=== PATIENT | female | born 1955 | race Caucasian/White ===

== ENCOUNTER 2020-12-12 08:56 | Outpatient (REF) | payer MEDICARE, SELFPAY ==
--- NOTE | 2020-12-15 11:25 | XR_ITS ---
EXAMINATION: XR KNEE, RIGHT CLINICAL INFORMATION: Unilateral primary osteoarthritis of the right knee COMPARISON: 09/22/2018 TECHNIQUE: AP standing view of both knees. Lateral and sunrise views of the right knee. of the right knee. FINDINGS: Right knee: No fracture or subluxation. There is mild lateral compartment joint space narrowing. Prominent tricompartmental marginal osteophytes are seen. There is a moderate joint effusion. Left knee: No fracture or subluxation. Small marginal osteophytes of the medial and lateral compartments. XR/XR knee RT 3V IMPRESSION: Moderate tricompartmental degenerative changes of the right knee. Moderate joint effusion.
== END 2020-12-12 08:57 | disposition home or self-care (01) ==
LOC: HO.HOSX 08:56
PROVIDERS: PCP Internal Medicine; Visit Provider Orthopaedic Surgery
DX: M17.11 Unilateral primary osteoarthritis, right knee (principal); N18.4 Chronic kidney disease, stage 4 (severe)
CPT/HCPCS: 99212

== ENCOUNTER 2020-12-15 | Outpatient (REF) | payer MEDICARE, SELFPAY | END 2020-12-15 00:01 | disposition home or self-care (01) | LOC: HO.XRAY | PROVIDERS: Visit Provider Orthopaedic Surgery | DX: M17.11 Unilateral primary osteoarthritis, right knee (principal) | CPT/HCPCS: 73562 ==

== ENCOUNTER 2021-01-11 09:46 | Outpatient (REF) | payer MEDICARE, SELFPAY ==
[2021-01-11 12:23] LABS: MANUAL DIFF FLAG NO
[2021-01-11 12:27] LABS: Basophils Percent Auto 0.6 % (0-2); Eosinophils Absolute Auto 0.3 X10*3/uL (0.0-0.4); Eosinophils Percent Auto 4.6 % (0-4); Hematocrit 39.2 % (37-47); Hemoglobin 12.4 g/dl (12.0-16.0); Imm Gran Abs Auto 0.03 X10*3/uL (0.00-0.03); Imm Gran Pct Auto 0.4 % (0.0-0.4); Lymphocytes Absolute Auto 1.6 X10*3/uL (1.2-4.9); Lymphocytes Percent Auto 22.2 % (20-40); Mean Corpuscular HGB Conc 31.6 g/dl (31.0-35.0); Mean Corpuscular Hemoglobin 31.2 pg (27.0-33.0); Mean Corpuscular Volume 98.7 fL (80-98); Mean Platelet Volume 9.4 fL (9.4-12.3); Monocytes Absolute Auto 0.7 X10*3/uL (0.1-1.2); Monocytes Percent Auto 9.5 % (2-11); Neutrophils Absolute Auto 4.4 X10*3/uL (2.0-8.3); Neutrophils Percent Auto 62.7 % (45-73); Platelet Count 289 X10*3/uL (160-400); Red Blood Count 3.97 X10*6/uL (4.20-5.50); Red Cell Distribution Width 13.1 % (11.0-16.0)
[2021-01-11 13:28] LABS: Anion Gap 13 (12-20); Blood Urea Nitrogen 27 mg/dL (9-16); Calcium 9.4 mg/dL (8.4-10.2); Carbon Dioxide 29 mmol/L (22-29); Chloride 104 mmol/L (96-108); Estimated Glomerular Filt Rate 28; Glucose Random 97 mg/dL (60-115); Potassium 4.6 mmol/L (3.3-5.1); Sodium 141 mmol/L (135-145)
== END 2021-01-11 09:47 | disposition home or self-care (01) ==
LOC: HO.LAB 09:46
PROVIDERS: PCP Internal Medicine; Visit Provider Orthopaedic Surgery
DX: Z01.812 Encounter for preprocedural laboratory examination (principal)
CPT/HCPCS: 36415; 80048; 85025

== ENCOUNTER → 2021-02-09 13:01 | Outpatient (BNVA) | payer MEDICARE, SELFPAY | PROVIDERS: PCP Internal Medicine; Visit Provider Physician Assistant | DX: Z13.89 Encounter for screening for other disorder (principal) | CPT/HCPCS: 99212 ==

== ENCOUNTER 2021-02-14 07:43 | Inpatient (IN) | payer MEDICARE, SELFPAY ==
--- NOTE | 2021-01-11 11:43 | ECG_ITS ---
Test Reason : PREPROC EXAM Blood Pressure : / mmHG Vent. Rate : 081 BPM Atrial Rate : 081 BPM P-R Int : 144 ms QRS Dur : 088 ms QT Int : 372 ms P-R-T Axes : 059 044 029 degrees QTc Int : 432 ms Normal sinus rhythm Possible Left atrial enlargement Borderline ECG No previous ECGs available Referred By: Werner Brooks Electronically Signed By:NAVARRO ANDERSON
[2021-02-07 11:56] VITALS: BP 119/59; PULSE 84; RESP 20; O2SAT 96; BMI 40.5
--- NOTE | 2021-02-07 12:10 | HO.ANESPROP2 ---
Documented by User: Kiesha Blanconey 02/13/21 10:32 HPI - Anesthesia Eval Consult details Narrative: Right Knee Replacement Total PCP cleared Renal cleared (post-covid renal disease) PMFSH Active Problems Active Problems: All Active Problems (Updated 01/11/21 @ 14:36 by Christine Rachel RN) Osteoarthritis of right knee (Acute) Past Medical History Medical History Arthritis Asthma Chronic renal insufficiency Cognitive dysfunction COVID-19 vaccine administered Difficulty swallowing Dysphagia Fatty liver High cholesterol History of COVID-19 HX: benign breast biopsy Hypertension Stage 4 chronic kidney disease Tremors of nervous system Surgical History Surgical History H/O endoscopy History of section History of colonoscopy Hx laparoscopic cholecystectomy Social History Social History Alcohol intake: never Smoking Status: Never smoker Current occupational status: retired Current occupation: right handed Meds Allergies Allergy/AdvReac Type Severity Reaction Status Date / Time benztropine [From Cogentin] Allergy Intermediate Rash Verified 02/14/21 08:00 latex Allergy Intermediate Itching Verified 02/14/21 08:00 thimerosal Allergy Intermediate Itching Verified 02/14/21 08:00 sulfamethoxazole AdvReac Intermediate contraindicated Verified 02/14/21 08:00 [From Bactrim] w/stage 4 CKD trimethoprim [From Bactrim] AdvReac Intermediate contraindicated Verified 02/14/21 08:00 w/stage 4 CKD Home Medications Medication Instructions Recorded Confirmed Last Taken Type albuterol sulfate 2.5 mg INHALATION Q4H PRN 12/12/20 02/07/21 Unknown History amlodipine 10 mg tablet 10 mg PO DAILY 12/12/20 02/07/21 Unknown History aripiprazole 10 mg tablet 10 mg PO BEDTIME 12/12/20 02/07/21 Unknown History budesonide-formoterol HFA 80 2 puff INHALATION BID 12/12/20 02/07/21 Unknown History mcg-4.5 mcg/actuation aerosol inhaler clonazepam 1 mg tablet 0.5 mg PO QPM 12/12/20 02/07/21 Unknown History fluoxetine 40 mg capsule 40 mg PO QAM 12/12/20 02/07/21 Unknown History gabapentin 100 mg capsule 100 mg PO BEDTIME 12/12/20 02/07/21 Unknown History pravastatin 80 mg tablet 80 mg PO BEDTIME 12/12/20 02/07/21 Unknown History quetiapine 100 mg tablet 300 mg PO BEDTIME 12/12/20 02/14/21 Unknown History albuterol sulfate [ProAir HFA] 2 puff INHALATION Q4-6H PRN 02/07/21 02/07/21 Unknown History bupropion HCl 1 tab PO BID 02/07/21 02/14/21 02/14/21 06:00 History cetirizine 10 mg PO BEDTIME 02/07/21 02/07/21 Unknown History cholecalciferol (vitamin D3) 50 mcg PO Q2D 02/07/21 02/07/21 Unknown History [Vitamin D3] clonazepam 1.5 mg PO BEDTIME 02/07/21 02/07/21 Unknown History clonidine HCl 1 tab PO BEDTIME 02/07/21 02/07/21 Unknown History docusate sodium [Colace] 100 mg PO BID 02/07/21 02/07/21 Unknown History multivitamin 1 tab PO DAILY 02/07/21 02/07/21 Unknown History primidone 1 tab PO BID 02/07/21 02/07/21 Unknown History Exam Exam Date and Time: February 07, 2021 1210 Pertinent Lab Results Pertinent Lab Results: Laboratory Tests 01/11/21 01/11/21 11:41 11:41 WBC 7.0 Hgb 12.4 Hct 39.2 Plt Count 289 Sodium 141 Potassium 4.6 Chloride 104 Carbon Dioxide 29 BUN 27 H Creatinine 1.81 H Estimated GFR 28 Lab Results 02/07/21 02/07/21 Range/Units 13:21 Unknown Nasal Screen MRSA (PCR) NEGATIVE (Negative) Nasal S. aureus Screen NEGATIVE (Negative) Nasal MRSA/S.aureus Interp SEE NOTE Blood Type B Positive Antibody Screen NEGATIVE Narrative Narrative: EKG 12/2020 Vent. Rate : 081 BPM Atrial Rate : 081 BPM P-R Int : 144 ms QRS Dur : 088 ms QT Int : 372 ms P-R-T Axes : 059 044 029 degrees QTc Int : 432 ms Normal sinus rhythm Possible Left atrial enlargement Borderline ECG No previous ECGs available Airway Neck ROM: Full Loose/Missing/Broken Teeth: Yes (Chipped #8, implants in molars) Heart: RRR Lungs: CTAB Assessment and Plan Assessment Anesthesia Assessment: Anesthesia Plan Discussed (Spinal vs GA, nerve block) and PAT Visit Documented by User: Home Palacios MD 02/14/21 11:56 [facility] Past Medical History Medical History Arthritis Asthma Chronic renal insufficiency Cognitive dysfunction COVID-19 vaccine administered Difficulty swallowing Dysphagia Fatty liver High cholesterol History of COVID-19 HX: benign breast biopsy Hypertension Stage 4 chronic kidney disease Tremors of nervous system Surgical History Surgical History H/O endoscopy History of section History of colonoscopy Hx laparoscopic cholecystectomy Social History Social History Alcohol intake: never Smoking Status: Never smoker Current occupational status: retired Current occupation: right handed Meds Allergies Allergy/AdvReac Type Severity Reaction Status Date / Time benztropine [From Cogentin] Allergy Intermediate Rash Verified 02/14/21 08:00 latex Allergy Intermediate Itching Verified 02/14/21 08:00 thimerosal Allergy Intermediate Itching Verified 02/14/21 08:00 sulfamethoxazole AdvReac Intermediate contraindicated Verified 02/14/21 08:00 [From Bactrim] w/stage 4 CKD trimethoprim [From Bactrim] AdvReac Intermediate contraindicated Verified 02/14/21 08:00 w/stage 4 CKD Home Medications Medication Instructions Recorded Confirmed Last Taken Type albuterol sulfate 2.5 mg INHALATION Q4H PRN 12/12/20 02/07/21 Unknown History amlodipine 10 mg tablet 10 mg PO DAILY 12/12/20 02/07/21 Unknown History aripiprazole 10 mg tablet 10 mg PO BEDTIME 12/12/20 02/07/21 Unknown History budesonide-formoterol HFA 80 2 puff INHALATION BID 12/12/20 02/07/21 Unknown History mcg-4.5 mcg/actuation aerosol inhaler clonazepam 1 mg tablet 0.5 mg PO QPM 12/12/20 02/07/21 Unknown History fluoxetine 40 mg capsule 40 mg PO QAM 12/12/20 02/07/21 Unknown History gabapentin 100 mg capsule 100 mg PO BEDTIME 12/12/20 02/07/21 Unknown History pravastatin 80 mg tablet 80 mg PO BEDTIME 12/12/20 02/07/21 Unknown History quetiapine 100 mg tablet 300 mg PO BEDTIME 12/12/20 02/14/21 Unknown History albuterol sulfate [ProAir HFA] 2 puff INHALATION Q4-6H PRN 02/07/21 02/07/21 Unknown History bupropion HCl 1 tab PO BID 02/07/21 02/14/21 02/14/21 06:00 History cetirizine 10 mg PO BEDTIME 02/07/21 02/07/21 Unknown History cholecalciferol (vitamin D3) 50 mcg PO Q2D 02/07/21 02/07/21 Unknown History [Vitamin D3] clonazepam 1.5 mg PO BEDTIME 02/07/21 02/07/21 Unknown History clonidine HCl 1 tab PO BEDTIME 02/07/21 02/07/21 Unknown History docusate sodium [Colace] 100 mg PO BID 02/07/21 02/07/21 Unknown History multivitamin 1 tab PO DAILY 02/07/21 02/07/21 Unknown History primidone 1 tab PO BID 02/07/21 02/07/21 Unknown History Exam Airway Mallampati Class: III TM Dist: >3cm Neck ROM: Full Loose/Missing/Broken Teeth: No Heart: RRR Assessment and Plan Assessment Anesthesia Assessment: Anesthesia Plan Discussed, PAT Visit and Chart Reviewed Final Anesthetic Review NPO: Yes ASA Class: II Final Preanesthetic Review: No Changes in Pt Med Stat, Meds/Allgs Chart Reviewed, Consent Obtained/Reviewed and Anes Risks/Benef Reviewed Patient Risk: Intermediate Procedure Risk: Intermediate Anesthetic Plan Anesthetic Plan: GA, Spinal and Regional Block Disposition: Standard PACU
[2021-02-07 15:04] LABS: MRSA Nasal PCR NEGATIVE (Negative); SA Nasal PCR NEGATIVE (Negative)
[2021-02-14] VITALS (17 sets, daily range): BP systolic 140–182; BP diastolic 73–95; PULSE 76–101; RESP 16–22; TEMP 36.1–37.2; O2SAT 92–98
--- NOTE | ~2021-02-14 | XR_ITS ---
EXAMINATION: XR KNEE, RIGHT CLINICAL INFORMATION: Status post total knee arthroplasty COMPARISON: Right knee x-ray December 12, 2020 TECHNIQUE: 2 views of the right knee. FINDINGS: Patient is status post right total knee arthroplasty. Components are in expected orientation. There is no evidence of periprosthetic fracture. Small suprapatellar joint effusion noted. Expected subcutaneous emphysema. Skin robbie present. XR/XR knee RT 2V IMPRESSION: Expected postoperative changes of the right knee.
[2021-02-14] MEDS: Gabapentin 600 MG TABLET PO (08:09)
[2021-02-14 08:25] LABS: COVID-19 Test Negative (Negative); IDNOW Serial# 9DD0AD1C
[2021-02-14] MEDS: 0.9 % Sodium Chloride 1,000 ML 100 ML IVCONT (08:59)
--- NOTE | 2021-02-14 09:49 | MHC.SHP ---
Pre-Procedural Eval Section A The patient is an INPATIENT: No Changes since office visit: Yes Patient answered all questions; No Cold of Flu in the past 2 weeks, No New Medical Problems and No Changes in Medication The History & Physical has been completed within 30 days and I have reviewed it.: Yes Section B Chief Complaint: Right total Knee Arthroplasty Allergies: Allergies Allergy/AdvReac Type Severity Reaction Status Date / Time benztropine [From Cogentin] Allergy Intermediate Rash Verified 02/14/21 08:00 latex Allergy Intermediate Itching Verified 02/14/21 08:00 thimerosal Allergy Intermediate Itching Verified 02/14/21 08:00 sulfamethoxazole AdvReac Intermediate contraindicated Verified 02/14/21 08:00 [From Bactrim] w/stage 4 CKD trimethoprim [From Bactrim] AdvReac Intermediate contraindicated Verified 02/14/21 08:00 w/stage 4 CKD Plan I have reviewed the history and physical and performed a pertinent physical examination on my patient. No changes have occurred unless specified.
--- NOTE | 2021-02-14 12:50 | P.BOP_ITS ---
Brief Operative Note Date of Service: 02/14/21 Pre-op diagnosis: Right knee OA Post-op diagnosis: same Procedure: Right TKA Implants: [employer] triathalon 12/14//a Surgeon: Werner Brooks MD Anesthesia: regional and spinal Credit Card Analyst: Paul Sorenson Estimated blood loss (mL): 150 Tourniquet time (min): 0 IV fluids (mL): 1,500 Pathology: other Condition: stable Disposition: PACU
--- NOTE | 2021-02-14 12:52 | W.PM.OPN ---
Operative Note Operative Note Date of Service: 02/14/21 Narrative: Pre-op diagnosis: Right knee OA Post-op diagnosis: same Procedure: Right TKA Implants: [place] triathalon //11cr/35a Surgeon: Werner Brooks MD Anesthesia: regional and spinal International Account Manager: Paul Sorenson Estimated blood loss (mL): 150 Tourniquet time (min): 0 IV fluids (mL): 1,500 Pathology: other Condition: stable Disposition: PACU Procedure in detail: Patient was brought to the operating room and prepped and draped in standard sterile fashion. A time-out was called to identify proper site proper procedure proper surgeon IV antibiotics were administered. 1 g of IV tranexamic acid was also administered. I began by making a midline incision down to the retinaculum and performed a medial parapatellar arthrotomy. The patella was translated laterally and the knee was flexed up. I performed a small medial peel and resected the infrapatellar fat pad. She had lateral femoral condyle and posterior lateral tibial eburnation. Powhatan's line was then used to drill my intramedullary femoral guide and my distal femur cut was made in 5 degrees of valgus. I then measured a 2 femur and placed my cutting guide and made my anterior posterior and chamfer cuts protecting the soft tissues at all times. Once I was happy with my cut I turned my attention to the tibia. In line with the tibial crest and with a 3 degree posterior slope I made my distal tibial cut protecting the PCL the posterior soft tissues at all times. An extension block was used to confirm appropriate amount of bony resection. I then sized a 3 tibia and once I was satidfied with the tibial coverage I placed my trial and with the trial femur in place took the knee through range of motion. I was happy with the extension and flexion as well as the stability at 30 and 90 degrees. I then turned my attention to the patella where I removed 1 cm from the undersurface of the patella and then trialed a 35a patellar button . Again the knee was taken through range of motion I was happy with the tracking. I then returned to the femur and drilled my femoral lug holes and prepared the tibia. Femoral bone plug was then placed and the knee was irrigated copiously. I then press fit the patella, tibia and femur in standard fashion. I trialed different inserts until I found the appropriate size. I then placed the final insert and performed a 3 minutes iodine soak with local TXA. The knee was then closed with a running Quill suture, a 3 0 Vicryl and robbie on the skin. Patient was then placed in sterile dressing and brought to recovery room in stable condition there were no known complications.
[2021-02-14] MEDS: oxyCODONE HCl Immed Release 5 MG TABLET PO ×2 (13:39→23:48)
[2021-02-14] MEDS: HYDROmorphone HCl 0.5 MG/0.5 ML SYRINGE 0.25 MG IVPUSH ×4 (13:50→22:39)
[2021-02-14] MEDS: Dextrose 5 % and 0.45 % NaCl 1,000 ML 80 ML IVCONT (15:15)
[2021-02-14] MEDS: ceFAZolin Sodium/Dextrose,Iso 2 GM/50 ML PIGGYBACK IV (17:15)
--- NOTE | 2021-02-14 17:25 | P.CONIM_ITS ---
History of Present Illness Data of Consult Service Date: 02/14/21 Requesting physician: Werner Brooks Primary Care Provider: Hilary Ocasio MD [facility] Reason for consult: medical management 65-year-old woman with a history of hypertension, hyperlipidemia and asthma status post right total knee arthroplasty. Surgery was unremarkable. Patient has a moderate amount of pain postoperatively. She has no other acute medical complaints. Vital signs are stable though blood pressure is elevated likely related to postoperative pain. Review of Systems Review of Systems: Denies any recent fever chills or decrease in appetite respiratory denies any shortness of breath coverage production cardiovascular is adjustment of any PND or edema gastrointestinal denies any dysphagia abdominal pain nausea vomiting or diarrhea genitourinary denies any dysuria frequency or hematuria musculoskeletal See HPI neuropsych denies any weakness or seizures all other systems reviewed are negative [facility] Medical History (Updated 02/14/21 @ 17:26 by Carlita Leyva NP) Arthritis Asthma Chronic renal insufficiency Cognitive dysfunction COVID-19 vaccine administered Difficulty swallowing Dysphagia Fatty liver High cholesterol History of COVID-19 HX: benign breast biopsy Hypertension Stage 4 chronic kidney disease Tremors of nervous system Pertinent family history: Denies cardiac disease Surgical History H/O endoscopy History of section History of colonoscopy Hx laparoscopic cholecystectomy Social History Household Members: Spouse Housing: House Alcohol intake: never Smoking Status: Never smoker Second Hand Smoke Exposure: No Current occupational status: retired Current occupation: right handed Meds Allergies Allergy/AdvReac Type Severity Reaction Status Date / Time benztropine [From Cogentin] Allergy Intermediate Rash Verified 02/14/21 08:00 latex Allergy Intermediate Itching Verified 02/14/21 08:00 thimerosal Allergy Intermediate Itching Verified 02/14/21 08:00 sulfamethoxazole AdvReac Intermediate contraindicated Verified 02/14/21 08:00 [From Bactrim] w/stage 4 CKD trimethoprim [From Bactrim] AdvReac Intermediate contraindicated Verified 02/14/21 08:00 w/stage 4 CKD Active Medications: Current Medications Generic Name Dose Route Start Last Admin Trade Name Freq PRN Reason Stop Dose Admin Acetaminophen 650 mg 02/14/21 13:16 Acetaminophen 325 Mg Tablet PO Q6H PRN Pain, Mild (Pain Scale 1-3) Albuterol Sulfate 2.5 mg 02/14/21 07:43 Albuterol Sulfate (0.083%) 2.5 Mg/3 Ml Vial.Neb INHALE ONCE PRN Shortness of Breath/Wheezing Albuterol Sulfate 2.5 mg 02/14/21 11:56 Albuterol Sulfate (0.083%) 2.5 Mg/3 Ml Vial.Neb INHALE ONCE PRN Wheezing Celecoxib 200 mg 02/14/21 21:00 Celecoxib 200 Mg Capsule PO BID IDA Docusate Sodium 100 mg 02/14/21 21:00 Docusate Sodium 100 Mg Capsule PO BID IDA Hydromorphone HCl 0.25 mg 02/14/21 11:56 02/14/21 14:05 Hydromorphone Hcl 0.5 Mg/0.5 Ml Syringe IVPUSH 0.25 mg Q5M PRN Administration Pain, Severe (Pain Scale 7-10) Hydromorphone HCl 0.25 mg 02/14/21 13:16 Hydromorphone Hcl 0.5 Mg/0.5 Ml Syringe IVPUSH Q4H PRN Pain, Severe (Pain Scale 7-10) Sodium Chloride 1,000 mls @ 100 mls/hr 02/14/21 07:45 02/14/21 15:16 Ns IVCONT Infused .Q10H IDA Infusion Dextrose/Sodium Chloride 1,000 mls @ 80 mls/hr 02/14/21 13:30 02/14/21 15:15 D51/2ns IVCONT 80 mls/hr .[id number] IDA Administration Naloxone HCl 0.2 mg 02/14/21 13:16 Naloxone Hcl 0.4 Mg/Ml Vial IVPUSH Q2M PRN Excessive sedation or RR < 8 Ondansetron HCl 4 mg 02/14/21 11:56 Ondansetron Hcl 4 Mg/2 Ml Vial IVPUSH ONCE PRN Nausea and Vomiting Ondansetron HCl 4 mg 02/14/21 13:16 Ondansetron Hcl 4 Mg/2 Ml Vial IVPUSH Q8H PRN Nausea and Vomiting Oxycodone HCl 5 mg 02/14/21 13:16 Oxycodone Hcl Immed Release 5 Mg Tablet PO Q4H PRN Pain, Moderate (Pain Scale 4-6 Oxycodone HCl 10 mg 02/14/21 21:00 Oxycodone Hcl Er 10 Mg Tab.Er.12h PO BID [facility] Sodium Chloride 3 ml 02/14/21 16:00 02/14/21 17:16 0.9 % Sodium Chloride Flush 3 Ml Syringe IVFLUSH Not Given QSHIFT [facility] Home Medications Medication Instructions Recorded Confirmed Last Taken Type albuterol sulfate 2.5 mg INHALATION Q4H PRN 12/12/20 02/07/21 Unknown History amlodipine 10 mg tablet 10 mg PO DAILY 12/12/20 02/07/21 Unknown History aripiprazole 10 mg tablet 10 mg PO BEDTIME 12/12/20 02/07/21 Unknown History budesonide-formoterol HFA 80 2 puff INHALATION BID 12/12/20 02/07/21 Unknown History mcg-4.5 mcg/actuation aerosol inhaler clonazepam 1 mg tablet 0.5 mg PO QPM 12/12/20 02/07/21 Unknown History fluoxetine 40 mg capsule 40 mg PO QAM 12/12/20 02/07/21 Unknown History gabapentin 100 mg capsule 100 mg PO BEDTIME 12/12/20 02/07/21 Unknown History pravastatin 80 mg tablet 80 mg PO BEDTIME 12/12/20 02/07/21 Unknown History quetiapine 100 mg tablet 300 mg PO BEDTIME 12/12/20 02/14/21 Unknown History albuterol sulfate [ProAir HFA] 2 puff INHALATION Q4-6H PRN 02/07/21 02/07/21 Unknown History bupropion HCl 1 tab PO BID 02/07/21 02/14/21 02/14/21 06:00 History cetirizine 10 mg PO BEDTIME 02/07/21 02/07/21 Unknown History cholecalciferol (vitamin D3) 50 mcg PO Q2D 02/07/21 02/07/21 Unknown History [Vitamin D3] clonazepam 1.5 mg PO BEDTIME 02/07/21 02/07/21 Unknown History clonidine HCl 1 tab PO BEDTIME 02/07/21 02/07/21 Unknown History docusate sodium [Colace] 100 mg PO BID 02/07/21 02/07/21 Unknown History multivitamin 1 tab PO DAILY 02/07/21 02/07/21 Unknown History primidone 1 tab PO BID 02/07/21 02/07/21 Unknown History Physical Exam Vital Signs and Narrative: Vital Signs: Last Vital Signs Temp 97.2 F 02/14/21 17:09 Pulse 86 02/14/21 17:09 Resp 18 02/14/21 17:09 BP 150/85 H 02/14/21 17:09 Pulse Ox 95 02/14/21 17:09 Body Mass Index 40.5 Appearing in no acute distress head is normocephalic atraumatic eyes pupils are PERRLA sclera is anicteric mouth throat mucous membranes are intact and moist neck is supple no lymphadenopathy, no JVD noted lung sounds are clear to auscultation heart regular rate rhythm, clear S1, S2, right foot good pedal pulse positive bowel sounds, abdomen is soft, nontender neuro patient is alert x3, no focal deficits MSK right knee dressing clean, dry and intact Results Labs Labs: Laboratory Results - last 24 hr 02/14/21 07:54 COVID-19 ([facility]) Negative COVID-19 Clin Com See Note Imaging Radiologist's Impressions: Impressions Knee X-Ray 02/14/21 14:12 IMPRESSION: Expected postoperative changes of the right knee. Assessment and Plan (1) Status post total right knee replacement: Status: Acute 65-year-old woman status post right total knee arthroplasty. Right total knee arthroplasty. -management as per surgical team. -pain management -outpatient physical therapy Hypertension. Elevated blood pressures. Likely related to postoperative pain. -continue amlodipine and clonidine. -follow blood pressure closely. Asthma. No exacerbation. -albuterol as needed. Hyperlipidemia. - statin at discharge PTSD/depression. -continue home medications next DVT prophylaxis with mechanical compression boots as per surgical team. Attending: Dr. Gaitan
[2021-02-14] MEDS: Docusate Sodium 100 MG CAPSULE PO (20:21)
[2021-02-14] MEDS: Celecoxib 200 MG CAPSULE PO (20:21)
[2021-02-14] MEDS: oxyCODONE HCl ER 10 MG TAB.ER.12H PO (20:21)
[2021-02-15] VITALS (10 sets, daily range): BP systolic 114–177; BP diastolic 54–82; PULSE 90–109; RESP 16–20; TEMP 36.3–36.8; O2SAT 95–97
--- NOTE | 2021-02-15 00:45 | PC.NURSE ---
bladder scanned pt at 1915 for 801 ml, straight cath placed and output of 800 ml. bladder scanned pt again at 0010 for 535 ml, straight cath placed and output of 650 ml.
[2021-02-15] MEDS: oxyCODONE HCl Immed Release 5 MG TABLET 10 MG PO ×4 (02:00→16:11)
[2021-02-15] MEDS: HYDROmorphone HCl 0.5 MG/0.5 ML SYRINGE 0.25 MG IVPUSH ×4 (03:12→22:20)
[2021-02-15] MEDS: Dextrose 5 % and 0.45 % NaCl 1,000 ML 80 ML IVCONT (03:14)
--- NOTE | 2021-02-15 03:20 | PC.NURSE ---
at 0130 pt c/o 10/ pain in right knee and not due for any pain meds, [employer] connect message sent to CANDELARIA Diehl. Nitza increased oxycodone to 10mg and OK'd to give the 10 mg dose now. Oxycodone administered with some effect.
[2021-02-15 06:45] LABS: MANUAL DIFF FLAG NO
[2021-02-15 06:59] LABS: Basophils Percent Auto 0.2 % (0-2); Eosinophils Absolute Auto 0.1 X10*3/uL (0.0-0.4); Eosinophils Percent Auto 0.8 % (0-4); Hematocrit 34.7 % (37-47); Hemoglobin 11.2 g/dl (12.0-16.0); Imm Gran Abs Auto 0.05 X10*3/uL (0.00-0.03); Imm Gran Pct Auto 0.4 % (0.0-0.4); Lymphocytes Absolute Auto 1.2 X10*3/uL (1.2-4.9); Lymphocytes Percent Auto 10.4 % (20-40); Mean Corpuscular HGB Conc 32.3 g/dl (31.0-35.0); Mean Corpuscular Hemoglobin 31.4 pg (27.0-33.0); Mean Corpuscular Volume 97.2 fL (80-98); Mean Platelet Volume 9.2 fL (9.4-12.3); Monocytes Absolute Auto 1.4 X10*3/uL (0.1-1.2); Monocytes Percent Auto 11.5 % (2-11); Neutrophils Absolute Auto 9.1 X10*3/uL (2.0-8.3); Neutrophils Percent Auto 76.7 % (45-73); Platelet Count 250 X10*3/uL (160-400); Red Blood Count 3.57 X10*6/uL (4.20-5.50); Red Cell Distribution Width 13.2 % (11.0-16.0); White Blood Count 11.8 X10*3/uL (4.8-10.8)
--- NOTE | 2021-02-15 07:02 | PC.NURSE ---
pt still unable to void overnight, bladder scanned at 0615 for 732 ml, straight cath'd pt for 850 ml.
[2021-02-15 07:23] LABS: Anion Gap 12 (12-20); Blood Urea Nitrogen 15 mg/dL (9-16); Calcium 8.5 mg/dL (8.4-10.2); Carbon Dioxide 26 mmol/L (22-29); Chloride 102 mmol/L (96-108); Creatinine Clr Calc Pharmacy 42.8; Estimated Glomerular Filt Rate 38; Glucose Fasting 130 mg/dL (60-99); Potassium 4.2 mmol/L (3.3-5.1); Sodium 136 mmol/L (135-145)
[2021-02-15] MEDS: Celecoxib 200 MG CAPSULE PO ×2 (08:09→20:29)
[2021-02-15] MEDS: Docusate Sodium 100 MG CAPSULE PO ×2 (08:09→20:28)
[2021-02-15] MEDS: Aspirin 325 MG TABLET PO (08:09)
[2021-02-15] MEDS: amLODIPine Besylate 10 MG TABLET PO (08:10)
[2021-02-15] MEDS: oxyCODONE HCl ER 10 MG TAB.ER.12H PO ×2 (08:10→20:29)
[2021-02-15] MEDS: FLUoxetine HCl 20 MG CAPSULE 40 MG PO (08:11)
--- NOTE | 2021-02-15 08:22 | PM.PNORT ---
Subjective Subjective Date of Service: 02/15/21 Interval history: POD:1 No overnight events Patient is: resting in bed having some pain in the knee and difficulty with voiding. Has not been out of bed yet. Denies:cp,sob,dizziness Physical Exam Vital Signs: Vital Signs: Last Vital Signs Temp 97.5 F 02/15/21 07:15 Pulse 94 02/15/21 08:10 Resp 20 02/15/21 07:15 BP 177/71 H 02/15/21 08:10 Pulse Ox 97 02/15/21 07:15 Body Mass Index 40.5 Const: General: cooperative, healthy appearing and no acute distress Resp: Effort & Inspection: normal respiratory effort and able to speak in complete sentences Cardio: Rate: regular rate Peripheral pulses: Peripheral pulses 2+ throughout GI: Palpation (GI): Soft to palpation Skin: General skin exam: no rashes or lesions noted Extrem: Other: Right knee bandage clean, dry and intact, no erythema, mild edema, sensation intact Progress Note: A&P Assessment and plan (1) Status post total right knee replacement: Status: Acute Assessment and Plan: Continue pain mgmnt Begin dvt ppx begin PT for RT TKA Dispo planning-Pending PT eval, pain mgmnt Fall Risk Details Current Medications: Current Medications Generic Name Dose Route Start Last Admin Trade Name Freq PRN Reason Stop Dose Admin Acetaminophen 650 mg 02/14/21 13:16 Acetaminophen 325 Mg Tablet PO Q6H PRN Pain, Mild (Pain Scale 1-3) Albuterol Sulfate 2.5 mg 02/14/21 07:43 Albuterol Sulfate (0.083%) 2.5 Mg/3 Ml Vial.Neb INHALE ONCE PRN Shortness of Breath/Wheezing Albuterol Sulfate 2.5 mg 02/14/21 11:56 Albuterol Sulfate (0.083%) 2.5 Mg/3 Ml Vial.Neb INHALE ONCE PRN Wheezing Albuterol Sulfate 2.5 mg 02/15/21 07:20 Albuterol Sulfate (0.083%) 2.5 Mg/3 Ml Vial.Neb INHALE Q4H PRN wheezing Amlodipine Besylate 10 mg 02/15/21 09:00 02/15/21 08:10 Amlodipine Besylate 10 Mg Tablet PO 10 mg DAILY IDA Administration Protocol Aripiprazole 10 mg 02/15/21 21:00 Aripiprazole 10 Mg Tablet PO BEDTIME [facility] Aspirin 325 mg 02/15/21 09:00 02/15/21 08:09 Aspirin 325 Mg Tablet PO 325 mg BID IDA Administration Bupropion HCl 300 mg 02/15/21 09:00 Bupropion Hcl Xl 300 Mg Tab.Er.24h PO DAILY IDA Celecoxib 200 mg 02/14/21 21:00 02/15/21 08:09 Celecoxib 200 Mg Capsule PO 200 mg BID IDA Administration Clonidine HCl 0.2 mg 02/15/21 21:00 Clonidine Hcl 0.2 Mg Tablet PO BEDTIME [facility] Protocol Docusate Sodium 100 mg 02/14/21 21:00 02/15/21 08:09 Docusate Sodium 100 Mg Capsule PO 100 mg BID IDA Administration Fluoxetine HCl 40 mg 02/15/21 09:00 02/15/21 08:11 Fluoxetine Hcl 20 Mg Capsule PO 40 mg DAILY IDA Administration Fluticasone/Vilanterol 1 puff 02/15/21 08:30 Fluticasone/Vilanterol 100/25 Blst.W.Dev INHALE RDAILY [facility] Hydromorphone HCl 0.25 mg 02/14/21 11:56 02/14/21 14:05 Hydromorphone Hcl 0.5 Mg/0.5 Ml Syringe IVPUSH 0.25 mg Q5M PRN Administration Pain, Severe (Pain Scale 7-10) Hydromorphone HCl 0.25 mg 02/14/21 13:16 02/15/21 03:12 Hydromorphone Hcl 0.5 Mg/0.5 Ml Syringe IVPUSH 0.25 mg Q4H PRN Administration Pain, Severe (Pain Scale 7-10) Dextrose/Sodium Chloride 1,000 mls @ 80 mls/hr 02/14/21 13:30 02/15/21 03:14 D51/2ns IVCONT 80 mls/hr .[id number] IDA Administration Naloxone HCl 0.2 mg 02/14/21 13:16 Naloxone Hcl 0.4 Mg/Ml Vial IVPUSH Q2M PRN Excessive sedation or RR < 8 Ondansetron HCl 4 mg 02/14/21 11:56 Ondansetron Hcl 4 Mg/2 Ml Vial IVPUSH ONCE PRN Nausea and Vomiting Ondansetron HCl 4 mg 02/14/21 13:16 Ondansetron Hcl 4 Mg/2 Ml Vial IVPUSH Q8H PRN Nausea and Vomiting Oxycodone HCl 10 mg 02/14/21 21:00 02/15/21 08:10 Oxycodone Hcl Er 10 Mg Tab.Er.12h PO 10 mg BID IDA Administration Oxycodone HCl 10 mg 02/15/21 01:33 02/15/21 07:31 Oxycodone Hcl Immed Release 5 Mg Tablet PO 10 mg Q4H PRN Administration Pain, Moderate (Pain Scale 4-6 Pravastatin Sodium 80 mg 02/15/21 21:00 Pravastatin Sodium 80 Mg Tablet PO BEDTIME IDA Quetiapine Fumarate 300 mg 02/15/21 21:00 Quetiapine Fumarate 50 Mg Tablet PO BEDTIME IDA Sodium Chloride 3 ml 02/14/21 16:00 02/15/21 06:58 0.9 % Sodium Chloride Flush 3 Ml Syringe IVFLUSH Not Given QSHIFT IDA Time Spent With Patient Time: Total time spent is greater than 50% in coordination of care (as documented) at patient's floor/unit and/or counseling patient: Time with patient: 15 - 24 minutes
--- NOTE | 2021-02-15 09:05 | MHC.CM.PN ---
pt lives c her and grandaughter in their home. she reports that she is independent in her care at [facility]. her family is able to help her when she returns home , including a ride at discharge. pt requested ref. be made to [facility] for home PT. this has been done. pt has a walker and cane at home. dc plan is home c [facility] for home PT. cm to cont. to follow.
--- NOTE | 2021-02-15 09:09 | MHC.CM.PN ---
pt lives c her and grandaughter in their home. she reports that she is independent in her care at [facility]. her family is able to help her when she returns home , including a ride at discharge. pt requested ref. be made to [facility] for home PT. this has been done. pt has a walker and cane at home. pt does not want to go to [facility]. dc plan is home c [facility]na for home PT. cm to cont. to follow.
[2021-02-15] MEDS: buPROPion HCl XL 300 MG TAB.ER.24H PO (09:20)
[2021-02-15] MEDS: Fluticasone/Vilanterol 100/25 BLST.W.DEV 1 PUFF INHALE (09:20)
--- NOTE | 2021-02-15 14:39 | HO.POSTANES ---
Post Anesthesia Evaluation Post Anesthesia Evaluation Vital Signs: Vital Signs Temp Pulse Resp BP Pulse Ox 02/15/21 14:05 95 02/15/21 11:56 95 02/15/21 11:20 97.5 F 101 H 16 152/82 H 96 02/15/21 09:18 94 177/71 H 02/15/21 08:10 94 177/71 H 02/15/21 07:15 97.5 F 94 20 177/77 H 97 02/15/21 03:27 98.3 F 105 H 20 159/81 H 96 Anesthesia: Nerve Block and General Mental Status: Awake Pain Control: Satisfactory Nausea/Vomiting: None Hydration: Adequate Anesthesia-Related Issues: No Anes. Related Issues
--- NOTE | 2021-02-15 15:04 | P.PNIM_ITS ---
Subjective Subjective Date of Service: 02/15/21 <CANDELARIA Mcnamara - Last Filed: 02/15/21 15:19> 02/15/21 <Arsen Gaitan MD - Last Filed: 02/16/21 10:12> Interval History: follow up consult <CANDELARIA Mcnamara - Last Filed: 02/15/21 15:19> Physical Exam Vital Signs: Vital Signs: Last Vital Signs Temp 97.5 F 02/15/21 11:20 Pulse 101 H 02/15/21 11:20 Resp 16 02/15/21 11:20 BP 152/82 H 02/15/21 11:20 Pulse Ox 95 02/15/21 14:05 Body Mass Index 40.5 <CANDELARIA Mcnamara - Last Filed: 02/15/21 15:19> Const: Nutritional Appearance: well nourished <CANDELARIA Mcnamara - Last Filed: 02/15/21 15:19> Orientation/consciousness: patient oriented x3 <CANDELARIA Mcnamara - Last Filed: 02/15/21 15:19> HENMT: Head: Yes normocephalic and Yes atraumatic <CANDELARIA Mcnamara - Last Filed: 02/15/21 15:19> Eyes: Sclerae: sclerae normal <CANDELARIA Mcnamara - Last Filed: 02/15/21 15:19> Resp: Effort & Inspection: normal respiratory effort and no respiratory distress <CANDELARIA Mcnamara - Last Filed: 02/15/21 15:19> Auscultation: clear to auscultation bilaterally <CANDELARIA Mcnamara - Last Filed: 02/15/21 15:19> Cardio: Rate: regular rate <CANDELARIA Mcnamara - Last Filed: 02/15/21 15:19> Rhythm: regular rhythm <CANDELARIA Mcnamara - Last Filed: 02/15/21 15:19> GI: Palpation (GI): Soft to palpation and nontender <CANDELARIA Mcnamara - Last Filed: 02/15/21 15:19> Neuro: General: patient oriented x3 <CANDELARIA Mcnamara - Last Filed: 02/15/21 15:19> Cranial nerves: Yes CN's II-XII intact bilaterally and Yes Bilaterally intact EOM present <CANDELARIA Mcnamara - Last Filed: 02/15/21 15:19> Extrem: Other: right knee wrapped in vilma bandage <CANDELARIA Mcnamara - Last Filed: 02/15/21 15:19> Objective Data Current Medications Generic Name Dose Route Start Last Admin Trade Name Freq PRN Reason Stop Dose Admin Acetaminophen 650 mg 02/14/21 13:16 Acetaminophen 325 Mg Tablet PO Q6H PRN Pain, Mild (Pain Scale 1-3) Albuterol Sulfate 2.5 mg 02/14/21 07:43 Albuterol Sulfate (0.083%) 2.5 Mg/3 Ml Vial.Neb INHALE ONCE PRN Shortness of Breath/Wheezing Albuterol Sulfate 2.5 mg 02/14/21 11:56 Albuterol Sulfate (0.083%) 2.5 Mg/3 Ml Vial.Neb INHALE ONCE PRN Wheezing Albuterol Sulfate 2.5 mg 02/15/21 07:20 Albuterol Sulfate (0.083%) 2.5 Mg/3 Ml Vial.Neb INHALE Q4H PRN wheezing Amlodipine Besylate 10 mg 02/15/21 09:00 02/15/21 08:10 Amlodipine Besylate 10 Mg Tablet PO 10 mg DAILY IDA Administration Protocol Aripiprazole 10 mg 02/15/21 21:00 Aripiprazole 10 Mg Tablet PO BEDTIME IDA Bupropion HCl 300 mg 02/15/21 09:00 02/15/21 09:20 Bupropion Hcl Xl 300 Mg Tab.Er.24h PO 300 mg DAILY IDA Administration Celecoxib 200 mg 02/14/21 21:00 02/15/21 08:09 Celecoxib 200 Mg Capsule PO 200 mg BID IDA Administration Clonidine HCl 0.2 mg 02/15/21 21:00 Clonidine Hcl 0.2 Mg Tablet PO BEDTIME IDA Protocol Docusate Sodium 100 mg 02/14/21 21:00 02/15/21 08:09 Docusate Sodium 100 Mg Capsule PO 100 mg BID IDA Administration Fluoxetine HCl 40 mg 02/15/21 09:00 02/15/21 08:11 Fluoxetine Hcl 20 Mg Capsule PO 40 mg DAILY IDA Administration Fluticasone/Vilanterol 1 puff 02/15/21 08:30 02/15/21 09:20 Fluticasone/Vilanterol 100/25 Blst.W.Dev INHALE 1 puff RDAILY IDA Administration Hydromorphone HCl 0.25 mg 02/14/21 11:56 02/14/21 14:05 Hydromorphone Hcl 0.5 Mg/0.5 Ml Syringe IVPUSH 0.25 mg Q5M PRN Administration Pain, Severe (Pain Scale 7-10) Hydromorphone HCl 0.25 mg 02/14/21 13:16 02/15/21 13:18 Hydromorphone Hcl 0.5 Mg/0.5 Ml Syringe IVPUSH 0.25 mg Q4H PRN Administration Pain, Severe (Pain Scale 7-10) Naloxone HCl 0.2 mg 02/14/21 13:16 Naloxone Hcl 0.4 Mg/Ml Vial IVPUSH Q2M PRN Excessive sedation or RR < 8 Ondansetron HCl 4 mg 02/14/21 11:56 Ondansetron Hcl 4 Mg/2 Ml Vial IVPUSH ONCE PRN Nausea and Vomiting Ondansetron HCl 4 mg 02/14/21 13:16 Ondansetron Hcl 4 Mg/2 Ml Vial IVPUSH Q8H PRN Nausea and Vomiting Oxycodone HCl 10 mg 02/14/21 21:00 02/15/21 08:10 Oxycodone Hcl Er 10 Mg Tab.Er.12h PO 10 mg BID IDA Administration Oxycodone HCl 10 mg 02/15/21 01:33 02/15/21 11:42 Oxycodone Hcl Immed Release 5 Mg Tablet PO 10 mg Q4H PRN Administration Pain, Moderate (Pain Scale 4-6 Pravastatin Sodium 80 mg 02/15/21 21:00 Pravastatin Sodium 80 Mg Tablet PO BEDTIME [facility] Quetiapine Fumarate 300 mg 02/15/21 21:00 Quetiapine Fumarate 50 Mg Tablet PO BEDTIME IDA Sodium Chloride 3 ml 02/14/21 16:00 02/15/21 06:58 0.9 % Sodium Chloride Flush 3 Ml Syringe IVFLUSH Not Given QSHIFT [facility] <CANDELARIA Mcnamara - Last Filed: 02/15/21 15:19> Labs CBC & Chem 7: : 02/16/21 05:46 02/16/21 05:46 <CANDELARIA Mcnamara - Last Filed: 02/15/21 15:19> Assessment and Plan (1) Status post total right knee replacement: Status: Acute <CANDELARIA Mcnamara - Last Filed: 02/15/21 15:19> (2) Osteoarthritis of right knee: Status: Acute <CANDELARIA Mcnamara - Last Filed: 02/15/21 15:19> Assessment and Plan: This is a 65-year-old female with a history of HTN, HLD, asthma status post right total knee arthroplasty. POD #1 s/p Right total knee arthroplasty. -management as per surgical team. Hypertension. Elevated blood pressures. Likely related to postoperative pain. -continue amlodipine and clonidine -follow blood pressure closely Asthma. No exacerbation. -continue home inhalers Hyperlipidemia. -continue statin Mood -continue seroquel, fluoxetine, wellbutrin, abilify, clonazepam tremor -continue primidone Attending: Dr. Gaitan <CANDELARIA Mcnamara - Last Filed: 02/15/21 15:19> Attending Attestation: Patient seen and examined independently and I was present during pino portion of E/M service. Agree with CANDELARIA Mcknight's history, physical, assessment, and plan. Pain uncontrolled in the AM, but improved. BP elevated, likely secondary to pain. If remains elevated, will need titration of BP meds <Arsen Gaitan MD - Last Filed: 02/16/21 10:12>
[2021-02-15] MEDS: Acetaminophen 325 MG TABLET 650 MG PO (16:10)
[2021-02-15] MEDS: 0.9 % Sodium Chloride Flush 3 ML SYRINGE IVFLUSH ×2 (16:10→20:30)
[2021-02-15] MEDS: Pravastatin Sodium 80 MG TABLET PO (20:27)
[2021-02-15] MEDS: ARIPiprazole 10 MG TABLET PO (20:28)
[2021-02-15] MEDS: cloNIDine HCL 0.2 MG TABLET PO (20:28)
[2021-02-15] MEDS: QUEtiapine Fumarate 50 MG TABLET 300 MG PO (20:29)
[2021-02-15] MEDS: clonazePAM 0.5 MG TABLET PO (20:29)
[2021-02-15] MEDS: Milk of Magnesia 30 ML ORAL.SUSP 15 ML PO (20:30)
[2021-02-15] MEDS: Primidone 50 MG TABLET 250 MG PO (20:30)
[2021-02-16] VITALS (10 sets, daily range): BP systolic 105–149; BP diastolic 46–80; PULSE 72–111; RESP 16–20; TEMP 36.1–36.9; O2SAT 93–96
[2021-02-16 06:03] LABS: MANUAL DIFF FLAG NO
[2021-02-16 06:10] LABS: Basophils Percent Auto 0.2 % (0-2); Eosinophils Absolute Auto 0.4 X10*3/uL (0.0-0.4); Eosinophils Percent Auto 4.1 % (0-4); Hematocrit 28.4 % (37-47); Hemoglobin 9.3 g/dl (12.0-16.0); Imm Gran Abs Auto 0.06 X10*3/uL (0.00-0.03); Imm Gran Pct Auto 0.7 % (0.0-0.4); Lymphocytes Percent Auto 11.3 % (20-40); Mean Corpuscular HGB Conc 32.7 g/dl (31.0-35.0); Mean Corpuscular Hemoglobin 31.7 pg (27.0-33.0); Mean Corpuscular Volume 96.9 fL (80-98); Monocytes Absolute Auto 1.1 X10*3/uL (0.1-1.2); Monocytes Percent Auto 12.4 % (2-11); Neutrophils Absolute Auto 6.3 X10*3/uL (2.0-8.3); Neutrophils Percent Auto 71.3 % (45-73); Platelet Count 169 X10*3/uL (160-400); Red Blood Count 2.93 X10*6/uL (4.20-5.50); Red Cell Distribution Width 13.2 % (11.0-16.0); White Blood Count 8.8 X10*3/uL (4.8-10.8)
[2021-02-16 06:39] LABS: Anion Gap 9 (12-20); Blood Urea Nitrogen 18 mg/dL (9-16); Calcium 8.1 mg/dL (8.4-10.2); Carbon Dioxide 28 mmol/L (22-29); Chloride 102 mmol/L (96-108); Creatinine Clr Calc Pharmacy 39.7; Estimated Glomerular Filt Rate 35; Glucose Fasting 107 mg/dL (60-99); Potassium 4.1 mmol/L (3.3-5.1); Sodium 135 mmol/L (135-145)
[2021-02-16] MEDS: FLUoxetine HCl 20 MG CAPSULE 40 MG PO (07:46)
[2021-02-16] MEDS: Primidone 50 MG TABLET 250 MG PO ×2 (07:46→20:39)
[2021-02-16] MEDS: Celecoxib 200 MG CAPSULE PO (07:46)
[2021-02-16] MEDS: oxyCODONE HCl ER 10 MG TAB.ER.12H PO ×2 (07:47→20:40)
[2021-02-16] MEDS: amLODIPine Besylate 10 MG TABLET PO (07:47)
[2021-02-16] MEDS: Docusate Sodium 100 MG CAPSULE PO ×2 (07:47→20:40)
--- NOTE | 2021-02-16 07:47 | PM.PNORT ---
Subjective Subjective Date of Service: 02/16/21 Interval history: POD2 s/p RTKA. Patient resting comfortably in bed. Having moderate pain. No overnight events. Physical Exam Vital Signs: Vital Signs: Last Vital Signs Temp 98.3 F 02/16/21 07:35 Pulse 79 02/16/21 07:35 Resp 18 02/16/21 07:35 BP 130/68 02/16/21 07:35 Pulse Ox 95 02/16/21 07:35 Body Mass Index 40.5 Const: General: cooperative, healthy appearing and no acute distress Resp: Effort & Inspection: normal respiratory effort and able to speak in complete sentences Cardio: Rate: regular rate Peripheral pulses: Peripheral pulses 2+ throughout GI: Palpation (GI): Soft to palpation Skin: Lesions: no lesions Rashes: no rashes Extrem: Other: Right knee no ecchymosis or redness. Aquacel dressing saturated. New aquacel dressing applied. [place] intact. Sensation intact. Pedal pulse intact. Progress Note: A&P Assessment and plan (1) Status post total right knee replacement: Status: Acute Assessment and Plan: Continue pain mgmnt Continue Lovenox for dvt ppx Continue PT for RTKA Dispo planning-Pending PT eval, pain mgmnt d/c celebrex d/c milk of mag Fall Risk Details Current Medications: Current Medications Generic Name Dose Route Start Last Admin Trade Name Freq PRN Reason Stop Dose Admin Acetaminophen 650 mg 02/14/21 13:16 02/15/21 16:10 Acetaminophen 325 Mg Tablet PO 650 mg Q6H PRN Administration Pain, Mild (Pain Scale 1-3) Albuterol Sulfate 2.5 mg 02/14/21 07:43 Albuterol Sulfate (0.083%) 2.5 Mg/3 Ml Vial.Neb INHALE ONCE PRN Shortness of Breath/Wheezing Albuterol Sulfate 2.5 mg 02/14/21 11:56 Albuterol Sulfate (0.083%) 2.5 Mg/3 Ml Vial.Neb INHALE ONCE PRN Wheezing Albuterol Sulfate 2.5 mg 02/15/21 07:20 Albuterol Sulfate (0.083%) 2.5 Mg/3 Ml Vial.Neb INHALE Q4H PRN wheezing Amlodipine Besylate 10 mg 02/15/21 09:00 02/15/21 08:10 Amlodipine Besylate 10 Mg Tablet PO 10 mg DAILY IDA Administration Protocol Aripiprazole 10 mg 02/15/21 21:00 02/15/21 20:28 Aripiprazole 10 Mg Tablet PO 10 mg BEDTIME IDA Administration Bupropion HCl 300 mg 02/15/21 09:00 02/15/21 09:20 Bupropion Hcl Xl 300 Mg Tab.Er.24h PO 300 mg DAILY IDA Administration Celecoxib 200 mg 02/14/21 21:00 02/15/21 20:29 Celecoxib 200 Mg Capsule PO 200 mg BID IDA Administration Clonazepam 0.5 mg 02/15/21 21:00 02/15/21 20:29 Clonazepam 0.5 Mg Tablet PO 0.5 mg BEDTIME IDA Administration Clonidine HCl 0.2 mg 02/15/21 21:00 02/15/21 20:28 Clonidine Hcl 0.2 Mg Tablet PO 0.2 mg BEDTIME IDA Administration Protocol Docusate Sodium 100 mg 02/14/21 21:00 02/15/21 20:28 Docusate Sodium 100 Mg Capsule PO 100 mg BID IDA Administration Fluoxetine HCl 40 mg 02/15/21 09:00 02/15/21 08:11 Fluoxetine Hcl 20 Mg Capsule PO 40 mg DAILY IDA Administration Fluticasone/Vilanterol 1 puff 02/15/21 08:30 02/15/21 09:20 Fluticasone/Vilanterol 100/25 Blst.W.Dev INHALE 1 puff RDAILY IDA Administration Hydromorphone HCl 0.25 mg 02/14/21 11:56 02/14/21 14:05 Hydromorphone Hcl 0.5 Mg/0.5 Ml Syringe IVPUSH 0.25 mg Q5M PRN Administration Pain, Severe (Pain Scale 7-10) Hydromorphone HCl 0.25 mg 02/14/21 13:16 02/15/21 22:20 Hydromorphone Hcl 0.5 Mg/0.5 Ml Syringe IVPUSH 0.25 mg Q4H PRN Administration Pain, Severe (Pain Scale 7-10) Magnesium Hydroxide 15 ml 02/15/21 20:07 02/15/21 20:30 Milk Of Magnesia 30 Ml Oral.Susp PO 15 ml BEDTIME PRN Administration Constipation Naloxone HCl 0.2 mg 02/14/21 13:16 Naloxone Hcl 0.4 Mg/Ml Vial IVPUSH Q2M PRN Excessive sedation or RR < 8 Ondansetron HCl 4 mg 02/14/21 11:56 Ondansetron Hcl 4 Mg/2 Ml Vial IVPUSH ONCE PRN Nausea and Vomiting Ondansetron HCl 4 mg 02/14/21 13:16 Ondansetron Hcl 4 Mg/2 Ml Vial IVPUSH Q8H PRN Nausea and Vomiting Oxycodone HCl 10 mg 02/14/21 21:00 02/15/21 20:29 Oxycodone Hcl Er 10 Mg Tab.Er.12h PO 10 mg BID IDA Administration Oxycodone HCl 10 mg 02/15/21 01:33 02/15/21 16:11 Oxycodone Hcl Immed Release 5 Mg Tablet PO 10 mg Q4H PRN Administration Pain, Moderate (Pain Scale 4-6 Pravastatin Sodium 80 mg 02/15/21 21:00 02/15/21 20:27 Pravastatin Sodium 80 Mg Tablet PO 80 mg BEDTIME IDA Administration Primidone 250 mg 02/15/21 21:00 02/15/21 20:30 Primidone 50 Mg Tablet PO 250 mg BID IDA Administration Quetiapine Fumarate 300 mg 02/15/21 21:00 02/15/21 20:29 Quetiapine Fumarate 50 Mg Tablet PO 300 mg BEDTIME IDA Administration Sodium Chloride 3 ml 02/14/21 16:00 02/15/21 20:30 0.9 % Sodium Chloride Flush 3 Ml Syringe IVFLUSH 3 ml QSHIFT IDA Administration Time Spent With Patient Time: Total time spent is greater than 50% in coordination of care (as documented) at patient's floor/unit and/or counseling patient: Time with patient: less than 15 minutes
[2021-02-16] MEDS: 0.9 % Sodium Chloride Flush 3 ML SYRINGE IVFLUSH ×3 (07:48→23:40)
[2021-02-16] MEDS: Fluticasone/Vilanterol 100/25 BLST.W.DEV 1 PUFF INHALE (07:48)
[2021-02-16] MEDS: buPROPion HCl XL 300 MG TAB.ER.24H PO (07:48)
--- NOTE | 2021-02-16 10:11 | MHC.CM.PN ---
GARRETT BUIA UPDATED IN [facility]. CASE MANAGEMENT TO FOLLOW FOR DISCHARGE PLANS
[2021-02-16] MEDS: oxyCODONE HCl Immed Release 5 MG TABLET 10 MG PO (10:58)
[2021-02-16] MEDS: Acetaminophen 325 MG TABLET 650 MG PO (10:58)
[2021-02-16] MEDS: HYDROmorphone HCl 0.5 MG/0.5 ML SYRINGE 0.25 MG IVPUSH (13:08)
--- NOTE | 2021-02-16 14:40 | HO.PM.IMPN ---
Subjective Subjective Date of Service: 02/16/21 Interval History: Follow-up on right total knee arthroplasty, patient offers no acute complaints denies nausea vomiting, no lightheadedness or dizziness tolerating diet good pain control. ROS General no headache, no dizziness, no fever chills. CVS no chest pain, no palpitation. Respiratory no cough, no sob. Gastrointestinal no nausea ,no vomiting, no abdominal pain. Physical Exam Vital Signs: Vital Signs: Last Vital Signs Temp 98.5 F 02/16/21 11:20 Pulse 72 02/16/21 13:31 Resp 18 02/16/21 11:20 BP 112/53 L 02/16/21 13:31 Pulse Ox 93 02/16/21 13:31 Body Mass Index 40.5 General sitting comfortably, no acute distress. Neck no JVD. CVS regular rate rhythm, Respiratory lungs clear to auscultation, no respiratory distress, no wheeze, no rhonchi. Gastrointestinal abdomen soft, nontender, bowel sounds audible, no guarding , no rigidity. Extremities right knee dressing in place, no drainage Neuro nonfocal Skin no rash Objective Data Current Medications Generic Name Dose Route Start Last Admin Trade Name Freq PRN Reason Stop Dose Admin Acetaminophen 650 mg 02/14/21 13:16 02/16/21 10:58 Acetaminophen 325 Mg Tablet PO 650 mg Q6H PRN Administration Pain, Mild (Pain Scale 1-3) Albuterol Sulfate 2.5 mg 02/14/21 07:43 Albuterol Sulfate (0.083%) 2.5 Mg/3 Ml Vial.Neb INHALE ONCE PRN Shortness of Breath/Wheezing Albuterol Sulfate 2.5 mg 02/14/21 11:56 Albuterol Sulfate (0.083%) 2.5 Mg/3 Ml Vial.Neb INHALE ONCE PRN Wheezing Albuterol Sulfate 2.5 mg 02/15/21 07:20 Albuterol Sulfate (0.083%) 2.5 Mg/3 Ml Vial.Neb INHALE Q4H PRN wheezing Amlodipine Besylate 10 mg 02/15/21 09:00 02/16/21 07:47 Amlodipine Besylate 10 Mg Tablet PO 10 mg DAILY IDA Administration Protocol Aripiprazole 10 mg 02/15/21 21:00 02/15/21 20:28 Aripiprazole 10 Mg Tablet PO 10 mg BEDTIME IDA Administration Bupropion HCl 300 mg 02/15/21 09:00 02/16/21 07:48 Bupropion Hcl Xl 300 Mg Tab.Er.24h PO 300 mg DAILY IDA Administration Clonazepam 0.5 mg 02/15/21 21:00 02/15/21 20:29 Clonazepam 0.5 Mg Tablet PO 0.5 mg BEDTIME IDA Administration Clonidine HCl 0.2 mg 02/15/21 21:00 02/15/21 20:28 Clonidine Hcl 0.2 Mg Tablet PO 0.2 mg BEDTIME IDA Administration Protocol Docusate Sodium 100 mg 02/14/21 21:00 02/16/21 07:47 Docusate Sodium 100 Mg Capsule PO 100 mg BID IDA Administration Fluoxetine HCl 40 mg 02/15/21 09:00 02/16/21 07:46 Fluoxetine Hcl 20 Mg Capsule PO 40 mg DAILY IDA Administration Fluticasone/Vilanterol 1 puff 02/15/21 08:30 02/16/21 07:48 Fluticasone/Vilanterol 100/25 Blst.W.Dev INHALE 1 puff RDAILY IDA Administration Hydromorphone HCl 0.25 mg 02/14/21 11:56 02/14/21 14:05 Hydromorphone Hcl 0.5 Mg/0.5 Ml Syringe IVPUSH 0.25 mg Q5M PRN Administration Pain, Severe (Pain Scale 7-10) Hydromorphone HCl 0.25 mg 02/14/21 13:16 02/16/21 13:08 Hydromorphone Hcl 0.5 Mg/0.5 Ml Syringe IVPUSH 0.25 mg Q4H PRN Administration Pain, Severe (Pain Scale 7-10) Naloxone HCl 0.2 mg 02/14/21 13:16 Naloxone Hcl 0.4 Mg/Ml Vial IVPUSH Q2M PRN Excessive sedation or RR < 8 Ondansetron HCl 4 mg 02/14/21 11:56 Ondansetron Hcl 4 Mg/2 Ml Vial IVPUSH ONCE PRN Nausea and Vomiting Ondansetron HCl 4 mg 02/14/21 13:16 Ondansetron Hcl 4 Mg/2 Ml Vial IVPUSH Q8H PRN Nausea and Vomiting Oxycodone HCl 10 mg 02/14/21 21:00 02/16/21 07:47 Oxycodone Hcl Er 10 Mg Tab.Er.12h PO 10 mg BID IDA Administration Oxycodone HCl 10 mg 02/15/21 01:33 02/16/21 10:58 Oxycodone Hcl Immed Release 5 Mg Tablet PO 10 mg Q4H PRN Administration Pain, Moderate (Pain Scale 4-6 Pravastatin Sodium 80 mg 02/15/21 21:00 02/15/21 20:27 Pravastatin Sodium 80 Mg Tablet PO 80 mg BEDTIME IDA Administration Primidone 250 mg 02/15/21 21:00 02/16/21 07:46 Primidone 50 Mg Tablet PO 250 mg BID IDA Administration Quetiapine Fumarate 300 mg 02/15/21 21:00 02/15/21 20:29 Quetiapine Fumarate 50 Mg Tablet PO 300 mg BEDTIME IDA Administration Sodium Chloride 3 ml 02/14/21 16:00 02/16/21 07:48 0.9 % Sodium Chloride Flush 3 Ml Syringe IVFLUSH 3 ml QSHIFT IDA Administration Labs CBC & Chem 7: 02/16/21 05:46 02/16/21 05:46 Assessment and Plan (1) Asthma: Status: Acute (2) Status post total right knee replacement: Status: Acute (3) Osteoarthritis of right knee: Status: Acute Assessment and Plan: 65-year-old female with a history of HTN, HLD, asthma status post right total knee arthroplasty. POD #2 s/p Right total knee arthroplasty. -management as per surgical team, good pain control recommend high-fiber diet, stool softeners encourage to use incentive spirometry.On compression therapy for DVT prophylaxis Patient seen by Physical therapy and they are recommending home PT upon discharge. Hypertension. Elevated blood pressures. Likely related to postoperative pain. Stable blood pressure continue amlodipine and clonidine Asthma. No exacerbation,continue home inhalers. Hyperlipidemia. continue statin Mood. continue seroquel, fluoxetine, wellbutrin, abilify,and clonazepam tremor No active tremors noted, continue primidone
[2021-02-16] MEDS: QUEtiapine Fumarate 50 MG TABLET 300 MG PO (20:39)
[2021-02-16] MEDS: cloNIDine HCL 0.2 MG TABLET PO (20:39)
[2021-02-16] MEDS: Pravastatin Sodium 80 MG TABLET PO (20:39)
[2021-02-16] MEDS: ARIPiprazole 10 MG TABLET PO (20:40)
[2021-02-16] MEDS: clonazePAM 0.5 MG TABLET PO (20:40)
[2021-02-17] VITALS (12 sets, daily range): BP systolic 117–152; BP diastolic 56–79; PULSE 73–107; RESP 18; TEMP 35.9–36.9; O2SAT 92–99
[2021-02-17 06:22] LABS: MANUAL DIFF FLAG NO
[2021-02-17 06:42] LABS: Basophils Percent Auto 0.4 % (0-2); Eosinophils Absolute Auto 0.4 X10*3/uL (0.0-0.4); Hematocrit 27.6 % (37-47); Hemoglobin 8.9 g/dl (12.0-16.0); Imm Gran Abs Auto 0.04 X10*3/uL (0.00-0.03); Imm Gran Pct Auto 0.5 % (0.0-0.4); Lymphocytes Absolute Auto 1.4 X10*3/uL (1.2-4.9); Lymphocytes Percent Auto 17.2 % (20-40); Mean Corpuscular HGB Conc 32.2 g/dl (31.0-35.0); Mean Corpuscular Hemoglobin 31.2 pg (27.0-33.0); Mean Corpuscular Volume 96.8 fL (80-98); Mean Platelet Volume 9.6 fL (9.4-12.3); Monocytes Absolute Auto 0.9 X10*3/uL (0.1-1.2); Monocytes Percent Auto 10.9 % (2-11); Neutrophils Absolute Auto 5.2 X10*3/uL (2.0-8.3); Platelet Count 187 X10*3/uL (160-400); Red Blood Count 2.85 X10*6/uL (4.20-5.50); Red Cell Distribution Width 13.2 % (11.0-16.0)
[2021-02-17 07:11] LABS: Anion Gap 9 (12-20); Blood Urea Nitrogen 18 mg/dL (9-16); Calcium 8.3 mg/dL (8.4-10.2); Carbon Dioxide 28 mmol/L (22-29); Chloride 105 mmol/L (96-108); Creatinine Clr Calc Pharmacy 41.7; Estimated Glomerular Filt Rate 37; Glucose Fasting 99 mg/dL (60-99); Potassium 4.1 mmol/L (3.3-5.1); Sodium 138 mmol/L (135-145)
[2021-02-17] MEDS: 0.9 % Sodium Chloride Flush 3 ML SYRINGE IVFLUSH (08:10)
[2021-02-17] MEDS: Docusate Sodium 100 MG CAPSULE PO (08:10)
[2021-02-17] MEDS: Aspirin 325 MG TABLET PO (08:10)
[2021-02-17] MEDS: HYDROmorphone HCl 0.5 MG/0.5 ML SYRINGE 0.25 MG IVPUSH (08:10)
[2021-02-17] MEDS: buPROPion HCl XL 300 MG TAB.ER.24H PO (08:11)
[2021-02-17] MEDS: oxyCODONE HCl ER 10 MG TAB.ER.12H PO (08:11)
[2021-02-17] MEDS: amLODIPine Besylate 10 MG TABLET PO (08:11)
[2021-02-17] MEDS: FLUoxetine HCl 20 MG CAPSULE 40 MG PO (08:11)
[2021-02-17] MEDS: Primidone 50 MG TABLET 250 MG PO (08:11)
[2021-02-17] MEDS: Fluticasone/Vilanterol 100/25 BLST.W.DEV 1 PUFF INHALE (10:05)
--- NOTE | 2021-02-17 10:34 | HO.PM.IMPN ---
Subjective Subjective Date of Service: 02/17/21 Interval History: Patient complaining of shortness of breath with activity worse since yesterday afternoon, denies palpitation, no lightheadedness, no dizziness, good pain control ambulating with walker. ROS General no headache, no dizziness, no fever chills. CVS no chest pain, no palpitation. Respiratory no cough, shortness of breath with exertion Gastrointestinal no nausea, no vomiting, no abdominal pain Physical Exam Vital Signs: Vital Signs: Last Vital Signs Temp 97.8 F 02/17/21 08:00 Pulse 73 02/17/21 08:58 Resp 18 02/17/21 08:00 BP 134/64 02/17/21 08:58 Pulse Ox 97 02/17/21 08:00 Body Mass Index 40.5 General sitting comfortably, no acute distress, noted to be short of breath after ambulating. Neck no JVD. CVS regular rate rhythm, Respiratory lungs clear to auscultation, no respiratory distress at rest, no wheeze, no rhonchi. Gastrointestinal abdomen soft, nontender, bowel sounds audible, no guarding , no rigidity. Extremities right knee dressing in place. Neuro nonfocal Skin no rash Objective Data Current Medications Generic Name Dose Route Start Last Admin Trade Name Freq PRN Reason Stop Dose Admin Acetaminophen 650 mg 02/14/21 13:16 02/16/21 10:58 Acetaminophen 325 Mg Tablet PO 650 mg Q6H PRN Administration Pain, Mild (Pain Scale 1-3) Albuterol Sulfate 2.5 mg 02/14/21 07:43 Albuterol Sulfate (0.083%) 2.5 Mg/3 Ml Vial.Neb INHALE ONCE PRN Shortness of Breath/Wheezing Albuterol Sulfate 2.5 mg 02/14/21 11:56 Albuterol Sulfate (0.083%) 2.5 Mg/3 Ml Vial.Neb INHALE ONCE PRN Wheezing Albuterol Sulfate 2.5 mg 02/15/21 07:20 Albuterol Sulfate (0.083%) 2.5 Mg/3 Ml Vial.Neb INHALE Q4H PRN wheezing Amlodipine Besylate 10 mg 02/15/21 09:00 02/17/21 08:11 Amlodipine Besylate 10 Mg Tablet PO 10 mg DAILY IDA Administration Protocol Aripiprazole 10 mg 02/15/21 21:00 02/16/21 20:40 Aripiprazole 10 Mg Tablet PO 10 mg BEDTIME IDA Administration Aspirin 325 mg 02/17/21 09:00 02/17/21 08:10 Aspirin 325 Mg Tablet PO 325 mg BID IDA Administration Bupropion HCl 300 mg 02/15/21 09:00 02/17/21 08:11 Bupropion Hcl Xl 300 Mg Tab.Er.24h PO 300 mg DAILY IDA Administration Clonazepam 0.5 mg 02/15/21 21:00 02/16/21 20:40 Clonazepam 0.5 Mg Tablet PO 0.5 mg BEDTIME IDA Administration Clonidine HCl 0.2 mg 02/15/21 21:00 02/16/21 20:39 Clonidine Hcl 0.2 Mg Tablet PO 0.2 mg BEDTIME IDA Administration Protocol Docusate Sodium 100 mg 02/14/21 21:00 02/17/21 08:10 Docusate Sodium 100 Mg Capsule PO 100 mg BID IDA Administration Fluoxetine HCl 40 mg 02/15/21 09:00 02/17/21 08:11 Fluoxetine Hcl 20 Mg Capsule PO 40 mg DAILY IDA Administration Fluticasone/Vilanterol 1 puff 02/15/21 08:30 02/17/21 10:05 Fluticasone/Vilanterol 100/25 Blst.W.Dev INHALE 1 puff RDAILY IDA Administration Hydromorphone HCl 0.25 mg 02/14/21 11:56 02/17/21 08:10 Hydromorphone Hcl 0.5 Mg/0.5 Ml Syringe IVPUSH 0.25 mg Q5M PRN Administration Pain, Severe (Pain Scale 7-10) Hydromorphone HCl 0.25 mg 02/14/21 13:16 02/16/21 13:08 Hydromorphone Hcl 0.5 Mg/0.5 Ml Syringe IVPUSH 0.25 mg Q4H PRN Administration Pain, Severe (Pain Scale 7-10) Naloxone HCl 0.2 mg 02/14/21 13:16 Naloxone Hcl 0.4 Mg/Ml Vial IVPUSH Q2M PRN Excessive sedation or RR < 8 Ondansetron HCl 4 mg 02/14/21 11:56 Ondansetron Hcl 4 Mg/2 Ml Vial IVPUSH ONCE PRN Nausea and Vomiting Ondansetron HCl 4 mg 02/14/21 13:16 Ondansetron Hcl 4 Mg/2 Ml Vial IVPUSH Q8H PRN Nausea and Vomiting Oxycodone HCl 10 mg 02/14/21 21:00 02/17/21 08:11 Oxycodone Hcl Er 10 Mg Tab.Er.12h PO 10 mg BID IDA Administration Oxycodone HCl 10 mg 02/15/21 01:33 02/16/21 10:58 Oxycodone Hcl Immed Release 5 Mg Tablet PO 10 mg Q4H PRN Administration Pain, Moderate (Pain Scale 4-6 Pravastatin Sodium 80 mg 02/15/21 21:00 02/16/21 20:39 Pravastatin Sodium 80 Mg Tablet PO 80 mg BEDTIME IDA Administration Primidone 250 mg 02/15/21 21:00 02/17/21 08:11 Primidone 50 Mg Tablet PO 250 mg BID DIA Administration Quetiapine Fumarate 300 mg 02/15/21 21:00 02/16/21 20:39 Quetiapine Fumarate 50 Mg Tablet PO 300 mg BEDTIME IDA Administration Sodium Chloride 3 ml 02/14/21 16:00 02/17/21 08:10 0.9 % Sodium Chloride Flush 3 Ml Syringe IVFLUSH 3 ml QSHIFT IDA Administration Labs CBC & Chem 7: 02/17/21 05:59 02/17/21 05:59 Assessment and Plan (1) Asthma: Status: Acute (2) Status post total right knee replacement: Status: Acute (3) Osteoarthritis of right knee: Status: Acute (4) Anemia: Status: Acute Assessment and Plan: 65-year-old female with a history of HTN, HLD, asthma status post right total knee arthroplasty. POD #3 s/p Right total knee arthroplasty. management as per surgical team, good pain control , continue stool softeners encourage to use incentive spirometry.On compression therapy and asa for DVT prophylaxis Patient seen by Physical therapy and they are recommending home PT upon discharge. Normocytic anemia due to acute blood loss patient feels symptomatic with shortness of breath therefore will receive 1 unit of packed RBC recommend to eat food rich in iron will place on ferrous sulfate 1 tablet by mouth daily with history of constipation recommend to take stool softener. Hypertension. Stable blood pressure continue amlodipine and clonidine Asthma. No exacerbation,continue home inhalers. Hyperlipidemia.continue statin Mood. continue seroquel, fluoxetine, wellbutrin, abilify,and clonazepam tremor No active tremors noted, continue primidone
[2021-02-17] MEDS: Ferrous Sulfate 324 MG TABLET.DR PO (12:28)
[2021-02-17] MEDS: polyethylene glycoL 3350 17 GM POWD.PACK PO (12:28)
[2021-02-17] MEDS: oxyCODONE HCl Immed Release 5 MG TABLET 10 MG PO (12:45)
--- NOTE | 2021-02-17 15:01 | P.DS_ITS ---
DS: Providers Provider Date of Service: 02/20/21 Date of admission: 02/14/21 07:43 Primary care physician: Hilary Ocasio MD Consults: 02/14/21 13:22 Consult to Hospitalist Routine Consulting Provider: Hospitalist Reason For Exam: post op medical managment DS: Diagnosis Discharge Diagnosis (1) Status post total right knee replacement: Status: Acute Problem details: Ms. Atkins is a 65 yo female who presented to the office with ongoing right knee pain and difficulty with daily activities. She failed conservative measures and agreed to move forward with Right Total knee arthroplasty. DS: Medications Discharge Medications Home Medications: Home Medications Medication Instructions Recorded Confirmed albuterol sulfate 2.5 mg INHALATION Q4H PRN 12/12/20 02/07/21 amlodipine 10 mg tablet 10 mg PO DAILY 12/12/20 02/07/21 aripiprazole 10 mg tablet 10 mg PO BEDTIME 12/12/20 02/07/21 budesonide-formoterol HFA 80 2 puff INHALATION BID 12/12/20 02/07/21 mcg-4.5 mcg/actuation aerosol inhaler clonazepam 1 mg tablet 0.5 mg PO QPM 12/12/20 02/07/21 fluoxetine 40 mg capsule 40 mg PO QAM 12/12/20 02/07/21 gabapentin 100 mg capsule 100 mg PO BEDTIME 12/12/20 02/07/21 pravastatin 80 mg tablet 80 mg PO BEDTIME 12/12/20 02/07/21 quetiapine 100 mg tablet 300 mg PO BEDTIME 12/12/20 02/14/21 albuterol sulfate [ProAir HFA] 2 puff INHALATION Q4-6H PRN 02/07/21 02/07/21 bupropion HCl 1 tab PO BID 02/07/21 02/14/21 cetirizine 10 mg PO BEDTIME 02/07/21 02/07/21 cholecalciferol (vitamin D3) 50 mcg PO Q2D 02/07/21 02/07/21 [Vitamin D3] clonazepam 1.5 mg PO BEDTIME 02/07/21 02/07/21 clonidine HCl 1 tab PO BEDTIME 02/07/21 02/07/21 docusate sodium [Colace] 100 mg PO BID 02/07/21 02/07/21 multivitamin 1 tab PO DAILY 02/07/21 02/07/21 primidone 1 tab PO BID 02/07/21 02/07/21 Previous Rx's Medication Instructions Recorded acetaminophen 650 mg PO Q6H PRN 30 Days #240 tab 02/17/21 aspirin 325 mg PO BID 42 Days #84 tab 02/17/21 docusate sodium 100 mg PO BID 14 Days #28 cap 02/17/21 oxycodone 10 mg PO Q4H PRN 7 Days #42 tab 02/17/21 DS: Summary Hospital Course Hospital Course: The patient underwent a successful Right total knee arthroplasty, she was transferred to PACU and then to the floor to recover. During their stay, their vitals were stable, afebrile at 96.6. POD 1 she was started on ASA for DVT ppx, she also received physical therapy services twice a day. POD 3 her Hct dropped to 27.6, so she was transfused with ! units PRBCs. Prior to discharge,her dressing was changed, incision clean dry and intact, new Aquacel dressing applied and the plan was to be discharged home with VNA services. Time Spent with Patient Time attestation: Total time spent providing and/or coordinating discharge services: Discharge coordination time: Less than 30 minutes Physical Exam 2 Vital Signs: Vital Signs: Last Vital Signs Temp 98.1 F 02/17/21 12:40 Pulse 88 02/17/21 13:41 Resp 18 02/17/21 12:40 BP 141/67 H 02/17/21 12:40 Pulse Ox 95 02/17/21 11:51 Body Mass Index 40.5 Const: General: cooperative, healthy appearing and no acute distress Resp: Effort & Inspection: normal respiratory effort and able to speak in complete sentences Cardio: Rate: regular rate Peripheral pulses: Peripheral pulses 2+ throughout GI: Palpation (GI): Soft to palpation Skin: General skin exam: no rashes or lesions noted Extrem: Other: Right knee incision clean dry and intact. No erythema, mild edema, Calf supple non tender. DS: Data Data Completed and Pending Completed studies during hospitalization [Text1]: Pending at discharge 02/14/21 12:34 Surgical [PTH] Routine Labs on day of discharge: Laboratory Results - last 24 hr 02/17/21 02/17/21 02/17/21 05:59 05:59 09:10 WBC 8.0 RBC 2.85 L Hgb 8.9 L Hct 27.6 L MCV 96.8 MCH 31.2 MCHC 32.2 RDW 13.2 Plt Count 187 MPV 9.6 Immature Gran % (Auto) 0.5 H Neut % (Auto) 66.0 Lymph % (Auto) 17.2 L [place] % (Auto) 10.9 Eos % (Auto) 5.0 H Baso % (Auto) 0.4 Lymph # (Auto) 1.4 [place] # (Auto) 0.9 Eos # (Auto) 0.4 Baso # (Auto) 0.0 Abs Immat Gran (auto) 0.04 H Absolute Neuts (auto) 5.2 Absolute Nucleated RBC 0.000 Nucleated RBC % (auto) 0.0 Sodium 138 Potassium 4.1 Chloride 105 Carbon Dioxide 28 Anion Gap 9 L BUN 18 H Creatinine 1.43 H Estim Creat Clear Calc 41.7 Estimated GFR 37 Fasting Glucose 99 Calcium 8.3 L Blood Type B Positive Antibody Screen NEGATIVE Crossmatch See Detail Discharge Plan Discharge Patient Disposition: Home Health Service Referrals: [facility] [Outside] Paul Sorenson PA-C [Physician [employer]] - (03/02/21 12:45 [facility] [place] [facility] ) Discharge Medications: New acetaminophen 325 mg Tablet 650 mg PO Q6H PRN (Reason: Pain, Mild (Pain Scale 1-3)) 30 Days Qty: 240 RF: 0 oxycodone 10 mg tablet 10 mg PO Q4H PRN (Reason: Pain, Moderate (Pain Scale 4-6) 7 Days Qty: 42 RF: 0 docusate sodium 100 mg Capsule 100 mg PO BID 14 Days Qty: 28 RF: 0 aspirin 325 mg Tablet 325 mg PO BID 42 Days Qty: 84 RF: 0 Continued multivitamin Tablet 1 tab PO DAILY RF: 0 bupropion HCl 150 mg tablet sustained-release 12 hr 1 tab PO BID RF: 0 cetirizine 10 mg Tablet 10 mg PO BEDTIME RF: 0 clonazepam 1 mg Tablet 1.5 mg PO BEDTIME RF: 0 clonidine HCl 0.2 mg tablet 1 tab PO BEDTIME RF: 0 primidone 250 mg tablet 1 tab PO BID RF: 0 docusate sodium [Colace] 100 mg Capsule 100 mg PO BID RF: 0 albuterol sulfate [ProAir HFA] 90 mcg/actuation Hfa Aerosol Inhaler 2 puff INHALATION Q4-6H PRN (Reason: Wheezing) RF: 0 cholecalciferol (vitamin D3) [Vitamin D3] 50 mcg (2,000 unit) Capsule 50 mcg PO Q2D RF: 0 gabapentin 100 mg capsule 100 mg PO BEDTIME RF: 0 amlodipine 10 mg tablet 10 mg PO DAILY RF: 0 albuterol sulfate 2.5 mg /3 mL (0.083 %) solution for nebulization 2.5 mg inhalation Q4H PRN (Reason: wheezing) RF: 0 clonazepam 1 mg tablet 0.5 mg PO QPM RF: 0 quetiapine 100 mg tablet 300 mg PO BEDTIME RF: 0 fluoxetine 40 mg capsule 40 mg PO QAM RF: 0 aripiprazole 10 mg tablet 10 mg PO BEDTIME RF: 0 budesonide-formoterol [Symbicort] 80-4.5 mcg/actuation HFA aerosol inhaler 2 puff inhalation BID RF: 0 pravastatin 80 mg tablet 80 mg PO BEDTIME RF: 0 Discharge Orders: Discharge Order (Routine); Ordered 02/17/21 Ordered By: Paul Sorenson Diet: regular diet Activity on Discharge: Use cane or walker Stand Alone Forms: Patient Portal Discharge page Activity Restrictions/Additional Instructions: * Physical Therapy for ROM 0-120, quad strength, gait training . Use walker for ambulation * Limit stair climbing, No shower, No tub bath, No driving * Continue anticoagulant * Keep Aquacel dressing clean, dry and intact. * Follow up with orthopedics in 2 weeks Care Plan Goals: Restore function of right knee Health Concerns: None Plan of Treatment: Physical Therapy Pain management DVT prophylaxis Assessment: * Physical Therapy for ROM 0-120, quad strength, gait training . Use walker for ambulation * Limit stair climbing, No shower, No tub bath, No driving * Continue anticoagulant * Keep Aquacel dressing clean, dry and intact. * Follow up with orthopedics in 2 weeks Discharge Date/Time: 02/17/21 16:30
--- NOTE | 2021-02-17 15:29 | P.F2F_ITS ---
Service Date Service Date: 02/17/21 Encounter Date of encounter: 02/17/21 Reasons for Services Reason for physical therapy: home safety and mobility, therapeutic exercises, restore joint function, gait/transfer training and ADL training Reason for occupational therapy: home safety and mobility, therapeutic exercises, restore joint function, gait/transfer training and ADL training Homebound: Leaving the home is medically contraindicated at this time without the asist of a device and/or another person due th the listed conditions above and below. Reason homebound: unsteady gait / fall risk, leg weakness, pain with ambulation, pain with transfers, poor balance / fall risk and unable to drive Homebound supporting statement: Pt. is considered homebound due to recent surgery. Unable to drive, poor balance, poor gait mechanics. Certification: Based on the above findings, I certify that this patient is confined to the home and needs intermittent residential care, physical therapy and/or speech therapy, or continues to need occupational therapy. The patient is under my care, and I have initiated the establishment of the plan of care. The patient will be followed by a physician who will periodically review the plan of care.
--- NOTE | 2021-02-17 15:34 | MHC.CM.PN ---
PATIENT IS DISCHARGED HOME WITH [facility]. RN AND AGENCY AWARE OF PLAN.
== END 2021-02-17 16:30 | disposition home health service (06) | DRG 470 ==
LOC: HO.SSSA 13:53 → HO.S3 15:48
PROVIDERS: Physician Assistant; Admitting Provider Orthopaedic Surgery; PCP Internal Medicine; Visit Provider Orthopaedic Surgery
PROC: 0SRC0JA Replacement of Right Knee Joint with Synthetic Substitute, Uncemented, Open Approach (ICD-10-PCS; CPT 27447; principal; 2021-02-14 09:30)
DX: M17.11 Unilateral primary osteoarthritis, right knee (principal); I10 Essential (primary) hypertension; J45.909 Unspecified asthma, uncomplicated; F43.10 Post-traumatic stress disorder, unspecified; F32.9 Major depressive disorder, single episode, unspecified; Z20.822 Contact with and (suspected) exposure to COVID-19; Z88.2 Allergy status to sulfonamides; Z79.82 Long term (current) use of aspirin; Z79.899 Other long term (current) drug therapy
CPT/HCPCS: 36415; 73560; 80048; 85025; 86850; 86900; 86923; 87635; 87640; 87641; 88305; 88311; 93005; 97110; 97116; 97162; C1776; J0690; J1170; J2250; J3010; P9016

== ENCOUNTER → 2021-02-20 10:21 | Outpatient (BNVA) | payer MEDICARE, SELFPAY | PROVIDERS: Visit Provider Orthopaedic Surgery ==

== ENCOUNTER 2021-02-22 21:46 | Emergency (ER) | payer MEDICARE, SELFPAY ==
[2021-02-22 22:20] VITALS: BP 178/79; PULSE 98; RESP 18; TEMP 37; O2SAT 96; BMI 39.4
[2021-02-22 22:43] LABS: Glucose Urine UA NEG (NEG); Leukocyte Esterase Urine NEG (NEG); Nitrite Urine NEG (NEG); PH 6.5 (5.0-8.0); Urine Blood TRACE (NEG); Urine Ketones NEG (NEG); Urine Protein NEG (NEG-TRACE)
[2021-02-22 22:48] LABS: Appearance Urine CLEAR; Color Urine YELLOW
[2021-02-22 22:55] LABS: Bacteria Urine TRACE /LPF; RBC Urine 0-2 /HPF (0); Squamous Epithelial Cell Urine TRACE /LPF; WBC Urine 0-2 /HPF (0-4)
--- NOTE | 2021-02-23 01:58 | ED.FEMALEGU ---
HPI - Female Genitourinary General Chief complaint: Urogenital-Female Stated complaint: urinating blood post op Time Seen by Provider: 02/23/21 00:54 Source: patient Mode of arrival: ambulatory Limitations: no limitations History of Present Illness HPI Narrative: 65 yo female s/o TKR on 02/14 had 5+ straight caths while in hospital due to retention from medications, noted last night drops of blood on underwear as well as some hematuria - no pain, no n/v no flank pain, no prior episodes on ASA 325mg BID - no prior episodes, sent to ED to r/o UTI MD elicited complaint: other (hematuria) Pertinent past history: other (recent straight cath 10 ) Onset (ago): day(s) (last night) Severity: mild Consistency: now resolved Vaginal bleeding: none Urinary symptoms: Hematuria Exacerbating factors: none Relieving factors: none Associated symptoms: denies other symptoms Treatment prior to arrival: none Related Data Home Medications Medication Instructions Recorded Confirmed albuterol sulfate 2.5 mg INHALATION Q4H PRN 12/12/20 02/07/21 amlodipine 10 mg tablet 10 mg PO DAILY 12/12/20 02/07/21 aripiprazole 10 mg tablet 10 mg PO BEDTIME 12/12/20 02/07/21 budesonide-formoterol HFA 80 2 puff INHALATION BID 12/12/20 02/07/21 mcg-4.5 mcg/actuation aerosol inhaler clonazepam 1 mg tablet 0.5 mg PO QPM 12/12/20 02/07/21 fluoxetine 40 mg capsule 40 mg PO QAM 12/12/20 02/07/21 gabapentin 100 mg capsule 100 mg PO BEDTIME 12/12/20 02/07/21 pravastatin 80 mg tablet 80 mg PO BEDTIME 12/12/20 02/07/21 quetiapine 100 mg tablet 300 mg PO BEDTIME 12/12/20 02/14/21 albuterol sulfate [ProAir HFA] 2 puff INHALATION Q4-6H PRN 02/07/21 02/07/21 bupropion HCl 1 tab PO BID 02/07/21 02/14/21 cetirizine 10 mg PO BEDTIME 02/07/21 02/07/21 cholecalciferol (vitamin D3) 50 mcg PO Q2D 02/07/21 02/07/21 [Vitamin D3] clonazepam 1.5 mg PO BEDTIME 02/07/21 02/07/21 clonidine HCl 1 tab PO BEDTIME 02/07/21 02/07/21 docusate sodium [Colace] 100 mg PO BID 02/07/21 02/07/21 multivitamin 1 tab PO DAILY 02/07/21 02/07/21 primidone 1 tab PO BID 02/07/21 02/07/21 Previous Rx's Medication Instructions Recorded acetaminophen 650 mg PO Q6H PRN 30 Days #240 tab 02/17/21 aspirin 325 mg PO BID 42 Days #84 tab 02/17/21 docusate sodium 100 mg PO BID 14 Days #28 cap 02/17/21 oxycodone 10 mg PO Q4H PRN 7 Days #42 tab 02/17/21 cefuroxime axetil 250 mg PO BID 7 Days #14 tab 02/23/21 Allergies Allergy/AdvReac Type Severity Reaction Status Date / Time benztropine [From Cogentin] Allergy Intermediate Rash Verified 02/20/21 10:48 latex Allergy Intermediate Itching Verified 02/20/21 10:48 thimerosal Allergy Intermediate Itching Verified 02/20/21 10:48 sulfamethoxazole AdvReac Intermediate contraindicated Verified 02/20/21 10:48 [From Bactrim] w/stage 4 CKD trimethoprim [From Bactrim] AdvReac Intermediate contraindicated Verified 02/20/21 10:48 w/stage 4 CKD Review of Systems Review of Systems: Constitutional : No Weight loss, No Fever, No Chills ENT/Mouth : No sore throat, No Rhinorrhea Eyes: No Swelling, No Redness Cardiovascular : No Chest Pain, No SOB, NoEdema Respiratory : No Cough, No Sputum, No Wheezing Gastrointestinal : no Nausea, no Vomiting, no Diarrhea, no abdominal Pain, No Hematochezia, No Melena Genitourinary : No Dysuria, No Urinary Frequency, pos Hematuria, No Urgency Musculoskeletal : No joint pain, No Myalgias, No Joint Swelling Skin : No Skin Lesions, No rash Neuro : No Weakness, No Numbness, No Dizziness, No Headache Psych : No Anxiety/Panic, No Depression Heme/Lymph: No Bruising, No Lymphadenopathy Endocrine : No Polyuria, No Polydipsia All other systems reviewed and are negative. [facility] Past Medical History Medical History Arthritis Asthma Chronic renal insufficiency Cognitive dysfunction COVID-19 vaccine administered Difficulty swallowing Dysphagia Fatty liver High cholesterol History of COVID-19 HX: benign breast biopsy Hypertension Stage 4 chronic kidney disease Tremors of nervous system Surgical History H/O endoscopy History of section History of colonoscopy Hx laparoscopic cholecystectomy Social History Social History Household Members: Spouse Housing: House Alcohol intake: never Smoking Status: Never smoker Second Hand Smoke Exposure: No Advance Directives: No service: No Current occupational status: retired Current occupation: right handed Physical Exam Vital Signs: Vital Signs: Last Vital Signs Temp 98.6 F 02/22/21 22:20 Pulse 98 02/22/21 22:20 Resp 18 02/22/21 22:20 BP 178/79 H 02/22/21 22:20 Pulse Ox 96 02/22/21 22:20 Body Mass Index 39.4 Appearance: Alert. Oriented X3. No acute distress. Eyes: Pupils equal, round and reactive to light. ENT: Pharynx normal. Neck: Normal inspection. Neck supple. CVS: Normal heart rate and rhythm. Pulses normal. Respiratory: No respiratory distress. Breath sounds normal. Abdomen: Soft and nontender. Skin: Skin warm and dry. Normal skin color. Normal skin turgor. Extremities: No lower extremity edema. No calf ttp Neuro: Oriented X 3. No motor deficit. No sensory deficit. Course Course Course Narrative: stable for DC given CrCl will start on low dose ceftin MDM - Female Genitourinary MDM Narrative Medical decision making narrative: 65 yo female resolved hematuria recent straight cath from surgery post op 4/6 on ASA 325mg BID, bleeding has resolved, no pain/flank pain, fevers/n/v atypical for stone, hx of UTIs in the past with hematuria, will obtain labs UA and treat as cystitis Lab Data Result diagrams: 02/23/21 02:25 02/23/21 02:25 Labs: Lab Results 02/22/21 02/23/21 02/23/21 Range/Units 22:32 02:25 02:25 WBC 10.5 (4.8-10.8) X10*3/uL RBC 3.49 L D (4.20-5.50) X10*6/uL Hgb 11.0 L D (12.0-16.0) g/dl Hct 33.6 L D (37-47) % MCV 96.3 (80-98) fL MCH 31.5 (27.0-33.0) pg MCHC 32.7 (31.0-35.0) g/dl RDW 13.5 (11.0-16.0) % Plt Count 346 D (160-400) X10*3/uL MPV 8.6 L (9.4-12.3) fL Immature Gran % (Auto) 1.0 H (0.0-0.4) % Neut % (Auto) 73.8 H (45-73) % Lymph % (Auto) 12.8 L (20-40) % [place] % (Auto) 8.0 (2-11) % Eos % (Auto) 4.0 (0-4) % Baso % (Auto) 0.4 (0-2) % Lymph # (Auto) 1.3 (1.2-4.9) X10*3/uL [place] # (Auto) 0.8 (0.1-1.2) X10*3/uL Eos # (Auto) 0.4 (0.0-0.4) X10*3/uL Baso # (Auto) 0.0 (0.0-0.2) X10*3/uL Abs Immat Gran (auto) 0.10 H (0.00-0.03) X10*3/uL Absolute Neuts (auto) 7.7 (2.0-8.3) X10*3/uL Absolute Nucleated RBC 0.000 (0.0-0.012) X10*3/uL Nucleated RBC % (auto) 0.0 (0.0-0.2) /100WBC PT (10.8-13.0) SEC INR (0.9-1.1) APTT (24.1-38.0) SEC Sodium 137 (135-145) mmol/L Potassium 4.8 (3.3-5.1) mmol/L Chloride 100 (96-108) mmol/L Carbon Dioxide 26 (22-29) mmol/L Anion Gap 16 (12-20) BUN 18 H (9-16) mg/dL Creatinine 1.48 H (0.5-1.4) mg/dL Estim Creat Clear Calc 39.3 Estimated GFR 35 Random Glucose 118 H (60-115) mg/dL Calcium 9.9 D (8.4-10.2) mg/dL Urine Color YELLOW Urine Appearance CLEAR Urine pH 6.5 (5.0-8.0) Ur Specific [place] 1.010 (1.005-1.025) Urine Protein NEG (NEG-TRACE) MG/DL Urine Glucose (UA) NEG (NEG) MG/DL Urine Ketones NEG (NEG) MG/DL Urine Blood TRACE (NEG) Urine Nitrite NEG (NEG) Ur Leukocyte Esterase NEG (NEG) Urine RBC 0-2 (0) /HPF Urine WBC 0-2 (0-4) /HPF Ur Squamous Epith Cells TRACE /LPF Urine Bacteria TRACE /LPF 02/23/21 Range/Units 02:25 WBC (4.8-10.8) X10*3/uL RBC (4.20-5.50) X10*6/uL Hgb (12.0-16.0) g/dl Hct (37-47) % MCV (80-98) fL MCH (27.0-33.0) pg MCHC (31.0-35.0) g/dl RDW (11.0-16.0) % Plt Count (160-400) X10*3/uL MPV (9.4-12.3) fL Immature Gran % (Auto) (0.0-0.4) % Neut % (Auto) (45-73) % Lymph % (Auto) (20-40) % [place] % (Auto) (2-11) % Eos % (Auto) (0-4) % Baso % (Auto) (0-2) % Lymph # (Auto) (1.2-4.9) X10*3/uL [place] # (Auto) (0.1-1.2) X10*3/uL Eos # (Auto) (0.0-0.4) X10*3/uL Baso # (Auto) (0.0-0.2) X10*3/uL Abs Immat Gran (auto) (0.00-0.03) X10*3/uL Absolute Neuts (auto) (2.0-8.3) X10*3/uL Absolute Nucleated RBC (0.0-0.012) X10*3/uL Nucleated RBC % (auto) (0.0-0.2) /100WBC PT 12.3 (10.8-13.0) SEC INR 1.0 (0.9-1.1) APTT 44.2 H (24.1-38.0) SEC Sodium (135-145) mmol/L Potassium (3.3-5.1) mmol/L Chloride (96-108) mmol/L Carbon Dioxide (22-29) mmol/L Anion Gap (12-20) BUN (9-16) mg/dL Creatinine (0.5-1.4) mg/dL Estim Creat Clear Calc Estimated GFR Random Glucose (60-115) mg/dL Calcium (8.4-10.2) mg/dL Urine Color Urine Appearance Urine pH (5.0-8.0) Ur Specific [place] (1.005-1.025) Urine Protein (NEG-TRACE) MG/DL Urine Glucose (UA) (NEG) MG/DL Urine Ketones (NEG) MG/DL Urine Blood (NEG) Urine Nitrite (NEG) Ur Leukocyte Esterase (NEG) Urine RBC (0) /HPF Urine WBC (0-4) /HPF Ur Squamous Epith Cells /LPF Urine Bacteria /LPF Discharge Plan Discharge Clinical Impression: Cystitis Hematuria Qualifiers: Hematuria type: unspecified type Qualified Code(s): R31.9 - Hematuria, unspecified Patient Disposition: Home, Self-Care Instructions: Urinary Tract Infection in Women (ED), Hematuria (ED) Additional Instructions: return to ED for any worsening symptoms or concerns Prescriptions: New cefuroxime axetil 250 mg tablet 250 mg PO BID 7 Days Qty: 14 RF: 0 No Action multivitamin Tablet 1 tab PO DAILY RF: 0 bupropion HCl 150 mg tablet sustained-release 12 hr 1 tab PO BID RF: 0 cetirizine 10 mg Tablet 10 mg PO BEDTIME RF: 0 clonazepam 1 mg Tablet 1.5 mg PO BEDTIME RF: 0 clonidine HCl 0.2 mg tablet 1 tab PO BEDTIME RF: 0 primidone 250 mg tablet 1 tab PO BID RF: 0 docusate sodium [Colace] 100 mg Capsule 100 mg PO BID RF: 0 albuterol sulfate [ProAir HFA] 90 mcg/actuation Hfa Aerosol Inhaler 2 puff INHALATION Q4-6H PRN (Reason: Wheezing) RF: 0 cholecalciferol (vitamin D3) [Vitamin D3] 50 mcg (2,000 unit) Capsule 50 mcg PO Q2D RF: 0 acetaminophen 325 mg Tablet 650 mg PO Q6H PRN (Reason: Pain, Mild (Pain Scale 1-3)) 30 Days Qty: 240 RF: 0 oxycodone 10 mg tablet 10 mg PO Q4H PRN (Reason: Pain, Moderate (Pain Scale 4-6) 7 Days Qty: 42 RF: 0 docusate sodium 100 mg Capsule 100 mg PO BID 14 Days Qty: 28 RF: 0 aspirin 325 mg Tablet 325 mg PO BID 42 Days Qty: 84 RF: 0 gabapentin 100 mg capsule 100 mg PO BEDTIME RF: 0 amlodipine 10 mg tablet 10 mg PO DAILY RF: 0 albuterol sulfate 2.5 mg /3 mL (0.083 %) solution for nebulization 2.5 mg inhalation Q4H PRN (Reason: wheezing) RF: 0 clonazepam 1 mg tablet 0.5 mg PO QPM RF: 0 quetiapine 100 mg tablet 300 mg PO BEDTIME RF: 0 fluoxetine 40 mg capsule 40 mg PO QAM RF: 0 aripiprazole 10 mg tablet 10 mg PO BEDTIME RF: 0 budesonide-formoterol [Symbicort] 80-4.5 mcg/actuation HFA aerosol inhaler 2 puff inhalation BID RF: 0 pravastatin 80 mg tablet 80 mg PO BEDTIME RF: 0
[2021-02-23] MEDS: Nitrofurantoin Monohyd/M-Cryst 100 MG CAPSULE PO (02:32)
[2021-02-23 02:33] LABS: MANUAL DIFF FLAG NO
[2021-02-23 02:35] LABS: Basophils Percent Auto 0.4 % (0-2); Eosinophils Absolute Auto 0.4 X10*3/uL (0.0-0.4); Hematocrit 33.6 % (37-47); Lymphocytes Absolute Auto 1.3 X10*3/uL (1.2-4.9); Lymphocytes Percent Auto 12.8 % (20-40); Mean Corpuscular HGB Conc 32.7 g/dl (31.0-35.0); Mean Corpuscular Hemoglobin 31.5 pg (27.0-33.0); Mean Corpuscular Volume 96.3 fL (80-98); Mean Platelet Volume 8.6 fL (9.4-12.3); Monocytes Absolute Auto 0.8 X10*3/uL (0.1-1.2); Neutrophils Absolute Auto 7.7 X10*3/uL (2.0-8.3); Neutrophils Percent Auto 73.8 % (45-73); Platelet Count 346 X10*3/uL (160-400); Red Blood Count 3.49 X10*6/uL (4.20-5.50); Red Cell Distribution Width 13.5 % (11.0-16.0); White Blood Count 10.5 X10*3/uL (4.8-10.8)
[2021-02-23 02:40] LABS: Prothrombin Time 12.3 SEC (10.8-13.0)
[2021-02-23 02:49] LABS: Partial Thromboplastin Time 44.2 SEC (24.1-38.0)
[2021-02-23 03:28] LABS: Anion Gap 16 (12-20); Blood Urea Nitrogen 18 mg/dL (9-16); Calcium 9.9 mg/dL (8.4-10.2); Carbon Dioxide 26 mmol/L (22-29); Chloride 100 mmol/L (96-108); Creatinine Clr Calc Pharmacy 39.3; Estimated Glomerular Filt Rate 35; Glucose Random 118 mg/dL (60-115); Potassium 4.8 mmol/L (3.3-5.1); Sodium 137 mmol/L (135-145)
== END 2021-02-23 03:50 | disposition home or self-care (01) ==
PROVIDERS: Emergency Provider Emergency Medicine; PCP Internal Medicine
DX: R31.9 Hematuria, unspecified (principal); N30.90 Cystitis, unspecified without hematuria; Z79.899 Other long term (current) drug therapy; Z86.16 Personal history of COVID-19
CPT/HCPCS: 36415; 80048; 81001; 85025; 85610; 85730; 99283

== ENCOUNTER → 2021-03-02 12:15 | Outpatient (BNVA) | payer MEDICARE, SELFPAY | PROVIDERS: PCP Internal Medicine; Visit Provider Physician Assistant | DX: Z47.1 Aftercare following joint replacement surgery (principal); Z96.651 Presence of right artificial knee joint | CPT/HCPCS: 99212 ==

== ENCOUNTER 2021-03-30 10:00 | Outpatient (REF) | payer MEDICARE, SELFPAY ==
--- NOTE | ~2021-03-30 | XR_ITS ---
EXAMINATION: KNEE X-RAY CLINICAL INFORMATION: Post knee replacement COMPARISON: Previous x-ray most recent 02/14/2021 TECHNIQUE: Standing AP view of both knees and lateral and sunrise view of the right knee FINDINGS: Right: There is a 3 component knee replacement in satisfactory position. No fracture or dislocation is seen. There is a joint effusion. Standing AP view of the left knee is unremarkable. XR/XR knee standing BI IMPRESSION: Satisfactory position of right knee replacement.
--- NOTE | ~2021-03-30 | XR_ITS ---
EXAMINATION: KNEE X-RAY CLINICAL INFORMATION: Post knee replacement COMPARISON: Previous x-ray most recent 02/14/2021 TECHNIQUE: Standing AP view of both knees and lateral and sunrise view of the right knee FINDINGS: Right: There is a 3 component knee replacement in satisfactory position. No fracture or dislocation is seen. There is a joint effusion. Standing AP view of the left knee is unremarkable. XR/XR knee RT 2V IMPRESSION: Satisfactory position of right knee replacement.
== END 2021-03-30 10:01 | disposition home or self-care (01) ==
LOC: HO.HOSX 10:00
PROVIDERS: Visit Provider Orthopaedic Surgery
DX: Z47.1 Aftercare following joint replacement surgery (principal); Z48.02 Encounter for removal of sutures; Z96.651 Presence of right artificial knee joint
CPT/HCPCS: 73560; 73565; 99212

== ENCOUNTER → 2021-05-04 13:05 | Outpatient (BNVA) | payer MEDICARE, SELFPAY | PROVIDERS: PCP Internal Medicine; Visit Provider Orthopaedic Surgery | DX: Z47.1 Aftercare following joint replacement surgery (principal); Z96.651 Presence of right artificial knee joint | CPT/HCPCS: 99212 ==

== ENCOUNTER → 2021-06-12 08:20 | Outpatient (BNVA) | payer MEDICARE, SELFPAY | PROVIDERS: PCP Internal Medicine; Visit Provider Internal Medicine | DX: M17.11 Unilateral primary osteoarthritis, right knee (principal); M25.561 Pain in right knee; I10 Essential (primary) hypertension; N18.4 Chronic kidney disease, stage 4 (severe); Z96.651 Presence of right artificial knee joint; Z88.8 Allergy status to other drugs, medicaments and biological substances; Z91.040 Latex allergy status; Z79.899 Other long term (current) drug therapy | CPT/HCPCS: 99202 ==

== ENCOUNTER 2021-06-14 06:37 | Outpatient (REF) | payer MEDICARE, SELFPAY ==
--- NOTE | ~2021-06-14 | FL_ITS ---
EXAMINATION: XR FLUOROSCOPY WITH IMAGES CLINICAL INFORMATION: Pain COMPARISON: X-ray of the right knee December 2020 TECHNIQUE: Fluoroscopy performed by a wire. Fluoroscopy time: 0.2 minutes DAP: 1.5 Gycm2 Images: 1 FINDINGS: Images demonstrate needle placement adjacent to the distal femur and proximal tibia for geniculate nerve injection. There is a right knee replacement. FL/FL guidance in treatment room IMPRESSION: Fluoroscopy guidance for right knee needle placement.
== END 2021-06-14 06:38 | disposition home or self-care (01) ==
LOC: HO.RADIR 06:37
PROVIDERS: Visit Provider Internal Medicine
DX: M25.561 Pain in right knee (principal); I12.9 Hypertensive chronic kidney disease with stage 1 through stage 4 chronic kidney disease, or unspecified chronic kidney disease; E78.00 Pure hypercholesterolemia, unspecified; N18.4 Chronic kidney disease, stage 4 (severe); Z96.651 Presence of right artificial knee joint; Z88.2 Allergy status to sulfonamides; Z88.8 Allergy status to other drugs, medicaments and biological substances; Z91.041 Radiographic dye allergy status; Z79.899 Other long term (current) drug therapy
CPT/HCPCS: 64450; 64454

== ENCOUNTER → 2021-06-23 10:28 | Outpatient (BNVA) | payer MEDICARE, SELFPAY | PROVIDERS: PCP Internal Medicine; Visit Provider Internal Medicine | DX: M25.561 Pain in right knee (principal) | CPT/HCPCS: Q3014 ==

== ENCOUNTER 2021-07-31 11:10 | Outpatient (REF) | payer MEDICARE, SELFPAY ==
--- NOTE | ~2021-07-31 | XR_ITS ---
EXAMINATION: XR BOTH KNEES AP STANDING XR RIGHT KNEE, 2 VIEWS CLINICAL INFORMATION: Pain. COMPARISON: Bilateral standing and right knee radiographs dated 03/30/2021. TECHNIQUE: Standing AP view of both knees and lateral and sunrise views of the right knee. FINDINGS: RIGHT KNEE: Total right knee arthroplasty. No acute hardware or osseous fracture. No carly-hardware lucency to suggest loosening or infection. No abnormal soft tissue calcification. No significant joint effusion. LEFT KNEE: Tiny medial and lateral compartment marginal osteophytes. No osseous erosion. No fracture or dislocation. No abnormal soft tissue calcification. XR/XR knee RT 2V IMPRESSION: Right knee: Total knee arthroplasty without evidence of complication. Left knee: Minimal medial and lateral compartment osteoarthritis, unchanged.
--- NOTE | ~2021-07-31 | XR_ITS ---
EXAMINATION: XR BOTH KNEES AP STANDING XR RIGHT KNEE, 2 VIEWS CLINICAL INFORMATION: Pain. COMPARISON: Bilateral standing and right knee radiographs dated 03/30/2021. TECHNIQUE: Standing AP view of both knees and lateral and sunrise views of the right knee. FINDINGS: RIGHT KNEE: Total right knee arthroplasty. No acute hardware or osseous fracture. No carly-hardware lucency to suggest loosening or infection. No abnormal soft tissue calcification. No significant joint effusion. LEFT KNEE: Tiny medial and lateral compartment marginal osteophytes. No osseous erosion. No fracture or dislocation. No abnormal soft tissue calcification. XR/XR knee standing BI IMPRESSION: Right knee: Total knee arthroplasty without evidence of complication. Left knee: Minimal medial and lateral compartment osteoarthritis, unchanged.
== END 2021-07-31 11:11 | disposition home or self-care (01) ==
LOC: HO.HOSX 11:10
PROVIDERS: Visit Provider Orthopaedic Surgery
DX: T84.84XA Pain due to internal orthopedic prosthetic devices, implants and grafts, initial encounter (principal); Z96.651 Presence of right artificial knee joint
CPT/HCPCS: 73560; 73565; 99212

== ENCOUNTER 2021-09-06 06:22 | Outpatient (REF) | payer MEDICARE, SELFPAY | END 2021-09-06 06:23 | disposition home or self-care (01) | LOC: HO.RADIR 06:22 | PROVIDERS: Visit Provider Internal Medicine | DX: Z13.89 Encounter for screening for other disorder (principal) ==

== ENCOUNTER 2021-09-06 10:54 | Day surgery (SDC) | payer MEDICARE, SELFPAY ==
[2021-08-31 13:09] VITALS: BMI 42.0
--- NOTE | 2021-09-05 10:50 | P.CONAN_ITS ---
Documented by User: Kiesha Lo NP 09/05/21 10:53 HPI - Anesthesia Eval Consult details Narrative: 65yo F for Right Genicular Nerve Block Cooled RFA s/p R TKA 02/2021 with GETA, block PMFSH Active Problems Active Problems: All Active Problems (Updated 08/31/21 @ 13:06 by Yaa Magaña, RN) Status post total right knee replacement (Acute) Chronic pain (Acute) Knee pain, right (Acute) Past Medical History Medical History (Updated 08/31/21 @ 13:06 by Yaa Magaña, RN) Anemia Arthritis Asthma Chronic renal insufficiency Cognitive dysfunction COVID-19 vaccine administered Difficulty swallowing Dysphagia Fatty liver High cholesterol History of COVID-19 HX: benign breast biopsy Hypertension Knee pain, right Osteoarthritis of right knee Stage 4 chronic kidney disease Tremors of nervous system Surgical History Surgical History (Updated 08/30/21 @ 16:27 by Yaa Magaña, RN) H/O endoscopy History of section History of colonoscopy History of total right knee replacement (TKR) Hx laparoscopic cholecystectomy Social History Social History Household Members: Spouse Housing: House Are you a primary post acute care nurse to a significant other at home: No Do you presently have visiting nurse or other home services: No Alcohol intake: never Patient Tobacco Use Status: Never used Tobacco Second Hand Smoke Exposure: No Use of substances other than those prescribed or required for medical reasons: No Have you been hit, kicked, punched, or otherwise hurt by someone within the past year? If so, by whom?: No Are you DNR?: No Advance Directives: No Advance Directives Information Provided: No Advance Directives on File: No Recently lost weight without trying: No Eating poorly because of decreased appetite: No Nutrition Risks: No Nutritional Risk Patient : No service: No Current occupational status: retired Current occupation: right handed Meds Allergies Allergy/AdvReac Type Severity Reaction Status Date / Time benztropine [From Cogentin] Allergy Intermediate Rash Verified 08/31/21 13:06 latex Allergy Intermediate Itching Verified 08/31/21 13:06 thimerosal Allergy Intermediate Itching Verified 08/31/21 13:06 sulfamethoxazole AdvReac Intermediate contraindicated Verified 08/31/21 13:06 [From Bactrim] w/stage 4 CKD trimethoprim [From Bactrim] AdvReac Intermediate contraindicated Verified 08/31/21 13:06 w/stage 4 CKD Home Medications Medication Instructions Recorded Confirmed Last Taken Type amlodipine 10 mg tablet 5 mg PO DAILY 12/12/20 08/31/21 09/06/21 History aripiprazole 10 mg tablet 10 mg PO BEDTIME 12/12/20 08/31/21 Unknown History budesonide-formoterol HFA 80 2 puff INHALATION BID 12/12/20 08/31/21 09/06/21 History mcg-4.5 mcg/actuation aerosol inhaler (Symbicort) clonazepam 1 mg tablet 0.5 mg PO QPM 12/12/20 08/31/21 Unknown History fluoxetine 40 mg capsule 40 mg PO QAM 12/12/20 08/31/21 09/06/21 History gabapentin 100 mg capsule 100 mg PO BEDTIME 12/12/20 08/31/21 Unknown History pravastatin 80 mg tablet 80 mg PO BEDTIME 12/12/20 08/31/21 Unknown History albuterol sulfate 90 mcg/actuation 2 puff INHALATION Q4-6H PRN 02/07/21 08/31/21 Unknown History aerosol inhaler (ProAir HFA) cetirizine 10 mg tablet 10 mg PO BEDTIME 02/07/21 08/31/21 Unknown History clonazepam 1 mg tablet 1.5 mg PO BEDTIME 02/07/21 08/31/21 Unknown History clonidine HCl 0.2 mg tablet 1 tab PO BEDTIME 02/07/21 08/31/21 Unknown History docusate sodium 100 mg capsule 100 mg PO BID 02/07/21 08/31/21 Unknown History (Colace) multivitamin 1 tab PO DAILY 02/07/21 08/31/21 Unknown History primidone 250 mg tablet 1 tab PO BID 02/07/21 08/31/21 09/06/21 History cholecalciferol (vitamin D3) 1,250 1,250 mcg PO QWEEK 06/12/21 08/31/21 Unknown History mcg (50,000 unit) capsule quetiapine 100 mg tablet 100 mg PO BEDTIME tab 06/12/21 08/31/21 Unknown History bupropion HCl 150 mg 24 hr tablet, 1 tab PO QAM 08/31/21 08/31/21 09/06/21 History extended release bupropion HCl 300 mg 24 hr tablet, 1 tab PO DAILY 08/31/21 08/31/21 09/06/21 History extended release hydralazine 25 mg tablet 25 mg PO BID 08/31/21 08/31/21 09/06/21 History Exam Exam Date and Time: September 05, 2021 1050 Height,Weight and Vital Signs: Height 5 ft 1.5 in Weight 102.512 kg Pertinent Lab Results Pertinent Lab Results: Laboratory Tests 02/23/21 02/23/21 02:25 02:25 WBC 10.5 Hgb 11.0 L D Hct 33.6 L D Plt Count 346 D Sodium 137 Potassium 4.8 Chloride 100 Carbon Dioxide 26 BUN 18 H Creatinine 1.48 H Assessment and Plan Assessment Anesthesia Assessment: Chart Reviewed Documented by User: Rufina Castro MD 09/06/21 14:04 [facility] Past Medical History Medical History (Updated 08/31/21 @ 13:06 by Yaa Magaña, NIKIA) Anemia Arthritis Asthma Chronic renal insufficiency Cognitive dysfunction COVID-19 vaccine administered Difficulty swallowing Dysphagia Fatty liver High cholesterol History of COVID-19 HX: benign breast biopsy Hypertension Knee pain, right Osteoarthritis of right knee Stage 4 chronic kidney disease Tremors of nervous system Family History Family history of problems with anesthesia: No Surgical History Surgical History (Updated 08/30/21 @ 16:27 by Yaa Magaña, RN) H/O endoscopy History of section History of colonoscopy History of total right knee replacement (TKR) Hx laparoscopic cholecystectomy History of Problems with Anesthesia: Yes (Difficulty with spinal placement.Unable to be placed for TKR) Social History Social History Household Members: Spouse Housing: House Are you a primary post acute care nurse to a significant other at home: No Do you presently have visiting nurse or other home services: No Alcohol intake: never Patient Tobacco Use Status: Never used Tobacco Second Hand Smoke Exposure: No Use of substances other than those prescribed or required for medical reasons: No Have you been hit, kicked, punched, or otherwise hurt by someone within the past year? If so, by whom?: No Are you DNR?: No Advance Directives: No Advance Directives Information Provided: No Advance Directives on File: No Recently lost weight without trying: No Eating poorly because of decreased appetite: No Nutrition Risks: No Nutritional Risk Patient : No service: No Current occupational status: retired Current occupation: right handed Meds Allergies Allergy/AdvReac Type Severity Reaction Status Date / Time benztropine [From Cogentin] Allergy Intermediate Rash Verified 08/31/21 13:06 latex Allergy Intermediate Itching Verified 08/31/21 13:06 thimerosal Allergy Intermediate Itching Verified 08/31/21 13:06 sulfamethoxazole AdvReac Intermediate contraindicated Verified 08/31/21 13:06 [From Bactrim] w/stage 4 CKD trimethoprim [From Bactrim] AdvReac Intermediate contraindicated Verified 08/31/21 13:06 w/stage 4 CKD Home Medications Medication Instructions Recorded Confirmed Last Taken Type amlodipine 10 mg tablet 5 mg PO DAILY 12/12/20 08/31/21 09/06/21 History aripiprazole 10 mg tablet 10 mg PO BEDTIME 12/12/20 08/31/21 Unknown History budesonide-formoterol HFA 80 2 puff INHALATION BID 12/12/20 08/31/21 09/06/21 History mcg-4.5 mcg/actuation aerosol inhaler (Symbicort) clonazepam 1 mg tablet 0.5 mg PO QPM 12/12/20 08/31/21 Unknown History fluoxetine 40 mg capsule 40 mg PO QAM 12/12/20 08/31/21 09/06/21 History gabapentin 100 mg capsule 100 mg PO BEDTIME 12/12/20 08/31/21 Unknown History pravastatin 80 mg tablet 80 mg PO BEDTIME 12/12/20 08/31/21 Unknown History albuterol sulfate 90 mcg/actuation 2 puff INHALATION Q4-6H PRN 02/07/21 08/31/21 Unknown History aerosol inhaler (ProAir HFA) cetirizine 10 mg tablet 10 mg PO BEDTIME 02/07/21 08/31/21 Unknown History clonazepam 1 mg tablet 1.5 mg PO BEDTIME 02/07/21 08/31/21 Unknown History clonidine HCl 0.2 mg tablet 1 tab PO BEDTIME 02/07/21 08/31/21 Unknown History docusate sodium 100 mg capsule 100 mg PO BID 02/07/21 08/31/21 Unknown History (Colace) multivitamin 1 tab PO DAILY 02/07/21 08/31/21 Unknown History primidone 250 mg tablet 1 tab PO BID 02/07/21 08/31/21 09/06/21 History cholecalciferol (vitamin D3) 1,250 1,250 mcg PO QWEEK 06/12/21 08/31/21 Unknown History mcg (50,000 unit) capsule quetiapine 100 mg tablet 100 mg PO BEDTIME tab 06/12/21 08/31/21 Unknown History bupropion HCl 150 mg 24 hr tablet, 1 tab PO QAM 08/31/21 08/31/21 09/06/21 H istory extended release bupropion HCl 300 mg 24 hr tablet, 1 tab PO DAILY 08/31/21 08/31/21 09/06/21 History extended release hydralazine 25 mg tablet 25 mg PO BID 08/31/21 08/31/21 09/06/21 History Exam Height,Weight and Vital Signs: Height 5 ft 1.5 in Weight 102.512 kg Vital Signs Temp Pulse Resp BP Pulse Ox 09/06/21 11:30 97.3 F 88 16 146/81 H 99 Airway Mallampati Class: III (Small mouth opening) TM Dist: >3cm Neck ROM: Full Heart: RRR Lungs: CTAB Assessment and Plan Assessment Anesthesia Assessment: Anesthesia Plan Discussed Final Anesthetic Review Family History of Problems with Anesthesia: No History of Problems with Anesthesia: Yes (Difficulty with spinal placement.Unable to be placed for TKR) NPO: Yes ASA Class: III Final Preanesthetic Review: No Changes in Pt Med Stat, Meds/Allgs Chart Reviewed, Consent Obtained/Reviewed, Anes Risks/Benef Reviewed and DNR Form (If Appl.) (Addressed) Patient Risk: Intermediate Procedure Risk: Low Assessment/Block/Sedation in SS: Assess/Block/Sedation-SS Anesthetic Plan Anesthetic Plan: MAC: Disposition: Standard PACU
[2021-09-06] VITALS (8 sets, daily range): BP systolic 140–169; BP diastolic 75–92; PULSE 87–91; RESP 16–18; TEMP 36.2–36.3; O2SAT 95–99
--- NOTE | ~2021-09-06 | FL_ITS ---
EXAMINATION: XR FLUOROSCOPY WITH IMAGES CLINICAL INFORMATION: Genicular block COMPARISON: None. TECHNIQUE: Fluoroscopy performed by Dr. Palacios. Fluoroscopy time: 0.9 minutes DAP: 2.31 mGycm2 Images: 4 FINDINGS: There is a total right knee arthroplasty. There are 3 needles identified, 2 at the level of the distal femoral metaphysis and one at the level of the proximal tibial metaphysis. FL/FL guidance in OR IMPRESSION: Fluoroscopic guidance for intervention at the right knee.
[2021-09-06] MEDS: 0.9 % Sodium Chloride 1,000 ML 50 ML IVCONT (11:31)
--- NOTE | 2021-09-06 13:31 | W.PM.OPN ---
Operative Note Operative Note Date of Service: 09/06/21 Narrative: Genicular Nerve RFL - fluoroscopic guided - Superior medial, superior lateral, and inferior medial genicular nerve cooled radiofrequency lesioning After obtaining written consent, pre-procedure blood pressure and heart rate were stable and recorded in the nursing record. Standard monitors were applied. The patient was anesthetized under MAC by the assistant casino shift manager and given preoperative antibiotics 2 gm cefazolin. The patient was placed supine on the fluoroscopy table. The area overlying the peripheral nerves was widely prepped with DuraPrep twice, allowed to dry and sterilely draped. Using fluoroscopy and ultrasound, the appropriate landmarks were identified. The skin overlying the target was anesthetized with 0.7% lidocaine. A 18 gauge 70 mm radiofrequency cannula was advanced under fluoroscopic guidance to the appropriate landmark of each peripheral nerve. Verification using lateral and AP views. Aspiration was negative for heme and synovial fluid. Impedences were verified under 400 ohms. Motor testing (2 Hz) confirmed needle placement at each site within the appropriate voltage thresholds. Each site was injected with 1 ml 2% preservative-free lidocaine. Radiofrequency lesioning was performed for 245 seconds at 60 deg Celcius. The needles were removed, skin cleansed and a sterile bandage was applied. The patient tolerated the procedure well and no complications were encountered. Following the procedure the patient's vital signs were stable. The patient was discharged home in good condition with post-procedural instructions. Time Out: Immediately prior to the procedure, the following was verbally confirmed that there is a signed consent form and that the correct patient, planned procedure, site and side are consistent with documentation and that necessary equipment and/or blood products are available prior to the start of the case. Complications: none EBL: <5 cc
--- NOTE | 2021-09-06 13:31 | PM.OP ---
Brief Operative Note Date of Service: 09/06/21 Pre-op diagnosis: Right knee pain Post-op diagnosis: same Procedure: Right knee SM, SL, IM genicular cooled RFL Implants: None Surgeon: Home Palacios MD Anesthesia: MAC Was an Tire Repair Mechanic used for this Procedure?: No Estimated blood loss (mL): 5 Pathology: none sent Condition: stable Disposition: PACU
[2021-09-06] MEDS: ondansetron HCL 4 MG/2 ML VIAL IVPUSH (15:58)
[2021-09-06] MEDS: oxyCODONE HCl Immed Release 5 MG TABLET PO (16:02)
== END 2021-09-06 16:42 | disposition home or self-care (01) ==
PROVIDERS: PCP Internal Medicine; Visit Provider Internal Medicine
PROC: 3E0T3BZ Introduction of Anesthetic Agent into Peripheral Nerves and Plexi, Percutaneous Approach (ICD-10-PCS; CPT 64454; principal; 2021-09-06 12:30)
DX: M25.561 Pain in right knee (principal); M17.11 Unilateral primary osteoarthritis, right knee; Z96.651 Presence of right artificial knee joint; I12.9 Hypertensive chronic kidney disease with stage 1 through stage 4 chronic kidney disease, or unspecified chronic kidney disease; N18.4 Chronic kidney disease, stage 4 (severe); Z66 Do not resuscitate; D64.9 Anemia, unspecified; J45.909 Unspecified asthma, uncomplicated; R25.1 Tremor, unspecified; Z79.899 Other long term (current) drug therapy; Z91.040 Latex allergy status; Z88.8 Allergy status to other drugs, medicaments and biological substances; Z88.2 Allergy status to sulfonamides
CPT/HCPCS: 64624; J0690; J2250; J2405

== ENCOUNTER → 2021-10-09 09:14 | Outpatient (BNVA) | payer MEDICARE, SELFPAY | PROVIDERS: PCP Internal Medicine; Visit Provider Internal Medicine | DX: Z47.1 Aftercare following joint replacement surgery (principal); Z96.651 Presence of right artificial knee joint; M25.561 Pain in right knee | CPT/HCPCS: 99212 ==

== ENCOUNTER 2021-11-08 08:00 | Outpatient (REF) | payer MEDICARE, SELFPAY | END 2021-11-08 08:01 | disposition home or self-care (01) | LOC: HO.RADIR 08:00 | PROVIDERS: Visit Provider Internal Medicine | DX: M25.561 Pain in right knee (principal); Z79.899 Other long term (current) drug therapy | CPT/HCPCS: 64447 ==

== ENCOUNTER → 2021-11-13 09:05 | Outpatient (BNVA) | payer MEDICARE, SELFPAY | PROVIDERS: PCP Internal Medicine; Visit Provider Internal Medicine | DX: M25.561 Pain in right knee (principal); Z96.651 Presence of right artificial knee joint | CPT/HCPCS: Q3014 ==

== ENCOUNTER → 2021-12-18 13:35 | Outpatient (BNVA) | payer MEDICARE, SELFPAY | PROVIDERS: PCP Internal Medicine; Visit Provider Internal Medicine | DX: M25.561 Pain in right knee (principal); Z96.651 Presence of right artificial knee joint | CPT/HCPCS: 99212 ==

== ENCOUNTER → 2022-01-29 09:19 | Outpatient (BNVA) | payer MEDICARE, SELFPAY | PROVIDERS: PCP Internal Medicine; Visit Provider Orthopaedic Surgery | DX: G89.29 Other chronic pain (principal); R53.81 Other malaise; Z96.651 Presence of right artificial knee joint | CPT/HCPCS: 99212 ==

== ENCOUNTER 2022-01-31 06:16 | Outpatient (REF) | payer MEDICARE, SELFPAY | END 2022-01-31 06:17 | disposition home or self-care (01) | LOC: HO.RADIR 06:16 | PROVIDERS: Visit Provider Internal Medicine | DX: T84.84XA Pain due to internal orthopedic prosthetic devices, implants and grafts, initial encounter (principal); Z96.651 Presence of right artificial knee joint | CPT/HCPCS: 64555; C1778; Q9967 ==

== ENCOUNTER → 2022-01-31 15:40 | Day surgery (SDC) | payer MEDICARE, SELFPAY | PROVIDERS: Visit Provider Internal Medicine | DX: M25.561 Pain in right knee (principal); Z96.651 Presence of right artificial knee joint; Z53.9 Procedure and treatment not carried out, unspecified reason | CPT/HCPCS: C1778 ==

== ENCOUNTER → 2022-02-16 08:59 | Outpatient (BNVA) | payer MEDICARE, SELFPAY | PROVIDERS: Visit Provider Internal Medicine | DX: M25.561 Pain in right knee (principal) | CPT/HCPCS: 99212 ==

== ENCOUNTER → 2022-02-23 10:55 | Outpatient (BNVA) | payer MEDICARE, SELFPAY | PROVIDERS: Visit Provider Nurse Practitioner Family | DX: Z48.89 Encounter for other specified surgical aftercare (principal); B36.9 Superficial mycosis, unspecified | CPT/HCPCS: 99212 ==

== ENCOUNTER → 2022-03-26 08:56 | Outpatient (BNVA) | payer MEDICARE, SELFPAY | PROVIDERS: Visit Provider Internal Medicine | DX: M25.561 Pain in right knee (principal); Z96.651 Presence of right artificial knee joint | CPT/HCPCS: 99212 ==

== ENCOUNTER → 2022-07-30 09:32 | Outpatient (BNVA) | payer MEDICARE, SELFPAY | PROVIDERS: PCP Internal Medicine; Visit Provider Orthopaedic Surgery | DX: Z47.1 Aftercare following joint replacement surgery (principal); Z96.651 Presence of right artificial knee joint | CPT/HCPCS: 99212 ==

== ENCOUNTER 2023-07-27 18:30 | Inpatient (IN) | payer MEDICARE, SELFPAY ==
--- NOTE | ~2023-07-27 | US_ITS ---
EXAMINATION: US PELVIS, LIMITED/FOLLOW UP CLINICAL INFORMATION: Right-sided mass seen on CT done [place] [facility] [place] COMPARISON: None available. TECHNIQUE: Transabdominal imaging of pelvis is performed. Transvaginal imaging was not performed. FINDINGS: The uterus is anteverted measuring 7.7 seen in length, 3.1 cm AP and 4.8 cm wide. It appears homogeneous in echotexture without any focal lesion. Endometrial thickness measures 0.2 cm. Right ovary measures 2.6 x 1.5 x 1.8 cm and volume 3.7 mL. No focal abnormality seen. Left ovary measures 1.8 x 1.3 x 2.1 cm and volume 2.6 mL. No focal lesion seen. There is no free fluid in cul-de-sac. US/US pelvic complete IMPRESSION: 1. Unremarkable uterus and ovaries. 2. There is no free fluid in the cul-de-sac.
[2023-07-27] MEDS: ARIPiprazole 10 MG TABLET 2.5 MG PO (23:31)
[2023-07-27] MEDS: QUEtiapine Fumarate 100 MG TABLET PO (23:31)
[2023-07-27] MEDS: cloNIDine HCL 0.2 MG TABLET PO (23:31)
[2023-07-27] MEDS: clonazePAM 1 MG TABLET 2 MG PO (23:45)
[2023-07-27] MEDS: Gabapentin 100 MG CAPSULE PO (23:45)
--- NOTE | 2023-07-28 01:09 | PC.ADMIT ---
Patient admitted to S1 on a CV? from [facility] on 07/27/23 at 1850 due to increased SI with plans to end life and making it look like an accident. Her in February 2023, and patient has been recently making statements to her therapist that she wants to be with her . She has history of inpatient hospitalizations, last attempted suicide being 5 years old? and reports having suicidal thoughts as early as 3 years old.Patient has past medical history of CKD, essential tremors, depression, anxiety, PTSD, GERD,? Asthma, HELENA ( CPAP at ), HTN, HLD, anemia.? Patient recently had labs drawn revealing Hgb 7.7 needing one unit of PRBC prior to admission. Patient also has CT scan of abd at [facility] revealing findings suspicious for a mass in RLQ, concerning for malignancy. Patient to follow up outpt. Patient is very anxious and concerned that this finding may be a time sensitive manner. Upon arrival to unit, Patient alert and oriented x 4, pleasant upon approach, visibly anxious. Patient tearful and wringing hands. She believes that coming to this facility was a mistake, and is worried that her medical conditions will not be taken care of while here. Patient was assured that hospitalist will be coming to see her. All releases of information signed. Safety tool completed. Patient currently sleeping with CPAP and a patient observer for equipment observation. She reports still having suicidal thoughts, but feels comfortable coming to staff if she starts to feel as though she is going to act on them. Denies HI/AH/VH.
[2023-07-28 01:19] VITALS: BMI 37.3
[2023-07-28] MEDS: Omeprazole 20 MG CAPSULE.DR PO ×2 (05:57→17:25)
[2023-07-28 07:41] LABS: INTERNATIONAL NORM RATIO 1.8 (0.9-1.1); Prothrombin Time 22.4 SEC (11.1-13.3)
[2023-07-28 07:42] LABS: Hematocrit 23.9 % (37.0-47.0); Hemoglobin 7.2 g/dl (12.0-16.0); Mean Corpuscular HGB Conc 30.1 g/dl (31.0-35.0); Mean Corpuscular Hemoglobin 25.2 pg (27.0-33.0); Mean Corpuscular Volume 83.6 fL (80.0-98.0); NRBC Pct Auto 0.2 /100WBC (0.0-0.2); Platelet Count 317 X10*3/uL (160-400); Red Blood Count 2.86 X10*6/uL (4.20-5.50); Red Cell Distribution Width 15.8 % (11.0-16.0); White Blood Count 8.1 X10*3/uL (4.8-10.8)
[2023-07-28 07:52] LABS: Alanine Aminotransferase 20 U/L (0-31); Albumin Level 3.1 g/dL (3.5-5.0); Alkaline Phosphatase 104 U/L (39-117); Anion Gap 11 (12-20); Aspartate Amino Transferase 21 U/L (5-31); Bilirubin Total 0.3 mg/dL (0.0-1.0); Blood Urea Nitrogen 8 mg/dL (9-16); Calcium 8.8 mg/dL (8.4-10.2); Carbon Dioxide 23 mmol/L (22-29); Chloride 112 mmol/L (96-108); Cholesterol 117 mg/dL (<200); Creatinine Clr Calc Pharmacy 42.2; Estimated Glomerular Filt Rate 31; Glucose Fasting 88 mg/dL (60-99); HDL Cholesterol 32 mg/dL (>40); LDL Cholesterol Calculated 59 mg/dL (<100); Potassium 3.9 mmol/L (3.3-5.1); Sodium 142 mmol/L (135-145); Total Protein 5.9 g/dL (6.5-8.0); Triglycerides 132 mg/dL (<150)
[2023-07-28 09:15] VITALS: BP 130/60; PULSE 86; RESP 20; TEMP 36.3; O2SAT 96
[2023-07-28] MEDS: FLUoxetine HCl 20 MG CAPSULE 40 MG PO (09:19)
[2023-07-28] MEDS: buPROPion HCl XL 300 MG TAB.ER.24H PO (09:19)
[2023-07-28] MEDS: amLODIPine Besylate 2.5 MG TABLET PO (09:20)
[2023-07-28] MEDS: Atorvastatin Calcium 20 MG TABLET PO (09:20)
[2023-07-28] MEDS: Bumetanide 1 MG TABLET PO ×2 (11:00→20:59)
[2023-07-28] MEDS: hydrALAZINE HCl 25 MG TABLET PO ×2 (11:00→20:58)
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
--- NOTE | 2023-07-28 15:56 | HO.PM.IMCN ---
History of Present Illness Data of Consult Service Date: 07/28/23 Requesting physician: Jakob Monreal Primary Care Provider: Rosa Maria Jaime MD [facility] Reason for consult: medical H&P 67-year-old female history of CKD stage 4, generalized anxiety disorder, GERD, hypertension, hyperlipidemia, HELENA on CPAP, PTSD, history of PE on Coumadin (Nov 2022 continue x 1 year per hematology) admitted to Geriatric Psychiatry with consult placed to hospitalist service for medical H and P. She was admitted from [facility] on 07/24 due to symptomatic anemia that has been ongoing for 1 month. She was endorsing dyspnea on exertion and palpitations. She is on Coumadin as above which was held on admission. On admission, H/H 7.9/25.2%, MCV 81.2. Iron levels low at 15 with TIBC 373, 4% iron saturation. Normal vitamin B12 and folic acid levels. Renal function slightly above baseline with creatinine of 2.0, electrolyte levels normal. Stool occult blood was not performed. CT abdomen/pelvis showed soft tissue nodular LD along the mesentery with small amount of intraperitoneal free fluid concerning for peritoneal carcinomatosis until proven otherwise as well as findings suspicious for mass in the right lower quadrant inseparable from the right adnexa and junction of the cecum/terminal ileum concerning for malignancy. No evidence of obstruction or inflammation. She was transfused 1 unit packed red blood cells. Despite 1 unit packed red blood cells, H/H continued to fall slightly to 7.7/25.0% and then 7.5/24.8% on day of discharge on 07/27. She also received IV iron infusions due to severe iron deficiency anemia. Coumadin was resumed on discharge. There is no evidence of active GI bleeding so patient was declared medically stable for discharge to our inpatient geriatric psychiatry unit with recommendations to follow-up outpatient for colonoscopy and outpatient follow-up for abnormal CT abdomen/pelvis results. Today the patient is reporting anxiety over findings at [facility] and is concerned about undergoing further workup sooner rather than later given possibility of malignancy. She is currently still reporting dyspnea on exertion and occasional palpitations. She has 3+ pitting edema on the bilateral lower extremities. She is also fatigued and reports general weakness. No chest pain or near-syncope. This morning, the unit, H/H 7.2/23.9%. She continues to deny any melena, hematochezia, epistaxis, easy bruisability. She tells me her last colonoscopy was in 2019 which revealed 1 polyp which she reports had benign pathology with 10 year follow-up advised. She denies any abdominal pain, nausea, vomiting, diarrhea, constipation. Renal function has improved with creat 1.67, bun 8, seems consistent with her baseline. Lytes normal. Review of Systems Review of Systems: General: No fevers, malaise, unintentional weight loss HEENT: No blurred vision, diplopia. No sore throat, nasal congestion, rhinorrhea, sinus pain, ear pain Cardiovascular: No chest pain. +BLE edema, palpitations. Respiratory: +AMATO. No wheezing, cough GI: No abdominal pain, nausea, vomiting, diarrhea, constipation, melena, hematochezia : No dysuria, hematuria, increased urinary frequency, decreased urinary output MSK: No myalgia, back pain Neuro: No headaches, weakness, paresthesias, syncope Skin: No rashes or lesions [facility] Medical History Long COVID IBS (irritable bowel syndrome) Chronic laryngitis Sleep apnea Knee pain, right Anemia HX: benign breast biopsy COVID-19 vaccine administered Difficulty swallowing Chronic renal insufficiency Fatty liver Tremors of nervous system Cognitive dysfunction Osteoarthritis of right knee Dysphagia Hypertension High cholesterol Arthritis Stage 4 chronic kidney disease History of COVID-19 Asthma Surgical History History of total right knee replacement (TKR) Hx laparoscopic cholecystectomy H/O endoscopy History of colonoscopy History of section Social History Household Members: None Housing: House Are you a primary manager urgent care to a significant other at home: No Do you presently have visiting nurse or other home services: No Alcohol intake: never Patient Tobacco Use Status: Never used Tobacco Second Hand Smoke Exposure: No Use of substances other than those prescribed or required for medical reasons: No Currently Displaying Signs/Symptoms of Drug Intoxication Withdrawal: No Have you been hit, kicked, punched, or otherwise hurt by someone within the past year? If so, by whom?: No Do you feel safe in your current relationship?: No Current Relationship Is there a partner from a previous relationship who is making you feel unsafe now?: No Are you made to feel afraid or neglected: No Advance Directives: No Advance Directives Information Provided: No Do you have thoughts of harming others: None Do you have a plan to hurt others: No Plan Recently lost weight without trying: No Nutrition Risks: No Nutritional Risk Patient : No : No Poor oral hygiene: No service: No Current occupational status: retired Current occupation: right handed Meds Allergies Allergy/AdvReac Type Severity Reaction Status Date / Time benztropine [From Cogentin] Allergy Intermediate Rash Verified 07/30/22 09:59 latex Allergy Intermediate Itching Verified 07/30/22 09:59 thimerosal Allergy Intermediate Itching Verified 07/30/22 09:59 sulfamethoxazole AdvReac Intermediate contraindicated Verified 07/30/22 09:59 [From Bactrim] w/stage 4 CKD trimethoprim [From Bactrim] AdvReac Intermediate contraindicated Verified 07/30/22 09:59 w/stage 4 CKD Active Medications: Current Medications Acetaminophen (Acetaminophen 325 Mg Tablet) 650 mg PO Q6H PRN PRN Reason: Headache/Pain Mild Scale (1-3) Al Hydroxide/Mg Hydroxide (Magnesium Hydrox/Alum Hydrox 30 Ml Oral.Susp) 30 ml PO Q6H PRN PRN Reason: Heartburn/Nausea Amlodipine Besylate (Amlodipine Besylate 2.5 Mg Tablet) 2.5 mg PO DAILY [facility]; Protocol Last Admin: 07/28/23 09:20 Dose: 2.5 mg Aripiprazole (Aripiprazole 10 Mg Tablet) 2.5 mg PO BEDTIME IDA Last Admin: 07/27/23 23:31 Dose: 2.5 mg Atorvastatin Calcium (Atorvastatin Calcium 20 Mg Tablet) 20 mg PO DAILY IDA Last Admin: 07/28/23 09:20 Dose: 20 mg Bumetanide (Bumetanide 1 Mg Tablet) 1 mg PO BID IDA; Protocol Last Admin: 07/28/23 11:00 Dose: 1 mg Bupropion HCl (Bupropion Hcl Xl 300 Mg Tab.Er.24h) 300 mg PO DAILY IDA Last Admin: 07/28/23 09:19 Dose: 300 mg Clonazepam (Clonazepam 1 Mg Tablet) 2 mg PO BEDTIME [facility] Clonidine HCl (Clonidine Hcl 0.2 Mg Tablet) 0.2 mg PO BEDTIME [facility]; Protocol Last Admin: 07/27/23 23:31 Dose: 0.2 mg Fluoxetine HCl (Fluoxetine Hcl 20 Mg Capsule) 40 mg PO DAILY [facility] Last Admin: 07/28/23 09:19 Dose: 40 mg Gabapentin (Gabapentin 100 Mg Capsule) 100 mg PO BEDTIME [facility] Hydralazine HCl (Hydralazine Hcl 25 Mg Tablet) 25 mg PO BID [facility]; Protocol Last Admin: 07/28/23 11:00 Dose: 25 mg Hydroxyzine HCl (Hydroxyzine Hcl 25 Mg Tablet) 25 mg PO Q6H PRN PRN Reason: Anxiety Loratadine (Loratadine 10 Mg Tablet) 10 mg PO BEDTIME [facility] Magnesium Hydroxide (Milk Of Magnesia 30 Ml Oral.Susp) 30 ml PO DAILY PRN PRN Reason: Constipation Omeprazole (Omeprazole 20 Mg Capsule.Dr) 20 mg PO BID@0630,1630 [facility] Last Admin: 07/28/23 05:57 Dose: 20 mg Quetiapine Fumarate (Quetiapine Fumarate 100 Mg Tablet) 100 mg PO BEDTIME [facility] Last Admin: 07/27/23 23:31 Dose: 100 mg Warfarin Sodium (Warfarin Sodium 5 Mg Tablet) 5 mg PO DAILY@1800 [facility] Home Medications Medication Instructions Recorded Confirmed Last Taken Type amlodipine 10 mg tablet 2.5 mg PO DAILY 12/12/20 07/27/23 09/06/21 History clonazepam 1 mg tablet 1 mg PO QPM 12/12/20 07/27/23 Unknown History fluoxetine 40 mg capsule 40 mg PO QAM 12/12/20 07/27/23 09/06/21 History gabapentin 100 mg capsule 100 mg PO BEDTIME 12/12/20 07/27/23 Unknown History albuterol sulfate 90 mcg/actuation 2 puff inhalation Q4-6H PRN 02/07/21 03/26/22 Unknown History aerosol inhaler (ProAir HFA) Wheezing cetirizine 10 mg tablet 10 mg PO BEDTIME 02/07/21 07/27/23 Unknown History clonazepam 1 mg tablet 2 mg PO BEDTIME 02/07/21 07/27/23 Unknown History clonidine HCl 0.2 mg tablet 1 tab PO BEDTIME 02/07/21 07/27/23 Unknown History quetiapine 100 mg tablet 100 mg PO BEDTIME 06/12/21 07/27/23 Unknown History bupropion HCl 300 mg 24 hr tablet, 1 tab PO DAILY 08/31/21 07/27/23 09/06/21 History extended release hydralazine 25 mg tablet 25 mg PO BID 08/31/21 07/27/23 09/06/21 History budesonide-formoterol HFA 160 inhalation 02/16/22 03/26/22 Unknown History mcg-4.5 mcg/actuation aerosol inhaler (Symbicort) aripiprazole 10 mg tablet 2.5 mg PO BEDTIME 02/23/22 07/27/23 Unknown History atorvastatin 20 mg tablet 20 mg PO DAILY 07/27/23 07/27/23 Unknown History bumetanide 1 mg tablet 1 mg PO BID 07/27/23 07/27/23 Unknown History omeprazole 20 mg capsule,delayed 20 mg PO BID 07/27/23 07/27/23 Unknown History release warfarin 5 mg tablet 5 mg PO DAILY 07/27/23 07/27/23 07/25/23 History Physical Exam Vital Signs and Narrative: Vital Signs: Last Vital Signs Temp 97.4 F 07/28/23 09:15 Pulse 86 07/28/23 09:15 Resp 20 07/28/23 09:15 BP 130/60 07/28/23 09:15 Pulse Ox 96 07/28/23 09:15 O2 Del Method Room Air 07/28/23 09:15 BMI result Body Mass Index 37.3 Constitutional - Awake and Alert, No apparent distress Eyes - PERRLA, EOMI Cardiovascular - S1S2, RRR. 3+ BLE edema Respiratory - Normal lung expansion, Normal respiratory effort, No respiratory distress, CTA bilaterally Gastrointestinal - NT / ND; +BS; No rebound or guarding Extremities - no calf tenderness bilaterally, no swelling Skin - Warm/Dry Neurological - Alert & oriented x3, CN II-XII in tact, 5/5 strength BUE and BLE Psychological - Appropriate affect Results Labs 07/28/23 07:11 07/28/23 07:11 Labs: Laboratory Results - last 24 hr 07/28/23 07:11 MCV 83.6 MCH 25.2 L MCHC 30.1 L RDW 15.8 Plt Count 317 MPV 9.0 L Absolute Nucleated RBC 0.020 H Nucleated RBC % (auto) 0.2 PT 22.4 H INR 1.8 H Anion Gap 11 L Estim Creat Clear Calc 42.2 Estimated GFR 31 Fasting Glucose 88 Calcium 8.8 D Total Bilirubin 0.3 AST 21 ALT 20 Alkaline Phosphatase 104 Total Protein 5.9 L Albumin 3.1 L Triglycerides 132 Cholesterol 117 LDL Cholesterol, Calc 59 HDL Cholesterol 32 L Assessment and Plan (1) Routine medical exam: Status: Acute Plan 67-year-old female history of CKD stage 4, generalized anxiety disorder, GERD, hypertension, hyperlipidemia, HELENA on CPAP, PTSD, history of PE on Coumadin (Nov 2022 continue x 1 year per hematology) admitted to Geriatric Psychiatry with consult placed to hospitalist service for medical H and P. #Mood disorder -plan per psychiatry #Acute on chronic iron deficiency anemia -Received 1 unit packed red blood cells at [facility] and IV iron infusion -Hgb [facility]: 7.9 (07/25) --> 7.7 (07/26) --> 7.5 (07/27). [facility] 07/28 Hgb 7.2 -Stool occult blood positive -Hold Coumadin. Follow INR -Follow CBC. If continues to drop tomorrow, will likely transfer to medical floors for transfusion -Hemetology/oncology consult -Consider GI consult for colonoscopy pending hemetology/oncology recs #Metastatic cancer -CT abdomen/pelvis [facility] 07/24 -soft tissue nodularity along the mesentery with a small amount of intraperitoneal free fluid concerning for peritoneal carcinomatosis until proven otherwise -findings suspicious for mass in the right lower quadrant inseparable from the right adnexa and junction of the cecum/terminal ileum concerning for malignancy -hematology/oncology consult -likely needs colonoscopy with biopsy #History PE -likely r/t undiagnosed malignancy at that time -Hold coumadin due to above -hematology consult #HELENA -cpap bedtime #CKD stage 4 -renal function baseline #HLD -continue statin #Chronic lung disease -no acute exacerbation -continue maintenance Pete, albuterol p.r.n. .Thank you for this consult. Will continue following closely. Time Spent With Patient Time: Total time managing care of this patient today ____ minutes.
[2023-07-28 18:00] VITALS: BP 134/73; PULSE 93; RESP 18; TEMP 36.5; O2SAT 98
[2023-07-28] MEDS: QUEtiapine Fumarate 100 MG TABLET PO (20:58)
[2023-07-28] MEDS: clonazePAM 1 MG TABLET 2 MG PO (20:58)
[2023-07-28] MEDS: ARIPiprazole 10 MG TABLET 2.5 MG PO (20:58)
[2023-07-28] MEDS: cloNIDine HCL 0.2 MG TABLET PO (20:59)
[2023-07-28] MEDS: Loratadine 10 MG TABLET PO (20:59)
[2023-07-28] MEDS: Gabapentin 100 MG CAPSULE PO (20:59)
[2023-07-29] MEDS: Omeprazole 20 MG CAPSULE.DR PO ×2 (06:08→15:57)
[2023-07-29 08:01] LABS: MANUAL DIFF FLAG NO
[2023-07-29 08:09] LABS: Basophils Percent Auto 0.3 % (0-2); Eosinophils Absolute Auto 0.4 X10*3/uL (0.0-0.4); Hematocrit 27.3 % (37.0-47.0); Hemoglobin 8.3 g/dl (12.0-16.0); Imm Gran Abs Auto 0.07 X10*3/uL (0.00-0.03); Imm Gran Pct Auto 0.8 % (0.0-0.4); Lymphocytes Absolute Auto 1.6 X10*3/uL (1.2-4.9); Mean Corpuscular HGB Conc 30.4 g/dl (31.0-35.0); Mean Corpuscular Hemoglobin 25.5 pg (27.0-33.0); Mean Corpuscular Volume 83.7 fL (80.0-98.0); Mean Platelet Volume 9.1 fL (9.4-12.3); Monocytes Absolute Auto 0.6 X10*3/uL (0.1-1.2); Monocytes Percent Auto 7.4 % (2-11); NRBC Pct Auto 0.2 /100WBC (0.0-0.2); Neutrophils Absolute Auto 5.9 x10*3/uL (2.0-8.3); Neutrophils Percent Auto 68.5 % (45-73); Platelet Count 388 X10*3/uL (160-400); Red Blood Count 3.26 X10*6/uL (4.20-5.50); Red Cell Distribution Width 16.2 % (11.0-16.0); White Blood Count 8.6 X10*3/uL (4.8-10.8)
[2023-07-29 08:11] LABS: INTERNATIONAL NORM RATIO 1.3 (0.9-1.1)
[2023-07-29 08:18] VITALS: BP 104/59; PULSE 90; RESP 16; TEMP 36.7; O2SAT 97
[2023-07-29] MEDS: Fluticasone/Vilanterol 200/25 BLST.W.DEV 1 PUFF INHALE (08:22)
[2023-07-29] MEDS: FLUoxetine HCl 20 MG CAPSULE 40 MG PO (08:23)
[2023-07-29] MEDS: hydrALAZINE HCl 25 MG TABLET PO ×2 (08:23→22:09)
[2023-07-29] MEDS: Atorvastatin Calcium 20 MG TABLET PO (08:23)
[2023-07-29] MEDS: buPROPion HCl XL 300 MG TAB.ER.24H PO (08:23)
[2023-07-29] MEDS: Ferrous Sulfate 324 MG TABLET.DR 325 MG PO (08:24)
[2023-07-29] MEDS: Bumetanide 1 MG TABLET PO ×2 (08:24→22:10)
[2023-07-29] MEDS: Ascorbic Acid 250 MG TABLET PO (08:24)
[2023-07-29] MEDS: amLODIPine Besylate 2.5 MG TABLET PO (08:25)
[2023-07-29] MEDS: Fluticasone Propionate Nasal 16 GM SPRAY 2 SPRAY NOSTRIL-B (09:37)
--- NOTE | 2023-07-29 13:17 | P.CNHO_ITS ---
Subjective - Subjective Chief complaint: Anemia/? Metastatic cancer Patient: new to practice Consult date: 07/29/23 Primary Care Provider: Rosa Maria Jaime MD HPI - Consult Narrative Reason for consult: Anemia/peritoneal carcinomatosis Narrative: Devi Atkins is a 67 year old female with multiple medical problems who is currently admitted to the psychiatric floor for depression/suicidal ideation. She was diagnosed with pulmonary embolism in November 2022. In February her of stage IV lung cancer. She has a history of long-term depression/PTSD, her last inpatient psychiatric treatment was about 6 years ago. She says that with her passing away and recent diagnosis of possibly GI bleed and metastatic colon cancer she seriously considered suicide. She underwent a colonoscopy about 3 years ago by oil treater affiliated with [facility]. Her paternal aunt was diagnosed with breast cancer. Patient herself was tested for BRCA mutation as well as 20 other gene mutations because of her daughter who was diagnosed with triple negative breast cancer and tested positive for BRCA mutation. She says she lost about 15 lb since the loss of her . She denies any GI complaints such as change in bowel habits, hematochezia although she noticed some dark colored stools. She was diagnosed with worsening anemia in June 2023. This is the 1st time she required blood transfusion. She saw a leasing manager in [facility] for her pulmonary embolism. Review of Systems - Constitutional Reports as per HPI, Reports fatigue, Reports lack of energy, Reports weight loss - Cardiovascular Reports no additional cardiovascular complaints - Respiratory Reports no additional respiratory complaints - Gastrointestinal Reports no additional gastrointestinal complaints [facility] Medical History: Medical History (Last Reviewed 07/28/23 @ 16:12 by CANDELARIA Townsend) Anemia Arthritis Asthma Chronic laryngitis Chronic renal insufficiency Cognitive dysfunction COVID-19 vaccine administered Difficulty swallowing Dysphagia Fatty liver High cholesterol History of COVID-19 HX: benign breast biopsy Hypertension IBS (irritable bowel syndrome) Knee pain, right Long COVID Osteoarthritis of right knee Sleep apnea Stage 4 chronic kidney disease Tremors of nervous system Family History: Family History (Last Updated 07/29/23 @ 13:28 by Shantell Garg MD) Daughter Breast cancer Paternal Aunt Breast cancer Surgical History: Surgical History (Last Reviewed 07/28/23 @ 16:12 by CANDELARIA Townsend) H/O endoscopy History of section History of colonoscopy History of total right knee replacement (TKR) Hx laparoscopic cholecystectomy Social History: Social History (Last Reviewed 07/28/23 @ 16:12 by CANDELARIA Townsend) Living Situation History: Household Members: None Housing: House Are you a primary resident care associate to a significant other at home: No Do you presently have visiting nurse or other home services: No Alcohol History Details: 1. How often do you have a drink containing alcohol?: a. Never AUDIT-C Alcohol total score: 0 Currently Displaying Signs/Symptoms of Alcohol Withdrawal: No Tobacco History: Patient Tobacco Use Status: Never used Tobacco Second Hand Smoke Exposure: No Substance Use History: Use of substances other than those prescribed or required for medical reasons : No Currently Displaying Signs/Symptoms of Drug Intoxication Withdrawal: No Domestic Abuse History: Have you been hit, kicked, punched, or otherwise hurt by someone within the past year? If so, by whom?: No Do you feel safe in your current relationship?: No Current Relationship Is there a partner from a previous relationship who is making you feel unsafe now?: No Are you made to feel afraid or neglected: No Advance Directives: Advance Directives: No Advance Directives Information Provided: No Homicidal Assessment: Do you have thoughts of harming others: None Do you have a plan to hurt others: No Plan Nutrition Assessment: Recently lost weight without trying: No Nutrition Risks: No Nutritional Risk Patient : No : No Poor oral hygiene: No Occupation Assessmet: service: No Current occupational status: retired Current occupation: right handed Home Medications and Allergies Current Medications: Current Medications Acetaminophen (Acetaminophen 325 Mg Tablet) 650 mg PO Q6H PRN PRN Reason: Headache/Pain Mild Scale (1-3) Al Hydroxide/Mg Hydroxide (Magnesium Hydrox/Alum Hydrox 30 Ml Oral.Susp) 30 ml PO Q6H PRN PRN Reason: Heartburn/Nausea Albuterol Sulfate (Albuterol Sulfate 90 Mcg 8 Gm Inhaler) 2 puff INHALE RQ4H PRN PRN Reason: Shortness of Breath/Wheezing Amlodipine Besylate (Amlodipine Besylate 2.5 Mg Tablet) 2.5 mg PO DAILY IDA; Protocol Last Admin: 07/29/23 08:25 Dose: 2.5 mg Aripiprazole (Aripiprazole 10 Mg Tablet) 2.5 mg PO BEDTIME IDA Last Admin: 07/28/23 20:58 Dose: 2.5 mg Ascorbic Acid (Ascorbic Acid 250 Mg Tablet) 250 mg PO DAILY [facility] Last Admin: 07/29/23 08:24 Dose: 250 mg Atorvastatin Calcium (Atorvastatin Calcium 20 Mg Tablet) 20 mg PO DAILY [facility] Last Admin: 07/29/23 08:23 Dose: 20 mg Bumetanide (Bumetanide 1 Mg Tablet) 1 mg PO BID [facility]; Protocol Last Admin: 07/29/23 08:24 Dose: 1 mg Bupropion HCl (Bupropion Hcl Xl 300 Mg Tab.Er.24h) 300 mg PO DAILY [facility] Last Admin: 07/29/23 08:23 Dose: 300 mg Clonazepam (Clonazepam 1 Mg Tablet) 2 mg PO BEDTIME [facility] Last Admin: 07/28/23 20:58 Dose: 2 mg Clonidine HCl (Clonidine Hcl 0.2 Mg Tablet) 0.2 mg PO BEDTIME [facility]; Protocol Last Admin: 07/28/23 20:59 Dose: 0.2 mg Ferrous Sulfate (Ferrous Sulfate 324 Mg Tablet.Dr) 325 mg PO DAILY [facility] Last Admin: 07/29/23 08:24 Dose: 325 mg Fluoxetine HCl (Fluoxetine Hcl 20 Mg Capsule) 40 mg PO DAILY [facility] Last Admin: 07/29/23 08:23 Dose: 40 mg Fluticasone Propionate (Fluticasone Propionate Nasal 16 Gm [place]) 2 spray NOSTRIL-B DAILY [facility] Last Admin: 07/29/23 09:37 Dose: 2 spray Fluticasone/Vilanterol (Fluticasone/Vilanterol 200/25 Blst.W.Dev) 1 puff INHALE RDAILY [facility] Last Admin: 07/29/23 08:22 Dose: 1 puff Gabapentin (Gabapentin 100 Mg Capsule) 100 mg PO BEDTIME [facility] Last Admin: 07/28/23 20:59 Dose: 100 mg Hydralazine HCl (Hydralazine Hcl 25 Mg Tablet) 25 mg PO BID [facility]; Protocol Last Admin: 07/29/23 08:23 Dose: 25 mg Hydroxyzine HCl (Hydroxyzine Hcl 25 Mg Tablet) 25 mg PO Q6H PRN PRN Reason: Anxiety Loratadine (Loratadine 10 Mg Tablet) 10 mg PO BEDTIME [facility] Last Admin: 07/28/23 20:59 Dose: 10 mg Magnesium Hydroxide (Milk Of Magnesia 30 Ml Oral.Susp) 30 ml PO DAILY PRN PRN Reason: Constipation Omeprazole (Omeprazole 20 Mg Capsule.) 20 mg PO BID@0630,1630 [facility] Last Admin: 07/29/23 06:08 Dose: 20 mg Quetiapine Fumarate (Quetiapine Fumarate 100 Mg Tablet) 100 mg PO BEDTIME [facility] Last Admin: 07/28/23 20:58 Dose: 100 mg Home Medications Medication Instructions Recorded Confirmed Type amlodipine 10 mg tablet 2.5 mg PO DAILY 12/12/20 07/27/23 History clonazepam 1 mg tablet 1 mg PO QPM 12/12/20 07/27/23 History fluoxetine 40 mg capsule 40 mg PO QAM 12/12/20 07/27/23 History gabapentin 100 mg capsule 100 mg PO BEDTIME 12/12/20 07/27/23 History albuterol sulfate 90 mcg/actuation 2 puff inhalation Q4-6H PRN 02/07/21 03/26/22 History aerosol inhaler (ProAir HFA) Wheezing cetirizine 10 mg tablet 10 mg PO BEDTIME 02/07/21 07/27/23 History clonazepam 1 mg tablet 2 mg PO BEDTIME 02/07/21 07/27/23 History clonidine HCl 0.2 mg tablet 1 tab PO BEDTIME 02/07/21 07/27/23 History quetiapine 100 mg tablet 100 mg PO BEDTIME 06/12/21 07/27/23 History bupropion HCl 300 mg 24 hr tablet, 1 tab PO DAILY 08/31/21 07/27/23 History extended release hydralazine 25 mg tablet 25 mg PO BID 08/31/21 07/27/23 History budesonide-formoterol HFA 160 inhalation 02/16/22 03/26/22 History mcg-4.5 mcg/actuation aerosol inhaler (Symbicort) aripiprazole 10 mg tablet 2.5 mg PO BEDTIME 02/23/22 07/27/23 History atorvastatin 20 mg tablet 20 mg PO DAILY 07/27/23 07/27/23 History bumetanide 1 mg tablet 1 mg PO BID 07/27/23 07/27/23 History omeprazole 20 mg capsule,delayed 20 mg PO BID 07/27/23 07/27/23 History release warfarin 5 mg tablet 5 mg PO DAILY 07/27/23 07/27/23 History Allergies Allergy/AdvReac Type Severity Reaction Status Date / Time benztropine [From Cogentin] Allergy Intermediate Rash Verified 07/30/22 09:59 latex Allergy Intermediate Itching Verified 07/30/22 09:59 thimerosal Allergy Intermediate Itching Verified 07/30/22 09:59 sulfamethoxazole AdvReac Intermediate contraindicated Verified 07/30/22 09:59 [From Bactrim] w/stage 4 CKD trimethoprim [From Bactrim] AdvReac Intermediate contraindicated Verified 07/30/22 09:59 w/stage 4 CKD Physical Exam Vital signs: Vital Signs Temp 98.1 F 07/29/23 08:18 Pulse 90 07/29/23 08:18 Resp 16 07/29/23 08:18 BP 104/59 L 07/29/23 08:18 Pulse Ox 97 07/29/23 08:18 O2 Del Method Room Air 07/29/23 08:18 Weight 111.4 kg - Constitutional Present: no acute distress, obese - Routine HEENT Exam Head: Present: normal inspection - Routine Neck Exam Absent: lymphadenopathy - Routine Respiratory Exam Present: CTAB. Absent: accessory muscle use - Routine Cardiovascular Exam Cardiovascular: Present: S1, S2 - Routine Abdominal Exam Present: distended. Absent: mass Hem/Onc Consult Result - Labs CBC & Chem 7: 07/29/23 07:45 07/28/23 07:11 Labs: Short CBC 07/29/23 Range/Units 07:45 WBC 8.6 (4.8-10.8) X10*3/uL Hgb 8.3 L (12.0-16.0) g/dl Hct 27.3 L (37.0-47.0) % Plt Count 388 (160-400) X10*3/uL Assessment and Plan Patient Active problem list reviewed?: Yes (1) Anemia Status: Acute Assessment and plan: 1. This is a 67-year-old woman with worsening iron deficiency anemia while on anticoagulation with warfarin for unprovoked pulmonary embolism which was diagnosed in November 2022. She notice worsening shortness of breath since June 2023 and her hemoglobin dropped from 11-7.9 gram/dL in July 2023. She was diagnosed with iron deficiency, received Venofer as well as blood transfusion in [facility] last week. She had a CT abdomen/pelvis without contrast at [facility], report was read as soft tissue nodular LD along the mesentry with small amount of intraperitoneal free fluid concerning for peritoneal carcinomatosis. Findings suspicious for mass in right lower quadrant inseparable from right adnexa and junction of cecum/terminal ileum concerning for malignancy. No evidence of obstruction or inflammation . In view of above report, I recommend GI consultation for further evaluation. She has been off warfarin for a few days Differential diagnosis includes malignancy from ovary, colon or pancreas. She will need tissue diagnosis. I have submitted tumor markers. I also recommend ultrasound of abdomen and pelvis to see if biopsy can be arranged as outpatient under ultrasound guidance. Patient had genetic testing for breast/ovarian cancer syndrome and was found to be negative. I agree with holding warfarin for now until diagnostic workup can be completed. I will follow with you, thank you for the referral. - Time Spent With Patient Time Spent with Patient (in minutes): 30
[2023-07-29 14:56] LABS: Lactate Dehydrogenase 232 U/L (122-220)
[2023-07-29] MEDS: Milk of Magnesia 30 ML ORAL.SUSP PO (15:57)
[2023-07-29 18:00] VITALS: BP 112/55; PULSE 88; RESP 17; TEMP 36.2; O2SAT 95
--- NOTE | 2023-07-29 19:05 | PM.EVENT ---
Event Note Date of Service: 07/29/23 Event Note: GI Consult-Full note dictated-D/W patient and her daughter in detail. Imp: Anemia and abnormal CT of GI tract. Rec: Colonoscopy/EGD on 07/[address] Fox. Full consent obtained for both procedures, including risks of bleeding and perforation. Orders placed to continue to hold Coumadin, as well as the Iron. Orders placed for change in diet and prep, and for F/U labs on 07/30 and 07/31. The patient and her daughter were comfortable with this plan. Thanks Time Spent With Patient Time: Total time managing care of this patient today ____ minutes.
[2023-07-29] MEDS: ARIPiprazole 10 MG TABLET 2.5 MG PO (22:09)
[2023-07-29] MEDS: cloNIDine HCL 0.2 MG TABLET PO (22:09)
[2023-07-29] MEDS: Gabapentin 100 MG CAPSULE PO (22:09)
[2023-07-29] MEDS: QUEtiapine Fumarate 100 MG TABLET PO (22:09)
[2023-07-29] MEDS: clonazePAM 1 MG TABLET 2 MG PO (22:09)
[2023-07-29] MEDS: bisacodyL 5 MG TABLET.DR 10 MG PO (22:10)
[2023-07-29] MEDS: Loratadine 10 MG TABLET PO (22:10)
[2023-07-29 23:47] LABS: OBS Int Ctl Valid YES; OBS1 POSITIVE (NEGATIVE)
--- NOTE | 2023-07-30 00:56 | CONS_ITS ---
DATE OF SERVICE: 07/29/2023 REASON FOR CONSULTATION: Anemia and abnormal CT scan of GI tract. HISTORY OF PRESENT ILLNESS: This has been obtained from the patient, her daughter, and the medical record. The patient is a 67-year-old female who was recently admitted to [facility] for treatment of anemia. At that time, she was admitted to [facility] with a hemoglobin of approximately 7.9. She was found to have an iron of only 15 with an iron saturation of 4%. Her B12 and folic acid levels were normal. A CT scan showed some reported thickening and suspicion for a mass in the right lower quadrant, arising from either the right adnexa or the area of the ileocecal valve and terminal ileum. There was no sign of any bowel obstruction. She received 1 unit of blood. Her hemoglobin fell to as low as 7.5. Of note, she is on chronic Coumadin in relation to a pulmonary embolus early this year. She also received IV iron infusions in addition to the transfusion, while at [facility]. Aside from her Coumadin, she denies using any aspirin or NSAIDs. She does not smoke nor use any alcohol. She has undergone a previous upper endoscopy and colonoscopy in approximately [address] Gisselle Field at [facility]. She describes that a polyp was removed from the colon. She also had a colonoscopy prior to that as well by Dr. Field. The patient does describe occasional coughing with meals, but denies any actual dysphagia or esophageal obstruction symptoms. She denies any chronic heartburn. Her appetite has been diminished due to her depression. She has been somewhat constipated, but has not noticed any melena nor hematochezia. There is no family history of GI malignancy. She does report that her sister has a gluten allergy. After her limited workup at [facility], she was transferred to [facility] for further management of her psychiatric issues. Her hemoglobin on admission here was 7.2 yesterday and today has come up to 8.3 without any transfusions. She has been eating fairly comfortably, although again her appetite is diminished. Her Coumadin has been on hold. She did start some oral iron. She did have a pelvic ultrasound today that describes the right ovary as appearing normal, as well as the left ovary and uterus. She has not had a bowel movement since admission. CURRENT MEDICATIONS: Include amlodipine, acetaminophen, albuterol inhaler p.r.n., Abilify, vitamin C, atorvastatin, Bumex, Wellbutrin, clonazepam, clonidine, Prozac, fluticasone nasal spray, gabapentin, hydralazine, hydroxyzine p.r.n., Claritin, antacids p.r.n., milk of magnesia p.r.n., omeprazole 20 mg b.i.d. PAST MEDICAL HISTORY: Asthma. Renal insufficiency. Depression and anxiety. She denies any history of [place], diabetes, nor stroke. She has had C-sections and benign breast biopsies. She does have sleep apnea. She describes a history of fatty liver and possible cirrhosis. She describes a history of hypertension and hyperlipidemia. Cholecystectomy. Reported right knee replacement. 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 She is a recent with her having back in February. She does not smoke nor use any significant amounts of alcohol. FAMILY HISTORY: Negative for GI malignancy. Daughter has triple negative breast cancer and tested positive for BRCA mutation. REVIEW OF SYSTEMS: CONSTITUTIONAL: She has been feeling depressed and somewhat anorectic. CARDIAC: No chest pain. PULMONARY: No cough or hemoptysis. GI: As above. URINARY: No dysuria. No hematuria. Neurologic: No headache or seizures. PHYSICAL EXAMINATION: GENERAL: The patient is a somewhat pale, but alert and comfortable female in no distress. SKIN: Warm and dry. HEENT: Anicteric sclerae. NECK: Supple. CHEST: Clear. CARDIAC: Normal S1 and S2. ABDOMEN: Soft, nondistended, nontender. LABORATORY DATA: As above. Labs from today showed a white blood cell count 8.6, hemoglobin 8.3, MCV 84, platelets 388,000. PT 16.0 with INR 1.3. Normal electrolytes yesterday with BUN of 8 and creatinine 1.7. Albumin 3.1, total bilirubin 0.3, AST 21, ALT 20, alkaline phosphatase 104, CEA level 2.7. Pelvic ultrasound is described as normal. CT scan from [facility] describes a suspicion for a mass in the region of the ileocecal valve and terminal ileum, as well as what appears to be abutting the right ovary. There was some nodularity in that area as well. The report describes the possibility of peritoneal carcinomatosis. IMPRESSION: Given the patient's clinical history with significant anemia and abnormal CT scan of the region of the ileocecal valve and terminal ileum, this does raise the strong possibility of a potential neoplasm in that portion of the colon. She did have the colonoscopy about 4 years ago in [place], but certainly should undergo a followup colonoscopy to reinspect that area and be sure a neoplasm does not exist. On the same day, if the colonoscopy is nonrevealing, she could then have an upper endoscopy with possible duodenal biopsies to rule out iron malabsorption. Full consent has been obtained from her for both procedures, including risks of bleeding and perforation. The procedures will be done either by myself or Dr. Fox. They will be done with monitored anesthesia care. In the meantime, I would continue to hold her Coumadin as well as her iron. She will have followup laboratories tomorrow and on 07/31. We will plan to do the procedures on 07/31 after adequate bowel cleanout, beginning tonight and all day tomorrow. This has been discussed with the patient and her daughter in detail. They are comfortable with this plan. I did review the plan with the hospitalist service and Dr. Garg from Oncology. Thank you for the consultation. MD WILLIE Herrera/SUJIT / [id number] [place]
[2023-07-30] MEDS: Omeprazole 20 MG CAPSULE.DR PO (06:01)
[2023-07-30 08:00] VITALS: BP 99/55; PULSE 83; RESP 16; TEMP 36.7; O2SAT 95
[2023-07-30 08:17] LABS: Basophils Percent Auto 0.4 % (0-2); Eosinophils Absolute Auto 0.4 X10*3/uL (0.0-0.4); Eosinophils Percent Auto 5.1 % (0-4); Hematocrit 27.5 % (37.0-47.0); Hemoglobin 8.3 g/dl (12.0-16.0); Imm Gran Abs Auto 0.06 X10*3/uL (0.00-0.03); Imm Gran Pct Auto 0.7 % (0.0-0.4); Lymphocytes Absolute Auto 1.5 X10*3/uL (1.2-4.9); Lymphocytes Percent Auto 18.6 % (20-40); MANUAL DIFF FLAG NO; Mean Corpuscular HGB Conc 30.2 g/dl (31.0-35.0); Mean Corpuscular Hemoglobin 25.5 pg (27.0-33.0); Mean Corpuscular Volume 84.4 fL (80.0-98.0); Mean Platelet Volume 8.9 fL (9.4-12.3); Monocytes Absolute Auto 0.6 X10*3/uL (0.1-1.2); Monocytes Percent Auto 7.6 % (2-11); Neutrophils Absolute Auto 5.5 x10*3/uL (2.0-8.3); Neutrophils Percent Auto 67.6 % (45-73); Platelet Count 349 X10*3/uL (160-400); Red Blood Count 3.26 X10*6/uL (4.20-5.50); White Blood Count 8.2 X10*3/uL (4.8-10.8)
[2023-07-30 08:26] LABS: INTERNATIONAL NORM RATIO 1.1 (0.9-1.1); Prothrombin Time 13.9 SEC (11.1-13.3)
[2023-07-30 08:38] LABS: Anion Gap 13 (12-20); Blood Urea Nitrogen 9 mg/dL (9-16); Calcium 9.3 mg/dL (8.4-10.2); Carbon Dioxide 25 mmol/L (22-29); Chloride 108 mmol/L (96-108); Creatinine Clr Calc Pharmacy 34.3; Estimated Glomerular Filt Rate 24; Glucose Fasting 105 mg/dL (60-99); Potassium 3.5 mmol/L (3.3-5.1); Sodium 142 mmol/L (135-145)
--- NOTE | 2023-07-30 08:49 | P.PNPSI_ITS ---
Subjective Subjective Date of Service: 07/29/23 Reason For Visit: F32.9, F43.1 Subjective Notes: Conditional Voluntary Healthcare Proxy: Yes Interim History: Pt seen by hospitalist and oncology. Hgb improved, less concern about ongoing GI bleed. No need for transfusion at this time. Pt also seen by oncology and pending consult by Dr. Bell. Pt reports mixed emotions on one hand- grieving loss of her and finding meaning to her life without him while also thinking about her children and grandchildren. She is also very anxious and worried about upcoming medical work up and want more answers as to what exactly is going on and recommended treatment. Review of Systems Review of Systems No chest pain No SOB Feeling fatigue/tired Constitutional: Reports as per HPI, Reports fatigue, Reports lethargy and Reports weight loss Cardiovascular: Reports no additional cardiovascular complaints Respiratory: Reports no additional respiratory complaints Gastrointestinal: Reports no additional gastrointestinal complaints Endocrine: Reports fatigue Mental Status Exam Mental Status Exam Narrative: Appearance:casually groomed, good hygiene, in NAD behavior:cooperative Psychomotor: no agitation or retardation noted Speech:clear, normal rate/rhythm/volume, spontaneous TP:linear TC: no s/s of psychosis or delusion, ambivalent about life, protective factors her children Mood: depressed Affect:blunted at times SI:passive HI:none VH/AH:none Delusions:`none Insight/judgment:intact x 2. memory/cog: alert, oriented x 3. some gaps in memory when providing hx of treatment and other information but not formally tested. Diagnostics Vital Signs (24Hr): Vital Signs - 24 hr 07/29/23 18:00 Temperature 97.2 F Pulse Rate 88 Respiratory Rate 17 Blood Pressure 112/55 L Pulse Oximetry 95 Oxygen Delivery Method Room Air BMI result Body Mass Index 37.3 Labs 07/30/23 08:00 07/30/23 08:02 Labs: Laboratory Results - last 48 hr 07/29/23 07/29/23 07/29/23 07:45 13:23 22:39 WBC 8.6 RBC 3.26 L Hgb 8.3 L Hct 27.3 L MCV 83.7 MCH 25.5 L MCHC 30.4 L RDW 16.2 H Plt Count 388 MPV 9.1 L Immature Gran % (Auto) 0.8 H Neut % (Auto) 68.5 Lymph % (Auto) 18.0 L S[place] % (Auto) 7.4 Eos % (Auto) 5.0 H Baso % (Auto) 0.3 Lymph # (Auto) 1.6 S[place] # (Auto) 0.6 Eos # (Auto) 0.4 Baso # (Auto) 0.0 Abs Immat Gran (auto) 0.07 H Absolute Neuts (auto) 5.9 Absolute Nucleated RBC 0.020 H Nucleated RBC % (auto) 0.2 PT 16.0 H D INR 1.3 H Sodium Potassium Chloride Carbon Dioxide Anion Gap BUN Creatinine Estim Creat Clear Calc Estimated GFR Fasting Glucose Calcium Lactate Dehydrogenase 232 H Carcinoembryonic Ag 2.70 Stool Occult Blood POSITIVE 07/30/23 07/30/23 08:00 08:02 WBC 8.2 RBC 3.26 L Hgb 8.3 L Hct 27.5 L MCV 84.4 MCH 25.5 L MCHC 30.2 L RDW 17.0 H Plt Count 349 MPV 8.9 L Immature Gran % (Auto) 0.7 H Neut % (Auto) 67.6 Lymph % (Auto) 18.6 L S[place] % (Auto) 7.6 Eos % (Auto) 5.1 H Baso % (Auto) 0.4 Lymph # (Auto) 1.5 S[place] # (Auto) 0.6 Eos # (Auto) 0.4 Baso # (Auto) 0.0 Abs Immat Gran (auto) 0.06 H Absolute Neuts (auto) 5.5 Absolute Nucleated RBC 0.000 Nucleated RBC % (auto) 0.0 PT 13.9 H INR 1.1 Sodium 142 Potassium 3.5 Chloride 108 Carbon Dioxide 25 Anion Gap 13 BUN 9 Creatinine 2.05 H Estim Creat Clear Calc 34.3 Estimated GFR 24 Fasting Glucose 105 H Calcium 9.3 Lactate Dehydrogenase Carcinoembryonic Ag Stool Occult Blood Imaging Radiology Impressions: ITS Impressions Pelvis Ultrasound 07/29/23 15:20 IMPRESSION: 1. Unremarkable uterus and ovaries. 2. There is no free fluid in the cul-de-sac. Medications Medications Current Medications Acetaminophen (Acetaminophen 325 Mg Tablet) 650 mg PO Q6H PRN PRN Reason: Headache/Pain Mild Scale (1-3) Al Hydroxide/Mg Hydroxide (Magnesium Hydrox/Alum Hydrox 30 Ml Oral.Susp) 30 ml PO Q6H PRN PRN Reason: Heartburn/Nausea Albuterol Sulfate (Albuterol Sulfate 90 Mcg 8 Gm Inhaler) 2 puff INHALE RQ4H PRN PRN Reason: Shortness of Breath/Wheezing Amlodipine Besylate (Amlodipine Besylate 2.5 Mg Tablet) 2.5 mg PO DAILY [facility]; Protocol Last Admin: 07/29/23 08:25 Dose: 2.5 mg Aripiprazole (Aripiprazole 10 Mg Tablet) 2.5 mg PO BEDTIME IDA Last Admin: 07/29/23 22:09 Dose: 2.5 mg Ascorbic Acid (Ascorbic Acid 250 Mg Tablet) 250 mg PO DAILY [facility] Last Admin: 07/29/23 08:24 Dose: 250 mg Atorvastatin Calcium (Atorvastatin Calcium 20 Mg Tablet) 20 mg PO DAILY [facility] Last Admin: 07/29/23 08:23 Dose: 20 mg Bisacodyl (Bisacodyl 5 Mg Tablet.Dr) 10 mg PO ONCE ONE Stop: 07/30/23 15:01 Bumetanide (Bumetanide 1 Mg Tablet) 1 mg PO BID [facility]; Protocol Last Admin: 07/29/23 22:10 Dose: 1 mg Bupropion HCl (Bupropion Hcl Xl 300 Mg Tab.Er.24h) 300 mg PO DAILY [facility] Last Admin: 07/29/23 08:23 Dose: 300 mg Clonazepam (Clonazepam 1 Mg Tablet) 2 mg PO BEDTIME [facility] Last Admin: 07/29/23 22:09 Dose: 2 mg Clonidine HCl (Clonidine Hcl 0.2 Mg Tablet) 0.2 mg PO BEDTIME [facility]; Protocol Last Admin: 07/29/23 22:09 Dose: 0.2 mg Fluoxetine HCl (Fluoxetine Hcl 20 Mg Capsule) 40 mg PO DAILY [facility] Last Admin: 07/29/23 08:23 Dose: 40 mg Fluticasone Propionate (Fluticasone Propionate Nasal 16 Gm [place]) 2 spray NOSTRIL-B DAILY [facility] Last Admin: 07/29/23 09:37 Dose: 2 spray Fluticasone/Vilanterol (Fluticasone/Vilanterol 200/25 Blst.W.Dev) 1 puff INHALE RDAILY [facility] Last Admin: 07/29/23 08:22 Dose: 1 puff Gabapentin (Gabapentin 100 Mg Capsule) 100 mg PO BEDTIME [facility] Last Admin: 07/29/23 22:09 Dose: 100 mg Hydralazine HCl (Hydralazine Hcl 25 Mg Tablet) 25 mg PO BID [facility]; Protocol Last Admin: 07/29/23 22:09 Dose: 25 mg Hydroxyzine HCl (Hydroxyzine Hcl 25 Mg Tablet) 25 mg PO Q6H PRN PRN Reason: Anxiety Loratadine (Loratadine 10 Mg Tablet) 10 mg PO BEDTIME [facility] Last Admin: 07/29/23 22:10 Dose: 10 mg Magnesium Hydroxide (Milk Of Magnesia 30 Ml Oral.Susp) 30 ml PO DAILY PRN PRN Reason: Constipation Last Admin: 07/29/23 15:57 Dose: 30 ml Omeprazole (Omeprazole 20 Mg Capsule.Dr) 20 mg PO BID@0630,1630 [facility] Last Admin: 07/30/23 06:01 Dose: 20 mg Polyethylene Glycol/Electrolytes (Peg 3350/Na Sulf,Bicarb,Cl/Kcl 4,000 Ml Soln.Recon) 4,000 ml PO ONCE@1600 ONE Stop: 07/30/23 16:01 Quetiapine Fumarate (Quetiapine Fumarate 100 Mg Tablet) 100 mg PO BEDTIME [facility] Last Admin: 07/29/23 22:09 Dose: 100 mg Allergies Allergies Allergy/AdvReac Type Severity Reaction Status Date / Time benztropine [From Cogentin] Allergy Intermediate Rash Verified 07/30/22 09:59 latex Allergy Intermediate Itching Verified 07/30/22 09:59 thimerosal Allergy Intermediate Itching Verified 07/30/22 09:59 sulfamethoxazole AdvReac Intermediate contraindicated Verified 07/30/22 09:59 [From Bactrim] w/stage 4 CKD trimethoprim [From Bactrim] AdvReac Intermediate contraindicated Verified 07/30/22 09:59 w/stage 4 CKD Assessment & Plan Assessment & Plan (1) MDD (major depressive disorder), recurrent episode, severe: Status: Acute Code(s): F33.2 - Major depressive disorder, recurrent severe without psychotic features Plan Mrs. Atkins is a 67 year-old woman with hx of MDD, PTSD who was transported to [place] via EMS for GI bleeding, admitted medically she was also prior to GI bleed having increased depressed mood, suicidal ideation with plan to jump off ladder in setting of lossing of 46 years back in February of this year. She reports hx of extensive trauma, has been stable for several years and her was her main support. Pt seen by hospitalist concern of ongoing GI bleed- plan to repeat H&H and may need to be transferred to medical. PLAN 1. Admit to S1, CV, 15 minutes checks for safety 2. continue combination of wellbutrin, prozac, seroquel, clonazepam and clonidine. 3. Obtain collateral information 4. Aftercare planning 5. Hospitalist to follow GI bleed. Reason for continued inpatient stay Substantial Risk for: harm to self Time Spent With Patient Time: Total time managing care of this patient today ____ minutes.
[2023-07-30] MEDS: Fluticasone/Vilanterol 200/25 BLST.W.DEV 1 PUFF INHALE (09:03)
[2023-07-30] MEDS: FLUoxetine HCl 20 MG CAPSULE 40 MG PO (09:04)
[2023-07-30] MEDS: buPROPion HCl XL 300 MG TAB.ER.24H PO (09:04)
[2023-07-30] MEDS: Atorvastatin Calcium 20 MG TABLET PO (09:04)
[2023-07-30] MEDS: Fluticasone Propionate Nasal 16 GM SPRAY 2 SPRAY NOSTRIL-B (09:04)
[2023-07-30] MEDS: Ascorbic Acid 250 MG TABLET PO (09:04)
[2023-07-30] MEDS: amLODIPine Besylate 2.5 MG TABLET PO (09:05)
[2023-07-30] MEDS: hydrALAZINE HCl 25 MG TABLET PO ×2 (09:05→20:53)
[2023-07-30] MEDS: Bumetanide 1 MG TABLET PO (09:05)
--- NOTE | 2023-07-30 10:45 | P.PNPSI_ITS ---
Subjective Subjective Date of Service: 07/30/23 Reason For Visit: F32.9, F43.1 Subjective Notes: Conditional Voluntary Healthcare Proxy: Yes Interim History: Pt expresses appropriate feeling about missing her going through medical work up for cancer. No plan or intent to harm herself. She has been visible. She reports sleeping. Colonoscopy scheduled for tomorrow. Review of Systems Review of Systems No chest pain No SOB Feeling fatigue/tired Constitutional: Reports as per HPI, Reports fatigue, Reports lethargy and Reports weight loss Cardiovascular: Reports no additional cardiovascular complaints Respiratory: Reports no additional respiratory complaints Gastrointestinal: Reports no additional gastrointestinal complaints Endocrine: Reports fatigue Mental Status Exam Mental Status Exam Narrative: Appearance:casually groomed, good hygiene, in NAD behavior:cooperative Psychomotor: no agitation or retardation noted Speech:clear, normal rate/rhythm/volume, spontaneous TP:linear TC: no s/s of psychosis or delusion, ambivalent about life, protective factors her children Mood: depressed Affect:blunted at times SI:passive HI:none VH/AH:none Delusions:`none Insight/judgment:intact x 2. memory/cog: alert, oriented x 3. some gaps in memory when providing hx of treatment and other information but not formally tested. Diagnostics Vital Signs (24Hr): Vital Signs - 24 hr 07/29/23 18:00 07/30/23 08:00 Temperature 97.2 F 98.0 F Pulse Rate 88 83 Respiratory Rate 17 16 Blood Pressure 112/55 L 99/55 L Pulse Oximetry 95 95 Oxygen Delivery Method Room Air Room Air BMI result Body Mass Index 37.3 Labs 07/31/23 06:34 07/31/23 06:34 Labs: Laboratory Results - last 48 hr 07/29/23 07/29/23 07/29/23 07:45 13:23 22:39 WBC 8.6 RBC 3.26 L Hgb 8.3 L Hct 27.3 L MCV 83.7 MCH 25.5 L MCHC 30.4 L RDW 16.2 H Plt Count 388 MPV 9.1 L Immature Gran % (Auto) 0.8 H Neut % (Auto) 68.5 Lymph % (Auto) 18.0 L [place] % (Auto) 7.4 Eos % (Auto) 5.0 H Baso % (Auto) 0.3 Lymph # (Auto) 1.6 [place] # (Auto) 0.6 Eos # (Auto) 0.4 Baso # (Auto) 0.0 Abs Immat Gran (auto) 0.07 H Absolute Neuts (auto) 5.9 Absolute Nucleated RBC 0.020 H Nucleated RBC % (auto) 0.2 PT 16.0 H D INR 1.3 H Sodium Potassium Chloride Carbon Dioxide Anion Gap BUN Creatinine Estim Creat Clear Calc Estimated GFR Fasting Glucose Calcium Lactate Dehydrogenase 232 H Carcinoembryonic Ag 2.70 Stool Occult Blood POSITIVE 07/30/23 07/30/23 08:00 08:02 WBC 8.2 RBC 3.26 L Hgb 8.3 L Hct 27.5 L MCV 84.4 MCH 25.5 L MCHC 30.2 L RDW 17.0 H Plt Count 349 MPV 8.9 L Immature Gran % (Auto) 0.7 H Neut % (Auto) 67.6 Lymph % (Auto) 18.6 L [place] % (Auto) 7.6 Eos % (Auto) 5.1 H Baso % (Auto) 0.4 Lymph # (Auto) 1.5 [place] # (Auto) 0.6 Eos # (Auto) 0.4 Baso # (Auto) 0.0 Abs Immat Gran (auto) 0.06 H Absolute Neuts (auto) 5.5 Absolute Nucleated RBC 0.000 Nucleated RBC % (auto) 0.0 PT 13.9 H INR 1.1 Sodium 142 Potassium 3.5 Chloride 108 Carbon Dioxide 25 Anion Gap 13 BUN 9 Creatinine 2.05 H Estim Creat Clear Calc 34.3 Estimated GFR 24 Fasting Glucose 105 H Calcium 9.3 Lactate Dehydrogenase Carcinoembryonic Ag Stool Occult Blood Imaging Radiology Impressions: ITS Impressions Pelvis Ultrasound 07/29/23 15:20 IMPRESSION: 1. Unremarkable uterus and ovaries. 2. There is no free fluid in the cul-de-sac. Medications Medications Current Medications Acetaminophen (Acetaminophen 325 Mg Tablet) 650 mg PO Q6H PRN PRN Reason: Headache/Pain Mild Scale (1-3) Al Hydroxide/Mg Hydroxide (Magnesium Hydrox/Alum Hydrox 30 Ml Oral.Susp) 30 ml PO Q6H PRN PRN Reason: Heartburn/Nausea Albuterol Sulfate (Albuterol Sulfate 90 Mcg 8 Gm Inhaler) 2 puff INHALE RQ4H PRN PRN Reason: Shortness of Breath/Wheezing Amlodipine Besylate (Amlodipine Besylate 2.5 Mg Tablet) 2.5 mg PO DAILY [facility]; Protocol Last Admin: 07/30/23 09:05 Dose: 2.5 mg Aripiprazole (Aripiprazole 10 Mg Tablet) 2.5 mg PO BEDTIME IDA Last Admin: 07/29/23 22:09 Dose: 2.5 mg Ascorbic Acid (Ascorbic Acid 250 Mg Tablet) 250 mg PO DAILY IDA Last Admin: 07/30/23 09:04 Dose: 250 mg Atorvastatin Calcium (Atorvastatin Calcium 20 Mg Tablet) 20 mg PO DAILY [facility] Last Admin: 07/30/23 09:04 Dose: 20 mg Bisacodyl (Bisacodyl 5 Mg Tablet.Dr) 10 mg PO ONCE ONE Stop: 07/30/23 15:01 Bumetanide (Bumetanide 1 Mg Tablet) 1 mg PO BID [facility]; Protocol Last Admin: 07/30/23 09:05 Dose: 1 mg Bupropion HCl (Bupropion Hcl Xl 300 Mg Tab.Er.24h) 300 mg PO DAILY [facility] Last Admin: 07/30/23 09:04 Dose: 300 mg Clonazepam (Clonazepam 1 Mg Tablet) 2 mg PO BEDTIME IDA Last Admin: 07/29/23 22:09 Dose: 2 mg Clonidine HCl (Clonidine Hcl 0.2 Mg Tablet) 0.2 mg PO BEDTIME [facility]; Protocol Last Admin: 07/29/23 22:09 Dose: 0.2 mg Fluoxetine HCl (Fluoxetine Hcl 20 Mg Capsule) 40 mg PO DAILY [facility] Last Admin: 07/30/23 09:04 Dose: 40 mg Fluticasone Propionate (Fluticasone Propionate Nasal 16 Gm [place]) 2 spray NOSTRIL-B DAILY [facility] Last Admin: 07/30/23 09:04 Dose: 2 spray Fluticasone/Vilanterol (Fluticasone/Vilanterol 200/25 Blst.W.Dev) 1 puff INHALE RDAILY [facility] Last Admin: 07/30/23 09:03 Dose: 1 puff Gabapentin (Gabapentin 100 Mg Capsule) 100 mg PO BEDTIME IDA Last Admin: 07/29/23 22:09 Dose: 100 mg Hydralazine HCl (Hydralazine Hcl 25 Mg Tablet) 25 mg PO BID [facility]; Protocol Last Admin: 07/30/23 09:05 Dose: 25 mg Hydroxyzine HCl (Hydroxyzine Hcl 25 Mg Tablet) 25 mg PO Q6H PRN PRN Reason: Anxiety Loratadine (Loratadine 10 Mg Tablet) 10 mg PO BEDTIME [facility] Last Admin: 07/29/23 22:10 Dose: 10 mg Magnesium Hydroxide (Milk Of Magnesia 30 Ml Oral.Susp) 30 ml PO DAILY PRN PRN Reason: Constipation Last Admin: 07/29/23 15:57 Dose: 30 ml Omeprazole (Omeprazole 20 Mg Capsule.Dr) 20 mg PO BID@0630,1630 [facility] Last Admin: 07/30/23 06:01 Dose: 20 mg Polyethylene Glycol/Electrolytes (Peg 3350/Na Sulf,Bicarb,Cl/Kcl 4,000 Ml Soln.Recon) 4,000 ml PO ONCE@1600 ONE Stop: 07/30/23 16:01 Quetiapine Fumarate (Quetiapine Fumarate 100 Mg Tablet) 100 mg PO BEDTIME [facility] Last Admin: 07/29/23 22:09 Dose: 100 mg Allergies Allergies Allergy/AdvReac Type Severity Reaction Status Date / Time benztropine [From Cogentin] Allergy Intermediate Rash Verified 07/30/22 09:59 latex Allergy Intermediate Itching Verified 07/30/22 09:59 thimerosal Allergy Intermediate Itching Verified 07/30/22 09:59 sulfamethoxazole AdvReac Intermediate contraindicated Verified 07/30/22 09:59 [From Bactrim] w/stage 4 CKD trimethoprim [From Bactrim] AdvReac Intermediate contraindicated Verified 07/30/22 09:59 w/stage 4 CKD Assessment & Plan Assessment & Plan (1) MDD (major depressive disorder), recurrent episode, severe: Status: Acute Code(s): F33.2 - Major depressive disorder, recurrent severe without psychotic features Plan Mrs. Atkins is a 67 year-old woman with hx of MDD, PTSD who was transported to [place] via EMS for GI bleeding, admitted medically she was also prior to GI bleed having increased depressed mood, suicidal ideation with plan to jump off ladder in setting of lossing of 46 years back in February of this year. She reports hx of extensive trauma, has been stable for several years and her was her main support. Pt seen by hospitalist concern of ongoing GI bleed- plan to repeat H&H and may need to be transferred to medical. PLAN 07/30 continue current medications. Reason for continued inpatient stay Substantial Risk for: harm to self Time Spent With Patient Time: Total time managing care of this patient today ____ minutes.
[2023-07-30] MEDS: bisacodyL 5 MG TABLET.DR 10 MG PO (14:56)
[2023-07-30] MEDS: PEG 3350/Na Sulf,Bicarb,Cl/KCL 4,000 ML SOLN.RECON 4000 ML PO (17:17)
--- NOTE | 2023-07-30 17:37 | MHC.SHP ---
Pre-Procedural Eval Section A Date of Service: 07/31/23 The patient is an INPATIENT: Yes The History & Physical has been completed within 30 days and I have reviewed it.: Yes Section B Chief Complaint: F32.9, F43.1 Allergies: Allergies Allergy/AdvReac Type Severity Reaction Status Date / Time benztropine [From Cogentin] Allergy Intermediate Rash Verified 07/30/22 09:59 latex Allergy Intermediate Itching Verified 07/30/22 09:59 thimerosal Allergy Intermediate Itching Verified 07/30/22 09:59 sulfamethoxazole AdvReac Intermediate contraindicated Verified 07/30/22 09:59 [From Bactrim] w/stage 4 CKD trimethoprim [From Bactrim] AdvReac Intermediate contraindicated Verified 07/30/22 09:59 w/stage 4 CKD Plan I have reviewed the history and physical and performed a pertinent physical examination on my patient. No changes have occurred unless specified. Time Spent With Patient Time: Total time managing care of this patient today ____ minutes.
[2023-07-30 19:00] VITALS: BP 140/69; PULSE 98; RESP 18; TEMP 35.9; O2SAT 97
[2023-07-30] MEDS: cloNIDine HCL 0.2 MG TABLET PO (20:51)
[2023-07-30] MEDS: Gabapentin 100 MG CAPSULE PO (20:51)
[2023-07-30] MEDS: Loratadine 10 MG TABLET PO (20:51)
[2023-07-30] MEDS: QUEtiapine Fumarate 100 MG TABLET PO (20:53)
[2023-07-30] MEDS: ARIPiprazole 5 MG TABLET 2.5 MG PO (21:16)
[2023-07-31] MEDS: Ondansetron ODT 4 MG TAB.RAPDIS TRANSLINGU (03:19)
[2023-07-31 06:38] LABS: MANUAL DIFF FLAG NO
[2023-07-31 06:41] LABS: Basophils Percent Auto 0.4 % (0-2); Eosinophils Absolute Auto 0.4 X10*3/uL (0.0-0.4); Eosinophils Percent Auto 5.2 % (0-4); Hematocrit 24.5 % (37.0-47.0); Hemoglobin 7.5 g/dl (12.0-16.0); Imm Gran Abs Auto 0.06 X10*3/uL (0.00-0.03); Imm Gran Pct Auto 0.8 % (0.0-0.4); Lymphocytes Absolute Auto 1.6 X10*3/uL (1.2-4.9); Lymphocytes Percent Auto 19.8 % (20-40); Mean Corpuscular HGB Conc 30.6 g/dl (31.0-35.0); Mean Corpuscular Hemoglobin 25.8 pg (27.0-33.0); Mean Corpuscular Volume 84.2 fL (80.0-98.0); Mean Platelet Volume 8.7 fL (9.4-12.3); Monocytes Absolute Auto 0.7 X10*3/uL (0.1-1.2); Monocytes Percent Auto 9.3 % (2-11); Neutrophils Percent Auto 64.5 % (45-73); Platelet Count 299 X10*3/uL (160-400); Red Blood Count 2.91 X10*6/uL (4.20-5.50); Red Cell Distribution Width 17.3 % (11.0-16.0); White Blood Count 7.8 X10*3/uL (4.8-10.8)
[2023-07-31 06:46] LABS: INTERNATIONAL NORM RATIO 1.2 (0.9-1.1); Prothrombin Time 14.3 SEC (11.1-13.3)
[2023-07-31 06:54] LABS: Anion Gap 15 (12-20); Blood Urea Nitrogen 8 mg/dL (9-16); Calcium 8.9 mg/dL (8.4-10.2); Carbon Dioxide 26 mmol/L (22-29); Chloride 105 mmol/L (96-108); Creatinine Clr Calc Pharmacy 37.4; Estimated Glomerular Filt Rate 27; Glucose Fasting 95 mg/dL (60-99); Potassium 2.9 mmol/L (3.3-5.1); Sodium 143 mmol/L (135-145)
[2023-07-31 09:54] LABS: Carbohydrate Antigen 19-9 6 U/mL (<34)
--- NOTE | 2023-07-31 12:47 | P.BOP_ITS ---
Brief Operative Note Date of Service: 07/31/23 Pre-op diagnosis: Anemia, abnormal CT of colon Post-op diagnosis: other (Ulcerated mass of cecum) Procedure: Colonoscopy to the cecum and TI with biopsies Surgeon: Alvaro Bell Anesthesia: MAC Was an Medicare Contact Specialist used for this Procedure?: No Estimated blood loss (mL): 2.0 Pathology: other (A. Cecal mass) Condition: stable Disposition: PACU
--- NOTE | 2023-07-31 12:49 | PM.EVENT ---
Event Note Date of Service: 07/31/23 Event Note: GI-Colonoscopy to the cecum and TI with biopsies Full note dictated Findings: 1. Ulcerated, friable mass approx 4-5cm in size in the cecum beneath, but separate, from the Ileocecal valve. Biopsies taken. 2. ICV and TI WNL 3. Sigmoid diverticulosis 4. Internal hemorrhoids Plan: Check path, transfer to medical floor for transfusions and surgical consult. Continue clear liquids until seen by Surgery in case they can do her surgery this week and she can avoid another bowel prep. D/W patient and her daughter, Danielle. Thanks. Time Spent With Patient Time: Total time managing care of this patient today ____ minutes.
--- NOTE | 2023-07-31 14:11 | P.DS_ITS ---
DS: Providers Provider Date of Service: 07/31/23 Date of admission: 07/27/23 18:30 Primary care physician: Rosa Maria Jaime MD Consults: 07/28/23 14:49 Consult to Hospitalist Routine Comment: Consulting Provider: Hospitalist Reason For Exam: medical H&P 07/28/23 15:54 Consult to Hematology / Oncology Routine Consulting Provider: Shantell Garg Reason for consultation: new dx metastatic cancer, blood loss anemia 07/29/23 13:21 Consult to Gastroenterology Routine Consulting Provider: Alvaro Blel Reason for consultation: metastatic disease, blood loss anemia on coumadin DS: Diagnosis Discharge Diagnosis (1) MDD (major depressive disorder), recurrent episode, severe: Status: Acute DS: Medications Discharge Medications Home Medications: Previous Rx's Medication Instructions Recorded albuterol sulfate 90 mcg/actuation 2 puff inhalation RQ4H PRN 07/31/23 aerosol inhaler (Ventolin HFA) Shortness Of Breath/Wheezing #0 grams amlodipine 2.5 mg tablet 2.5 mg PO DAILY #0 tabs 07/31/23 ascorbic acid (vitamin C) 250 mg 250 mg PO DAILY #0 tabs 07/31/23 tablet atorvastatin 20 mg tablet 20 mg PO DAILY #0 tabs 07/31/23 bupropion HCl 300 mg 24 hr tablet, 300 mg PO DAILY #0 tabs 07/31/23 extended release clonazepam 1 mg tablet 2 mg (2 x 1 mg) PO BEDTIME #0 tabs 07/31/23 clonidine HCl 0.2 mg tablet 0.2 mg PO BEDTIME #0 tabs 07/31/23 fluoxetine 20 mg capsule 40 mg (2 x 20 mg) PO DAILY #0 caps 07/31/23 fluticasone propionate 50 2 spray intranasal DAILY #0 grams 07/31/23 mcg/actuation nasal spray,suspension gabapentin 100 mg capsule 100 mg PO BEDTIME #0 caps 07/31/23 loratadine 10 mg tablet 10 mg PO BEDTIME #0 tabs 07/31/23 omeprazole 20 mg capsule,delayed 20 mg PO BID@0630,1630 #0 caps 07/31/23 release quetiapine 100 mg tablet 100 mg PO BEDTIME #0 tabs 07/31/23 Data Data Completed and Pending Completed studies during hospitalization [Text1]: 07/28/23 07/29/23 07/29/23 07:11 07:45 13:23 WBC 8.1 8.6 RBC 2.86 L 3.26 L Hgb 7.2 L 8.3 L Hct 23.9 L 27.3 L MCV 83.6 83.7 MCH 25.2 L 25.5 L MCHC 30.1 L 30.4 L RDW 15.8 16.2 H Plt Count 317 388 MPV 9.0 L 9.1 L Immature Gran % (Auto) 0.8 H Neut % (Auto) 68.5 Lymph % (Auto) 18.0 L [place] % (Auto) 7.4 Eos % (Auto) 5.0 H Baso % (Auto) 0.3 Lymph # (Auto) 1.6 [place] # (Auto) 0.6 Eos # (Auto) 0.4 Baso # (Auto) 0.0 Abs Immat Gran (auto) 0.07 H Absolute Neuts (auto) 5.9 Absolute Nucleated RBC 0.020 H 0.020 H Nucleated RBC % (auto) 0.2 0.2 PT 22.4 H 16.0 H D INR 1.8 H 1.3 H Sodium 142 Potassium 3.9 Chloride 112 H Carbon Dioxide 23 Anion Gap 11 L BUN 8 L Creatinine 1.67 H Estim Creat Clear Calc 42.2 Estimated GFR 31 Fasting Glucose 88 Calcium 8.8 D Total Bilirubin 0.3 AST 21 ALT 20 Alkaline Phosphatase 104 Lactate Dehydrogenase 232 H Total Protein 5.9 L Albumin 3.1 L Triglycerides 132 Cholesterol 117 LDL Cholesterol, Calc 59 HDL Cholesterol 32 L Carcinoembryonic Ag 2.70 CA 19-9 Antigen 6 CA 125 Antigen Pending Stool Occult Blood 07/29/23 07/30/23 07/30/23 22:39 08:00 08:02 WBC 8.2 RBC 3.26 L Hgb 8.3 L Hct 27.5 L MCV 84.4 MCH 25.5 L MCHC 30.2 L RDW 17.0 H Plt Count 349 MPV 8.9 L Immature Gran % (Auto) 0.7 H Neut % (Auto) 67.6 Lymph % (Auto) 18.6 L [place] % (Auto) 7.6 Eos % (Auto) 5.1 H Baso % (Auto) 0.4 Lymph # (Auto) 1.5 [place] # (Auto) 0.6 Eos # (Auto) 0.4 Baso # (Auto) 0.0 Abs Immat Gran (auto) 0.06 H Absolute Neuts (auto) 5.5 Absolute Nucleated RBC 0.000 Nucleated RBC % (auto) 0.0 PT 13.9 H INR 1.1 Sodium 142 Potassium 3.5 Chloride 108 Carbon Dioxide 25 Anion Gap 13 BUN 9 Creatinine 2.05 H Estim Creat Clear Calc 34.3 Estimated GFR 24 Fasting Glucose 105 H Calcium 9.3 Total Bilirubin AST ALT Alkaline Phosphatase Lactate Dehydrogenase Total Protein Albumin Triglycerides Cholesterol LDL Cholesterol, Calc HDL Cholesterol Carcinoembryonic Ag CA 19-9 Antigen CA 125 Antigen Stool Occult Blood POSITIVE 07/31/23 06:34 WBC 7.8 RBC 2.91 L Hgb 7.5 L Hct 24.5 L MCV 84.2 MCH 25.8 L MCHC 30.6 L RDW 17.3 H Plt Count 299 MPV 8.7 L Immature Gran % (Auto) 0.8 H Neut % (Auto) 64.5 Lymph % (Auto) 19.8 L [place] % (Auto) 9.3 Eos % (Auto) 5.2 H Baso % (Auto) 0.4 Lymph # (Auto) 1.6 [place] # (Auto) 0.7 Eos # (Auto) 0.4 Baso # (Auto) 0.0 Abs Immat Gran (auto) 0.06 H Absolute Neuts (auto) 5.0 Absolute Nucleated RBC 0.000 Nucleated RBC % (auto) 0.0 PT 14.3 H INR 1.2 H Sodium 143 Potassium 2.9 L Chloride 105 Carbon Dioxide 26 Anion Gap 15 BUN 8 L Creatinine 1.88 H Estim Creat Clear Calc 37.4 Estimated GFR 27 Fasting Glucose 95 Calcium 8.9 Total Bilirubin AST ALT Alkaline Phosphatase Lactate Dehydrogenase Total Protein Albumin Triglycerides Cholesterol LDL Cholesterol, Calc HDL Cholesterol Carcinoembryonic Ag CA 19-9 Antigen CA 125 Antigen Stool Occult Blood Imaging Diagnostic Imaging Impressions Pelvis Ultrasound 07/29/23 15:20 IMPRESSION: 1. Unremarkable uterus and ovaries. 2. There is no free fluid in the cul-de-sac. DS: Summary Hospital Course Hospital Course: HPI: Subjective Notes: Butt Warning (given and shows understanding) and Conditional Voluntary Narrative: Mrs. Atkins is a 67 year-old woman with hx of PTSD, MDD, presented to [facility] via EMS due to GI bleeding. She has also been struggling with increased depression and suicidal ideation since her of 46 years unexpectedly of cancer back in February of this year. She reports her was her main support and anchor. Pt was medically admitted for GI bleed, received transfusion, abdominal CT concerning for malignancy. On the unit, pt reports she has been struggled since her . She repo rts hx of suicidal thought since she was 3 y/o due to trauma but reports she has been fairly stable after she met her . Losing him has been a tremendous loss for her. She endorses feeling hopeless, suicidal thoughts. She reports thoughts of trying to end her life by making it seem as an accident as she does not want to cause pain to her children and grandchildren. She reports day that she was brought to the hospital for GI bleeding she had talked with her therapist who was recommending evaluation by crisis. She denies hx of VH/AH. She reports poor sleep. She reports fair appetite. Past Psychiatric History: Inpatient:[facility] 1985/1986, [facility] 1988 OP: [facility], therapist. Dr. Dumas. Past trials: abilify, wellbutrin, clonazepam, clonidine, seroquel, prozac Hx of suicide attempts: 6 years ago OD. Medical Evaluation Reviewed: Yes HOSPITAL COURSE On the unit, Mrs. Atkins was admitted on a CV and placed on 15 minutes checks for safety. Pt presented with multiple conflicting feeling: missing her of more than 36 years dearly along with thinking about her children and possibility of her children losing two parents just months apart. She struggle, as expected to find a new meaning for her life after passing of her who was per pt most loving and supporting person in her life, after significant trauma she extensive complex trauma she experience as child and then as college student. She denies any plan or intent to end her life. In terms of her psychotropic medications, they were continued as prescribed in the community. She has been on numerous medications in the past and current regimen seemed to be more effective. I do recommend considering lowering clonazepam at bedtime due to some degree of SOB- although O2sat stable on roommair. Pt was transferred to medicine due to finding of ulceral mass in cecum that needs surgery as it appears malignancy. Psychiatry to continue to follow while on medical floor. Pt does not need sitter at this time while on medical. Status at Discharge Cognitive/behavioral status at discharge: Pt appropriately concern about her health, missing her . NO plan or intent to end her life. No VH/AH. No psychosis or delusions. Functional status at discharge: independent ambulation Overall status at discharge: patient is progressing back to baseline Time Spent with Patient Time attestation: Total time managing care of this patient today __40__ minutes. Time spent: Greater than 30 minutes Discharge Plan Discharge Anticipated Discharge Date/Time: 07/31/23 14:00 Patient Disposition: er [facility] Discharge Diagnosis: MDD, recurrent, moderate Referrals: Rosa Maria Jaime MD [Primary Care Provider] - 1 Week Discharge Medications: New atorvastatin 20 mg Tablet 20 mg PO DAILY Qty: 0 0RF clonazepam 1 mg Tablet 2 mg PO BEDTIME Qty: 0 0RF amlodipine 2.5 mg Tablet 2.5 mg PO DAILY Qty: 0 0RF Protocol: Hold for SBP< HOLD for SBP < : 90 quetiapine 100 mg Tablet 100 mg PO BEDTIME Qty: 0 0RF clonidine HCl 0.2 mg Tablet 0.2 mg PO BEDTIME Qty: 0 0RF Protocol: Hold for SBP< HOLD for SBP < : 90 ascorbic acid (vitamin C) 250 mg Tablet 250 mg PO DAILY Qty: 0 0RF omeprazole 20 mg Capsule,Delayed Release(Dr/Ec) 20 mg PO BID@0630,1630 Qty: 0 0RF gabapentin 100 mg Capsule 100 mg PO BEDTIME Qty: 0 0RF albuterol sulfate [Ventolin HFA] 90 mcg/actuation Hfa Aerosol Inhaler 2 puff inhalation RQ4H PRN (Reason: Shortness Of Breath/Wheezing) Qty: 0 0RF fluoxetine 20 mg Capsule 40 mg PO DAILY Qty: 0 0RF fluticasone propionate 50 mcg/actuation [place],Suspension 2 spray intranasal DAILY Qty: 0 0RF loratadine 10 mg Tablet 10 mg PO BEDTIME Qty: 0 0RF bupropion HCl 300 mg Tablet Extended Release 24 Hr 300 mg PO DAILY Qty: 0 0RF Discontinued cetirizine 10 mg Tablet 10 mg PO BEDTIME clonazepam 1 mg Tablet 2 mg PO BEDTIME Rx Instructions: at 10 p.m. clonidine HCl 0.2 mg tablet 1 tab PO BEDTIME albuterol sulfate [ProAir HFA] 90 mcg/actuation Hfa Aerosol Inhaler 2 puff INHALATION Q4-6H PRN (Reason: Wheezing) acetaminophen 325 mg Tablet 650 mg PO Q6H PRN (Reason: Pain, Mild (Pain Scale 1-3)) 30 Days Qty: 240 0RF hydralazine 25 mg Tablet 25 mg PO BID bupropion HCl 300 mg tablet extended release 24 hr 1 tab PO DAILY atorvastatin 20 mg tablet 20 mg PO DAILY warfarin 5 mg tablet 5 mg PO DAILY Patient Comments: CURRENTLY ON HOLD DUE TO BLEEDING Rx Instructions: ONE TABLET DAILY, GOAL INR 2-3. omeprazole 20 mg capsule,delayed release(DR/EC) 20 mg PO BID bumetanide 1 mg tablet 1 mg PO BID gabapentin 100 mg capsule 100 mg PO BEDTIME amlodipine 10 mg tablet 2.5 mg PO DAILY clonazepam 1 mg tablet 1 mg PO QPM Rx Instructions: at 8:00 pm fluoxetine 40 mg capsule 40 mg PO QAM quetiapine 100 mg tablet 100 mg PO BEDTIME aripiprazole 10 mg tablet 2.5 mg PO BEDTIME budesonide-formoterol [Symbicort] 160-4.5 mcg/actuation HFA aerosol inhaler inhalation Discharge Orders: Discharge Order (Routine); Ordered 07/31/23 Ordered By: Danika Lepe Diet: Advance to usual diet Activity on Discharge: As tolerated Stand Alone Forms: Patient Portal Discharge page Care Plan Goals: maintain mood no SI/HI Health Concerns: transfer to medical floor Plan of Treatment: transfer to medical floor Assessment: no acute SI/HI. Discharge Date/Time: 07/31/23 15:05
--- NOTE | 2023-07-31 15:30 | PC.NURSE ---
Pt. A & O X 4 s/p colonoscopy. Aware of plan to discharge to medical floor for further workup of intestinal CA and in agreement with plan. Left unit 15:05 via WC accompanied by RN and OT.
[2023-08-01 10:29] LABS: CA-125 45 U/mL (<35)
== END 2023-07-31 15:05 | disposition short-term general hospital (02) | DRG 885 ==
PROVIDERS: Internal Medicine; Physician Assistant; Psychiatry & Neurology Psychiatry; Admitting Provider Psychiatry & Neurology Psychiatry; PCP Student in an Organized Health Care Education/Training Program; Visit Provider Psychiatry & Neurology Psychiatry
DX: F33.2 Major depressive disorder, recurrent severe without psychotic features (principal); R45.851 Suicidal ideations; N18.4 Chronic kidney disease, stage 4 (severe); C18.0 Malignant neoplasm of cecum; C78.6 Secondary malignant neoplasm of retroperitoneum and peritoneum; F41.1 Generalized anxiety disorder; I12.9 Hypertensive chronic kidney disease with stage 1 through stage 4 chronic kidney disease, or unspecified chronic kidney disease; D50.9 Iron deficiency anemia, unspecified; F43.10 Post-traumatic stress disorder, unspecified; E78.5 Hyperlipidemia, unspecified; D63.1 Anemia in chronic kidney disease; G47.33 Obstructive sleep apnea (adult) (pediatric); Z15.01 Genetic susceptibility to malignant neoplasm of breast; Z86.711 Personal history of pulmonary embolism; Z79.01 Long term (current) use of anticoagulants; Z79.51 Long term (current) use of inhaled steroids; Z79.899 Other long term (current) drug therapy
CPT/HCPCS: 36415; 76856; 76857; 80048; 80053; 80061; 82272; 82378; 83615; 85025; 85027; 85610; 86301; 86304

== ENCOUNTER → 2023-07-27 18:30 | Outpatient (BNV) | payer MEDICARE, SELFPAY | PROVIDERS: Admitting Provider Psychiatry & Neurology Psychiatry; PCP Student in an Organized Health Care Education/Training Program; Visit Provider Social Worker | DX: F33.2 Major depressive disorder, recurrent severe without psychotic features (principal) | CPT/HCPCS: 90792; 99231; 99239 ==

== ENCOUNTER → 2023-07-27 18:30 | Outpatient (BNV) | payer MEDICARE, SELFPAY | PROVIDERS: Admitting Provider Psychiatry & Neurology Psychiatry; PCP Student in an Organized Health Care Education/Training Program; Visit Provider Physician Assistant | DX: D62 Acute posthemorrhagic anemia (principal); N18.4 Chronic kidney disease, stage 4 (severe) | CPT/HCPCS: 99223 ==

== ENCOUNTER → 2023-07-27 18:30 | Outpatient (BNV) | payer MEDICARE, SELFPAY | PROVIDERS: Admitting Provider Psychiatry & Neurology Psychiatry; PCP Student in an Organized Health Care Education/Training Program; Visit Provider Internal Medicine | DX: D62 Acute posthemorrhagic anemia (principal); I26.99 Other pulmonary embolism without acute cor pulmonale | CPT/HCPCS: 99222 ==

== ENCOUNTER → 2023-07-31 09:50 | Day surgery (SDC) | payer MEDICARE, SELFPAY ==
[2023-07-31 10:03] VITALS: BMI 45.5
[2023-07-31 10:10] VITALS: BP 148/69; PULSE 92; RESP 17; TEMP 36.8; O2SAT 97
[2023-07-31] MEDS: Lactated Ringers 1,000 ML 50 ML IVCONT (10:25)
--- NOTE | 2023-07-31 10:32 | HO.ANESPROP2 ---
[facility] Active Problems Active Problems: All Active Problems (Updated 07/29/23 @ 13:42 by Shantell Garg MD) Anemia (Acute) MDD (major depressive disorder), recurrent episode, severe (Acute) Routine medical exam (Acute) Fungal infection of skin of abdomen (Acute) Physical deconditioning (Acute) Status post total right knee replacement (Acute) Chronic pain (Acute) Knee pain, right (Acute) Past Medical History Medical History Long COVID IBS (irritable bowel syndrome) Chronic laryngitis Sleep apnea Knee pain, right Anemia HX: benign breast biopsy COVID-19 vaccine administered Difficulty swallowing Chronic renal insufficiency Fatty liver Tremors of nervous system Cognitive dysfunction Osteoarthritis of right knee Dysphagia Hypertension High cholesterol Arthritis Stage 4 chronic kidney disease History of COVID-19 Asthma Patient : No Family History Family History Daughter Breast cancer Paternal Aunt Breast cancer Family history of problems with anesthesia: No Surgical History Surgical History History of total right knee replacement (TKR) Hx laparoscopic cholecystectomy H/O endoscopy History of colonoscopy History of section History of Problems with Anesthesia: Yes Social History Social History Household Members: None Housing: House Are you a primary daycare manager to a significant other at home: No Do you presently have visiting nurse or other home services: No Alcohol intake: never Patient Tobacco Use Status: Never used Tobacco Second Hand Smoke Exposure: No service: No Current occupational status: retired Current occupation: right handed Sexual orientation: Straight/Heterosexual Meds Allergies Allergy/AdvReac Type Severity Reaction Status Date / Time benztropine [From Cogentin] Allergy Intermediate Rash Verified 07/30/22 09:59 latex Allergy Intermediate Itching Verified 07/30/22 09:59 thimerosal Allergy Intermediate Itching Verified 07/30/22 09:59 topiramate Allergy Swelling Verified 07/31/23 10:10 sulfamethoxazole AdvReac Intermediate contraindicated Verified 07/30/22 09:59 [From Bactrim] w/stage 4 CKD trimethoprim [From Bactrim] AdvReac Intermediate contraindicated Verified 07/30/22 09:59 w/stage 4 CKD Active Medications: Current Medications Lactated Ringer's (Lr) 1,000 mls @ 50 mls/hr IVCONT .Q20H IDA Last Admin: 07/31/23 10:25 Dose: 50 mls/hr Home Medications Medication Instructions Recorded Confirmed Last Taken Type amlodipine 10 mg tablet 2.5 mg PO DAILY 12/12/20 07/27/23 09/06/21 History clonazepam 1 mg tablet 1 mg PO QPM 12/12/20 07/27/23 Unknown History fluoxetine 40 mg capsule 40 mg PO QAM 12/12/20 07/27/23 09/06/21 History gabapentin 100 mg capsule 100 mg PO BEDTIME 12/12/20 07/27/23 Unknown History albuterol sulfate 90 mcg/actuation 2 puff inhalation Q4-6H PRN 02/07/21 03/26/22 Unknown History aerosol inhaler (ProAir HFA) Wheezing cetirizine 10 mg tablet 10 mg PO BEDTIME 02/07/21 07/27/23 Unknown History clonazepam 1 mg tablet 2 mg PO BEDTIME 02/07/21 07/27/23 Unknown History clonidine HCl 0.2 mg tablet 1 tab PO BEDTIME 02/07/21 07/27/23 Unknown History quetiapine 100 mg tablet 100 mg PO BEDTIME 06/12/21 07/27/23 Unknown History bupropion HCl 300 mg 24 hr tablet, 1 tab PO DAILY 08/31/21 07/27/23 09/06/21 History extended release hydralazine 25 mg tablet 25 mg PO BID 08/31/21 07/27/23 09/06/21 History budesonide-formoterol HFA 160 inhalation 02/16/22 03/26/22 Unknown History mcg-4.5 mcg/actuation aerosol inhaler (Symbicort) aripiprazole 10 mg tablet 2.5 mg PO BEDTIME 02/23/22 07/27/23 Unknown History atorvastatin 20 mg tablet 20 mg PO DAILY 07/27/23 07/27/23 Unknown History bumetanide 1 mg tablet 1 mg PO BID 07/27/23 07/27/23 Unknown History omeprazole 20 mg capsule,delayed 20 mg PO BID 07/27/23 07/27/23 Unknown History release warfarin 5 mg tablet 5 mg PO DAILY 07/27/23 07/27/23 07/27/23 History Exam Exam Date and Time: July 31, 2023 1032 Height,Weight and Vital Signs: Height 5 ft 1.5 in Weight 111.13 kg Last Vital Signs Temp 98.3 F 07/31/23 10:10 Pulse 92 07/31/23 10:10 Resp 17 07/31/23 10:10 BP 148/69 H 07/31/23 10:10 Pulse Ox 97 07/31/23 10:10 O2 Del Method Room Air 07/31/23 10:10 Airway Mallampati Class: III TM Dist: >3cm Neck ROM: Full Heart: RRR Lungs: CTA Assessment and Plan Assessment Anesthesia Assessment: Anesthesia Plan Discussed Final Anesthetic Review Family History of Problems with Anesthesia: No History of Problems with Anesthesia: Yes NPO: Yes ASA Class: III Final Preanesthetic Review: Meds/Allgs Chart Reviewed, Consent Obtained/Reviewed and Anes Risks/Benef Reviewed Patient Risk: Intermediate Procedure Risk: Low Anesthetic Plan Anesthetic Plan: MAC: Disposition: Standard PACU
[2023-07-31 12:29] VITALS: BP 102/53; PULSE 88; RESP 16; TEMP 37; O2SAT 97
[2023-07-31 12:44] VITALS: BP 118/62; PULSE 88; RESP 20; TEMP 37.1; O2SAT 94
--- NOTE | 2023-07-31 12:47 | P.BOP_ITS ---
Brief Operative Note Date of Service: 07/31/23 Pre-op diagnosis: Anemia, abnormal CT of colon Post-op diagnosis: other (Ulcerated mass of cecum) Procedure: Colonoscopy to the cecum and TI with biopsies Surgeon: Alvaro Bell Anesthesia: MAC Was an Frog Catcher used for this Procedure?: No Estimated blood loss (mL): 2.0 Pathology: other (A. Cecal mass) Condition: stable Disposition: PACU
[2023-07-31 12:59] VITALS: BP 120/63; PULSE 85; RESP 22; TEMP 37.3; O2SAT 92
--- NOTE | 2023-07-31 13:18 | HO.POSTANES ---
Post Anesthesia Evaluation Post Anesthesia Evaluation Date of Service: 07/31/23 Vital Signs: Vital Signs Temp Pulse Resp BP Pulse Ox O2 Del Method O2 Flow Rate 07/31/23 12:59 99.1 F 85 22 H 120/63 92 Nasal Cannula 2 07/31/23 12:44 98.7 F 88 20 118/62 94 Room Air 07/31/23 12:29 98.6 F 88 16 102/53 L 97 Simple Mask 4 07/31/23 10:10 98.3 F 92 17 148/69 H 97 Room Air Anesthesia: Monitored Mental Status: Awake Pain Control: Satisfactory Nausea/Vomiting: None Hydration: Adequate Anesthesia-Related Issues: No Anes. Related Issues
--- NOTE | 2023-08-01 00:07 | OP_ITS ---
DATE OF SERVICE: 07/31/2023 SURGEON: Alvaro Bell MD INDICATIONS: The patient presents for evaluation of anemia and abnormal CT of colon. Full consent has been obtained from her for this, including risks of bleeding and perforation. PREOPERATIVE DIAGNOSIS: POSTOPERATIVE DIAGNOSIS: PROCEDURE PERFORMED: Colonoscopy to the cecum and terminal ileum with biopsies. ESTIMATED BLOOD LOSS: COMPLICATIONS: ANESTHESIA: Monitored anesthesia care. ASSISTANTS: SPECIMENS: PREOPERATIVE DIAGNOSES: Anemia and abnormal CT scan of colon. POSTOPERATIVE DIAGNOSES: Anemia and abnormal CT scan of colon, ulcerated mass in cecum, diverticulosis and internal hemorrhoids. DESCRIPTION OF PROCEDURE: The patient was placed in the left lateral decubitus position. The digital rectal exam revealed no abnormalities. The Olympus video pediatric colonoscope was entered into the rectum and advanced easily to the cecum. Once in the cecum, I was able to visualize a relatively small ulcerated lesion, which was very friable, just beneath the ileocecal valve, although what appeared to be separate from the valve itself. The ileocecal valve was patent and allowed cannulation to the terminal ileum. The terminal ileum appeared normal. The scope was withdrawn back in the colon. The mass in the cecum measured approximately 4 or 5 cm. Multiple biopsies were obtained, and again, it was quite friable. The remainder of the cecum including the appendiceal orifice appeared normal. The scope was then slowly withdrawn assessing all mucosal surfaces carefully. Preparation was excellent. I did not visualize any other polyps, colitis, nor angiodysplasia. There was a mild amount of sigmoid diverticulosis. In the rectum, the scope was retroflexed, visualizing internal hemorrhoids, but no other pathology. The rectal mucosa appeared normal. The scope was straightened and withdrawn from the patient. She tolerated the procedure well and was returned to recovery area in stable condition. Of note, I did not do the upper endoscopy given the findings on the colonoscopy in regard to it being the cause of her anemia and the fact that she does not have any particular upper GI complaints. IMPRESSION: 1. Ulcerated cecal mass consistent with carcinoma, status post biopsy. 2. Diverticulosis. 3. Internal hemorrhoids. PLAN: The results of the biopsies will be checked. She will require further transfusions and surgical consult. She will be transferred from the psychiatric service to the medical service for that to be accomplished. I would continue clear liquids for the time being, such that if they can do her surgery in the next day or 2, then she will not need another bowel prep. This has been discussed with the patient and her daughter, Danielle, in detail. MD WILLIE Herrera/SUJIT / [id number] MTDD
== END ==
PROVIDERS: PCP Student in an Organized Health Care Education/Training Program; Visit Provider Internal Medicine
PROC: (CPT 45380; principal; 2023-07-31 10:40)
DX: C18.0 Malignant neoplasm of cecum (principal); D64.9 Anemia, unspecified; D50.9 Iron deficiency anemia, unspecified; K57.30 Diverticulosis of large intestine without perforation or abscess without bleeding; K64.8 Other hemorrhoids; K58.9 Irritable bowel syndrome, unspecified; I12.9 Hypertensive chronic kidney disease with stage 1 through stage 4 chronic kidney disease, or unspecified chronic kidney disease; N18.4 Chronic kidney disease, stage 4 (severe); K76.0 Fatty (change of) liver, not elsewhere classified; R13.10 Dysphagia, unspecified; Z66 Do not resuscitate; E78.00 Pure hypercholesterolemia, unspecified; R25.1 Tremor, unspecified; R41.840 Attention and concentration deficit; U09.9 Post COVID-19 condition, unspecified; I26.99 Other pulmonary embolism without acute cor pulmonale; Z79.01 Long term (current) use of anticoagulants; Z79.899 Other long term (current) drug therapy; Z79.51 Long term (current) use of inhaled steroids; Z88.2 Allergy status to sulfonamides; Z91.040 Latex allergy status
CPT/HCPCS: 45380; 88305; 88341; 88342

== ENCOUNTER 2023-07-31 15:20 | Inpatient (IN) | payer MEDICARE, SELFPAY ==
--- NOTE | ~2023-07-31 | XR_ITS ---
EXAMINATION: XR CHEST CLINICAL INFORMATION: Hypoxia. Postsurgical. COMPARISON: None available. TECHNIQUE: Frontal view of the chest was obtained. FINDINGS: Cardiac silhouette is mildly enlarged. The lungs are mildly hypoinflated. There is no lobar consolidation present. No pleural effusion or pneumothorax. Degenerative changes of the spine. XR/XR chest 1V IMPRESSION: No acute pulmonary pathology.
--- NOTE | ~2023-07-31 | XR_ITS ---
EXAMINATION: XR ABDOMEN KUB CLINICAL INDICATION: Vomiting COMPARISON: 08/05/2023 TECHNIQUE: AP view of the abdomen. FINDINGS: Lung volumes are symmetric. Redemonstrated gaseous distention of small and large bowel loops, overall similar to prior. There is limited assessment for free air with supine positioning. Suture line noted in the right abdomen. Redemonstrated surgical clips in the right upper quadrant. Included lung bases are well-aerated. No acute osseous findings are seen. XR/XR KUB IMPRESSION: Redemonstrated gaseous distention of small and large bowel loops, similar to 08/05/2023 and which may be indicative of ileus.
--- NOTE | ~2023-07-31 | XR_ITS ---
EXAMINATION: XR CHEST CLINICAL INFORMATION: NG tube placement COMPARISON: 08/06/2023 TECHNIQUE: Frontal view of the chest was obtained. FINDINGS: Enteric tube overlies the course of the right lower lobe bronchus with tip at the right base. Lung volumes are symmetric. No focal consolidation is seen. No evidence of pneumothorax, pleural effusion, or pulmonary edema. Cardiac silhouette appears at the upper limits of normal in size. Degenerative changes are noted in the spine. XR/XR chest 1V IMPRESSION: Enteric tube courses into the right lower lobe bronchus with tip at the right base. Repositioning is required. This critical result was discussed with Dr. Ho on 08/09/2023 6:59 AM, and it was ascertained that the content and urgency of the report was understood at the time of direct communication.
--- NOTE | ~2023-07-31 | XR_ITS ---
EXAMINATION: XR CHEST CLINICAL INFORMATION: Check NG tube placement COMPARISON: Previous x-ray August 04 TECHNIQUE: Frontal view of the chest was obtained. FINDINGS: There is a nasogastric tube that projects over the stomach. The cardiac and mediastinal contours are normal. The lungs are clear. No pleural effusion or pneumothorax. Degenerative changes of the spine. XR/XR chest 1V IMPRESSION: Nasogastric tube projects over stomach.
--- NOTE | ~2023-07-31 | XR_ITS ---
EXAMINATION: XR ABDOMEN KUB CLINICAL INDICATION: Colon resection. Vomiting. Question ileus. COMPARISON: None available. TECHNIQUE: AP view of the abdomen. FINDINGS: Surgical staple lines in the right lower quadrant. Paucity of bowel gas seen in the colon. Slightly distended air-filled loops of small bowel. No free air. No calcifications. Mild degenerative changes of the spine and scoliosis. XR/XR KUB IMPRESSION: Nonspecific bowel gas pattern with slightly distended air-filled loops of small bowel and paucity of bowel gas in the large bowel.
--- NOTE | 2023-07-31 14:38 | P.HPHOSP_ITS ---
History of Present Illness Date of Service: 07/31/23 Attending physician on admission: Arsen Gaitan Chief Complaint: Ulcerated mass of the cecum, symptomatic anemia Pt is a 67-year-old female with a PMH significant for CKD stage 4, ANTHONY, GERD, HTN, HLD, HELENA on CPAP, PTSD, history of PE on Coumadin (Nov 2022 continue x 1 year per hematology) who was originally admitted to Geriatric Psychiatry on 07/28/2023 for increased depression with SI secondary to loss of her from stage IV lung cancer in February 2023. Pt was transferred from [facility] she was admitted on 07/24 d/t symptomatic anemia that had been ongoing for 1 month. She was endorsing dyspnea on exertion and palpitations. She is on Coumadin which was held on admission. H/H 7.9/25.2%, MCV 81.2. Iron levels low at 15 with TIBC 373, 4% iron saturation. Normal vitamin B12 and folic acid levels. Renal function slightly above baseline with creatinine of 2.0, electrolyte levels normal. Stool occult blood was not performed. CT abdomen/pelvis showed soft tissue nodular LD along the mesentery with small amount of intraperitoneal free fluid concerning for peritoneal carcinomatosis until proven otherwise as well as findings suspicious for mass in the right lower quadrant inseparable from the right adnexa and junction of the cecum/terminal ileum concerning for malignancy. No evidence of obstruction or inflammation. She was transfused 1 unit PRBCs, though H/H continued to fall slightly to 7.7/25.0% and then 7.5/24.8% on day of discharge on 07/27. She also received IV iron infusions due to severe iron deficiency anemia. Coumadin was resumed on discharge. There is no evidence of active GI bleeding so patient was declared medically stable for discharge to our inpatient geriatric psychiatry unit with recommendations to follow-up outpatient for colonoscopy and outpatient follow-up for abnormal CT abdomen/pelvis results. While in [facility] psych patient continued to report dyspnea on exertion, occasional palpitations, fatigue and general weakness. She had 2+ pitting edema bilaterally in lower extremities bilaterally. Denied melena, hematochezia, epistaxis, or easy bruisability, though has noticed some dark colored stools. No nausea, vomiting, diarrhea. Has had some occasional right-sided abdominal pain she initially attributed to IBS symptoms. Reports 15 lb weight loss since her passed. Coumadin was once again held. Hematology and Oncology consult was placed and tumor markers ordered. Pelvis ultrasound was ordered, found unremarkable uterus and ovaries without free fluid in the cul-de-sac. GI consult was placed and patient received a colonoscopy on 07/31/2023 which found a n ulcerated, friable mass approximately 4-5 cm in size in the cecum beneath, but separate, from ileocecal valve. Biopsies were taken. ICV and T1 WNL. H&H today 7.5/24.5, down from 8 0.3/27.5 yesterday. Labs were also significant for potassium of 2.9 and creatinine 1.88, slightly worse than 1.67 at time of admission. Patient will be transferred from [facility] admitted to the medical floor for treatment further evaluation of symptomatic anemia with blood transfusion and fluid resuscitation and treatment of ulcerated mass of the cecum with surgical consult with likely surgical procedure. Review of Systems Review of Systems: Occasional mild right-sided abdominal pain Lightheadedness, dizziness Dark stools Recent 15lb weight loss Denies chest pain/pressure, palpitations No fever, chills, N/V, diarrhea PMFSH Medical History Long COVID IBS (irritable bowel syndrome) Chronic laryngitis Sleep apnea Knee pain, right Anemia HX: benign breast biopsy COVID-19 vaccine administered Difficulty swallowing Chronic renal insufficiency Fatty liver Tremors of nervous system Cognitive dysfunction Osteoarthritis of right knee Dysphagia Hypertension High cholesterol Arthritis Stage 4 chronic kidney disease History of COVID-19 Asthma Family History Daughter Breast cancer Paternal Aunt Breast cancer Surgical History History of total right knee replacement (TKR) Hx laparoscopic cholecystectomy H/O endoscopy History of colonoscopy History of section Social History Household Members: None Housing: House Are you a primary rn care transition to a significant other at home: No Do you presently have visiting nurse or other home services: No Alcohol intake: never Patient Tobacco Use Status: Never used Tobacco Second Hand Smoke Exposure: No Use of substances other than those prescribed or required for medical reasons: No Currently Displaying Signs/Symptoms of Drug Intoxication Withdrawal: No Have you been hit, kicked, punched, or otherwise hurt by someone within the past year? If so, by whom?: No Do you feel safe in your current relationship?: No Current Relationship Is there a partner from a previous relationship who is making you feel unsafe now?: No Are you made to feel afraid or neglected: No Advance Directives: Yes Advance Directives Information Provided: No Advance Directives on File: Yes Advance Directives Date on File: 09/07/21 Do you have thoughts of harming others: None Do you have a plan to hurt others: No Plan Recently lost weight without trying: No Eating poorly because of decreased appetite: No Nutrition Risks: No Nutritional Risk Patient : No : No Poor oral hygiene: No service: No Current occupational status: retired Current occupation: right handed Sexual orientation: Straight/Heterosexual Meds Allergies Allergy/AdvReac Type Severity Reaction Status Date / Time benztropine [From Cogentin] Allergy Intermediate Rash Verified 07/30/22 09:59 latex Allergy Intermediate Itching Verified 07/30/22 09:59 thimerosal Allergy Intermediate Itching Verified 07/30/22 09:59 topiramate Allergy Swelling Verified 07/31/23 10:10 sulfamethoxazole AdvReac Intermediate contraindicated Verified 07/30/22 09:59 [From Bactrim] w/stage 4 CKD trimethoprim [From Bactrim] AdvReac Intermediate contraindicated Verified 07/30/22 09:59 w/stage 4 CKD Active Medications: Current Medications Acetaminophen (Acetaminophen 325 Mg Tablet) 650 mg PO Q6H PRN PRN Reason: Pain, Mild (Pain Scale 1-3) Docusate Sodium (Docusate Sodium 100 Mg Capsule) 100 mg PO DAILY PRN PRN Reason: Constipation Ondansetron HCl (Ondansetron Hcl 4 Mg/2 Ml Vial) 4 mg IVPUSH Q8H PRN PRN Reason: Nausea and Vomiting Sodium Chloride (0.9 % Sodium Chloride Flush 3 Ml Syringe) 3 ml IVFLUSH QSHIFT IDA Physical Exam Vital Signs and Narrative: General: AOx3, no acute distress Resp: CTA bilaterally CVS: S1, S2, RRR GI: Hyperactive BS, no distention, mild right-sided tenderness Skin: Warm, dry Neuro: Cranial nerves II-XII grossly intact bilaterally. Motor grossly intact bilaterally Extremities: 1+ bilateral pitting edema Assessment and Plan (1) Anemia: Status: Acute (2) Mass of cecum: Status: Acute (3) Hypokalemia: Status: Acute Plan Pt is a 67-year-old female with a PMH significant for CKD stage 4, ANTHONY, GERD, HTN, HLD, HELENA on CPAP, PTSD, history of PE on Coumadin (Nov 2022 continue x 1 year per hematology) who was originally admitted to Geriatric Psychiatry on 07/28/2023 for increased depression with SI secondary to loss of her from stage IV lung cancer in February 2023. Colonoscopy on 07/31/2023 which found an ulcerated, friable mass approximately 4-5 cm in size in the cecum beneath, but separate, from ileocecal valve. Patient will be transferred from [facility] and admitted to the medical floor for treatment and further evaluation of symptomatic anemia with blood transfusion and fluid resuscitation and treatment of ulcerated mass of the cecum with surgical consult with likely surgical procedure. Ulcerated mass of the cecum CT of abd/pelvis at [facility] on found soft tissue nodularity suspicious for mass in the right lower quadrant concerning for malignancy Colonoscopy with biopsies on 07/31/2023 showed ulcerated, friable mass approximately 4-5 cm psych cecum beneath, but separate, for an ileocecal valve General surgery consult Hematology/oncology consult Patient will be placed on clear liquid diet d/t possible surgical intervention on Saturday; advance diet if no surgery until Saturday Follow biopsies Acute on chronic iron deficiency anemia Received 1 unit packed red blood cells at [facility] and IV iron infusion Hgb [facility]: 7.9 (07/25) --> 7.7 (07/26) --> 7.5 (07/27); at [facility] [place] Hgb 7.5/24.5 Stool occult blood positive Continue to hold Coumadin Follow CBC Hypokalemia Potassium 2.9 Will supplement with IV and p.o. potassium Follow BMP PATRICIO Creatinine 2.05 yesterday and 1.88 today, above baseline Pt treated with IVF and will receive 1 unit PRBCs Follow BMP Hypotension Pt's BP as low as 99/55 on 07/30/2023 Likely secondary to hypovolemia Treat as above with IVF, transfusion of 1 unit PRBCs -Received 1 unit packed red blood cells at [facility] and IV iron infusion -Hgb [facility]: 7.9 (07/25) --> 7.7 (07/26) --> 7.5 (07/27). [facility] [place] Hgb 7.2 -Stool occult blood positive -Hold Coumadin. Follow INR -Follow CBC HELENA CPAP at bedtime HLD Continue statin Chronic lung disease Not in acute exacerbation Continue maintenance inhalers, albuterol p.r.n. Full Code Attending:?Dr. Gaitan DVT Prophylaxis: Pneumatic boots d/t anemia, possible surgical intervention Pt will require a hospitalization of at least two nights for treatment of? treatment and further evaluation of symptomatic anemia with blood transfusion and fluid resuscitation and treatment of ulcerated mass of the cecum with surgical consult with likely surgical procedure. Time Spent With Patient Time: Total time managing care of this patient today ____ minutes. Quality Stroke Does the patient have a stroke diagnosis?: No VTE Prior VTE?: No VTE Risk Level:: Medical - moderate - high VTE Device Contraindication: N/A - Device Ordered VTE Drug Contraindication: Treatment Not Indicated
[2023-07-31 16:00] VITALS: BP 101/54; PULSE 84; RESP 20; TEMP 36.1; O2SAT 95
[2023-07-31 16:01] VITALS: BMI 44.8
[2023-07-31] MEDS: Potassium Chloride Packet 20 MEQ PACKET 40 MEQ PO (16:04)
[2023-07-31] MEDS: Lactated Ringers 1,000 ML 100 ML IVCONT (16:04)
[2023-07-31] MEDS: 0.9 % Sodium Chloride Flush 3 ML SYRINGE IVFLUSH (16:50)
--- NOTE | 2023-07-31 18:01 | PC.NURSE ---
RN spoke with provider Ej Reid regarding IV fluids that are ordered NS and LR , per provider hold fluids now , pt will have blood transfusion today
[2023-07-31 19:30] VITALS: BP 110/53; PULSE 85; RESP 18; TEMP 36.4; O2SAT 95
[2023-07-31 21:56] VITALS: BP 133/63; PULSE 82; RESP 20; TEMP 36.1
[2023-07-31 22:13] VITALS: BP 119/59; PULSE 83; RESP 20; TEMP 36.9
[2023-07-31] MEDS: clonazePAM 1 MG TABLET 2 MG PO (22:51)
[2023-07-31] MEDS: QUEtiapine Fumarate 100 MG TABLET PO (22:51)
[2023-07-31] MEDS: Potassium Chloride/H20 10 MEQ/100 ML PIGGYBACK 100 MEQ IV (23:09)
[2023-08-01] VITALS (18 sets, daily range): BP systolic 105–148; BP diastolic 54–73; PULSE 82–93; RESP 10–20; TEMP 36–37; O2SAT 88–96
[2023-08-01] MEDS: Potassium Chloride/H20 10 MEQ/100 ML PIGGYBACK 100 MEQ IV (00:22)
--- NOTE | 2023-08-01 05:04 | PC.NURSE ---
spoke with dr Herring r/daphne new EKG order lots of new meds through the night and blood transfusion pt. didn't get much sleep. agreed EKG can be done in am.
[2023-08-01 06:39] LABS: Hemoglobin 8.1 g/dl (12.0-16.0); Mean Corpuscular Hemoglobin 25.9 pg (27.0-33.0); Mean Corpuscular Volume 86.3 fL (80.0-98.0); Mean Platelet Volume 9.4 fL (9.4-12.3); NRBC Pct Auto 0.3 /100WBC (0.0-0.2); Platelet Count 313 X10*3/uL (160-400); Red Blood Count 3.13 X10*6/uL (4.20-5.50); Red Cell Distribution Width 17.8 % (11.0-16.0); White Blood Count 7.4 X10*3/uL (4.8-10.8)
[2023-08-01 07:04] LABS: Anion Gap 10 (12-20); Blood Urea Nitrogen 6 mg/dL (9-16); Carbon Dioxide 27 mmol/L (22-29); Chloride 108 mmol/L (96-108); Creatinine Clr Calc Pharmacy 37.4; Estimated Glomerular Filt Rate 30; Glucose Random 97 mg/dL (60-115); Potassium 3.4 mmol/L (3.3-5.1); Sodium 142 mmol/L (135-145)
[2023-08-01] MEDS: 0.9 % Sodium Chloride Flush 3 ML SYRINGE IVFLUSH ×2 (07:35→16:10)
--- NOTE | 2023-08-01 08:00 | ECG_ITS ---
Test Reason : pre op Blood Pressure : / mmHG Vent. Rate : 083 BPM Atrial Rate : 083 BPM P-R Int : 162 ms QRS Dur : 090 ms QT Int : 386 ms P-R-T Axes : 054 044 025 degrees QTc Int : 453 ms Normal sinus rhythm Normal ECG When compared with ECG of 11-JAN-2021 11:50, No significant change was found Referred By: Ej Reid Electronically Signed By:MARCELA ACUNA
--- NOTE | 2023-08-01 10:05 | PHA.MEDREC ---
Pharmacy Consult ? Medication Reconciliation Pharmacy has completed the medication reconciliation. Patient transferred from [facility] to medical floor. Updated home med list from medical records.
--- NOTE | 2023-08-01 11:00 | PM.CNGS ---
History of Present Illness Consult details Consult date: 08/01/23 <Stefani Leonard PA-C - Last Filed: 08/01/23 11:19> Reason for consult: other (colon mass) <SURAJ Mcelroy Last Filed: 08/01/23 11:19> Requesting physician: Karlene Shah <Stefani Leonard PA-C - Last Filed: 08/01/23 11:19> Narrative: Pt is a 67-year-old female with extensive PMH including CKD stage 4, ANTHONY, GERD, HTN, HLD, HELENA on CPAP, PTSD, history of PE on Coumadin who was originally admitted to [facility] Psychiatry on 07/28/2023 for increased depression with SI. She was transferred from [facility] where she was initially admitted 07/24 with symptomatic anemia for 1 month. Work up included a CT scan abd/pelvis which showed nodular soft tissue along the mesentery with small amount of intraperitoneal free fluid concerning for peritoneal carcinomatosis as well as findings suspicious for mass in the right lower quadrant inseparable from the right adnexa and junction of the cecum/terminal ileum concerning for malignancy. She was tranfused one unit PRBC and remained stable and transferred to [facility] [place] for inpatient psych. There was no evidence of active GI bleeding at the time of transfer so patient was declared medically stable and was admitted to the geriatric psychiatry unit with recommendations to follow-up outpatient for colonoscopy and outpatient follow-up for abnormal CT abdomen/pelvis results. While in [facility], patient continued to report dyspnea on exertion, occasional palpitations, fatigue and general weakness. Coumadin was held. GI consult was obtained and the patient had a colonoscopy yesterday which showed an ulcerated, friable mass around 4-5 cm at the cecum. Biopsies were taken and are pending. General surgery was consulted for surgical resection of the mass. She has had two prior colonoscopies in the past, last one was three years ago where an adenoma polyp was removed. <Stefani Leonard PA-C - Last Filed: 08/01/23 11:19> Review of Systems Constitutional: Constitutional: Denies chills, Reports fatigue and Denies fever(s) <SURAJ Mcelroy Last Filed: 08/01/23 11:19> ENT: Denies dizziness <Stefani Leonard PA-C Last Filed: 08/01/23 11:19> Cardiovascular: Cardiovascular: Denies chest pain, Denies palpitations and Denies dyspnea <Stefani Leonard PA-C Last Filed: 08/01/23 11:19> Respiratory: Respiratory: Denies dyspnea <Stefani Leonard PA-C Last Filed: 08/01/23 11:19> Gastrointestinal: Gastrointestinal: Denies abdominal pain, Denies melena, Denies hematochezia, Denies diarrhea, Denies nausea and Denies vomiting <Stefani Leonard PA-C Last Filed: 08/01/23 11:19> Integumentary/Breasts: Skin/Breast: Denies rash and Denies jaundice <Stefani Leonard PA-C Last Filed: 08/01/23 11:19> Neurologic: Denies dizziness <Stefani Leonard PA-C Last Filed: 08/01/23 11:19> Endocrine: Endocrine: Reports fatigue and Denies palpitations <Stefani Leonard PA-C Last Filed: 08/01/23 11:19> [facility] Past Medical History Medical History: Medical History Long COVID IBS (irritable bowel syndrome) Chronic laryngitis Sleep apnea Knee pain, right Anemia HX: benign breast biopsy COVID-19 vaccine administered Difficulty swallowing Chronic renal insufficiency Fatty liver Tremors of nervous system Cognitive dysfunction Osteoarthritis of right knee Dysphagia Hypertension High cholesterol Arthritis Stage 4 chronic kidney disease History of COVID-19 Asthma <Stefani Leonard PA-C Last Filed: 08/01/23 11:19> Family History Family History: Family History Daughter Breast cancer Paternal Aunt Breast cancer <Stefani Leonard PA-C Last Filed: 08/01/23 11:19> Surgical History Surgical History: Surgical History History of total right knee replacement (TKR) Hx laparoscopic cholecystectomy H/O endoscopy History of colonoscopy History of section <Stefani Leonard PA-C - Last Filed: 08/01/23 11:19> Social History Social History: Social History Household Members: None Housing: House Are you a primary aged or disabled carer to a significant other at home: No Do you presently have visiting nurse or other home services: No Alcohol intake: never Patient Tobacco Use Status: Never used Tobacco Second Hand Smoke Exposure: No Use of substances other than those prescribed or required for medical reasons: No Currently Displaying Signs/Symptoms of Drug Intoxication Withdrawal: No Have you been hit, kicked, punched, or otherwise hurt by someone within the past year? If so, by whom?: No Do you feel safe in your current relationship?: No Current Relationship Is there a partner from a previous relationship who is making you feel unsafe now?: No Are you made to feel afraid or neglected: No Are you DNR?: No Advance Directives: Yes Advance Directives Information Provided: No Advance Directives on File: Yes Advance Directives Date on File: 09/07/21 Do you have thoughts of harming others: None Do you have a plan to hurt others: No Plan Recently lost weight without trying: No Eating poorly because of decreased appetite: No Nutrition Risks: No Nutritional Risk Patient : No : No Poor oral hygiene: No service: No Current occupational status: retired Current occupation: right handed Sexual orientation: Straight/Heterosexual <Stefani Leonard PA-C - Last Filed: 08/01/23 11:19> Meds Allergies/Adverse reactions: Allergies Allergy/AdvReac Type Severity Reaction Status Date / Time benztropine [From Cogentin] Allergy Intermediate Rash Verified 07/30/22 09:59 latex Allergy Intermediate Itching Verified 07/30/22 09:59 thimerosal Allergy Intermediate Itching Verified 07/30/22 09:59 topiramate Allergy Swelling Verified 07/31/23 10:10 sulfamethoxazole AdvReac Intermediate contraindicated Verified 07/30/22 09:59 [From Bactrim] w/stage 4 CKD trimethoprim [From Bactrim] AdvReac Intermediate contraindicated Verified 07/30/22 09:59 w/stage 4 CKD <SURAJ Mcelroy Last Filed: 08/01/23 11:19> Active Medications: Current Medications Acetaminophen (Acetaminophen 325 Mg Tablet) 650 mg PO Q6H PRN PRN Reason: Pain, Mild (Pain Scale 1-3) Albuterol Sulfate (Albuterol Sulfate 90 Mcg 8 Gm Inhaler) 2 puff INHALE RQ4H PRN PRN Reason: Shortness Of Breath/Wheezing Amlodipine Besylate (Amlodipine Besylate 2.5 Mg Tablet) 2.5 mg PO DAILY IDA; Protocol Ascorbic Acid (Ascorbic Acid 250 Mg Tablet) 250 mg PO DAILY IDA Atorvastatin Calcium (Atorvastatin Calcium 20 Mg Tablet) 20 mg PO DAILY IDA Bupropion HCl (Bupropion Hcl Xl 300 Mg Tab.Er.24h) 300 mg PO DAILY IDA Clonazepam (Clonazepam 1 Mg Tablet) 2 mg PO BEDTIME IDA Clonidine HCl (Clonidine Hcl 0.1 Mg Tablet) 0.1 mg PO BEDTIME IDA; Protocol Docusate Sodium (Docusate Sodium 100 Mg Capsule) 100 mg PO DAILY PRN PRN Reason: Constipation Fluoxetine HCl (Fluoxetine Hcl 20 Mg Capsule) 40 mg PO DAILY IDA Fluticasone Propionate (Fluticasone Propionate Nasal 16 Gm [place]) 2 spray NOSTRIL-B DAILY IDA Gabapentin (Gabapentin 100 Mg Capsule) 100 mg PO BEDTIME IDA Loratadine (Loratadine 10 Mg Tablet) 10 mg PO BEDTIME IDA Omeprazole (Omeprazole 20 Mg Capsule.Dr) 20 mg PO BID@0630,1630 IDA Ondansetron HCl (Ondansetron Hcl 4 Mg/2 Ml Vial) 4 mg IVPUSH Q8H PRN PRN Reason: Nausea and Vomiting Quetiapine Fumarate (Quetiapine Fumarate 100 Mg Tablet) 100 mg PO BEDTIME [facility] Sodium Chloride (0.9 % Sodium Chloride Flush 3 Ml Syringe) 3 ml IVFLUSH QSHIFT [facility] Last Admin: 08/01/23 07:35 Dose: 3 ml <Stefani Leonard PA-C - Last Filed: 08/01/23 11:19> Physical Exam Vital Signs: Vital Signs: Last Vital Signs Temp 98.6 F 08/01/23 10:21 Pulse 86 08/01/23 10:21 Resp 16 08/01/23 10:21 BP 139/73 08/01/23 10:21 Pulse Ox 92 08/01/23 10:21 O2 Del Method Room Air 08/01/23 10:21 O2 Flow Rate 1 08/01/23 08:00 BMI result Body Mass Index 44.8 <Stefani Leonard PA-C - Last Filed: 08/01/23 11:19> Const: General: comfortable, no acute distress and alert <Stefani Leonard PA-C Dereje Last Filed: 08/01/23 11:19> Nutritional Appearance: well nourished <EFREN Mcelroy - Last Filed: 08/01/23 11:19> Orientation/consciousness: patient oriented x3 <EFREN Mcelroy - Last Filed: 08/01/23 11:19> Resp: Effort & Inspection: normal respiratory effort <Stefani Leonard PA-C - Last Filed: 08/01/23 11:19> Cardio: Rate: regular rate <EFREN Mcelroy Dereje Last Filed: 08/01/23 11:19> GI: Other: corpulent abdomen <EFREN Mcelroy Dereje Last Filed: 08/01/23 11:19> Inspection: No distended and Yes scar (pfannensteil well healed ) <EFREN Mcelroy Last Filed: 08/01/23 11:19> Palpation (GI): Soft to palpation, nontender, no guarding and not rigid <EFREN Mcelroy Dereje Last Filed: 08/01/23 11:19> Percussion: Yes normal to percussion <Stefani Leonard PA-C Dereje Last Filed: 08/01/23 11:19> Skin: General skin exam: no rashes or lesions noted <Stefani Leonard PA-C Dereje Last Filed: 08/01/23 11:19> Neuro: General: patient oriented x3 and moves all extremities <Stefani Leonard PA-C Dereje Last Filed: 08/01/23 11:19> Results Labs Result diagrams: 08/01/23 05:56 08/01/23 05:56 <SURAJ Mcelroy Last Filed: 08/01/23 11:19> Labs: Abnormal lab results 07/31/23 08/01/23 Range/Units 17:34 05:56 RBC 3.13 L (4.20-5.50) X10*6/uL Hgb 8.1 L (12.0-16.0) g/dl Hct 27.0 L (37.0-47.0) % MCH 25.9 L (27.0-33.0) pg MCHC 30.0 L (31.0-35.0) g/dl RDW 17.8 H (11.0-16.0) % Absolute Nucleated RBC 0.020 H (0.0-0.012) X10*3/uL Nucleated RBC % (auto) 0.3 H (0.0-0.2) /100WBC Anion Gap 10 L (12-20) BUN 6 L (9-16) mg/dL Creatinine 1.69 H (0.5-1.4) mg/dL Crossmatch See Detail Short CBC 08/01/23 Range/Units 05:56 WBC 7.4 (4.8-10.8) X10*3/uL Hgb 8.1 L (12.0-16.0) g/dl Hct 27.0 L (37.0-47.0) % Plt Count 313 (160-400) X10*3/uL BMP 08/01/23 05:56 Sodium 142 Potassium 3.4 Chloride 108 Carbon Dioxide 27 BUN 6 L Creatinine 1.69 H Calcium 9.0 All other labs normal. <Stefani Leonard PA-C - Last Filed: 08/01/23 11:19> Assessment and Plan (1) Mass of cecum: Status: Acute <Stefani Leonard PA-C - Last Filed: 08/01/23 11:19> (2) Anemia: Status: Acute <Stefani Leonard PA-C - Last Filed: 08/01/23 11:19> 67 year old female with multiple medical comorbidities with hx of symptomatic anemia found to have large cecal mass on colonoscopy yesterday. It was recommended to proceed with resection of the right colon during this admission given the symptomatic anemia. She had a bowel prep for colonoscopy yesterday, and ideally this would be performed today or tomorrow. She is in agreement. Technique of the procedure, risks and benefits, and alternatives of right colon resection were reviewed with the patient including but not limited to bleeding, infection, numbness, pain, poor healing, injury to the surrounding bowel, anastomotic leak, possible stoma and the patient wishes to proceed.? Arrangements will be made for this.?All questions were answered. <Stefani Leonard PA-C - Last Filed: 08/01/23 11:19> Time Spent With Patient Time: Total time managing care of this patient today ____ minutes. <Stefani Leonard PA-C - Last Filed: 08/01/23 11:19> Procedures Date of Service Date of Service: 08/01/23 <Stefani Leonard PA-C - Last Filed: 08/01/23 11:19> 08/01/23 <Andres Shields MD - Last Filed: 08/01/23 11:25>
--- NOTE | 2023-08-01 11:11 | PC.NURSE ---
pt o2 sat dropped to 88-90% ra. o2 2l nc applied and up to 95-96%. was on o2 on the floor.
--- NOTE | 2023-08-01 11:23 | P.CONAN_ITS ---
HPI - Anesthesia Eval Consult details Narrative: for explor laparotomy PMFSH Active Problems Active Problems: All Active Problems (Updated 08/01/23 @ 01:58 by CANDELARIA Rojas) Hypokalemia (Acute) Mass of cecum (Acute) Anemia (Acute) MDD (major depressive disorder), recurrent episode, severe (Acute) Routine medical exam (Acute) Fungal infection of skin of abdomen (Acute) Physical deconditioning (Acute) Status post total right knee replacement (Acute) Chronic pain (Acute) Knee pain, right (Acute) Past Medical History Medical History Long COVID IBS (irritable bowel syndrome) Chronic laryngitis Sleep apnea Knee pain, right Anemia HX: benign breast biopsy COVID-19 vaccine administered Difficulty swallowing Chronic renal insufficiency Fatty liver Tremors of nervous system Cognitive dysfunction Osteoarthritis of right knee Dysphagia Hypertension High cholesterol Arthritis Stage 4 chronic kidney disease History of COVID-19 Asthma Family History Family History Daughter Breast cancer Paternal Aunt Breast cancer Family history of problems with anesthesia: No Surgical History Surgical History History of total right knee replacement (TKR) Hx laparoscopic cholecystectomy H/O endoscopy History of colonoscopy History of section History of Problems with Anesthesia: No Social History Social History Household Members: None Housing: House Are you a primary district manager primary care sales to a significant other at home: No Do you presently have visiting nurse or other home services: No Alcohol intake: never Patient Tobacco Use Status: Never used Tobacco Second Hand Smoke Exposure: No Use of substances other than those prescribed or required for medical reasons: No Currently Displaying Signs/Symptoms of Drug Intoxication Withdrawal: No Have you been hit, kicked, punched, or otherwise hurt by someone within the past year? If so, by whom?: No Do you feel safe in your current relationship?: No Current Relationship Is there a partner from a previous relationship who is making you feel unsafe now?: No Are you made to feel afraid or neglected: No Are you DNR?: No Advance Directives: Yes Advance Directives Information Provided: No Advance Directives on File: Yes Advance Directives Date on File: 09/07/21 Do you have thoughts of harming others: None Do you have a plan to hurt others: No Plan Recently lost weight without trying: No Eating poorly because of decreased appetite: No Nutrition Risks: No Nutritional Risk Patient : No : No Poor oral hygiene: No service: No Current occupational status: retired Current occupation: right handed Sexual orientation: Straight/Heterosexual Meds Allergies Allergy/AdvReac Type Severity Reaction Status Date / Time benztropine [From Cogentin] Allergy Intermediate Rash Verified 07/30/22 09:59 latex Allergy Intermediate Itching Verified 07/30/22 09:59 thimerosal Allergy Intermediate Itching Verified 07/30/22 09:59 topiramate Allergy Swelling Verified 07/31/23 10:10 sulfamethoxazole AdvReac Intermediate contraindicated Verified 07/30/22 09:59 [From Bactrim] w/stage 4 CKD trimethoprim [From Bactrim] AdvReac Intermediate contraindicated Verified 07/30/22 09:59 w/stage 4 CKD Active Medications: Current Medications Acetaminophen (Acetaminophen 325 Mg Tablet) 650 mg PO Q6H PRN PRN Reason: Pain, Mild (Pain Scale 1-3) Albuterol Sulfate (Albuterol Sulfate 90 Mcg 8 Gm Inhaler) 2 puff INHALE RQ4H PRN PRN Reason: Shortness Of Breath/Wheezing Amlodipine Besylate (Amlodipine Besylate 2.5 Mg Tablet) 2.5 mg PO DAILY IDA; Protocol Ascorbic Acid (Ascorbic Acid 250 Mg Tablet) 250 mg PO DAILY IDA Atorvastatin Calcium (Atorvastatin Calcium 20 Mg Tablet) 20 mg PO DAILY IDA Bupropion HCl (Bupropion Hcl Xl 300 Mg Tab.Er.24h) 300 mg PO DAILY IDA Clonazepam (Clonazepam 1 Mg Tablet) 2 mg PO BEDTIME IDA Clonidine HCl (Clonidine Hcl 0.1 Mg Tablet) 0.1 mg PO BEDTIME IDA; Protocol Docusate Sodium (Docusate Sodium 100 Mg Capsule) 100 mg PO DAILY PRN PRN Reason: Constipation Fluoxetine HCl (Fluoxetine Hcl 20 Mg Capsule) 40 mg PO DAILY IDA Fluticasone Propionate (Fluticasone Propionate Nasal 16 Gm [place]) 2 spray NOSTRIL-B DAILY IDA Gabapentin (Gabapentin 100 Mg Capsule) 100 mg PO BEDTIME IDA Loratadine (Loratadine 10 Mg Tablet) 10 mg PO BEDTIME IDA Omeprazole (Omeprazole 20 Mg Capsule.Dr) 20 mg PO BID@0630,1630 [facility] Ondansetron HCl (Ondansetron Hcl 4 Mg/2 Ml Vial) 4 mg IVPUSH Q8H PRN PRN Reason: Nausea and Vomiting Quetiapine Fumarate (Quetiapine Fumarate 100 Mg Tablet) 100 mg PO BEDTIME I[facility] Sodium Chloride (0.9 % Sodium Chloride Flush 3 Ml Syringe) 3 ml IVFLUSH QSHIFT IDA Last Admin: 08/01/23 07:35 Dose: 3 ml Exam Exam Date and Time: August 01, 2023 1123 Height,Weight and Vital Signs: Height 5 ft 2 in Weight 111 kg Last Vital Signs Temp 98.6 F 08/01/23 10:21 Pulse 86 08/01/23 10:21 Resp 16 08/01/23 10:21 BP 139/73 08/01/23 10:21 Pulse Ox 92 08/01/23 10:21 O2 Del Method Room Air 08/01/23 10:21 O2 Flow Rate 1 08/01/23 08:00 Pertinent Lab Results Pertinent Lab Results: Laboratory Tests 07/31/23 08/01/23 17:34 05:56 WBC 7.4 RBC 3.13 L Hgb 8.1 L Hct 27.0 L MCV 86.3 MCH 25.9 L MCHC 30.0 L RDW 17.8 H Plt Count 313 MPV 9.4 Absolute Nucleated RBC 0.020 H Nucleated RBC % (auto) 0.3 H Sodium 142 Potassium 3.4 Chloride 108 Carbon Dioxide 27 Anion Gap 10 L BUN 6 L Creatinine 1.69 H Estim Creat Clear Calc 37.4 Estimated GFR 30 Random Glucose 97 Calcium 9.0 Blood Type B Positive Antibody Screen NEGATIVE Crossmatch See Detail Narrative Narrative: SpO2 88-90% on RA, 95% on 2L NC. Airway Mallampati Class: III TM Dist: <=3cm Neck ROM: Full Heart: ok Lungs: as above. Assessment and Plan Assessment Anesthesia Assessment: Anesthesia Plan Discussed and Chart Reviewed Final Anesthetic Review Family History of Problems with Anesthesia: No History of Problems with Anesthesia: No NPO: Yes ASA Class: IV, V and Emergency Final Preanesthetic Review: No Changes in Pt Med Stat, Meds/Allgs Chart Reviewed, Consent Obtained/Reviewed and Anes Risks/Benef Reviewed Patient Risk: High Procedure Risk: Intermediate Anesthetic Plan Anesthetic Plan: GA and Agree w/ Assess. and Plan Disposition: Standard PACU
--- NOTE | 2023-08-01 12:27 | HO.PM.IMPN ---
Subjective Subjective Date of Service: 08/01/23 Interval History: seen and evaluated this morning feels better LArge rectal mass on colonoscopy, plan for surgical removed today hemoglobin stable Review of Systems Review of Systems: Yes all other systems are reviewed and are negative Physical Exam Vital Signs: Vital Signs: Last Vital Signs Temp 98.6 F 08/01/23 10:21 Pulse 86 08/01/23 10:21 Resp 16 08/01/23 10:21 BP 139/73 08/01/23 10:21 Pulse Ox 92 08/01/23 10:21 O2 Del Method Room Air 08/01/23 10:21 O2 Flow Rate 1 08/01/23 08:00 BMI result Body Mass Index 44.8 Const: Other: Constitutional : Awake, interactive, morbid obesity,. not in distress Neck : Normal inspection, Supple Cardiovascular : RRR, no JVP, no lower extremity edema Respiratory : good bilateral air entry, no crackles, wheezes or rhonchi Gastrointestinal: soft, lax, Normal bowel sounds, Non tender Skin : Warm, Dry Neurological : Alert & oriented x3, No focal deficit Objective Data Active Medications Acetaminophen (Acetaminophen 325 Mg Tablet) 650 mg PO Q6H PRN PRN Reason: Pain, Mild (Pain Scale 1-3) Albuterol Sulfate (Albuterol Sulfate 90 Mcg 8 Gm Inhaler) 2 puff INHALE RQ4H PRN PRN Reason: Shortness Of Breath/Wheezing Amlodipine Besylate (Amlodipine Besylate 2.5 Mg Tablet) 2.5 mg PO DAILY IDA; Protocol Ascorbic Acid (Ascorbic Acid 250 Mg Tablet) 250 mg PO DAILY IDA Atorvastatin Calcium (Atorvastatin Calcium 20 Mg Tablet) 20 mg PO DAILY IDA Bupropion HCl (Bupropion Hcl Xl 300 Mg Tab.Er.24h) 300 mg PO DAILY IDA Clonazepam (Clonazepam 1 Mg Tablet) 2 mg PO BEDTIME IDA Clonidine HCl (Clonidine Hcl 0.1 Mg Tablet) 0.1 mg PO BEDTIME IDA; Protocol Docusate Sodium (Docusate Sodium 100 Mg Capsule) 100 mg PO DAILY PRN PRN Reason: Constipation Fluoxetine HCl (Fluoxetine Hcl 20 Mg Capsule) 40 mg PO DAILY IDA Fluticasone Propionate (Fluticasone Propionate Nasal 16 Gm [place]) 2 spray NOSTRIL-B DAILY IDA Gabapentin (Gabapentin 100 Mg Capsule) 100 mg PO BEDTIME IDA Loratadine (Loratadine 10 Mg Tablet) 10 mg PO BEDTIME IDA Omeprazole (Omeprazole 20 Mg Capsule.) 20 mg PO BID@0630,1630 [facility] Ondansetron HCl (Ondansetron Hcl 4 Mg/2 Ml Vial) 4 mg IVPUSH Q8H PRN PRN Reason: Nausea and Vomiting Quetiapine Fumarate (Quetiapine Fumarate 100 Mg Tablet) 100 mg PO BEDTIME [facility] Sodium Chloride (0.9 % Sodium Chloride Flush 3 Ml Syringe) 3 ml IVFLUSH QSHIFT IDA Last Admin: 08/01/23 07:35 Dose: 3 ml Documented By: JANET Labs 08/01/23 05:56 08/01/23 05:56 Labs: Laboratory Results - last 24 hr 07/31/23 08/01/23 17:34 05:56 MCV 86.3 MCH 25.9 L MCHC 30.0 L RDW 17.8 H Plt Count 313 MPV 9.4 Absolute Nucleated RBC 0.020 H Nucleated RBC % (auto) 0.3 H Anion Gap 10 L Estim Creat Clear Calc 37.4 Estimated GFR 30 Random Glucose 97 Calcium 9.0 Blood Type B Positive Antibody Screen NEGATIVE Crossmatch See Detail Assessment and Plan (1) Hypokalemia: Status: Acute (2) Mass of cecum: Status: Acute (3) Physical deconditioning: Status: Acute (4) Acute kidney injury superimposed on CKD: Status: Acute (5) Acute on chronic blood loss anemia: Status: Acute Plan Pt is a 67-year-old female with a PMH significant for CKD stage 4, ANTHONY, GERD, HTN, HLD, HELENA on CPAP, PTSD, history of PE on Coumadin (Nov 2022 continue x 1 year per hematology) who was originally admitted to [facility] on 07/28/2023 for increased depression with SI secondary to loss of her from stage IV lung cancer in February 2023. Colonoscopy on 07/31/2023 which found an ulcerated, friable mass approximately 4-5 cm in size in the cecum beneath. admitted to the medical floor for treatment of symptomatic anemia with blood transfusion and ulcerated mass of the cecum with likely surgical procedure. Ulcerated mass of the cecum CT of abd/pelvis at [facility] on 913 found soft tissue nodularity suspicious for mass in the right lower quadrant concerning for malignancy Colonoscopy with biopsies on 07/31/2023 showed ulcerated, friable mass approximately 4-5 cm psych cecum beneath, but separate, for an ileocecal valve General surgery to do surgery today oncology consult Follow biopsies Acute on chronic iron deficiency anemia Received 1 unit w improvement to 8.1 Continue to hold Coumadin Follow CBC Hypokalemia resolved Follow BMP PATRICIO improving to 1.7 IVF Follow BMP Hypotension secondary to hypovolemia improved post transfusion and IVF HELENA CPAP at bedtime HLD Continue statin Chronic lung disease Not in acute exacerbation Continue maintenance inhalers, albuterol p.r.n. Full Code DVT Prophylaxis: Pneumatic boots d/t anemia, possible surgical intervention Pt will require a hospitalization ovrernight for surgical removal of ulcerated mass of the cecum and anemia management Time Spent With Patient Time: Total time managing care of this patient today ____ minutes. Quality Stroke Does the patient have a stroke diagnosis?: No VTE Prior VTE?: No VTE Risk Level:: Medical - moderate - high VTE Device Contraindication: N/A - Device Ordered VTE Drug Contraindication: Treatment Not Indicated
--- NOTE | 2023-08-01 13:23 | P.OP_ITS ---
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 There was extensive parietal , visceral , and omental miliary metastatic carcinomatosis deposits throughout the abdominal cavity. In particular, the sigmoid colon, right adnexa , and pelvic sidewall and omentum and small bowel mesentery had extensive carcinoma deposits. Grossly and with palpation, liver demonstrated no evidence of any metastatic disease. Findings: [] patient was brought to the operating room, placed on operative table in supine position, and after an adequate level of general anesthesia was induced, the patient's abdomen, which was moderately corpulent , was prepped and draped in usual sterile fashion. Using a transverse incision in the right abdomen just below the level of the umbilicus, this carried down through skin, subcutaneous tissue, through an enormous pannus down to the anterior fascia. This was uneventfully opened. Rectus muscle was transected. Posterior fascia and peritoneum were entered sharply and extended along the length of the incision. Packs and retractors were placed to enhance . Findings were as noted above. Cecum and ascending colon were mobilized by taking down the lateral peritoneal reflection using Bovie and blunt dissection up to the hepatic flexure.. At approximately level of the proximal transverse colon, AMADO stapler was used to transect colon. Next the distal ileum was transected at the desired location both using AMADO staplers. Mesentery which had multiple tumor deposits was taken down using double firing of ligature device. There was a large segment of omentum which was adhered to the cecum with metastatic deposits in it. This area was amputated using ligature device on block with the ileo cecal/right colon specimen. The specimen Was sent to pathology. Functional end-to-end anastomosis the using AMADO 60 and TA 60 staplers was performed with the distal ileum and proximal transverse colon, which were well vascularized and under no tension. Crotch of the anastomosis was b uttressed using sero muscular interrupted 3-0 silk sutures. Mesenteric defect was reapproximated using up to 3-0 Vicryl sutures. The abdominal cavity was very copiously irrigated and secured hemostasis. Wound was closed in the following manner; posterior fascia and perineum closed using running 0 Maxon suture. Anterior fascia was closed using 1. Looped PDS suture. Interrupted inverted dermal 3-0 Vicryl sutures followed by Steri-Strips sterile dressings were applied. Wound was infiltrated 0.5% Marcaine at completion. Sponge, needle, instrument counts reported correct. Patient tolerated the procedure well and emerged anesthesia stable condition. EBL minimal
[2023-08-01] MEDS: Omeprazole 20 MG CAPSULE.DR PO (16:49)
[2023-08-01] MEDS: oxyCODONE HCl Immed Release 5 MG TABLET 10 MG PO (17:28)
[2023-08-01] MEDS: Acetaminophen 1,000 MG/100 ML PIGGYBACK 400 MG IV (19:46)
[2023-08-01] MEDS: QUEtiapine Fumarate 100 MG TABLET PO (20:27)
[2023-08-01] MEDS: Loratadine 10 MG TABLET PO (20:27)
[2023-08-01] MEDS: Morphine Sulfate 4 MG/ML CARTRIDGE IVPUSH (20:28)
[2023-08-01] MEDS: Gabapentin 100 MG CAPSULE PO (20:28)
[2023-08-01] MEDS: clonazePAM 1 MG TABLET 2 MG PO (20:28)
[2023-08-02] MEDS: oxyCODONE HCl Immed Release 5 MG TABLET 10 MG PO ×3 (00:34→12:07)
[2023-08-02] MEDS: 0.9 % Sodium Chloride Flush 3 ML SYRINGE IVFLUSH ×4 (00:35→20:07)
[2023-08-02] MEDS: Acetaminophen 1,000 MG/100 ML PIGGYBACK 400 MG IV ×4 (00:38→20:03)
[2023-08-02 04:00] VITALS: BP 120/53; PULSE 89; RESP 20; TEMP 36.1; O2SAT 95
[2023-08-02] MEDS: Morphine Sulfate 4 MG/ML CARTRIDGE IVPUSH ×2 (04:38→09:59)
[2023-08-02] MEDS: Omeprazole 20 MG CAPSULE.DR PO ×2 (05:58→17:34)
[2023-08-02 06:25] LABS: MANUAL DIFF FLAG NO
[2023-08-02 06:44] LABS: Basophils Percent Auto 0.3 % (0-2); Eosinophils Absolute Auto 0.1 X10*3/uL (0.0-0.4); Eosinophils Percent Auto 0.7 % (0-4); Hemoglobin 8.7 g/dl (12.0-16.0); Imm Gran Abs Auto 0.06 X10*3/uL (0.00-0.03); Imm Gran Pct Auto 0.6 % (0.0-0.4); Lymphocytes Absolute Auto 0.9 X10*3/uL (1.2-4.9); Lymphocytes Percent Auto 8.7 % (20-40); Mean Corpuscular Hemoglobin 26.4 pg (27.0-33.0); Mean Corpuscular Volume 87.9 fL (80.0-98.0); Mean Platelet Volume 9.5 fL (9.4-12.3); Monocytes Absolute Auto 1.1 X10*3/uL (0.1-1.2); Monocytes Percent Auto 10.2 % (2-11); NRBC Pct Auto 0.3 /100WBC (0.0-0.2); Neutrophils Absolute Auto 8.5 x10*3/uL (2.0-8.3); Neutrophils Percent Auto 79.5 % (45-73); Platelet Count 308 X10*3/uL (160-400); Red Cell Distribution Width 17.8 % (11.0-16.0); White Blood Count 10.7 X10*3/uL (4.8-10.8)
[2023-08-02 06:45] LABS: Anion Gap 10 (12-20); Blood Urea Nitrogen 7 mg/dL (9-16); Carbon Dioxide 27 mmol/L (22-29); Chloride 108 mmol/L (96-108); Creatinine Clr Calc Pharmacy 32.4; Estimated Glomerular Filt Rate 26; Glucose Fasting 118 mg/dL (60-99); Potassium 4.2 mmol/L (3.3-5.1); Sodium 141 mmol/L (135-145)
[2023-08-02] MEDS: amLODIPine Besylate 2.5 MG TABLET PO (07:29)
[2023-08-02] MEDS: Atorvastatin Calcium 20 MG TABLET PO (07:29)
[2023-08-02] MEDS: Ascorbic Acid 250 MG TABLET PO (07:30)
[2023-08-02] MEDS: FLUoxetine HCl 20 MG CAPSULE 40 MG PO (07:30)
[2023-08-02] MEDS: buPROPion HCl XL 300 MG TAB.ER.24H PO (07:30)
[2023-08-02 07:41] VITALS: BP 124/70; PULSE 93; RESP 20; TEMP 36.2; O2SAT 94
--- NOTE | 2023-08-02 08:33 | PM.HEMONCPN ---
Medical Summary - Medical Summary Date of Service: 08/02/23 Chief complaint: Abdominal pain Primary Care Provider: Unknown Physician Interval History Interval history: Patient underwent surgery and reports abdominal pain at the surgical site. Her daughter is at her bedside. They want to know about cancer diagnosis, staging and further management. Review of Systems - Neurologic Denies dizziness [facility] Medical History: Medical History (Last Reviewed 08/01/23 @ 01:33 by CANDELARIA Rojas) Anemia Arthritis Asthma Chronic laryngitis Chronic renal insufficiency Cognitive dysfunction COVID-19 vaccine administered Difficulty swallowing Dysphagia Fatty liver High cholesterol History of COVID-19 HX: benign breast biopsy Hypertension IBS (irritable bowel syndrome) Knee pain, right Long COVID Osteoarthritis of right knee Sleep apnea Stage 4 chronic kidney disease Tremors of nervous system Family History: Family History (Last Reviewed 08/01/23 @ 01:33 by CANDELARIA Rojas) Daughter Breast cancer Paternal Aunt Breast cancer Surgical History: Surgical History (Last Reviewed 08/01/23 @ 01:33 by CANDELARIA Rojas) H/O endoscopy History of section History of colonoscopy History of total right knee replacement (TKR) Hx laparoscopic cholecystectomy Social History: Social History (Last Reviewed 08/01/23 @ 01:33 by CANDELARIA Rojas) Living Situation History: Household Members: None Housing: House Are you a primary patient centered care specialist to a significant other at home: No Do you presently have visiting nurse or other home services: No Alcohol History Details: 1. How often do you have a drink containing alcohol?: a. Never AUDIT-C Alcohol total score: 0 Currently Displaying Signs/Symptoms of Alcohol Withdrawal: No Tobacco History: Patient Tobacco Use Status: Never used Tobacco Second Hand Smoke Exposure: No Substance Use History: Use of substances other than those prescribed or required for medical reasons: No Currently Displaying Signs/Symptoms of Drug Intoxication Withdrawal: No Domestic Abuse History: Have you been hit, kicked, punched, or otherwise hurt by someone within the past year? If so, by whom?: No Do you feel safe in your current relationship?: No Current Relationship Is there a partner from a previous relationship who is making you feel unsafe now?: No Are you made to feel afraid or neglected: No Advance Directives: Advance Directives: Yes Advance Directives Information Provided: No Advance Directives on File: Yes Advance Directives Date on File: 09/07/21 Homicidal Assessment: Do you have thoughts of harming others: None Do you have a plan to hurt others: No Plan Nutrition Assessment: Recently lost weight without trying: No Eating poorly because of decreased appetite: No Nutrition Risks: No Nutritional Risk Patient : No : No Poor oral hygiene: No Occupation Assessmet: service: No Current occupational status: retired Current occupation: right handed Sex/Gender Assessment: Sexual orientation: Straight/Heterosexual Home Medications and Allergies Current Medications: Current Medications Albuterol Sulfate (Albuterol Sulfate 90 Mcg 8 Gm Inhaler) 2 puff INHALE RQ4H PRN PRN Reason: Shortness Of Breath/Wheezing Amlodipine Besylate (Amlodipine Besylate 2.5 Mg Tablet) 2.5 mg PO DAILY [facility]; Protocol Last Admin: 08/02/23 07:29 Dose: 2.5 mg Ascorbic Acid (Ascorbic Acid 250 Mg Tablet) 250 mg PO DAILY IDA Last Admin: 08/02/23 07:30 Dose: 250 mg Atorvastatin Calcium (Atorvastatin Calcium 20 Mg Tablet) 20 mg PO DAILY IDA Last Admin: 08/02/23 07:29 Dose: 20 mg Bupropion HCl (Bupropion Hcl Xl 300 Mg Tab.Er.24h) 300 mg PO DAILY IDA Last Admin: 08/02/23 07:30 Dose: 300 mg Clonazepam (Clonazepam 1 Mg Tablet) 2 mg PO BEDTIME IDA Last Admin: 08/01/23 20:28 Dose: 2 mg Clonidine HCl (Clonidine Hcl 0.1 Mg Tablet) 0.1 mg PO BEDTIME IDA; Protocol Last Admin: 08/01/23 20:36 Dose: Not Given Fluoxetine HCl (Fluoxetine Hcl 20 Mg Capsule) 40 mg PO DAILY IDA Last Admin: 08/02/23 07:30 Dose: 40 mg Fluticasone Propionate (Fluticasone Propionate Nasal 16 Gm [place]) 2 spray NOSTRIL-B DAILY [facility] Gabapentin (Gabapentin 100 Mg Capsule) 100 mg PO BEDTIME IDA Last Admin: 08/01/23 20:28 Dose: 100 mg Acetaminophen (Ofirmev) 1,000 mg in 100 mls @ 400 mls/hr IV Q6H IDA Last Infusion: 08/02/23 07:39 Dose: Infused Loratadine (Loratadine 10 Mg Tablet) 10 mg PO BEDTIME IDA Last Admin: 08/01/23 20:27 Dose: 10 mg Morphine Sulfate (Morphine Sulfate 4 Mg/Ml Cartridge) 4 mg IVPUSH Q4H PRN; Protocol PRN Reason: Pain, Severe (Pain Scale 7-10) Last Admin: 08/02/23 04:38 Dose: 4 mg Omeprazole (Omeprazole 20 Mg Capsule.Dr) 20 mg PO BID@0630,1630 [facility] Last Admin: 08/02/23 05:58 Dose: 20 mg Ondansetron HCl (Ondansetron Hcl 4 Mg/2 Ml Vial) 4 mg IVPUSH Q8H PRN PRN Reason: Nausea and Vomiting Oxycodone HCl (Oxycodone Hcl Immed Release 5 Mg Tablet) 5 mg PO Q4H PRN PRN Reason: Pain, Moderate(Pain Scale 4-6) Oxycodone HCl (Oxycodone Hcl Immed Release 5 Mg Tablet) 10 mg PO Q4H PRN PRN Reason: Pain, Severe (Pain Scale 7-10) Last Admin: 08/02/23 07:29 Dose: 10 mg Quetiapine Fumarate (Quetiapine Fumarate 100 Mg Tablet) 100 mg PO BEDTIME [facility] Last Admin: 08/01/23 20:27 Dose: 100 mg Sodium Chloride (0.9 % Sodium Chloride Flush 3 Ml Syringe) [facility] Last Admin: 08/02/23 07:19 Dose: 3 ml Allergies Allergy/AdvReac Type Severity Reaction Status Date / Time benztropine [From Cogentin] Allergy Intermediate Rash Verified 07/30/22 09:59 latex Allergy Intermediate Itching Verified 07/30/22 09:59 thimerosal Allergy Intermediate Itching Verified 07/30/22 09:59 topiramate Allergy Swelling Verified 07/31/23 10:10 sulfamethoxazole AdvReac Intermediate contraindicated Verified 07/30/22 09:59 [From Bactrim] w/stage 4 CKD trimethoprim [From Bactrim] AdvReac Intermediate contraindicated Verified 07/30/22 09:59 w/stage 4 CKD Exam Vital signs: Vital Signs Temp 97.2 F 08/02/23 07:41 Pulse 93 08/02/23 07:41 Resp 20 08/02/23 07:41 BP 124/70 08/02/23 07:41 Pulse Ox 94 08/02/23 07:41 O2 Del Method CPAP 08/02/23 07:41 O2 Flow Rate 3 08/02/23 04:00 FiO2 40 08/01/23 14:57 Intake & Output 08/01/23 08/02/23 08/02/23 18:59 06:59 18:59 Intake Total 0 / 350 350 / 350 100 / 100 Balance 0 / 350 350 / 350 100 / 100 Intake: Intake, Oral Amount 150 / 150 Intake, IV Amount 0 / 200 200 / 200 100 / 100 Acetaminophen 1,000 mg In 100 200 / 200 100 / 100 ml @ 400 mls/hr IV Q6H IDA Rx#: [id number] Lactated Ringers 1,000 ml @ 100 0 / 0 mls/hr IVCONT .Q10H IDA Rx#: [id number] Other: IV Intake, Intraoperative 700 Amount NPO Yes Last Bowel Movement 07/31/23 07/31/23 Weight 111 kg BMI result Body Mass Index 44.8 - Constitutional Present: mild distress - Routine HEENT Exam Head: Present: normal inspection Eye: Present: PERRL - Routine Neck Exam Absent: lymphadenopathy - Routine Respiratory Exam Absent: accessory muscle use - Routine Cardiovascular Exam Cardiovascular: Present: S1, S2 Data - Labs CBC & Chem 7: 08/02/23 05:40 08/02/23 05:40 Labs: 07/31/23 14:31 Acetaminophen [Tylenol] 650 mg PO Q6H PRN 07/31/23 14:34 Clear Liquid Diet 07/31/23 15:07 Potassium Chloride Packet [Klor-Con Packet] 40 meq PO ONCE ONE 07/31/23 15:15 Lactated Ringers [Lr] 1,000 ml IVCONT 100 mls/hr 07/31/23 17:02 0.9 % Sodium Chloride [Ns] 100 ml IV ONCE 07/31/23 17:34 PRBC [Red Blood Cells] Routine Type and Screen Routine 07/31/23 17:36 Flu Vacc [id number](6mos up)/PF [Fluarix Quad (6mos up) ] 0.5 ml IM .ONCE ONE 07/31/23 20:45 Potassium Chloride/H20 10 meq in 100 ml IV Q1H 07/31/23 22:31 QUEtiapine Fumarate [SEROquel] 100 mg PO ONCE ONE clonazePAM [KlonoPIN] 2 mg PO ONCE ONE 08/01/23 02:51 EKG Documentation DIRECTED 08/01/23 05:56 Basic Metabolic Panel Routine Complete Blood Count no Diff Routine 08/01/23 08:00 ECG 12 lead EKG Routine 08/01/23 10:52 ROPivacaine HCl/PF 0.5% [Naropin 0.5%] 150 mg .ROUTE .STK-MED ONE 08/01/23 11:18 fentaNYL citrate/PF [Sublimaze] 100 mcg .ROUTE .STK-MED ONE 08/01/23 11:25 Lidocaine HCl 1 % MPF [Xylocaine 1 % MPF] 5 ml .ROUTE .STK-MED ONE Rocuronium [place] [Zemuron] 100 mg IV .STK-MED ONE propofoL [Diprivan] 200 mg IVPUSH .STK-MED ONE 08/01/23 11:55 Sevoflurane [Ultane] 250 ml INHALE .STK-MED ONE 08/01/23 12:38 HYDROmorphone HCl [Dilaudid] 2 mg .ROUTE .STK-MED ONE 08/01/23 12:51 Acetaminophen [Ofirmev] 1,000 mg in 100 ml IV As directed 08/01/23 12:58 Sugammadex Sodium [Bridion] 200 mg IVPUSH .STK-MED ONE ondansetron HCL [Zofran] 4 mg .ROUTE .STK-MED ONE 08/01/23 13:25 Transfer Order Routine 08/01/23 13:54 RT BIPAP only STAT 08/02/23 05:40 BMP [Basic Metabolic Panel Fasting] DAILY@0600 CBC W/AUTO DIFF [Complete Blood Count Auto Diff] AM Laboratory Last Values WBC 10.7 X10*3/uL (4.8-10.8) 08/02/23 05:40 RBC 3.30 X10*6/uL (4.20-5.50) L 08/02/23 05:40 Hgb 8.7 g/dl (12.0-16.0) L 08/02/23 05:40 Hct 29.0 % (37.0-47.0) L 08/02/23 05:40 MCV 87.9 fL (80.0-98.0) 08/02/23 05:40 MCH 26.4 pg (27.0-33.0) L 08/02/23 05:40 MCHC 30.0 g/dl (31.0-35.0) L 08/02/23 05:40 RDW 17.8 % (11.0-16.0) H 08/02/23 05:40 Plt Count 308 X10*3/uL (160-400) 08/02/23 05:40 MPV 9.5 fL (9.4-12.3) 08/02/23 05:40 Immature Gran % (Auto) 0.6 % (0.0-0.4) H 08/02/23 05:40 Neut % (Auto) 79.5 % (45-73) H 08/02/23 05:40 Lymph % (Auto) 8.7 % (20-40) L 08/02/23 05:40 [place] % (Auto) 10.2 % (2-11) 08/02/23 05:40 Eos % (Auto) 0.7 % (0-4) 08/02/23 05:40 Baso % (Auto) 0.3 % (0-2) 08/02/23 05:40 Lymph # (Auto) 0.9 X10*3/uL (1.2-4.9) L 08/02/23 05:40 [place] # (Auto) 1.1 X10*3/uL (0.1-1.2) 08/02/23 05:40 Eos # (Auto) 0.1 X10*3/uL (0.0-0.4) 08/02/23 05:40 Baso # (Auto) 0.0 X10*3/uL (0.0-0.2) 08/02/23 05:40 Abs Immat Gran (auto) 0.06 X10*3/uL (0.00-0.03) H 08/02/23 05:40 Absolute Neuts (auto) 8.5 x10*3/uL (2.0-8.3) H 08/02/23 05:40 Absolute Nucleated RBC 0.030 X10*3/uL (0.0-0.012) H 08/02/23 05:40 Nucleated RBC % (auto) 0.3 /100WBC (0.0-0.2) H 08/02/23 05:40 Sodium 141 mmol/L (135-145) 08/02/23 05:40 Potassium 4.2 mmol/L (3.3-5.1) D 08/02/23 05:40 Chloride 108 mmol/L (96-108) 08/02/23 05:40 Carbon Dioxide 27 mmol/L (22-29) 08/02/23 05:40 Anion Gap 10 (12-20) L 08/02/23 05:40 BUN 7 mg/dL (9-16) L 08/02/23 05:40 Creatinine 1.95 mg/dL (0.5-1.4) H 08/02/23 05:40 Estim Creat Clear Calc 32.4 08/02/23 05:40 Estimated GFR 26 08/02/23 05:40 Random Glucose 97 mg/dL (60-115) 08/01/23 05:56 Fasting Glucose 118 mg/dL (60-99) H 08/02/23 05:40 Calcium 9.0 mg/dL (8.4-10.2) 08/02/23 05:40 Blood Type B Positive 07/31/23 17:34 Antibody Screen NEGATIVE 07/31/23 17:34 Crossmatch See Detail 07/31/23 17:34 Assessment and Plan Patient Active problem list reviewed?: Yes (1) Mass of cecum Status: Acute Assessment and plan: 1. 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 She underwent surgery, exploratory laparotomy, ileal right colectomy/appendectomy on 08/01/2023. Final pathology is pending. Patient and daughter have a lot of questions about further management. 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 Treatment is not curative but palliative with systemic therapy. There is no role of further surgery or radiation therapy. She will need PET-CT as outpatient for complete staging. 2. Iron deficiency anemia, chronic kidney disease. She would benefit from parenteral iron therapy. Venofer infusions can be given as inpatient. I would hold off on oral iron because of recent surgery. All the questions were answered. They will follow-up after discharge. - Time Spent With Patient Time Spent with Patient (in minutes): 20
--- NOTE | 2023-08-02 08:46 | PM.PNGS ---
Subjective Subjective Date of Service: 08/02/23 Interval history: Tired this morning. Tolerating some clears. Denies nausea, vomiting, flatus. Pain is somewhat relieved with analgesics. Has gotten OOB to bathroom, using IS occasionally. Physical Exam Vital Signs: Vital Signs: Last Vital Signs Temp 97.2 F 08/02/23 07:41 Pulse 93 08/02/23 07:41 Resp 20 08/02/23 07:41 BP 124/70 08/02/23 07:41 Pulse Ox 94 08/02/23 07:41 O2 Del Method CPAP 08/02/23 07:41 O2 Flow Rate 3 08/02/23 04:00 FiO2 40 08/01/23 14:57 BMI result Body Mass Index 44.8 Const: General: comfortable, no acute distress and alert Orientation/consciousness: patient oriented x3 Resp: Effort & Inspection: normal respiratory effort GI: Inspection: No distended and Yes incision (dressing c/d/i) Palpation (GI): Soft to palpation, Tenderness to palpation present (GI) (incisional), no guarding and not rigid Percussion: Yes normal to percussion Skin: General skin exam: no rashes or lesions noted Neuro: General: patient oriented x3 and moves all extremities Objective Data Active Medications Albuterol Sulfate (Albuterol Sulfate 90 Mcg 8 Gm Inhaler) 2 puff INHALE RQ4H PRN PRN Reason: Shortness Of Breath/Wheezing Amlodipine Besylate (Amlodipine Besylate 2.5 Mg Tablet) 2.5 mg PO DAILY [facility]; Protocol Last Admin: 08/02/23 07:29 Dose: 2.5 mg Documented By: JANET Ascorbic Acid (Ascorbic Acid 250 Mg Tablet) 250 mg PO DAILY [facility] Last Admin: 08/02/23 07:30 Dose: 250 mg Documented By: JANET Atorvastatin Calcium (Atorvastatin Calcium 20 Mg Tablet) 20 mg PO DAILY [facility] Last Admin: 08/02/23 07:29 Dose: 20 mg Documented By: JANET Bupropion HCl (Bupropion Hcl Xl 300 Mg Tab.Er.24h) 300 mg PO DAILY [facility] Last Admin: 08/02/23 07:30 Dose: 300 mg Documented By: JANET Clonazepam (Clonazepam 1 Mg Tablet) 2 mg PO BEDTIME [facility] Last Admin: 08/01/23 20:28 Dose: 2 mg Documented By: HELDER Clonidine HCl (Clonidine Hcl 0.1 Mg Tablet) 0.1 mg PO BEDTIME [facility]; Protocol Last Admin: 08/01/23 20:36 Dose: Not Given Documented By: HELDER Non-Admin Reason: Patient Refused Fluoxetine HCl (Fluoxetine Hcl 20 Mg Capsule) 40 mg PO DAILY [facility] Last Admin: 08/02/23 07:30 Dose: 40 mg Documented By: JANET Fluticasone Propionate (Fluticasone Propionate Nasal 16 Gm [place]) 2 spray NOSTRIL-B DAILY [facility] Gabapentin (Gabapentin 100 Mg Capsule) 100 mg PO BEDTIME [facility] Last Admin: 08/01/23 20:28 Dose: 100 mg Documented By: HELDER Acetaminophen (Ofirmev) 1,000 mg in 100 mls @ 400 mls/hr IV Q6H [facility] Last Infusion: 08/02/23 07:39 Dose: Infused Documented By: JANET Loratadine (Loratadine 10 Mg Tablet) 10 mg PO BEDTIME [facility] Last Admin: 08/01/23 20:27 Dose: 10 mg Documented By: HELDER Morphine Sulfate (Morphine Sulfate 4 Mg/Ml Cartridge) 4 mg IVPUSH Q4H PRN; Protocol PRN Reason: Pain, Severe (Pain Scale 7-10) Last Admin: 08/02/23 04:38 Dose: 4 mg Documented By: HELDER Omeprazole (Omeprazole 20 Mg Capsule.Dr) 20 mg PO BID@0630,1630 [facility] Last Admin: 08/02/23 05:58 Dose: 20 mg Documented By: HELDER Ondansetron HCl (Ondansetron Hcl 4 Mg/2 Ml Vial) 4 mg IVPUSH Q8H PRN PRN Reason: Nausea and Vomiting Oxycodone HCl (Oxycodone Hcl Immed Release 5 Mg Tablet) 5 mg PO Q4H PRN PRN Reason: Pain, Moderate(Pain Scale 4-6) Oxycodone HCl (Oxycodone Hcl Immed Release 5 Mg Tablet) 10 mg PO Q4H PRN PRN Reason: Pain, Severe (Pain Scale 7-10) Last Admin: 08/02/23 07:29 Dose: 10 mg Documented By: JANET Quetiapine Fumarate (Quetiapine Fumarate 100 Mg Tablet) 100 mg PO BEDTIME [facility] Last Admin: 08/01/23 20:27 Dose: 100 mg Documented By: HELDER Sodium Chloride (0.9 % Sodium Chloride Flush 3 Ml Syringe) 3 ml IVFLUSH QSHIFT [facility] Last Admin: 08/02/23 07:19 Dose: 3 ml Documented By: JANET Labs 08/02/23 05:40 08/02/23 05:40 Labs: Laboratory Results - last 24 hr 08/02/23 05:40 MCV 87.9 MCH 26.4 L MCHC 30.0 L RDW 17.8 H Plt Count 308 MPV 9.5 Immature Gran % (Auto) 0.6 H Neut % (Auto) 79.5 H Lymph % (Auto) 8.7 L [place] % (Auto) 10.2 Eos % (Auto) 0.7 Baso % (Auto) 0.3 Lymph # (Auto) 0.9 L [place] # (Auto) 1.1 Eos # (Auto) 0.1 Baso # (Auto) 0.0 Abs Immat Gran (auto) 0.06 H Absolute Neuts (auto) 8.5 H Absolute Nucleated RBC 0.030 H Nucleated RBC % (auto) 0.3 H Anion Gap 10 L Estim Creat Clear Calc 32.4 Estimated GFR 26 Fasting Glucose 118 H Calcium 9.0 Procedures Date of Service Date of Service: 08/02/23 Progress Note: A&P Assessment and plan (1) Acute on chronic blood loss anemia: Status: Acute (2) Acute kidney injury superimposed on CKD: Status: Acute (3) Mass of cecum: Status: Acute Plan 67 year old female admitted with symptomatic anemia found to have large cecal mass on colonoscopy. She is now POD #1 s/p exploratory laparotomy, ileal right colectomy /appendectomy. 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 She is doing fairly well post op. VSS. Abd exam benign with appropriate post op tenderness, clean dressing. Dc oconnell. Cont clears for now. Encouraged OOB/ambulation today, IS use at least 10x/hr. AM labs reviewed. Slight PATRICIO on CKD- likely due to dehydration and a little behind on fluids given bowel prep, NPO status. Will defer to medicine regarding IVF. Await final pathology. Await return of GI function. Time Spent With Patient Time: Total time managing care of this patient today ____ minutes. Quality Stroke Does the patient have a stroke diagnosis?: No VTE Prior VTE?: No VTE Risk Level:: Medical - moderate - high VTE Device Contraindication: N/A - Device Ordered VTE Drug Contraindication: Treatment Not Indicated
[2023-08-02] MEDS: Fluticasone Propionate Nasal 16 GM SPRAY 2 SPRAY NOSTRIL-B (10:00)
--- NOTE | 2023-08-02 10:12 | PC.NURSE ---
oconnell cath removed at 1000, DTV by 1600
[2023-08-02] MEDS: Iron Sucrose Complex 200 MG in 0.9 % Sodium Chloride 100 ML 440 MG IV (10:42)
[2023-08-02 10:53] VITALS: BP 124/70; PULSE 93; O2SAT 94
--- NOTE | 2023-08-02 11:26 | HO.POSTANES ---
Post Anesthesia Evaluation Post Anesthesia Evaluation Date of Service: 08/02/23 Vital Signs: Vital Signs Temp Pulse Resp BP Pulse Ox O2 Del Method O2 Flow Rate 08/02/23 10:53 93 124/70 94 08/02/23 07:41 97.2 F 93 20 124/70 94 CPAP 08/02/23 04:00 97 F 89 20 120/53 L 95 CPAP 3 Anesthesia: General Endotracheal-GETA Mental Status: Awake Pain Control: Satisfactory Nausea/Vomiting: None Hydration: Adequate Anesthesia-Related Issues: No Anes. Related Issues
--- NOTE | 2023-08-02 12:53 | HO.PM.IMPN ---
Subjective Subjective Date of Service: 08/02/23 Interval History: seen and evaluated this morning Pain under fair control after surgery , POD 1 tolerating ice chips hemoglobin stable Review of Systems Review of Systems: Yes all other systems are reviewed and are negative Physical Exam Vital Signs: Vital Signs: Last Vital Signs Temp 97.2 F 08/02/23 07:41 Pulse 93 08/02/23 10:53 Resp 20 08/02/23 07:41 BP 124/70 08/02/23 10:53 Pulse Ox 94 08/02/23 10:53 O2 Del Method CPAP 08/02/23 07:41 O2 Flow Rate 3 08/02/23 04:00 FiO2 40 08/01/23 14:57 BMI result Body Mass Index 44.8 Const: Other: Constitutional : Awake, interactive, morbid obesity,. not in distress Neck : Normal inspection, Supple Cardiovascular : RRR, no JVP, no lower extremity edema Respiratory : good bilateral air entry, no crackles, wheezes or rhonchi Gastrointestinal: soft, lax, Normal bowel sounds, generalized tenderness with palpation mainly at the surgical site Skin : Warm, Dry Neurological : Alert & oriented x3, No focal deficit Objective Data Active Medications Albuterol Sulfate (Albuterol Sulfate 90 Mcg 8 Gm Inhaler) 2 puff INHALE RQ4H PRN PRN Reason: Shortness Of Breath/Wheezing Amlodipine Besylate (Amlodipine Besylate 2.5 Mg Tablet) 2.5 mg PO DAILY [facility]; Protocol Last Admin: 08/02/23 07:29 Dose: 2.5 mg Documented By: JANET Ascorbic Acid (Ascorbic Acid 250 Mg Tablet) 250 mg PO DAILY [facility] Last Admin: 08/02/23 07:30 Dose: 250 mg Documented By: JANET Atorvastatin Calcium (Atorvastatin Calcium 20 Mg Tablet) 20 mg PO DAILY [facility] Last Admin: 08/02/23 07:29 Dose: 20 mg Documented By: JANET Bupropion HCl (Bupropion Hcl Xl 300 Mg Tab.Er.24h) 300 mg PO DAILY [facility] Last Admin: 08/02/23 07:30 Dose: 300 mg Documented By: JANET Clonazepam (Clonazepam 1 Mg Tablet) 2 mg PO BEDTIME [facility] Last Admin: 08/01/23 20:28 Dose: 2 mg Documented By: HELDER Clonidine HCl (Clonidine Hcl 0.1 Mg Tablet) 0.1 mg PO BEDTIME [facility]; Protocol Last Admin: 08/01/23 20:36 Dose: Not Given Documented By: HELDER Non-Admin Reason: Patient Refused Fluoxetine HCl (Fluoxetine Hcl 20 Mg Capsule) 40 mg PO DAILY [facility] Last Admin: 08/02/23 07:30 Dose: 40 mg Documented By: JANET Fluticasone Propionate (Fluticasone Propionate Nasal 16 Gm [place]) 2 spray NOSTRIL-B DAILY [facility] Last Admin: 08/02/23 10:00 Dose: 2 spray Documented By: JANET Gabapentin (Gabapentin 100 Mg Capsule) 100 mg PO BEDTIME [facility] Last Admin: 08/01/23 20:28 Dose: 100 mg Documented By: HELDER Acetaminophen (Ofirmev) 1,000 mg in 100 mls @ 400 mls/hr IV Q6H [facility] Last Infusion: 08/02/23 07:39 Dose: Infused Documented By: JANET Iron Sucrose 200 mg/ Sodium (Chloride) 110 mls @ 440 mls/hr IV DAILY [facility] Stop: 08/04/23 09:14 Last Infusion: 08/02/23 11:07 Dose: Infused Documented By: JANET Loratadine (Loratadine 10 Mg Tablet) 10 mg PO BEDTIME [facility] Last Admin: 08/01/23 20:27 Dose: 10 mg Documented By: HELDER Morphine Sulfate (Morphine Sulfate 4 Mg/Ml Cartridge) 4 mg IVPUSH Q4H PRN; Protocol PRN Reason: Pain, Severe (Pain Scale 7-10) Last Admin: 08/02/23 09:59 Dose: 4 mg Documented By: JANET Omeprazole (Omeprazole 20 Mg Capsule.Dr) 20 mg PO BID@0630,1630 [facility] Last Admin: 08/02/23 05:58 Dose: 20 mg Documented By: HELDER Ondansetron HCl (Ondansetron Hcl 4 Mg/2 Ml Vial) 4 mg IVPUSH Q8H PRN PRN Reason: Nausea and Vomiting Oxycodone HCl (Oxycodone Hcl Immed Release 5 Mg Tablet) 5 mg PO Q4H PRN PRN Reason: Pain, Moderate(Pain Scale 4-6) Oxycodone HCl (Oxycodone Hcl Immed Release 5 Mg Tablet) 10 mg PO Q4H PRN PRN Reason: Pain, Severe (Pain Scale 7-10) Last Admin: 08/02/23 12:07 Dose: 10 mg Documented By: JANET Quetiapine Fumarate (Quetiapine Fumarate 100 Mg Tablet) 100 mg PO BEDTIME [facility] Last Admin: 08/01/23 20:27 Dose: 100 mg Documented By: HELDER Sodium Chloride (0.9 % Sodium Chloride Flush 3 Ml Syringe) 3 ml IVFLUSH QSHIFT [facility] Last Admin: 08/02/23 07:19 Dose: 3 ml Documented By: JANET Labs 08/02/23 05:40 08/02/23 05:40 Labs: Laboratory Results - last 24 hr 08/02/23 05:40 MCV 87.9 MCH 26.4 L MCHC 30.0 L RDW 17.8 H Plt Count 308 MPV 9.5 Immature Gran % (Auto) 0.6 H Neut % (Auto) 79.5 H Lymph % (Auto) 8.7 L [place] % (Auto) 10.2 Eos % (Auto) 0.7 Baso % (Auto) 0.3 Lymph # (Auto) 0.9 L [place] # (Auto) 1.1 Eos # (Auto) 0.1 Baso # (Auto) 0.0 Abs Immat Gran (auto) 0.06 H Absolute Neuts (auto) 8.5 H Absolute Nucleated RBC 0.030 H Nucleated RBC % (auto) 0.3 H Anion Gap 10 L Estim Creat Clear Calc 32.4 Estimated GFR 26 Fasting Glucose 118 H Calcium 9.0 Assessment and Plan (1) Acute on chronic blood loss anemia: Status: Acute (2) Acute kidney injury superimposed on CKD: Status: Acute (3) Mass of cecum: Status: Acute Plan Pt is a 67-year-old female with a PMH significant for CKD stage 4, ANTHONY, GERD, HTN, HLD, HELENA on CPAP, PTSD, history of PE on Coumadin (Nov 2022 continue x 1 year per hematology) who was originally admitted to [facility] on 07/28/2023 for increased depression with SI secondary to loss of her from stage IV lung cancer in February 2023. Colonoscopy on 07/31/2023 which found an ulcerated, friable mass approximately 4-5 cm in size in the cecum beneath. admitted to the medical floor for treatment of symptomatic anemia with blood transfusion and ulcerated mass of the cecum with likely surgical procedure. Ulcerated mass of the cecum s\p resection POD 1 Colonoscopy with biopsies on 07/31/2023 showed ulcerated, friable mass approximately 4-5 cm General surgery following oncology consult, depends on findings, stage 4 if omentum involved. will need PET-CT as outpatient for staging Follow pathology Acute on chronic iron deficiency anemia Received 1 unit w improvement to 8.7 Continue to hold Coumadin give IV Iron Follow CBC Hypokalemia resolved Follow BMP PATRICIO on CKD 3 ranging 1.7 -2 Follow BMP Hypotension improved post transfusion and IVF HELENA CPAP at bedtime HLD Continue statin Chronic lung disease Not in acute exacerbation Continue maintenance inhalers, albuterol p.r.n. Full Code DVT Prophylaxis: Pneumatic boots d/t anemia, possible surgical intervention Pt will require a hospitalization ovrernight for post surgical care of ulcerated mass of the cecum and anemia management pending safe discharge plan Time Spent With Patient Time: Total time managing care of this patient today ____ minutes. Quality Stroke Does the patient have a stroke diagnosis?: No VTE Prior VTE?: No VTE Risk Level:: Medical - moderate - high VTE Device Contraindication: N/A - Device Ordered VTE Drug Contraindication: Treatment Not Indicated
--- NOTE | 2023-08-02 15:17 | MHC.CM.PN ---
pt lives alone has own ride home she is requesting a vna when dcd referral hvns dc plan home with ns
--- NOTE | 2023-08-02 16:25 | PC.NURSE ---
1600 pt has still not voided, attempted bed georges and commode, bladder scanned for 142ml and Dr. Shah notified, no new orders at this time
[2023-08-02 16:28] VITALS: BP 129/62; PULSE 98; RESP 20; TEMP 36.8; O2SAT 94
[2023-08-02 19:23] VITALS: BP 140/76; PULSE 104; RESP 22; TEMP 36.9; O2SAT 93
[2023-08-02] MEDS: Gabapentin 100 MG CAPSULE PO (20:05)
[2023-08-02] MEDS: cloNIDine HCL 0.1 MG TABLET PO (20:05)
[2023-08-02] MEDS: QUEtiapine Fumarate 100 MG TABLET PO (20:06)
[2023-08-02] MEDS: clonazePAM 1 MG TABLET 2 MG PO (20:06)
[2023-08-02] MEDS: Loratadine 10 MG TABLET PO (20:06)
--- NOTE | 2023-08-02 23:20 | MHC.PIE ---
p; pt unable to urniate, bladder scan shows >350 i; dr lara notified. new order straigh cath now e; will cont to [facility]
[2023-08-03] MEDS: Acetaminophen 1,000 MG/100 ML PIGGYBACK 400 MG IV ×4 (01:27→19:58)
[2023-08-03 04:00] VITALS: BP 106/55; PULSE 102; RESP 18; TEMP 36.3; O2SAT 94
[2023-08-03] MEDS: Omeprazole 20 MG CAPSULE.DR PO ×2 (06:22→16:37)
[2023-08-03 07:18] VITALS: BP 140/74; PULSE 100; RESP 20; TEMP 36.7; O2SAT 95
[2023-08-03] MEDS: FLUoxetine HCl 20 MG CAPSULE 40 MG PO (08:02)
[2023-08-03] MEDS: buPROPion HCl XL 300 MG TAB.ER.24H PO (08:02)
[2023-08-03] MEDS: amLODIPine Besylate 2.5 MG TABLET PO (08:02)
[2023-08-03] MEDS: Atorvastatin Calcium 20 MG TABLET PO (08:02)
[2023-08-03] MEDS: Ascorbic Acid 250 MG TABLET PO (08:02)
[2023-08-03] MEDS: 0.9 % Sodium Chloride Flush 3 ML SYRINGE IVFLUSH ×3 (08:03→20:06)
[2023-08-03] MEDS: Fluticasone Propionate Nasal 16 GM SPRAY 2 SPRAY NOSTRIL-B (08:03)
--- NOTE | 2023-08-03 08:16 | PM.PNGS ---
Subjective Subjective Date of Service: 08/03/23 Interval history: reports some incisional pain. Tolerating liquids fairly well but not interested in solid food. She is working on incentive spirometry but still taking shallow breaths. Physical Exam Vital Signs: Vital Signs: Last Vital Signs Temp 98.1 F 08/03/23 07:18 Pulse 100 08/03/23 07:18 Resp 20 08/03/23 07:18 BP 140/74 H 08/03/23 07:18 Pulse Ox 95 08/03/23 07:18 O2 Del Method Nasal Cannula 08/03/23 07:18 O2 Flow Rate 2 08/03/23 07:18 FiO2 40 08/01/23 14:57 BMI result Body Mass Index 44.8 Const: General: no acute distress Nutritional Appearance: well nourished Orientation/consciousness: patient oriented x3 Resp: Effort & Inspection: normal respiratory effort, no audible wheezes and no cough GI: Other: Abdominal incisions are clean, dry, and intact without redness or discharge. Percussion: Yes normal to percussion Auscultation: normal bowel sounds Skin: General skin exam: no rashes or lesions noted Neuro: General: patient oriented x3 Objective Data Active Medications Albuterol Sulfate (Albuterol Sulfate 90 Mcg 8 Gm Inhaler) 2 puff INHALE RQ4H PRN PRN Reason: Shortness Of Breath/Wheezing Amlodipine Besylate (Amlodipine Besylate 2.5 Mg Tablet) 2.5 mg PO DAILY [facility]; Protocol Last Admin: 08/03/23 08:02 Dose: 2.5 mg Documented By: COTEMA Ascorbic Acid (Ascorbic Acid 250 Mg Tablet) 250 mg PO DAILY [facility] Last Admin: 08/03/23 08:02 Dose: 250 mg Documented By: COTEMA Atorvastatin Calcium (Atorvastatin Calcium 20 Mg Tablet) 20 mg PO DAILY [facility] Last Admin: 08/03/23 08:02 Dose: 20 mg Documented By: COTEMA Bupropion HCl (Bupropion Hcl Xl 300 Mg Tab.Er.24h) 300 mg PO DAILY [facility] Last Admin: 08/03/23 08:02 Dose: 300 mg Documented By: COTEMA Clonazepam (Clonazepam 1 Mg Tablet) 2 mg PO BEDTIME [facility] Last Admin: 08/02/23 20:06 Dose: 2 mg Documented By: ISABELLE Clonidine HCl (Clonidine Hcl 0.1 Mg Tablet) 0.1 mg PO BEDTIME [facility]; Protocol Last Admin: 08/02/23 20:05 Dose: 0.1 mg Documented By: ISABELLE Fluoxetine HCl (Fluoxetine Hcl 20 Mg Capsule) 40 mg PO DAILY [facility] Last Admin: 08/03/23 08:02 Dose: 40 mg Documented By: HARPREET Fluticasone Propionate (Fluticasone Propionate Nasal 16 Gm [place]) 2 spray NOSTRIL-B DAILY [facility] Last Admin: 08/03/23 08:03 Dose: 2 spray Documented By: HARPREET Gabapentin (Gabapentin 100 Mg Capsule) 100 mg PO BEDTIME [facility] Last Admin: 08/02/23 20:05 Dose: 100 mg Documented By: ISABELLE Acetaminophen (Ofirmev) 1,000 mg in 100 mls @ 400 mls/hr IV Q6H [facility] Last Admin: 08/03/23 08:02 Dose: 400 mls/hr Documented By: HARPREET Iron Sucrose 200 mg/ Sodium (Chloride) 110 mls @ 440 mls/hr IV DAILY [facility] Stop: 08/04/23 09:14 Last Infusion: 08/02/23 11:07 Dose: Infused Documented By: JANET Loratadine (Loratadine 10 Mg Tablet) 10 mg PO BEDTIME [facility] Last Admin: 08/02/23 20:06 Dose: 10 mg Documented By: ISABELLE Morphine Sulfate (Morphine Sulfate 4 Mg/Ml Cartridge) 4 mg IVPUSH Q4H PRN; Protocol PRN Reason: Pain, Severe (Pain Scale 7-10) Last Admin: 08/02/23 09:59 Dose: 4 mg Documented By: JANET Omeprazole (Omeprazole 20 Mg Capsule.Dr) 20 mg PO BID@0630,1630 [facility] Last Admin: 08/03/23 06:22 Dose: 20 mg Documented By: ISABELLE Ondansetron HCl (Ondansetron Hcl 4 Mg/2 Ml Vial) 4 mg IVPUSH Q8H PRN PRN Reason: Nausea and Vomiting Oxycodone HCl (Oxycodone Hcl Immed Release 5 Mg Tablet) 5 mg PO Q4H PRN PRN Reason: Pain, Moderate(Pain Scale 4-6) Oxycodone HCl (Oxycodone Hcl Immed Release 5 Mg Tablet) 10 mg PO Q4H PRN PRN Reason: Pain, Severe (Pain Scale 7-10) Last Admin: 08/02/23 12:07 Dose: 10 mg Documented By: JANET Quetiapine Fumarate (Quetiapine Fumarate 100 Mg Tablet) 100 mg PO BEDTIME [facility] Last Admin: 08/02/23 20:06 Dose: 100 mg Documented By: ISABELLE Sodium Chloride (0.9 % Sodium Chloride Flush 3 Ml Syringe) 3 ml IVFLUSH QSHIFT [facility] Last Admin: 08/03/23 08:03 Dose: 3 ml Documented By: COTEMA Labs 08/02/23 05:40 08/02/23 05:40 Procedures Date of Service Date of Service: 08/03/23 Progress Note: A&P Assessment and plan (1) Acute on chronic blood loss anemia: Status: Acute (2) Acute kidney injury superimposed on CKD: Status: Acute (3) Mass of cecum: Status: Acute Plan 67 year old female admitted with symptomatic anemia found to have large cecal mass on colonoscopy. She is now POD #2 s/p exploratory laparotomy, ileal right colectomy /appendectomy. 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 She continues to do well and is tolerating some clear liquids. She is not ready for solid food. She is working on incentive spirometry but still taking shallow breaths with the spirometer. Encouraged her to continue with IS Q hour times 10 per hour. She should also be out of bed and ambulating. Path pending. Time Spent With Patient Time: Total time managing care of this patient today ____ minutes. Quality Stroke Does the patient have a stroke diagnosis?: No VTE Prior VTE?: No VTE Risk Level:: Medical - moderate - high VTE Device Contraindication: N/A - Device Ordered VTE Drug Contraindication: Treatment Not Indicated
[2023-08-03 08:41] LABS: Hematocrit 27.4 % (37.0-47.0); Hemoglobin 8.1 g/dl (12.0-16.0); Mean Corpuscular HGB Conc 29.6 g/dl (31.0-35.0); Mean Corpuscular Hemoglobin 26.3 pg (27.0-33.0); Mean Platelet Volume 9.4 fL (9.4-12.3); Platelet Count 283 X10*3/uL (160-400); Red Blood Count 3.08 X10*6/uL (4.20-5.50); Red Cell Distribution Width 18.5 % (11.0-16.0); White Blood Count 14.2 X10*3/uL (4.8-10.8)
[2023-08-03] MEDS: oxyCODONE HCl Immed Release 5 MG TABLET 10 MG PO ×2 (08:55→18:00)
[2023-08-03] MEDS: Iron Sucrose Complex 200 MG in 0.9 % Sodium Chloride 100 ML 440 MG IV (08:55)
[2023-08-03 09:04] LABS: Anion Gap 11 (12-20); Blood Urea Nitrogen 10 mg/dL (9-16); Carbon Dioxide 26 mmol/L (22-29); Chloride 105 mmol/L (96-108); Creatinine Clr Calc Pharmacy 31.6; Estimated Glomerular Filt Rate 25; Glucose Random 96 mg/dL (60-115); Sodium 138 mmol/L (135-145)
--- NOTE | 2023-08-03 12:15 | HO.PM.IMPN ---
Subjective Subjective Date of Service: 08/03/23 Interval History: seen and evaluated this morning passing gas, no bowel movement yet Pain under fair control after surgery , POD 2 tolerating clears hemoglobin stable Review of Systems Review of Systems: Yes all other systems are reviewed and are negative Physical Exam Vital Signs: Vital Signs: Last Vital Signs Temp 98.1 F 08/03/23 07:18 Pulse 100 08/03/23 07:18 Resp 20 08/03/23 07:18 BP 140/74 H 08/03/23 07:18 Pulse Ox 95 08/03/23 07:18 O2 Del Method Nasal Cannula 08/03/23 07:18 O2 Flow Rate 2 08/03/23 07:18 FiO2 40 08/01/23 14:57 BMI result Body Mass Index 44.8 Const: Other: Constitutional : Awake, interactive, morbid obesity,. not in distress Neck : Normal inspection, Supple Cardiovascular : RRR, no JVP, no lower extremity edema Respiratory : good bilateral air entry, no crackles, wheezes or rhonchi Gastrointestinal: soft, lax, Normal bowel sounds, generalized tenderness with palpation mainly at the surgical site Skin : Warm, Dry Neurological : Alert & oriented x3, No focal deficit Objective Data Active Medications Albuterol Sulfate (Albuterol Sulfate 90 Mcg 8 Gm Inhaler) 2 puff INHALE RQ4H PRN PRN Reason: Shortness Of Breath/Wheezing Amlodipine Besylate (Amlodipine Besylate 2.5 Mg Tablet) 2.5 mg PO DAILY [facility]; Protocol Last Admin: 08/03/23 08:02 Dose: 2.5 mg Documented By: COTEMA Ascorbic Acid (Ascorbic Acid 250 Mg Tablet) 250 mg PO DAILY [facility] Last Admin: 08/03/23 08:02 Dose: 250 mg Documented By: COTEMA Atorvastatin Calcium (Atorvastatin Calcium 20 Mg Tablet) 20 mg PO DAILY [facility] Last Admin: 08/03/23 08:02 Dose: 20 mg Documented By: COTEMA Bupropion HCl (Bupropion Hcl Xl 300 Mg Tab.Er.24h) 300 mg PO DAILY [facility] Last Admin: 08/03/23 08:02 Dose: 300 mg Documented By: COTEMA Clonazepam (Clonazepam 1 Mg Tablet) 2 mg PO BEDTIME [facility] Last Admin: 08/02/23 20:06 Dose: 2 mg Documented By: ISABELLE Clonidine HCl (Clonidine Hcl 0.1 Mg Tablet) 0.1 mg PO BEDTIME [facility]; Protocol Last Admin: 08/02/23 20:05 Dose: 0.1 mg Documented By: ISABELLE Fluoxetine HCl (Fluoxetine Hcl 20 Mg Capsule) 40 mg PO DAILY [facility] Last Admin: 08/03/23 08:02 Dose: 40 mg Documented By: HARPREET Fluticasone Propionate (Fluticasone Propionate Nasal 16 Gm [place]) 2 spray NOSTRIL-B DAILY [facility] Last Admin: 08/03/23 08:03 Dose: 2 spray Documented By: HARPREET Gabapentin (Gabapentin 100 Mg Capsule) 100 mg PO BEDTIME [facility] Last Admin: 08/02/23 20:05 Dose: 100 mg Documented By: ISABELLE Acetaminophen (Ofirmev) 1,000 mg in 100 mls @ 400 mls/hr IV Q6H [facility] Last Infusion: 08/03/23 08:41 Dose: Infused Documented By: HARPREET Iron Sucrose 200 mg/ Sodium (Chloride) 110 mls @ 440 mls/hr IV DAILY [facility] Stop: 08/04/23 09:14 Last Infusion: 08/03/23 09:25 Dose: Infused Documented By: HARPREET Loratadine (Loratadine 10 Mg Tablet) 10 mg PO BEDTIME [facility] Last Admin: 08/02/23 20:06 Dose: 10 mg Documented By: ISABELLE Morphine Sulfate (Morphine Sulfate 4 Mg/Ml Cartridge) 4 mg IVPUSH Q4H PRN; Protocol PRN Reason: Pain, Severe (Pain Scale 7-10) Last Admin: 08/02/23 09:59 Dose: 4 mg Documented By: JANET Omeprazole (Omeprazole 20 Mg Capsule.Dr) 20 mg PO BID@0630,1630 [facility] Last Admin: 08/03/23 06:22 Dose: 20 mg Documented By: ISABELLE Ondansetron HCl (Ondansetron Hcl 4 Mg/2 Ml Vial) 4 mg IVPUSH Q8H PRN PRN Reason: Nausea and Vomiting Oxycodone HCl (Oxycodone Hcl Immed Release 5 Mg Tablet) 5 mg PO Q4H PRN PRN Reason: Pain, Moderate(Pain Scale 4-6) Oxycodone HCl (Oxycodone Hcl Immed Release 5 Mg Tablet) 10 mg PO Q4H PRN PRN Reason: Pain, Severe (Pain Scale 7-10) Last Admin: 08/03/23 08:55 Dose: 10 mg Documented By: HARPREET Quetiapine Fumarate (Quetiapine Fumarate 100 Mg Tablet) 100 mg PO BEDTIME [facility] Last Admin: 08/02/23 20:06 Dose: 100 mg Documented By: ISABELLE Sodium Chloride (0.9 % Sodium Chloride Flush 3 Ml Syringe) 3 ml IVFLUSH QSHIFT [facility] Last Admin: 08/03/23 08:03 Dose: 3 ml Documented By: HARPREET Labs 08/03/23 07:22 08/03/23 07:22 Labs: Laboratory Results - last 24 hr 08/03/23 07:22 MCV 89.0 MCH 26.3 L MCHC 29.6 L RDW 18.5 H Plt Count 283 MPV 9.4 Absolute Nucleated RBC 0.000 Nucleated RBC % (auto) 0.0 Anion Gap 11 L Estim Creat Clear Calc 31.6 Estimated GFR 25 Random Glucose 96 Calcium 9.0 Assessment and Plan (1) Acute on chronic blood loss anemia: Status: Acute (2) Acute kidney injury superimposed on CKD: Status: Acute (3) Hypokalemia: Status: Acute (4) Mass of cecum: Status: Acute Plan Pt is a 67-year-old female with a PMH significant for CKD stage 4, ANTHONY, GERD, HTN, HLD, HELENA on CPAP, PTSD, history of PE on Coumadin (Nov 2022 continue x 1 year per hematology) who was originally admitted to [facility] on 07/28/2023 for increased depression with SI secondary to loss of her from stage IV lung cancer in February 2023. Colonoscopy on 07/31/2023 which found an ulcerated, friable mass approximately 4-5 cm in size in the cecum beneath. admitted to the medical floor for treatment of symptomatic anemia with blood transfusion and ulcerated mass of the cecum with likely surgical procedure. Ulcerated mass of the cecum s\p resection POD 2 Colonoscopy with biopsies on 07/31/2023 showed ulcerated, friable mass approximately 4-5 cm General surgery following oncology consult, depends on findings, stage 4 if omentum involved. will need PET-CT as outpatient for staging Follow pathology advance diet as tolerated Acute on chronic iron deficiency anemia Received 1 unit w improvement to 8.7 Continue to hold Coumadin give IV Iron per hematology rec. Follow CBC Leukocytosis Post surgical, likely reactive, no clear source of infection Monitor for fever follow CBC Hypokalemia resolved Follow BMP PATRICIO on CKD 3 ranging 1.7 -2 Follow BMP Hypotension improved post transfusion and IVF HELENA CPAP at bedtime HLD Continue statin Chronic lung disease Not in acute exacerbation Continue maintenance inhalers, albuterol p.r.n. Full Code DVT Prophylaxis: Pneumatic boots d/t anemia, possible surgical intervention Pt will require a hospitalization ovrernight for post surgical care of ulcerated mass of the cecum and anemia management pending safe discharge plan Time Spent With Patient Time: Total time managing care of this patient today ____ minutes. Quality Stroke Does the patient have a stroke diagnosis?: No VTE Prior VTE?: No VTE Risk Level:: Medical - moderate - high VTE Device Contraindication: N/A - Device Ordered VTE Drug Contraindication: Treatment Not Indicated
[2023-08-03] MEDS: ondansetron HCL 4 MG/2 ML VIAL IVPUSH (13:06)
[2023-08-03] MEDS: oxyCODONE HCl Immed Release 5 MG TABLET PO (13:06)
[2023-08-03 13:30] VITALS: O2SAT 95
[2023-08-03 16:00] VITALS: BP 108/54; PULSE 89; RESP 18; TEMP 36.1; O2SAT 96
[2023-08-03] MEDS: Albuterol Sulfate 90 MCG 8 GM INHALER 2 PUFF INHALE (17:50)
[2023-08-03] MEDS: Loratadine 10 MG TABLET PO (19:59)
[2023-08-03 20:00] VITALS: BP 131/62; PULSE 100; RESP 18; TEMP 36.6; O2SAT 90
[2023-08-03] MEDS: Gabapentin 100 MG CAPSULE PO (20:05)
[2023-08-03] MEDS: clonazePAM 1 MG TABLET 2 MG PO (20:05)
[2023-08-03] MEDS: cloNIDine HCL 0.1 MG TABLET PO (20:05)
[2023-08-03] MEDS: QUEtiapine Fumarate 100 MG TABLET PO (20:05)
[2023-08-04] VITALS (7 sets, daily range): BP systolic 113–142; BP diastolic 58–75; PULSE 95–102; RESP 16–20; TEMP 36–36.9; O2SAT 91–97
[2023-08-04] MEDS: Acetaminophen 1,000 MG/100 ML PIGGYBACK 400 MG IV ×3 (02:24→12:26)
--- NOTE | 2023-08-04 05:36 | MHC.PIE ---
p; pt unable to urinate. bladder scan shows >450. i; dr lara notified. new order straight cath now e; will cont to [facility]
[2023-08-04] MEDS: Omeprazole 20 MG CAPSULE.DR PO (05:46)
[2023-08-04] MEDS: oxyCODONE HCl Immed Release 5 MG TABLET 10 MG PO (05:47)
[2023-08-04 07:56] LABS: Hematocrit 27.8 % (37.0-47.0); Hemoglobin 8.3 g/dl (12.0-16.0); Mean Corpuscular HGB Conc 29.9 g/dl (31.0-35.0); Mean Corpuscular Hemoglobin 26.7 pg (27.0-33.0); Mean Corpuscular Volume 89.4 fL (80.0-98.0); Platelet Count 320 X10*3/uL (160-400); Red Blood Count 3.11 X10*6/uL (4.20-5.50); Red Cell Distribution Width 18.7 % (11.0-16.0); White Blood Count 12.7 X10*3/uL (4.8-10.8)
[2023-08-04] MEDS: Albuterol Sulfate 90 MCG 8 GM INHALER 2 PUFF INHALE (08:06)
[2023-08-04] MEDS: Fluticasone Propionate Nasal 16 GM SPRAY 2 SPRAY NOSTRIL-B (08:06)
[2023-08-04] MEDS: buPROPion HCl XL 300 MG TAB.ER.24H PO (08:07)
[2023-08-04] MEDS: Atorvastatin Calcium 20 MG TABLET PO (08:07)
[2023-08-04] MEDS: Iron Sucrose Complex 200 MG in 0.9 % Sodium Chloride 100 ML 440 MG IV (08:07)
[2023-08-04] MEDS: FLUoxetine HCl 20 MG CAPSULE 40 MG PO (08:07)
[2023-08-04] MEDS: Ascorbic Acid 250 MG TABLET PO (08:07)
[2023-08-04] MEDS: amLODIPine Besylate 2.5 MG TABLET PO (08:07)
[2023-08-04] MEDS: 0.9 % Sodium Chloride Flush 3 ML SYRINGE IVFLUSH ×3 (08:08→22:00)
[2023-08-04 08:17] LABS: Anion Gap 15 (12-20); Blood Urea Nitrogen 11 mg/dL (9-16); Calcium 9.1 mg/dL (8.4-10.2); Carbon Dioxide 23 mmol/L (22-29); Chloride 103 mmol/L (96-108); Estimated Glomerular Filt Rate 27; Glucose Random 120 mg/dL (60-115); Potassium 3.8 mmol/L (3.3-5.1); Sodium 137 mmol/L (135-145)
--- NOTE | 2023-08-04 08:46 | P.PNGS_ITS ---
Subjective Subjective Date of Service: 08/04/23 Interval history: Patient up out of bed sitting in chair. She reports feeling very sleepy despite having a good night's sleep. She reports heartburn; not very hungry still. She is passing flatus and had a small BM. Physical Exam 2 Vital Signs: Vital Signs: Last Vital Signs Temp 97.2 F 08/04/23 07:21 Pulse 99 08/04/23 07:21 Resp 20 08/04/23 07:21 BP 142/75 H 08/04/23 07:21 Pulse Ox 91 L 08/04/23 07:21 O2 Del Method Nasal Cannula 08/04/23 07:21 O2 Flow Rate 2 08/04/23 07:21 FiO2 40 08/01/23 14:57 BMI result Body Mass Index 44.8 Const: General: lethargic Nutritional Appearance: obese O rientation/consciousness: lethargic Resp: Effort & Inspection: normal respiratory effort and no audible wheezes GI: Inspection: Yes distended and Yes incision (Right-sided transverse incision: Clean, dry, and intact without redness or) Percussion: Yes tympanic to percussion Auscultation: Hypoactive bowel sounds present Skin: General skin exam: no rashes or lesions noted Objective Data Active Medications Albuterol Sulfate (Albuterol Sulfate 90 Mcg 8 Gm Inhaler) 2 puff INHALE RQ4H PRN PRN Reason: Shortness Of Breath/Wheezing Last Admin: 08/04/23 08:06 Dose: 2 puff Documented By: COTEMA Amlodipine Besylate (Amlodipine Besylate 2.5 Mg Tablet) 2.5 mg PO DAILY [facility]; Protocol Last Admin: 08/04/23 08:07 Dose: 2.5 mg Documented By: COTEMA Ascorbic Acid (Ascorbic Acid 250 Mg Tablet) 250 mg PO DAILY [facility] Last Admin: 08/04/23 08:07 Dose: 250 mg Documented By: COTEMA Atorvastatin Calcium (Atorvastatin Calcium 20 Mg Tablet) 20 mg PO DAILY [facility] Last Admin: 08/04/23 08:07 Dose: 20 mg Documented By: COTEMA Bupropion HCl (Bupropion Hcl Xl 300 Mg Tab.Er.24h) 300 mg PO DAILY [facility] Last Admin: 08/04/23 08:07 Dose: 300 mg Documented By: COTEMA Clonazepam (Clonazepam 1 Mg Tablet) 2 mg PO BEDTIME [facility] Last Admin: 08/03/23 20:05 Dose: 2 mg Documented By: ISABELLE Clonidine HCl (Clonidine Hcl 0.1 Mg Tablet) 0.1 mg PO BEDTIME [facility]; Protocol Last Admin: 08/03/23 20:05 Dose: 0.1 mg Documented By: ISABELLE Fluoxetine HCl (Fluoxetine Hcl 20 Mg Capsule) 40 mg PO DAILY [facility] Last Admin: 08/04/23 08:07 Dose: 40 mg Documented By: HARPREET Fluticasone Propionate (Fluticasone Propionate Nasal 16 Gm [place]) 2 spray NOSTRIL-B DAILY [facility] Last Admin: 08/04/23 08:06 Dose: 2 spray Documented By: HARPREET Gabapentin (Gabapentin 100 Mg Capsule) 100 mg PO BEDTIME [facility] Last Admin: 08/03/23 20:05 Dose: 100 mg Documented By: ISABELLE Acetaminophen (Ofirmev) 1,000 mg in 100 mls @ 400 mls/hr IV Q6H [facility] Last Admin: 08/04/23 08:07 Dose: 400 mls/hr Documented By: HARPREET Iron Sucrose 200 mg/ Sodium (Chloride) 110 mls @ 440 mls/hr IV DAILY [facility] Stop: 08/04/23 09:14 Last Admin: 08/04/23 08:07 Dose: 440 mls/hr Documented By: HARPREET Loratadine (Loratadine 10 Mg Tablet) 10 mg PO BEDTIME [facility] Last Admin: 08/03/23 19:59 Dose: 10 mg Documented By: ISABELLE Morphine Sulfate (Morphine Sulfate 4 Mg/Ml Cartridge) 4 mg IVPUSH Q4H PRN; Protocol PRN Reason: Pain, Severe (Pain Scale 7-10) Last Admin: 08/02/23 09:59 Dose: 4 mg Documented By: JANET Omeprazole (Omeprazole 20 Mg Capsule.) 20 mg PO BID@0630,1630 [facility] Last Admin: 08/04/23 05:46 Dose: 20 mg Documented By: ISABELLE Ondansetron HCl (Ondansetron Hcl 4 Mg/2 Ml Vial) 4 mg IVPUSH Q8H PRN PRN Reason: Nausea and Vomiting Last Admin: 08/03/23 13:06 Dose: 4 mg Documented By: HARPREET Oxycodone HCl (Oxycodone Hcl Immed Release 5 Mg Tablet) 5 mg PO Q4H PRN PRN Reason: Pain, Moderate(Pain Scale 4-6) Last Admin: 08/03/23 13:06 Dose: 5 mg Documented By: COTGERARDO Oxycodone HCl (Oxycodone Hcl Immed Release 5 Mg Tablet) 10 mg PO Q4H PRN PRN Reason: Pain, Severe (Pain Scale 7-10) Last Admin: 08/04/23 05:47 Dose: 10 mg Documented By: ISABELLE Quetiapine Fumarate (Quetiapine Fumarate 100 Mg Tablet) 100 mg PO BEDTIME [facility] Last Admin: 08/03/23 20:05 Dose: 100 mg Documented By: ISABELLE Sodium Chloride (0.9 % Sodium Chloride Flush 3 Ml Syringe) 3 ml IVFLUSH QSHIFT [facility] Last Admin: 08/04/23 08:08 Dose: 3 ml Documented By: HARPREET Labs 08/04/23 06:13 08/04/23 06:13 Labs: Laboratory Results - last 24 hr 08/03/23 08/04/23 07:22 06:13 MCV 89.4 MCH 26.7 L MCHC 29.9 L RDW 18.7 H Plt Count 320 MPV 10.0 Absolute Nucleated RBC 0.000 Nucleated RBC % (auto) 0.0 Anion Gap 11 L 15 Estim Creat Clear Calc 31.6 34.0 Estimated GFR 25 27 Random Glucose 96 120 H Calcium 9.0 9.1 Procedures Date of Service Date of Service: 08/04/23 Progress Note: A&P Assessment and plan (1) Acute on chronic blood loss anemia: Status: Acute (2) Acute kidney injury superimposed on CKD: Status: Acute (3) Mass of cecum: Status: Acute Plan 67 year old female admitted with symptomatic anemia found to have large cecal mass on colonoscopy. She is now POD #3 s/p exploratory laparotomy, ileal right colectomy /appendectomy. 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 She was found to be very sleepy this morning but is up out of bed in in her chair. She is passing flatus and reported to have a small bowel movement. Continue incentive spirometry. Path pending. Will hold on advancing diet at this time. Time Spent With Patient Time: Total time managing care of this patient today ____ minutes. Quality Stroke Does the patient have a stroke diagnosis?: No VTE Prior VTE?: No VTE Risk Level:: Medical - moderate - high VTE Device Contraindication: N/A - Device Ordered VTE Drug Contraindication: Treatment Not Indicated
[2023-08-04] MEDS: guaiFENesin LA 600 MG TAB.ER.12H PO (11:04)
[2023-08-04] MEDS: Magnesium Hydrox/Alum Hydrox 30 ML ORAL.SUSP PO (11:04)
[2023-08-04] MEDS: Albuterol Sulfate (0.083%) 2.5 MG/3 ML VIAL.NEB INHALE ×3 (11:24→19:23)
--- NOTE | 2023-08-04 12:04 | HO.PM.IMPN ---
Subjective Subjective Date of Service: 08/04/23 Interval History: seen and evaluated this morning feels more drowsy and sleepy today passing gas, no bowel movement yet Pain under fair control after surgery , POD 3 hemoglobin stable Review of Systems Review of Systems: Yes all other systems are reviewed and are negative Physical Exam Vital Signs: Vital Signs: Last Vital Signs Temp 97.2 F 08/04/23 07:21 Pulse 99 08/04/23 11:27 Resp 16 08/04/23 11:27 BP 142/75 H 08/04/23 07:21 Pulse Ox 91 L 08/04/23 07:21 O2 Del Method Nasal Cannula 08/04/23 07:21 O2 Flow Rate 2 08/04/23 07:21 FiO2 40 08/01/23 14:57 BMI result Body Mass Index 44.8 Const: Other: Constitutional : Awake, interactive, morbid obesity,. not in distress Neck : Normal inspection, Supple Cardiovascular : RRR, no JVP, no lower extremity edema Respiratory : good bilateral air entry, no crackles, wheezes or rhonchi Gastrointestinal: soft, lax, Normal bowel sounds, mild tenderness with palpation mainly at the surgical site Skin : Warm, Dry Neurological : Alert & oriented x3, No focal deficit Objective Data Active Medications Al Hydroxide/Mg Hydroxide (Magnesium Hydrox/Alum Hydrox 30 Ml Oral.Susp) 30 ml PO Q4H PRN PRN Reason: Heartburn Last Admin: 08/04/23 11:04 Dose: 30 ml Documented By: HARPREET Albuterol Sulfate (Albuterol Sulfate 90 Mcg 8 Gm Inhaler) 2 puff INHALE RQ4H PRN PRN Reason: Shortness Of Breath/Wheezing Last Admin: 08/04/23 08:06 Dose: 2 puff Documented By: HARPREET Albuterol Sulfate (Albuterol Sulfate (0.083%) 2.5 Mg/3 Ml Vial.Neb) 2.5 mg INHALE RQ4H WHILE AWAKE [facility] Last Admin: 08/04/23 11:24 Dose: 2.5 mg Documented By: HILARY Amlodipine Besylate (Amlodipine Besylate 2.5 Mg Tablet) 2.5 mg PO DAILY [facility]; Protocol Last Admin: 08/04/23 08:07 Dose: 2.5 mg Documented By: HARPREET Ascorbic Acid (Ascorbic Acid 250 Mg Tablet) 250 mg PO DAILY [facility] Last Admin: 08/04/23 08:07 Dose: 250 mg Documented By: HARPREET Atorvastatin Calcium (Atorvastatin Calcium 20 Mg Tablet) 20 mg PO DAILY [facility] Last Admin: 08/04/23 08:07 Dose: 20 mg Documented By: MARKOEMA Bupropion HCl (Bupropion Hcl Xl 300 Mg Tab.Er.24h) 300 mg PO DAILY [facility] Last Admin: 08/04/23 08:07 Dose: 300 mg Documented By: HARPREET Clonazepam (Clonazepam 1 Mg Tablet) 2 mg PO BEDTIME [facility] Last Admin: 08/03/23 20:05 Dose: 2 mg Documented By: ISABELLE Clonidine HCl (Clonidine Hcl 0.1 Mg Tablet) 0.1 mg PO BEDTIME [facility]; Protocol Last Admin: 08/03/23 20:05 Dose: 0.1 mg Documented By: ISABELLE Fluoxetine HCl (Fluoxetine Hcl 20 Mg Capsule) 40 mg PO DAILY [facility] Last Admin: 08/04/23 08:07 Dose: 40 mg Documented By: HARPREET Fluticasone Propionate (Fluticasone Propionate Nasal 16 Gm [place]) 2 spray NOSTRIL-B DAILY [facility] Last Admin: 08/04/23 08:06 Dose: 2 spray Documented By: HARPREET Gabapentin (Gabapentin 100 Mg Capsule) 100 mg PO BEDTIME [facility] Last Admin: 08/03/23 20:05 Dose: 100 mg Documented By: ISABELLE Guaifenesin (Guaifenesin [place] 600 Mg Tab.Er.12h) 600 mg PO BID [facility] Last Admin: 08/04/23 11:04 Dose: 600 mg Documented By: MARKOEMA Acetaminophen (Ofirmev) 1,000 mg in 100 mls @ 400 mls/hr IV Q6H [facility] Last Infusion: 08/04/23 09:07 Dose: Infused Documented By: HARPREET Loratadine (Loratadine 10 Mg Tablet) 10 mg PO BEDTIME [facility] Last Admin: 08/03/23 19:59 Dose: 10 mg Documented By: ISABELLE Morphine Sulfate (Morphine Sulfate 4 Mg/Ml Cartridge) 4 mg IVPUSH Q4H PRN; Protocol PRN Reason: Pain, Severe (Pain Scale 7-10) Last Admin: 08/02/23 09:59 Dose: 4 mg Documented By: JANET Omeprazole (Omeprazole 20 Mg Capsule.) 20 mg PO BID@0630,1630 [facility] Last Admin: 08/04/23 05:46 Dose: 20 mg Documented By: ISABELLE Ondansetron HCl (Ondansetron Hcl 4 Mg/2 Ml Vial) 4 mg IVPUSH Q8H PRN PRN Reason: Nausea and Vomiting Last Admin: 08/03/23 13:06 Dose: 4 mg Documented By: HARPREET Oxycodone HCl (Oxycodone Hcl Immed Release 5 Mg Tablet) 5 mg PO Q4H PRN PRN Reason: Pain, Moderate(Pain Scale 4-6) Last Admin: 08/03/23 13:06 Dose: 5 mg Documented By: HARPREET Oxycodone HCl (Oxycodone Hcl Immed Release 5 Mg Tablet) 10 mg PO Q4H PRN PRN Reason: Pain, Severe (Pain Scale 7-10) Last Admin: 08/04/23 05:47 Dose: 10 mg Documented By: ISABELLE Quetiapine Fumarate (Quetiapine Fumarate 100 Mg Tablet) 100 mg PO BEDTIME [facility] Last Admin: 08/03/23 20:05 Dose: 100 mg Documented By: ISABELLE Sodium Chloride (0.9 % Sodium Chloride Flush 3 Ml Syringe) 3 ml IVFLUSH QSHIFT [facility] Last Admin: 08/04/23 08:08 Dose: 3 ml Documented By: HARPREET Labs 08/04/23 06:13 08/04/23 06:13 Labs: Laboratory Results - last 24 hr 08/04/23 06:13 MCV 89.4 MCH 26.7 L MCHC 29.9 L RDW 18.7 H Plt Count 320 MPV 10.0 Absolute Nucleated RBC 0.000 Nucleated RBC % (auto) 0.0 Anion Gap 15 Estim Creat Clear Calc 34.0 Estimated GFR 27 Random Glucose 120 H Calcium 9.1 Assessment and Plan (1) Acute on chronic blood loss anemia: Status: Acute (2) Acute kidney injury superimposed on CKD: Status: Acute (3) Mass of cecum: Status: Acute Plan Pt is a 67-year-old female with a PMH significant for CKD stage 4, ANTHONY, GERD, HTN, HLD, HELENA on CPAP, PTSD, history of PE on Coumadin (Nov 2022 continue x 1 year per hematology) who was originally admitted to [facility] on 07/28/2023 for increased depression with SI secondary to loss of her from stage IV lung cancer in February 2023. Colonoscopy on 07/31/2023 which found an ulcerated, friable mass approximately 4-5 cm in size in the cecum beneath. admitted to the medical floor for treatment of symptomatic anemia with blood transfusion and ulcerated mass of the cecum with likely surgical procedure. Ulcerated mass of the cecum s\p resection POD 3 Colonoscopy with biopsies on 07/31/2023 showed ulcerated, friable mass approximately 4-5 cm General surgery following oncology consult, depends on findings, stage 4 if Omentum involved. will need PET-CT as outpatient for staging Follow pathology advance diet as tolerated Acute on chronic iron deficiency anemia Received 1 unit w improvement to 8.7 Continue to hold Coumadin give IV Iron per hematology rec. Follow CBC Leukocytosis Post surgical, likely reactive, no clear source of infection, trending down CXR negative for any acute findings Pending UA follow CBC Asthma with mild wheezing Avoid steroids for surgical wound Start ATC and PRN Albuterol neb Hypokalemia resolved Follow BMP PATRICIO on CKD 3 ranging 1.7 -2 Follow BMP Hypotension improved post transfusion and IVF HELENA CPAP at bedtime HLD Continue statin Chronic lung disease Not in acute exacerbation Continue maintenance inhalers, albuterol p.r.n. Full Code DVT Prophylaxis: Pneumatic boots d/t anemia, possible surgical intervention Pt will require a hospitalization ovrernight for post surgical care of ulcerated mass of the cecum and anemia management pending safe discharge plan Time Spent With Patient Time: Total time managing care of this patient today ____ minutes. Quality Stroke Does the patient have a stroke diagnosis?: No VTE Prior VTE?: No VTE Risk Level:: Medical - moderate - high VTE Device Contraindication: N/A - Device Ordered VTE Drug Contraindication: Treatment Not Indicated
[2023-08-04] MEDS: polyethylene glycoL 3350 17 GM POWD.PACK PO (12:27)
[2023-08-04] MEDS: Docusate Sodium 100 MG CAPSULE PO (12:27)
--- NOTE | 2023-08-04 15:33 | PC.NURSE ---
Addendum entered by Sindhu Carr RN 08/04/23 18:32: patient voided 100mls on the commode, urine sample collected. Original Note: Patient ambulated to commode twice today. patient unable to void both times. Bladder scan 11am 115mls. Bladder scan at 1400 200mls. Patient encouraged to drink more water. U/A ordered. Dr. santamaria made aware that patient has not voided. Per MD patient does not need straight cath right now. Can wait until patient is able to void. Will continue to monitor.
[2023-08-04] MEDS: ondansetron HCL 4 MG/2 ML VIAL IVPUSH (16:18)
[2023-08-04 16:54] LABS: Appearance Urine Turbid; Color Urine Dark Yellow; Glucose Urine UA Negative (Negative); Leukocyte Esterase Urine Small (1+) (Negative); Nitrite Urine Negative (Negative); Specific Gravity - Urine 1.025 (1.005-1.025); UMIC TRIGGER UACC YES; Urine Blood Negative (Negative); Urine Ketones Negative (Negative); Urine Protein 30 (1+) mg/dL (Neg-Trace)
[2023-08-04 17:24] LABS: Bacteria Urine None Seen (None Seen); Hyaline Casts Urine 0-2 /LPF (0-2); RBC Urine >20 /HPF (0-2); Squamous Epithelial Cell Urine >20 /HPF (0-2); UACC Culture Trigger YES; WBC Urine 21-50 /HPF (0-5)
[2023-08-04] MEDS: Dextrose 5 % and Lactated Ring 1,000 ML 125 ML IVCONT (22:01)
[2023-08-05] VITALS (9 sets, daily range): BP systolic 141–162; BP diastolic 67–72; PULSE 104–108; RESP 18–20; TEMP 36.6–37.4; O2SAT 92–95
[2023-08-05] MEDS: ondansetron HCL 4 MG/2 ML VIAL IVPUSH (00:57)
[2023-08-05] MEDS: Dextrose 5 % and Lactated Ring 1,000 ML 125 ML IVCONT ×2 (05:36→14:48)
--- NOTE | 2023-08-05 07:16 | PC.NURSE ---
Approximately around 04:00, Pt was bladder scan for 449ml. Pt had urge to urinate but no output throughout shift and decreased P.O intake. MD Herring notified of the situation. Straight urinary catheterization was ordered. 500ml of yellow urine was taken out after the straight cath. Pt was bladder scan again and had 37mlof urine. Will continue to monitor Pt's output.
[2023-08-05] MEDS: Albuterol Sulfate (0.083%) 2.5 MG/3 ML VIAL.NEB INHALE ×4 (07:51→19:41)
[2023-08-05 08:18] LABS: Hematocrit 26.9 % (37.0-47.0); Hemoglobin 8.1 g/dl (12.0-16.0); Mean Corpuscular HGB Conc 30.1 g/dl (31.0-35.0); Mean Corpuscular Volume 86.5 fL (80.0-98.0); Mean Platelet Volume 9.2 fL (9.4-12.3); NRBC Pct Auto 0.2 /100WBC (0.0-0.2); Platelet Count 327 X10*3/uL (160-400); Red Blood Count 3.11 X10*6/uL (4.20-5.50); White Blood Count 10.7 X10*3/uL (4.8-10.8)
[2023-08-05 08:26] LABS: Anion Gap 15 (12-20); Blood Urea Nitrogen 8 mg/dL (9-16); Carbon Dioxide 22 mmol/L (22-29); Chloride 106 mmol/L (96-108); Creatinine Clr Calc Pharmacy 41.9; Estimated Glomerular Filt Rate 34; Glucose Random 122 mg/dL (60-115); Potassium 3.9 mmol/L (3.3-5.1); Sodium 139 mmol/L (135-145)
--- NOTE | 2023-08-05 09:02 | PM.PNGS ---
Subjective Subjective Date of Service: 08/05/23 Interval history: Nausea and vomiting over night. Also had to be straight cathed x1. RN reports she vomited twice around 200cc of bilious output. She was passing flatus and had a small BM over the weekend. Has not gotten OOB- only to commode. Pain is worsened by coughing, vomiting. Physical Exam Vital Signs: Vital Signs: Last Vital Signs Temp 99.1 F 08/05/23 07:51 Pulse 104 H 08/05/23 07:51 Resp 18 08/05/23 07:51 BP 145/67 H 08/05/23 07:51 Pulse Ox 94 08/05/23 07:51 O2 Del Method Nasal Cannula 08/05/23 07:51 O2 Flow Rate 2 08/05/23 07:51 FiO2 40 08/01/23 14:57 BMI result Body Mass Index 44.8 Const: General: comfortable, no acute distress and alert Orientation/consciousness: patient oriented x3 Resp: Effort & Inspection: normal respiratory effort GI: Inspection: No distended and Yes incision (clean) Palpation (GI): Soft to palpation, Tenderness to palpation present (GI) (incisional), no guarding and not rigid Percussion: Yes normal to percussion Skin: General skin exam: no rashes or lesions noted Neuro: General: patient oriented x3 and moves all extremities Objective Data Active Medications Al Hydroxide/Mg Hydroxide (Magnesium Hydrox/Alum Hydrox 30 Ml Oral.Susp) 30 ml PO Q4H PRN PRN Reason: Heartburn Last Admin: 08/04/23 11:04 Dose: 30 ml Documented By: HARPREET Albuterol Sulfate (Albuterol Sulfate 90 Mcg 8 Gm Inhaler) 2 puff INHALE RQ4H PRN PRN Reason: Shortness Of Breath/Wheezing Last Admin: 08/04/23 08:06 Dose: 2 puff Documented By: COTEMA Albuterol Sulfate (Albuterol Sulfate (0.083%) 2.5 Mg/3 Ml Vial.Neb) 2.5 mg INHALE RQ4H WHILE AWAKE [facility] Last Admin: 08/05/23 07:51 Dose: 2.5 mg Documented By: JAILYN Amlodipine Besylate (Amlodipine Besylate 2.5 Mg Tablet) 2.5 mg PO DAILY [facility]; Protocol Last Admin: 08/04/23 08:07 Dose: 2.5 mg Documented By: HARPREET Ascorbic Acid (Ascorbic Acid 250 Mg Tablet) 250 mg PO DAILY [facility] Last Admin: 08/04/23 08:07 Dose: 250 mg Documented By: HARPREET Atorvastatin Calcium (Atorvastatin Calcium 20 Mg Tablet) 20 mg PO DAILY [facility] Last Admin: 08/04/23 08:07 Dose: 20 mg Documented By: COTEMA Bupropion HCl (Bupropion Hcl Xl 300 Mg Tab.Er.24h) 300 mg PO DAILY [facility] Last Admin: 08/04/23 08:07 Dose: 300 mg Documented By: COTGERARDO Clonazepam (Clonazepam 1 Mg Tablet) 1 mg PO BEDTIME [facility] Last Admin: 08/04/23 22:41 Dose: Not Given Documented By: JOSELO Non-Admin Reason: pt n/v Clonidine HCl (Clonidine Hcl 0.1 Mg Tablet) 0.1 mg PO BEDTIME [facility]; Protocol Last Admin: 08/04/23 22:41 Dose: Not Given Documented By: JOSELO Non-Admin Reason: pt n/v Docusate Sodium (Docusate Sodium 100 Mg Capsule) 100 mg PO BID [facility] Last Admin: 08/04/23 22:41 Dose: Not Given Documented By: JOSELO Non-Admin Reason: pt n/v Fluoxetine HCl (Fluoxetine Hcl 20 Mg Capsule) 40 mg PO DAILY [facility] Last Admin: 08/04/23 08:07 Dose: 40 mg Documented By: HARPREET Fluticasone Propionate (Fluticasone Propionate Nasal 16 Gm [place]) 2 spray NOSTRIL-B DAILY [facility] Last Admin: 08/04/23 08:06 Dose: 2 spray Documented By: HARPREET Gabapentin (Gabapentin 100 Mg Capsule) 100 mg PO BEDTIME [facility] Last Admin: 08/04/23 22:41 Dose: Not Given Documented By: JOSELO Non-Admin Reason: pt n/v Guaifenesin (Guaifenesin [place] 600 Mg Tab.Er.12h) 600 mg PO BID [facility] Last Admin: 08/04/23 22:41 Dose: Not Given Documented By: JOSELO Non-Admin Reason: pt n/v Dextrose/Lactated Ringer's (D5lr) 1,000 mls @ 125 mls/hr IVCONT .Q8H [facility] Last Admin: 08/05/23 05:36 Dose: 125 mls/hr Documented By: JOSELO Promethazine HCl 6.25 mg/ (Sodium Chloride) 50.25 mls @ 201 mls/hr IV Q6H PRN PRN Reason: Nausea and Vomiting Last Infusion: 08/04/23 22:19 Dose: Infused Documented By: JOSELO Loratadine (Loratadine 10 Mg Tablet) 10 mg PO BEDTIME [facility] Last Admin: 08/03/23 19:59 Dose: 10 mg Documented By: ISABELLE Morphine Sulfate (Morphine Sulfate 4 Mg/Ml Cartridge) 2 mg IVPUSH Q4H PRN; Protocol PRN Reason: Pain, Severe (Pain Scale 7-10) Omeprazole (Omeprazole 20 Mg Capsule.Dr) 20 mg PO BID@0630,1630 [facility] Last Admin: 08/05/23 07:37 Dose: Not Given Documented By: JOSELO Non-Admin Reason: pt n/v Ondansetron HCl (Ondansetron Hcl 4 Mg/2 Ml Vial) 4 mg IVPUSH Q8H PRN PRN Reason: Nausea and Vomiting Last Admin: 08/05/23 00:57 Dose: 4 mg Documented By: JOSELO Oxycodone HCl (Oxycodone Hcl Immed Release 5 Mg Tablet) 5 mg PO Q4H PRN PRN Reason: Pain, Moderate(Pain Scale 4-6) Last Admin: 08/03/23 13:06 Dose: 5 mg Documented By: HARPREET Polyethylene Glycol (Polyethylene Glycol 3350 17 Gm Powd.Pack) 17 gm PO DAILY [facility] Last Admin: 08/04/23 12:27 Dose: 17 gm Documented By: HARPREET Quetiapine Fumarate (Quetiapine Fumarate 25 Mg Tablet) 25 mg PO BEDTIME [facility] Last Admin: 08/04/23 22:41 Dose: Not Given Documented By: JOSELO Non-Admin Reason: pt n/v Sodium Chloride (0.9 % Sodium Chloride Flush 3 Ml Syringe) 3 ml IVFLUSH QSHIFT [facility] Last Admin: 08/04/23 22:00 Dose: 3 ml Documented By: JOSELO Labs 08/05/23 07:57 08/05/23 07:57 Labs: Laboratory Results - last 24 hr 08/04/23 08/05/23 16:40 07:57 MCV 86.5 MCH 26.0 L MCHC 30.1 L RDW 19.0 H Plt Count 327 MPV 9.2 L Absolute Nucleated RBC 0.020 H Nucleated RBC % (auto) 0.2 Anion Gap 15 Estim Creat Clear Calc 41.9 Estimated GFR 34 Random Glucose 122 H Calcium 9.0 Urine Color Dark Yellow Urine Appearance Turbid Urine pH 6.0 Ur Specific [place] 1.025 Urine Protein 30 (1+) H Urine Glucose (UA) Negative Urine Ketones Negative Urine Blood Negative Urine Nitrite Negative Ur Leukocyte Esterase Small (1+) H Urine RBC >20 H Urine WBC 21-50 H Ur Squamous Epith Cells >20 Urine Bacteria None Seen Hyaline Casts 0-2 Urine Yeast Present Procedures Date of Service Date of Service: 08/05/23 Progress Note: A&P Assessment and plan (1) Mass of cecum: Status: Acute (2) S/P right colectomy: Status: Acute Plan 67 year old female admitted with symptomatic anemia found to have large cecal mass on colonoscopy. She is now POD #4 s/p exploratory laparotomy, ileal right colectomy /appendectomy. 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 Now with nausea and vomiting. Her abdomen is overall benign and not significantly distended. Will obtain AXR, make NPO, cont IVF. May need NGT insertion if continues to vomit. Strongly discussed getting OOB and ambulation today to promote GI function. Discussed with patient. Await pathology. Time Spent With Patient Time: Total time managing care of this patient today ____ minutes. Quality Stroke Does the patient have a stroke diagnosis?: No VTE Prior VTE?: No VTE Risk Level:: Medical - moderate - high VTE Device Contraindication: N/A - Device Ordered VTE Drug Contraindication: Treatment Not Indicated
[2023-08-05] MEDS: 0.9 % Sodium Chloride Flush 3 ML SYRINGE IVFLUSH (09:04)
--- NOTE | 2023-08-05 14:48 | HO.PM.IMPN ---
Subjective Subjective Date of Service: 08/05/23 Interval History: seen and evaluated this morning more alert and interactive nausea, vomiting passing gas, small bowel movement this morning Pain under fair control after surgery , POD 5 hemoglobin stable Review of Systems Review of Systems: Yes all other systems are reviewed and are negative Physical Exam Vital Signs: Vital Signs: Last Vital Signs Temp 99.1 F 08/05/23 07:51 Pulse 107 H 08/05/23 12:09 Resp 18 08/05/23 12:09 BP 145/67 H 08/05/23 07:51 Pulse Ox 94 08/05/23 07:51 O2 Del Method Nasal Cannula 08/05/23 07:51 O2 Flow Rate 2 08/05/23 07:51 FiO2 40 08/01/23 14:57 BMI result Body Mass Index 44.8 Const: Other: Constitutional : Awake, interactive, morbid obesity,. not in distress Neck : Normal inspection, Supple Cardiovascular : RRR, no JVP, no lower extremity edema Respiratory : good bilateral air entry, no crackles, wheezes or rhonchi Gastrointestinal: soft, lax, Normal bowel sounds, mild tenderness with palpation mainly at the surgical site Skin : Warm, Dry Neurological : Alert & oriented x3, No focal deficit Objective Data Active Medications Al Hydroxide/Mg Hydroxide (Magnesium Hydrox/Alum Hydrox 30 Ml Oral.Susp) 30 ml PO Q4H PRN PRN Reason: Heartburn Last Admin: 08/04/23 11:04 Dose: 30 ml Documented By: HARPREET Albuterol Sulfate (Albuterol Sulfate 90 Mcg 8 Gm Inhaler) 2 puff INHALE RQ4H PRN PRN Reason: Shortness Of Breath/Wheezing Last Admin: 08/04/23 08:06 Dose: 2 puff Documented By: HARPREET Albuterol Sulfate (Albuterol Sulfate (0.083%) 2.5 Mg/3 Ml Vial.Neb) 2.5 mg INHALE RQ4H WHILE AWAKE [facility] Last Admin: 08/05/23 12:08 Dose: 2.5 mg Documented By: JAILYN Amlodipine Besylate (Amlodipine Besylate 2.5 Mg Tablet) 2.5 mg PO DAILY [facility]; Protocol Last Admin: 08/05/23 09:18 Dose: Not Given Documented By: KIET Non-Admin Reason: Nausea Ascorbic Acid (Ascorbic Acid 250 Mg Tablet) 250 mg PO DAILY [facility] Last Admin: 08/05/23 09:19 Dose: Not Given Documented By: KIET Non-Admin Reason: Nausea Atorvastatin Calcium (Atorvastatin Calcium 20 Mg Tablet) 20 mg PO DAILY [facility] Last Admin: 08/05/23 09:19 Dose: Not Given Documented By: KIET Non-Admin Reason: Nausea Bupropion HCl (Bupropion Hcl Xl 300 Mg Tab.Er.24h) 300 mg PO DAILY [facility] Last Admin: 08/05/23 09:19 Dose: Not Given Documented By: KIET Non-Admin Reason: Nausea Clonazepam (Clonazepam 1 Mg Tablet) 1 mg PO BEDTIME [facility] Last Admin: 08/04/23 22:41 Dose: Not Given Documented By: JOSELO Non-Admin Reason: pt n/v Clonidine HCl (Clonidine Hcl 0.1 Mg Tablet) 0.1 mg PO BEDTIME [facility]; Protocol Last Admin: 08/04/23 22:41 Dose: Not Given Documented By: JSOELO Non-Admin Reason: pt n/v Docusate Sodium (Docusate Sodium 100 Mg Capsule) 100 mg PO BID [facility] Last Admin: 08/05/23 09:19 Dose: Not Given Documented By: KIET Non-Admin Reason: Patient Refused Fluoxetine HCl (Fluoxetine Hcl 20 Mg Capsule) 40 mg PO DAILY [facility] Last Admin: 08/05/23 09:19 Dose: Not Given Documented By: KIET Non-Admin Reason: Nausea Fluticasone Propionate (Fluticasone Propionate Nasal 16 Gm [place]) 2 spray NOSTRIL-B DAILY [facility] Last Admin: 08/05/23 09:19 Dose: Not Given Documented By: KIET Non-Admin Reason: Patient Refused Gabapentin (Gabapentin 100 Mg Capsule) 100 mg PO BEDTIME [facility] Last Admin: 08/04/23 22:41 Dose: Not Given Documented By: JOSELO Non-Admin Reason: pt n/v Guaifenesin (Guaifenesin [place] 600 Mg Tab.Er.12h) 600 mg PO BID [facility] Last Admin: 08/05/23 09:19 Dose: Not Given Documented By: KIET Non-Admin Reason: Nausea Dextrose/Lactated Ringer's (D5lr) 1,000 mls @ 125 mls/hr IVCONT .Q8H [facility] Last Admin: 08/05/23 05:36 Dose: 125 mls/hr Documented By: JOSELO Promethazine HCl 6.25 mg/ (Sodium Chloride) 50.25 mls @ 201 mls/hr IV Q6H PRN PRN Reason: Nausea and Vomiting Last Infusion: 08/04/23 22:19 Dose: Infused Documented By: JOSELO Loratadine (Loratadine 10 Mg Tablet) 10 mg PO BEDTIME [facility] Last Admin: 08/03/23 19:59 Dose: 10 mg Documented By: ISABELLE Morphine Sulfate (Morphine Sulfate 4 Mg/Ml Cartridge) 2 mg IVPUSH Q4H PRN; Protocol PRN Reason: Pain, Severe (Pain Scale 7-10) Omeprazole (Omeprazole 20 Mg Capsule.Dr) 20 mg PO BID@0630,1630 [facility] Last Admin: 08/05/23 07:37 Dose: Not Given Documented By: JOSELO Non-Admin Reason: pt n/v Ondansetron HCl (Ondansetron Hcl 4 Mg/2 Ml Vial) 4 mg IVPUSH Q8H PRN PRN Reason: Nausea and Vomiting Last Admin: 08/05/23 00:57 Dose: 4 mg Documented By: JOSELO Oxycodone HCl (Oxycodone Hcl Immed Release 5 Mg Tablet) 5 mg PO Q4H PRN PRN Reason: Pain, Moderate(Pain Scale 4-6) Last Admin: 08/03/23 13:06 Dose: 5 mg Documented By: HARPREET Polyethylene Glycol (Polyethylene Glycol 3350 17 Gm Powd.Pack) 17 gm PO DAILY [facility] Last Admin: 08/05/23 09:19 Dose: Not Given Documented By: KIET Non-Admin Reason: Patient Refused Quetiapine Fumarate (Quetiapine Fumarate 25 Mg Tablet) 25 mg PO BEDTIME [facility] Last Admin: 08/04/23 22:41 Dose: Not Given Documented By: JOSELO Non-Admin Reason: pt n/v Sodium Chloride (0.9 % Sodium Chloride Flush 3 Ml Syringe) 3 ml IVFLUSH QSHIFT [facility] Last Admin: 08/05/23 09:04 Dose: 3 ml Documented By: KIET Labs 08/05/23 07:57 08/05/23 07:57 Labs: Laboratory Results - last 24 hr 08/04/23 08/05/23 16:40 07:57 MCV 86.5 MCH 26.0 L MCHC 30.1 L RDW 19.0 H Plt Count 327 MPV 9.2 L Absolute Nucleated RBC 0.020 H Nucleated RBC % (auto) 0.2 Anion Gap 15 Estim Creat Clear Calc 41.9 Estimated GFR 34 Random Glucose 122 H Calcium 9.0 Urine Color Dark Yellow Urine Appearance Turbid Urine pH 6.0 Ur Specific [place] 1.025 Urine Protein 30 (1+) H Urine Glucose (UA) Negative Urine Ketones Negative Urine Blood Negative Urine Nitrite Negative Ur Leukocyte Esterase Small (1+) H Urine RBC >20 H Urine WBC 21-50 H Ur Squamous Epith Cells >20 Urine Bacteria None Seen Hyaline Casts 0-2 Urine Yeast Present Microbiology Microbiology Results: Microbiology 08/04/23 Unknown Urine Culture - Preliminary Urine clean catch - Urine camilo top Culture too young to evaluate. Assessment and Plan (1) S/P right colectomy: Status: Acute (2) Acute on chronic blood loss anemia: Status: Acute (3) Acute kidney injury superimposed on CKD: Status: Acute Plan Pt is a 67-year-old female with a PMH significant for CKD stage 4, ANTHONY, GERD, HTN, HLD, HELENA on CPAP, PTSD, history of PE on Coumadin (Nov 2022 continue x 1 year per hematology) who was originally admitted to [facility] on 07/28/2023 for increased depression with SI secondary to loss of her from stage IV lung cancer in February 2023. Colonoscopy on 07/31/2023 which found an ulcerated, friable mass approximately 4-5 cm in size in the cecum beneath. admitted to the medical floor for treatment of symptomatic anemia with blood transfusion and ulcerated mass of the cecum with likely surgical procedure. Ulcerated mass of the cecum s\p resection POD 4 N\V this morning, concern of obstruction, AXR did not show clear obstruction now Colonoscopy with biopsies on 07/31/2023 showed ulcerated, friable mass approximately 4-5 cm General surgery following, NPO, IVF oncology consult, depends on findings, stage 4 if Omentum involved. will need PET-CT as outpatient for staging Follow pathology advance diet as tolerated Acute on chronic iron deficiency anemia Received 1 unit w improvement to 8.7 Continue to hold Coumadin IV Iron Follow CBC Leukocytosis Post surgical, likely reactive, no clear source of infection, trending down CXR and UA negative for infx Asthma with mild wheezing Avoid steroids for surgical wound healing ATC and PRN Albuterol neb Hypokalemia resolved Follow BMP PATRICIO on CKD 3 improved to 1.5 Follow BMP Hypotension improved post transfusion and IVF HELENA CPAP at bedtime HLD Continue statin Chronic lung disease Not in acute exacerbation Continue maintenance inhalers, albuterol p.r.n. Full Code DVT Prophylaxis: Pneumatic boots d/t anemia, possible surgical intervention Pt will require a hospitalization ovrernight for post surgical care of ulcerated mass of the cecum and anemia management pending safe discharge plan Time Spent With Patient Time: Total time managing care of this patient today ____ minutes. Quality Stroke Does the patient have a stroke diagnosis?: No VTE Prior VTE?: No VTE Risk Level:: Medical - moderate - high VTE Device Contraindication: N/A - Device Ordered VTE Drug Contraindication: Treatment Not Indicated
--- NOTE | 2023-08-05 14:54 | MHC.CM.PN ---
EMR reviewed. Per MD rounds awaiting PT eval/note to determine DC plan. CM will continue to follow.
[2023-08-05] MEDS: QUEtiapine Fumarate 25 MG TABLET PO (22:45)
[2023-08-05] MEDS: Gabapentin 100 MG CAPSULE PO (22:45)
[2023-08-05] MEDS: Docusate Sodium 100 MG CAPSULE PO (22:45)
[2023-08-05] MEDS: cloNIDine HCL 0.1 MG TABLET PO (22:46)
[2023-08-05] MEDS: guaiFENesin LA 600 MG TAB.ER.12H PO (22:46)
[2023-08-05] MEDS: clonazePAM 1 MG TABLET PO (22:46)
[2023-08-06] VITALS (8 sets, daily range): BP systolic 150–162; BP diastolic 62–74; PULSE 56–100; RESP 16–18; TEMP 36.2–36.6; O2SAT 95–99
[2023-08-06] MEDS: Dextrose 5 % and Lactated Ring 1,000 ML 125 ML IVCONT ×4 (00:33→19:49)
[2023-08-06] MEDS: Omeprazole 20 MG CAPSULE.DR PO (06:46)
[2023-08-06 07:44] LABS: Alanine Aminotransferase 28 U/L (0-31); Albumin Level 2.7 g/dL (3.5-5.0); Alkaline Phosphatase 102 U/L (39-117); Anion Gap 14 (12-20); Aspartate Amino Transferase 27 U/L (5-31); Bilirubin Direct 0.2 mg/dL (0.0-0.5); Bilirubin Total 0.5 mg/dL (0.0-1.0); Blood Urea Nitrogen 6 mg/dL (9-16); Calcium 8.8 mg/dL (8.4-10.2); Carbon Dioxide 24 mmol/L (22-29); Chloride 107 mmol/L (96-108); Creatinine Clr Calc Pharmacy 45.8; Estimated Glomerular Filt Rate 38; Glucose Random 109 mg/dL (60-115); Potassium 3.5 mmol/L (3.3-5.1); Sodium 141 mmol/L (135-145); Total Protein 5.7 g/dL (6.5-8.0)
[2023-08-06] MEDS: Albuterol Sulfate (0.083%) 2.5 MG/3 ML VIAL.NEB INHALE ×4 (07:47→19:48)
--- NOTE | 2023-08-06 07:59 | P.PNGS_ITS ---
Subjective Subjective Date of Service: 08/06/23 Interval history: Continued nausea, vomiting and reports increasing abdominal bloating this morning. Reports passing small amount of flatus. Was out of bed to commode and recliner yesterday. Physical Exam 2 Vital Signs: Vital Signs: Last Vital Signs Temp 97.2 F 08/06/23 07:28 Pulse 92 08/06/23 07:49 Resp 16 08/06/23 07:49 BP 152/70 H 08/06/23 07:28 Pulse Ox 96 08/06/23 07:28 O2 Del Method Nasal Cannula 08/06/23 07:28 O2 Flow Rate 2 08/06/23 07:28 FiO2 40 08/01/23 14:57 BMI result Body Mass Index 44.8 Const: General: no acute distress and confusion Orientation/consciousness: oriented to person, oriented to place, oriented to time and confusion Resp: Effort & Inspection: normal respiratory effort GI: Inspection: Yes distended and Yes incision (clean) Palpation (GI): Soft to palpation, Tenderness to palpation present (GI) (mild incisional) and no guarding Percussion: Yes tympanic to percussion Skin: General skin exam: no rashes or lesions noted Neuro: General: oriented to person, oriented to place, oriented to time and confusion Objective Data Active Medications Al Hydroxide/Mg Hydroxide (Magnesium Hydrox/Alum Hydrox 30 Ml Oral.Susp) 30 ml PO Q4H PRN PRN Reason: Heartburn Last Admin: 08/04/23 11:04 Dose: 30 ml Documented By: HARPREET Albuterol Sulfate (Albuterol Sulfate 90 Mcg 8 Gm Inhaler) 2 puff INHALE RQ4H PRN PRN Reason: Shortness Of Breath/Wheezing Last Admin: 08/04/23 08:06 Dose: 2 puff Documented By: HARPREET Albuterol Sulfate (Albuterol Sulfate (0.083%) 2.5 Mg/3 Ml Vial.Neb) 2.5 mg INHALE RQ4H WHILE AWAKE [facility] Last Admin: 08/06/23 07:47 Dose: 2.5 mg Documented By: HILARY Amlodipine Besylate (Amlodipine Besylate 2.5 Mg Tablet) 2.5 mg PO DAILY [facility]; Protocol Last Admin: 08/05/23 09:18 Dose: Not Given Documented By: KIET Non-Admin Reason: Nausea Ascorbic Acid (Ascorbic Acid 250 Mg Tablet) 250 mg PO DAILY [facility] Last Admin: 08/05/23 09:19 Dose: Not Given Documented By: KIET Non-Admin Reason: Nausea Atorvastatin Calcium (Atorvastatin Calcium 20 Mg Tablet) 20 mg PO DAILY [facility] Last Admin: 08/05/23 09:19 Dose: Not Given Documented By: KIET Non-Admin Reason: Nausea Bupropion HCl (Bupropion Hcl Xl 300 Mg Tab.Er.24h) 300 mg PO DAILY [facility] Last Admin: 08/05/23 09:19 Dose: Not Given Documented By: KIET Non-Admin Reason: Nausea Clonazepam (Clonazepam 1 Mg Tablet) 1 mg PO BEDTIME [facility] Last Admin: 08/05/23 22:46 Dose: 1 mg Documented By: JOSELO Clonidine HCl (Clonidine Hcl 0.1 Mg Tablet) 0.1 mg PO BEDTIME [facility]; Protocol Last Admin: 08/05/23 22:46 Dose: 0.1 mg Documented By: JOSELO Docusate Sodium (Docusate Sodium 100 Mg Capsule) 100 mg PO BID [facility] Last Admin: 08/05/23 22:45 Dose: 100 mg Documented By: JOSELO Fluoxetine HCl (Fluoxetine Hcl 20 Mg Capsule) 40 mg PO DAILY [facility] Last Admin: 08/05/23 09:19 Dose: Not Given Documented By: KIET Non-Admin Reason: Nausea Fluticasone Propionate (Fluticasone Propionate Nasal 16 Gm [place]) 2 spray NOSTRIL-B DAILY [facility] Last Admin: 08/05/23 09:19 Dose: Not Given Documented By: KIET Non-Admin Reason: Patient Refused Gabapentin (Gabapentin 100 Mg Capsule) 100 mg PO BEDTIME [facility] Last Admin: 08/05/23 22:45 Dose: 100 mg Documented By: JOSELO Guaifenesin (Guaifenesin [place] 600 Mg Tab.Er.12h) 600 mg PO BID [facility] Last Admin: 08/05/23 22:46 Dose: 600 mg Documented By: JOSELO Dextrose/Lactated Ringer's (D5lr) 1,000 mls @ 125 mls/hr IVCONT .Q8H [facility] Last Admin: 08/06/23 06:47 Dose: 125 mls/hr Documented By: JOSELO Promethazine HCl 6.25 mg/ (Sodium Chloride) 50.25 mls @ 201 mls/hr IV Q6H PRN PRN Reason: Nausea and Vomiting Last Infusion: 08/04/23 22:19 Dose: Infused Documented By: JOSELO Loratadine (Loratadine 10 Mg Tablet) 10 mg PO BEDTIME [facility] Last Admin: 08/03/23 19:59 Dose: 10 mg Documented By: ISABELLE Morphine Sulfate (Morphine Sulfate 4 Mg/Ml Cartridge) 2 mg IVPUSH Q4H PRN; Protocol PRN Reason: Pain, Severe (Pain Scale 7-10) Omeprazole (Omeprazole 20 Mg Capsule.Dr) 20 mg PO BID@0630,1630 [facility] Last Admin: 08/06/23 06:46 Dose: 20 mg Documented By: JOSELO Ondansetron HCl (Ondansetron Hcl 4 Mg/2 Ml Vial) 4 mg IVPUSH Q8H PRN PRN Reason: Nausea and Vomiting Last Admin: 08/05/23 00:57 Dose: 4 mg Documented By: JOSELO Oxycodone HCl (Oxycodone Hcl Immed Release 5 Mg Tablet) 5 mg PO Q4H PRN PRN Reason: Pain, Moderate(Pain Scale 4-6) Last Admin: 08/03/23 13:06 Dose: 5 mg Documented By: HARPREET Polyethylene Glycol (Polyethylene Glycol 3350 17 Gm Powd.Pack) 17 gm PO DAILY [facility] Last Admin: 08/05/23 09:19 Dose: Not Given Documented By: KIET Non-Admin Reason: Patient Refused Quetiapine Fumarate (Quetiapine Fumarate 25 Mg Tablet) 25 mg PO BEDTIME [facility] Last Admin: 08/05/23 22:45 Dose: 25 mg Documented By: JOSELO Sodium Chloride (0.9 % Sodium Chloride Flush 3 Ml Syringe) 3 ml IVFLUSH QSHIFT [facility] Last Admin: 08/06/23 00:51 Dose: Not Given Documented By: JOSELO Non-Admin Reason: IV Running Labs 08/05/23 07:57 08/06/23 05:47 Labs: Laboratory Results - last 24 hr 08/05/23 08/06/23 07:57 05:47 MCV 86.5 MCH 26.0 L MCHC 30.1 L RDW 19.0 H Plt Count 327 MPV 9.2 L Absolute Nucleated RBC 0.020 H Nucleated RBC % (auto) 0.2 Anion Gap 15 14 Estim Creat Clear Calc 41.9 45.8 Estimated GFR 34 38 Random Glucose 122 H 109 Calcium 9.0 8.8 Total Bilirubin 0.5 Direct Bilirubin 0.2 AST 27 ALT 28 Alkaline Phosphatase 102 Total Protein 5.7 L Albumin 2.7 L Microbiology Microbiology Results: Microbiology 08/04/23 Unknown Urine Culture - Preliminary Urine clean catch - Urine camilo top Culture too young to evaluate. Procedures Date of Service Date of Service: 08/06/23 Progress Note: A&P Assessment and plan (1) S/P right colectomy: Status: Acute (2) Mass of cecum: Status: Acute (3) Postoperative ileus: Status: Acute Plan 67 year old female admitted with symptomatic anemia found to have large cecal mass on colonoscopy. She is now POD #5 s/p exploratory laparotomy, ileal right colectomy /appendectomy. 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 Continued nausea, vomiting and abdominal distention. Abdominal xray yesterday shows dilated bowel loops. Recommended NGT insertion for likely post op ileus. She is in agreement. Cont IVF. Strongly discussed getting OOB and ambulation today to promote GI function. Await pathology. Time Spent With Patient Time: Total time managing care of this patient today ____ minutes. Quality Stroke Does the patient have a stroke diagnosis?: No VTE Prior VTE?: No VTE Risk Level:: Medical - moderate - high VTE Device Contraindication: N/A - Device Ordered VTE Drug Contraindication: Treatment Not Indicated
--- NOTE | 2023-08-06 09:33 | PC.NURSE ---
NG tube placed by this travel writer, patient tolerated well, waiting for confirmation for X Ray placement.
--- NOTE | 2023-08-06 09:35 | PC.NURSE ---
NG tube ordered for pt. First attempt in right nare did not go in. Pt was attempting to refuse the NG tube. After a couple of minutes she allowed attempt in left nare. Attempt was successful, calling xray for confirmation of placement.
--- NOTE | 2023-08-06 12:42 | HO.PM.IMPN ---
Subjective Subjective Date of Service: 08/06/23 Interval History: seen and evaluated this morning more nauseated with episode of vomiting passing gas only NG tube placed per surgery hemoglobin stable Review of Systems Review of Systems: Yes all other systems are reviewed and are negative Physical Exam Vital Signs: Vital Signs: Last Vital Signs Temp 97.2 F 08/06/23 07:28 Pulse 95 08/06/23 11:41 Resp 16 08/06/23 11:41 BP 152/70 H 08/06/23 07:28 Pulse Ox 96 08/06/23 07:28 O2 Del Method Nasal Cannula 08/06/23 07:28 O2 Flow Rate 2 08/06/23 07:28 FiO2 40 08/01/23 14:57 BMI result Body Mass Index 44.8 Const: Other: Constitutional : Awake, interactive, morbid obesity,. not in distress Neck : Normal inspection, Supple Cardiovascular : RRR, no JVP, no lower extremity edema Respiratory : good bilateral air entry, no crackles, wheezes or rhonchi Gastrointestinal: soft, lax, decreased bowel sounds, mild tenderness with palpation mainly at the surgical site Skin : Warm, Dry Neurological : Alert & oriented x3, No focal deficit Objective Data Active Medications Al Hydroxide/Mg Hydroxide (Magnesium Hydrox/Alum Hydrox 30 Ml Oral.Susp) 30 ml PO Q4H PRN PRN Reason: Heartburn Last Admin: 08/04/23 11:04 Dose: 30 ml Documented By: HARPREET Albuterol Sulfate (Albuterol Sulfate 90 Mcg 8 Gm Inhaler) 2 puff INHALE RQ4H PRN PRN Reason: Shortness Of Breath/Wheezing Last Admin: 08/04/23 08:06 Dose: 2 puff Documented By: HARPREET Albuterol Sulfate (Albuterol Sulfate (0.083%) 2.5 Mg/3 Ml Vial.Neb) 2.5 mg INHALE RQ4H WHILE AWAKE [facility] Last Admin: 08/06/23 11:40 Dose: 2.5 mg Documented By: HILARY Amlodipine Besylate (Amlodipine Besylate 2.5 Mg Tablet) 2.5 mg PO DAILY [facility]; Protocol Last Admin: 08/06/23 11:34 Dose: Not Given Documented By: KENDAL Non-Admin Reason: NPO Ascorbic Acid (Ascorbic Acid 250 Mg Tablet) 250 mg PO DAILY [facility] Last Admin: 08/06/23 11:34 Dose: Not Given Documented By: KENDAL Non-Admin Reason: NPO Atorvastatin Calcium (Atorvastatin Calcium 20 Mg Tablet) 20 mg PO DAILY [facility] Last Admin: 08/06/23 11:34 Dose: Not Given Documented By: KENDAL Non-Admin Reason: NPO Bupropion HCl (Bupropion Hcl Xl 300 Mg Tab.Er.24h) 300 mg PO DAILY [facility] Last Admin: 08/06/23 11:34 Dose: Not Given Documented By: KENDAL Non-Admin Reason: NPO Clonazepam (Clonazepam 1 Mg Tablet) 1 mg PO BEDTIME [facility] Last Admin: 08/05/23 22:46 Dose: 1 mg Documented By: JOSELO Clonidine HCl (Clonidine Hcl 0.1 Mg Tablet) 0.1 mg PO BEDTIME [facility]; Protocol Last Admin: 08/05/23 22:46 Dose: 0.1 mg Documented By: JOSELO Docusate Sodium (Docusate Sodium 100 Mg Capsule) 100 mg PO BID [facility] Last Admin: 08/06/23 11:34 Dose: Not Given Documented By: KENDAL Non-Admin Reason: NPO Fluoxetine HCl (Fluoxetine Hcl 20 Mg Capsule) 40 mg PO DAILY [facility] Last Admin: 08/06/23 11:35 Dose: Not Given Documented By: KENDAL Non-Admin Reason: NPO Fluticasone Propionate (Fluticasone Propionate Nasal 16 Gm [place]) 2 spray NOSTRIL-B DAILY [facility] Last Admin: 08/05/23 09:19 Dose: Not Given Documented By: KIET Non-Admin Reason: Patient Refused Gabapentin (Gabapentin 100 Mg Capsule) 100 mg PO BEDTIME [facility] Last Admin: 08/05/23 22:45 Dose: 100 mg Documented By: JOSELO Guaifenesin (Guaifenesin La 600 Mg Tab.Er.12h) 600 mg PO BID [facility] Last Admin: 08/06/23 11:35 Dose: Not Given Documented By: KENDAL Non-Admin Reason: NPO Dextrose/Lactated Ringer's (D5lr) 1,000 mls @ 125 mls/hr IVCONT .Q8H [facility] Last Admin: 08/06/23 06:47 Dose: 125 mls/hr Documented By: JOSELO Promethazine HCl 6.25 mg/ (Sodium Chloride) 50.25 mls @ 201 mls/hr IV Q6H PRN PRN Reason: Nausea and Vomiting Last Infusion: 08/06/23 11:35 Dose: Infused Documented By: KENDAL Loratadine (Loratadine 10 Mg Tablet) 10 mg PO BEDTIME [facility] Last Admin: 08/03/23 19:59 Dose: 10 mg Documented By: ISABELLE Morphine Sulfate (Morphine Sulfate 4 Mg/Ml Cartridge) 2 mg IVPUSH Q4H PRN; Protocol PRN Reason: Pain, Severe (Pain Scale 7-10) Omeprazole (Omeprazole 20 Mg Capsule.Dr) 20 mg PO BID@0630,1630 [facility] Last Admin: 08/06/23 06:46 Dose: 20 mg Documented By: JOSELO Ondansetron HCl (Ondansetron Hcl 4 Mg/2 Ml Vial) 4 mg IVPUSH Q8H PRN PRN Reason: Nausea and Vomiting Last Admin: 08/05/23 00:57 Dose: 4 mg Documented By: JOSELO Oxycodone HCl (Oxycodone Hcl Immed Release 5 Mg Tablet) 5 mg PO Q4H PRN PRN Reason: Pain, Moderate(Pain Scale 4-6) Last Admin: 08/03/23 13:06 Dose: 5 mg Documented By: COTEMA Polyethylene Glycol (Polyethylene Glycol 3350 17 Gm Powd.Pack) 17 gm PO DAILY [facility] Last Admin: 08/06/23 11:35 Dose: Not Given Documented By: KENDAL Non-Admin Reason: NPO Quetiapine Fumarate (Quetiapine Fumarate 25 Mg Tablet) 25 mg PO BEDTIME [facility] Last Admin: 08/05/23 22:45 Dose: 25 mg Documented By: JOSELO Sodium Chloride (0.9 % Sodium Chloride Flush 3 Ml Syringe) 3 ml IVFLUSH QSHIFT [facility] Last Admin: 08/06/23 09:19 Dose: Not Given Documented By: KENDAL Non-Admin Reason: IV Running Labs 08/05/23 07:57 08/06/23 05:47 Labs: Laboratory Results - last 24 hr 08/06/23 05:47 Anion Gap 14 Estim Creat Clear Calc 45.8 Estimated GFR 38 Random Glucose 109 Calcium 8.8 Total Bilirubin 0.5 Direct Bilirubin 0.2 AST 27 ALT 28 Alkaline Phosphatase 102 Total Protein 5.7 L Albumin 2.7 L Microbiology Microbiology Results: Microbiology 08/04/23 Unknown Urine Culture - Final Urine clean catch - Urine camilo top Assessment and Plan (1) Postoperative ileus: Status: Acute (2) S/P right colectomy: Status: Acute (3) Acute on chronic blood loss anemia: Status: Acute (4) Acute kidney injury superimposed on CKD: Status: Acute Plan Pt is a 67-year-old female with a PMH significant for CKD stage 4, ANTHONY, GERD, HTN, HLD, HELENA on CPAP, PTSD, history of PE on Coumadin (Nov 2022 continue x 1 year per hematology) who was originally admitted to [facility] on 07/28/2023 for increased depression with SI secondary to loss of her from stage IV lung cancer in February 2023. Colonoscopy on 07/31/2023 which found an ulcerated, friable mass approximately 4-5 cm in size in the cecum beneath. admitted to the medical floor for treatment of symptomatic anemia with blood transfusion and ulcerated mass of the cecum with likely surgical procedure. # Ileus post po # Ulcerated mass of the cecum s\p resection Colonoscopy with biopsies on 07/31/2023 showed ulcerated, friable mass approximately 4-5 cm POD 5 N\V , concern of obstruction, AXR did not show clear obstruction NG per surgery on suction NPO General surgery following, NPO, IVF oncology consult, depends on findings, stage 4 if Omentum involved. will need PET-CT as outpatient for staging Follow pathology advance diet as tolerated # Acute on chronic iron deficiency anemia Received 1 unit w improvement to 8.7 Continue to hold Coumadin IV Iron Follow CBC # Leukocytosis Post surgical, likely reactive, no clear source of infection, trending down CXR and UA negative for infx # Asthma with mild wheezing Avoid steroids for surgical wound healing ATC and PRN Albuterol neb Hypokalemia resolved Follow BMP PATRICIO on CKD 3 improved to 1.3 Follow BMP Hypotension improved post transfusion and IVF HELENA CPAP at bedtime HLD Continue statin Chronic lung disease Not in acute exacerbation Continue maintenance inhalers, albuterol p.r.n. Full Code DVT Prophylaxis: Pneumatic boots d/t anemia, possible surgical intervention Pt will require a hospitalization ovrernight for post surgical care of ulcerated mass of the cecum and anemia management pending safe discharge plan Time Spent With Patient Time: Total time managing care of this patient today ____ minutes. Quality Stroke Does the patient have a stroke diagnosis?: No VTE Prior VTE?: No VTE Risk Level:: Medical - moderate - high VTE Device Contraindication: N/A - Device Ordered VTE Drug Contraindication: Treatment Not Indicated
[2023-08-06] MEDS: clonazePAM 1 MG TABLET PO (20:22)
[2023-08-06] MEDS: QUEtiapine Fumarate 25 MG TABLET PO (21:11)
[2023-08-06] MEDS: cloNIDine HCL 0.1 MG TABLET PO (21:11)
[2023-08-07] VITALS (9 sets, daily range): BP systolic 152–157; BP diastolic 69–78; PULSE 84–97; RESP 17–28; TEMP 36.1–36.4; O2SAT 93–99
[2023-08-07] MEDS: Dextrose 5 % and Lactated Ring 1,000 ML 125 ML IVCONT ×3 (03:15→19:57)
[2023-08-07] MEDS: Throat Lozenge, Medicated LOZENGE 1 LOZENGE MUCOUS MEM (03:15)
[2023-08-07] MEDS: Morphine Sulfate 4 MG/ML CARTRIDGE 2 MG IVPUSH ×2 (05:42→14:39)
[2023-08-07 06:28] LABS: Hematocrit 25.3 % (37.0-47.0); Hemoglobin 7.6 g/dl (12.0-16.0); Mean Corpuscular Hemoglobin 25.9 pg (27.0-33.0); Mean Corpuscular Volume 86.3 fL (80.0-98.0); NRBC Pct Auto 0.3 /100WBC (0.0-0.2); Platelet Count 318 X10*3/uL (160-400); Red Blood Count 2.93 X10*6/uL (4.20-5.50); Red Cell Distribution Width 20.3 % (11.0-16.0); White Blood Count 10.5 X10*3/uL (4.8-10.8)
[2023-08-07 06:41] LABS: Anion Gap 11 (12-20); Blood Urea Nitrogen 5 mg/dL (9-16); Calcium 8.7 mg/dL (8.4-10.2); Carbon Dioxide 26 mmol/L (22-29); Chloride 109 mmol/L (96-108); Creatinine Clr Calc Pharmacy 52.3; Estimated Glomerular Filt Rate 44; Glucose Random 112 mg/dL (60-115); Potassium 3.4 mmol/L (3.3-5.1); Sodium 143 mmol/L (135-145)
[2023-08-07] MEDS: Albuterol Sulfate (0.083%) 2.5 MG/3 ML VIAL.NEB INHALE ×4 (07:45→19:55)
[2023-08-07] MEDS: Atorvastatin Calcium 20 MG TABLET PO (08:49)
[2023-08-07] MEDS: FLUoxetine HCl 20 MG CAPSULE 40 MG PO (08:50)
[2023-08-07] MEDS: Docusate Sodium 100 MG CAPSULE PO ×2 (08:50→20:01)
[2023-08-07] MEDS: buPROPion HCl XL 300 MG TAB.ER.24H PO (08:50)
[2023-08-07] MEDS: amLODIPine Besylate 2.5 MG TABLET PO (08:50)
--- NOTE | 2023-08-07 08:50 | PM.PNGS ---
Subjective Subjective Date of Service: 08/07/23 Interval history: More lucid and appropriate today. Had a small BM and flatus last night. Hungry. Minimal NG tube output. Patient was out of bed she states yesterday. Small drop in H&H. Vital signs stable Physical Exam Vital Signs: Vital Signs: Last Vital Signs Temp 97 F 08/07/23 06:48 Pulse 86 08/07/23 07:45 Resp 17 08/07/23 07:45 BP 152/78 H 08/07/23 06:48 Pulse Ox 99 08/07/23 06:48 O2 Del Method Nasal Cannula 08/07/23 06:48 O2 Flow Rate 2 08/07/23 06:48 FiO2 40 08/01/23 14:57 BMI result Body Mass Index 44.8 GI: Other: Abdomen soft. Wound clean dry and intact healing uneventfully. Objective Data Active Medications Al Hydroxide/Mg Hydroxide (Magnesium Hydrox/Alum Hydrox 30 Ml Oral.Susp) 30 ml PO Q4H PRN PRN Reason: Heartburn Last Admin: 08/04/23 11:04 Dose: 30 ml Documented By: HARPREET Albuterol Sulfate (Albuterol Sulfate 90 Mcg 8 Gm Inhaler) 2 puff INHALE RQ4H PRN PRN Reason: Shortness Of Breath/Wheezing Last Admin: 08/04/23 08:06 Dose: 2 puff Documented By: HARPREET Albuterol Sulfate (Albuterol Sulfate (0.083%) 2.5 Mg/3 Ml Vial.Neb) 2.5 mg INHALE RQ4H WHILE AWAKE [facility] Last Admin: 08/07/23 07:45 Dose: 2.5 mg Documented By: RIC Amlodipine Besylate (Amlodipine Besylate 2.5 Mg Tablet) 2.5 mg PO DAILY [facility]; Protocol Last Admin: 08/06/23 11:34 Dose: Not Given Documented By: KENDAL Non-Admin Reason: NPO Ascorbic Acid (Ascorbic Acid 250 Mg Tablet) 250 mg PO DAILY [facility] Last Admin: 08/06/23 11:34 Dose: Not Given Documented By: KENDAL Non-Admin Reason: NPO Atorvastatin Calcium (Atorvastatin Calcium 20 Mg Tablet) 20 mg PO DAILY [facility] Last Admin: 08/06/23 11:34 Dose: Not Given Documented By: KENDAL Non-Admin Reason: NPO Benzocaine (Throat Lozenge, Medicated Lozenge) 1 lozenge MUCOUS MEM Q2H PRN PRN Reason: Sore Throat Last Admin: 08/07/23 03:15 Dose: 1 lozenge Documented By: CHEYANNE Bupropion HCl (Bupropion Hcl Xl 300 Mg Tab.Er.24h) 300 mg PO DAILY [facility] Last Admin: 08/06/23 11:34 Dose: Not Given Documented By: KENDAL Non-Admin Reason: NPO Clonazepam (Clonazepam 1 Mg Tablet) 1 mg PO BEDTIME [facility] Last Admin: 08/06/23 20:22 Dose: 1 mg Documented By: CHEYANNE Clonidine HCl (Clonidine Hcl 0.1 Mg Tablet) 0.1 mg PO BEDTIME [facility]; Protocol Last Admin: 08/06/23 21:11 Dose: 0.1 mg Documented By: CHEYANNE Docusate Sodium (Docusate Sodium 100 Mg Capsule) 100 mg PO BID [facility] Last Admin: 08/06/23 20:48 Dose: Not Given Documented By: CHEYANNE Non-Admin Reason: See note Fluoxetine HCl (Fluoxetine Hcl 20 Mg Capsule) 40 mg PO DAILY [facility] Last Admin: 08/06/23 11:35 Dose: Not Given Documented By: KENDAL Non-Admin Reason: NPO Fluticasone Propionate (Fluticasone Propionate Nasal 16 Gm [place]) 2 spray NOSTRIL-B DAILY [facility] Last Admin: 08/06/23 12:54 Dose: Not Given Documented By: KENDAL Non-Admin Reason: Patient Refused Gabapentin (Gabapentin 100 Mg Capsule) 100 mg PO BEDTIME [facility] Last Admin: 08/06/23 20:48 Dose: Not Given Documented By: CHEYANNE Non-Admin Reason: See note Guaifenesin (Guaifenesin La 600 Mg Tab.Er.12h) 600 mg PO BID [facility] Last Admin: 08/06/23 20:23 Dose: Not Given Documented By: CHEYANNE Non-Admin Reason: Nursing judgment Dextrose/Lactated Ringer's (D5lr) 1,000 mls @ 125 mls/hr IVCONT .Q8H [facility] Last Admin: 08/07/23 03:15 Dose: 125 mls/hr Documented By: CHEYANNE Promethazine HCl 6.25 mg/ (Sodium Chloride) 50.25 mls @ 201 mls/hr IV Q6H PRN PRN Reason: Nausea and Vomiting Last Infusion: 08/06/23 17:09 Dose: Infused Documented By: KENDAL Loratadine (Loratadine 10 Mg Tablet) 10 mg PO BEDTIME [facility] Last Admin: 08/03/23 19:59 Dose: 10 mg Documented By: ISABELLE Morphine Sulfate (Morphine Sulfate 4 Mg/Ml Cartridge) 2 mg IVPUSH Q4H PRN; Protocol PRN Reason: Pain, Severe (Pain Scale 7-10) Last Admin: 08/07/23 05:42 Dose: 2 mg Documented By: CHEYANNE Omeprazole (Omeprazole 20 Mg Capsule.Dr) 20 mg PO BID@0630,1630 [facility] Last Admin: 08/07/23 05:19 Dose: Not Given Documented By: CHEYANNE Non-Admin Reason: Not tolerating PO meds/unable to crush Ondansetron HCl (Ondansetron Hcl 4 Mg/2 Ml Vial) 4 mg IVPUSH Q8H PRN PRN Reason: Nausea and Vomiting Last Admin: 08/05/23 00:57 Dose: 4 mg Documented By: JOSELO Oxycodone HCl (Oxycodone Hcl Immed Release 5 Mg Tablet) 5 mg PO Q4H PRN PRN Reason: Pain, Moderate(Pain Scale 4-6) Last Admin: 08/03/23 13:06 Dose: 5 mg Documented By: COTEMA Polyethylene Glycol (Polyethylene Glycol 3350 17 Gm Powd.Pack) 17 gm PO DAILY [facility] Last Admin: 08/06/23 11:35 Dose: Not Given Documented By: KENDAL Non-Admin Reason: NPO Quetiapine Fumarate (Quetiapine Fumarate 25 Mg Tablet) 25 mg PO BEDTIME [facility] Last Admin: 08/06/23 21:11 Dose: 25 mg Documented By: CHEYANNE Sodium Chloride (0.9 % Sodium Chloride Flush 3 Ml Syringe) 3 ml IVFLUSH QSHIFT [facility] Last Admin: 08/06/23 23:05 Dose: Not Given Documented By: CHEYANNE Non-Admin Reason: IV Running Labs 08/07/23 06:06 08/07/23 06:06 Labs: Laboratory Results - last 24 hr 08/07/23 06:06 MCV 86.3 MCH 25.9 L MCHC 30.0 L RDW 20.3 H Plt Count 318 MPV 9.0 L Absolute Nucleated RBC 0.030 H Nucleated RBC % (auto) 0.3 H Anion Gap 11 L Estim Creat Clear Calc 52.3 Estimated GFR 44 Random Glucose 112 Calcium 8.7 Microbiology Microbiology Results: Microbiology 08/04/23 Unknown Urine Culture - Final Urine clean catch - Urine camilo top Procedures Date of Service Date of Service: 08/07/23 Progress Note: A&P Assessment and plan (1) S/P right colectomy: Status: Acute Plan NG tube removed. P.o. liquids, out of bed/PT, incentive spirometry, continue restorative measures. Consider ECF placement Spoke with patient's daughter this morning by phone and gave her an update. Final pathology is still pending Time Spent With Patient Time: Total time managing care of this patient today ____ minutes. Quality Stroke Does the patient have a stroke diagnosis?: No VTE Prior VTE?: No VTE Risk Level:: Medical - moderate - high VTE Device Contraindication: N/A - Device Ordered VTE Drug Contraindication: Treatment Not Indicated
[2023-08-07] MEDS: Ascorbic Acid 250 MG TABLET PO (09:01)
--- NOTE | 2023-08-07 09:38 | MHC.CLN ---
NUTRITION DIET ADVANCED TO CLEAR LIQUIDS. NG TUBE OUT. ADDING GELATEIN TID TO INCREASE NUTRITIONAL INTAKE. SUPPLEMENT PROVIDES 480 KCALS, 60 G PROTEIN.
--- NOTE | 2023-08-07 10:39 | HO.PM.IMPN ---
Subjective Subjective Date of Service: 08/07/23 Interval History: less bloated Physical Exam Vital Signs: Vital Signs: Last Vital Signs Temp 97 F 08/07/23 06:48 Pulse 86 08/07/23 09:18 Resp 17 08/07/23 07:45 BP 152/78 H 08/07/23 06:48 Pulse Ox 99 08/07/23 06:48 O2 Del Method Nasal Cannula 08/07/23 06:48 O2 Flow Rate 2 08/07/23 06:48 FiO2 40 08/01/23 14:57 BMI result Body Mass Index 44.8 GI: Other: Abdomen soft. Wound clean dry and intact healing uneventfully. Objective Data Active Medications Al Hydroxide/Mg Hydroxide (Magnesium Hydrox/Alum Hydrox 30 Ml Oral.Susp) 30 ml PO Q4H PRN PRN Reason: Heartburn Last Admin: 08/04/23 11:04 Dose: 30 ml Documented By: COTGERARDO Albuterol Sulfate (Albuterol Sulfate 90 Mcg 8 Gm Inhaler) 2 puff INHALE RQ4H PRN PRN Reason: Shortness Of Breath/Wheezing Last Admin: 08/04/23 08:06 Dose: 2 puff Documented By: HARPREET Albuterol Sulfate (Albuterol Sulfate (0.083%) 2.5 Mg/3 Ml Vial.Neb) 2.5 mg INHALE RQ4H WHILE AWAKE [facility] Last Admin: 08/07/23 07:45 Dose: 2.5 mg Documented By: RIC Amlodipine Besylate (Amlodipine Besylate 2.5 Mg Tablet) 2.5 mg PO DAILY [facility]; Protocol Last Admin: 08/07/23 08:50 Dose: 2.5 mg Documented By: VIOLET Ascorbic Acid (Ascorbic Acid 250 Mg Tablet) 250 mg PO DAILY [facility] Last Admin: 08/07/23 09:01 Dose: 250 mg Documented By: VIOLET Atorvastatin Calcium (Atorvastatin Calcium 20 Mg Tablet) 20 mg PO DAILY [facility] Last Admin: 08/07/23 08:49 Dose: 20 mg Documented By: VIOLET Benzocaine (Throat Lozenge, Medicated Lozenge) 1 lozenge MUCOUS MEM Q2H PRN PRN Reason: Sore Throat Last Admin: 08/07/23 03:15 Dose: 1 lozenge Documented By: CHEYANNE Bupropion HCl (Bupropion Hcl Xl 300 Mg Tab.Er.24h) 300 mg PO DAILY [facility] Last Admin: 08/07/23 08:50 Dose: 300 mg Documented By: VIOLET Clonazepam (Clonazepam 1 Mg Tablet) 1 mg PO BEDTIME [facility] Last Admin: 08/06/23 20:22 Dose: 1 mg Documented By: CHEYANNE Clonidine HCl (Clonidine Hcl 0.1 Mg Tablet) 0.1 mg PO BEDTIME [facility]; Protocol Last Admin: 08/06/23 21:11 Dose: 0.1 mg Documented By: CHEYANNE Docusate Sodium (Docusate Sodium 100 Mg Capsule) 100 mg PO BID [facility] Last Admin: 08/07/23 08:50 Dose: 100 mg Documented By: VIOLET Fluoxetine HCl (Fluoxetine Hcl 20 Mg Capsule) 40 mg PO DAILY [facility] Last Admin: 08/07/23 08:50 Dose: 40 mg Documented By: VIOLET Fluticasone Propionate (Fluticasone Propionate Nasal 16 Gm [place]) 2 spray NOSTRIL-B DAILY [facility] Last Admin: 08/07/23 09:06 Dose: Not Given Documented By: VIOLET Non-Admin Reason: Patient Refused Gabapentin (Gabapentin 100 Mg Capsule) 100 mg PO BEDTIME [facility] Last Admin: 08/06/23 20:48 Dose: Not Given Documented By: CHEYANNE Non-Admin Reason: See note Guaifenesin (Guaifenesin La 600 Mg Tab.Er.12h) 600 mg PO BID [facility] Last Admin: 08/07/23 08:58 Dose: Not Given Documented By: VIOLET Non-Admin Reason: Patient Refused Dextrose/Lactated Ringer's (D5lr) 1,000 mls @ 125 mls/hr IVCONT .Q8H [facility] Last Admin: 08/07/23 03:15 Dose: 125 mls/hr Documented By: CHEYANNE Promethazine HCl 6.25 mg/ (Sodium Chloride) 50.25 mls @ 201 mls/hr IV Q6H PRN PRN Reason: Nausea and Vomiting Last Infusion: 08/06/23 17:09 Dose: Infused Documented By: KENDAL Loratadine (Loratadine 10 Mg Tablet) 10 mg PO BEDTIME [facility] Last Admin: 08/03/23 19:59 Dose: 10 mg Documented By: ISABELLE Morphine Sulfate (Morphine Sulfate 4 Mg/Ml Cartridge) 2 mg IVPUSH Q4H PRN; Protocol PRN Reason: Pain, Severe (Pain Scale 7-10) Last Admin: 08/07/23 05:42 Dose: 2 mg Documented By: CHEYANNE Omeprazole (Omeprazole 20 Mg Capsule.Dr) 20 mg PO BID@0630,1630 [facility] Last Admin: 08/07/23 05:19 Dose: Not Given Documented By: CHEYANNE Non-Admin Reason: Not tolerating PO meds/unable to crush Ondansetron HCl (Ondansetron Hcl 4 Mg/2 Ml Vial) 4 mg IVPUSH Q8H PRN PRN Reason: Nausea and Vomiting Last Admin: 08/05/23 00:57 Dose: 4 mg Documented By: JOSELO Oxycodone HCl (Oxycodone Hcl Immed Release 5 Mg Tablet) 5 mg PO Q4H PRN PRN Reason: Pain, Moderate(Pain Scale 4-6) Last Admin: 08/03/23 13:06 Dose: 5 mg Documented By: COTEMA Polyethylene Glycol (Polyethylene Glycol 3350 17 Gm Powd.Pack) 17 gm PO DAILY [facility] Last Admin: 08/07/23 08:58 Dose: Not Given Documented By: VIOLET Non-Admin Reason: Patient Refused Quetiapine Fumarate (Quetiapine Fumarate 25 Mg Tablet) 25 mg PO BEDTIME [facility] Last Admin: 08/06/23 21:11 Dose: 25 mg Documented By: CHEYANNE Sodium Chloride (0.9 % Sodium Chloride Flush 3 Ml Syringe) 3 ml IVFLUSH QSHIFT [facility] Last Admin: 08/07/23 08:57 Dose: Not Given Documented By: VIOLET Non-Admin Reason: IV Running Labs 08/07/23 06:06 08/07/23 06:06 Labs: Laboratory Results - last 24 hr 08/07/23 06:06 MCV 86.3 MCH 25.9 L MCHC 30.0 L RDW 20.3 H Plt Count 318 MPV 9.0 L Absolute Nucleated RBC 0.030 H Nucleated RBC % (auto) 0.3 H Anion Gap 11 L Estim Creat Clear Calc 52.3 Estimated GFR 44 Random Glucose 112 Calcium 8.7 Microbiology Microbiology Results: Microbiology 08/04/23 Unknown Urine Culture - Final Urine clean catch - Urine camilo top Assessment and Plan (1) Postoperative ileus: Status: Acute (2) S/P right colectomy: Status: Acute (3) Acute on chronic blood loss anemia: Status: Acute (4) Acute kidney injury superimposed on CKD: Status: Acute Plan 67-year-old female with a PMH significant for CKD stage 4, ANTHONY, GERD, HTN, HLD, HELENA on CPAP, PTSD, history of PE on Coumadin (Nov 2022 continue x 1 year per hematology) who was originally admitted to [facility] on 07/28/2023 for increased depression with SI secondary to loss of her from stage IV lung cancer in February 2023. Colonoscopy on 07/31/2023 which found an ulcerated, friable mass approximately 4-5 cm in size in the cecum beneath. admitted to the medical floor for treatment of symptomatic anemia with blood transfusion and ulcerated mass of the cecum with likely surgical procedure. 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 Quality Stroke Does the patient have a stroke diagnosis?: No VTE Prior VTE?: No VTE Risk Level:: Medical - moderate - high VTE Device Contraindication: N/A - Device Ordered VTE Drug Contraindication: Treatment Not Indicated
--- NOTE | 2023-08-07 14:28 | MHC.CM.PN ---
Anticipate discharge later this week. The PASRR Level 1 has been submitted through the portal. [facility] is following for [facility] and [facility]. Patient will transport via BLS.
[2023-08-07] MEDS: Omeprazole 20 MG CAPSULE.DR PO (16:10)
[2023-08-07] MEDS: 0.9 % Sodium Chloride Flush 3 ML SYRINGE IVFLUSH (19:58)
[2023-08-07] MEDS: Gabapentin 100 MG CAPSULE PO (20:01)
[2023-08-07] MEDS: guaiFENesin LA 600 MG TAB.ER.12H PO (20:01)
[2023-08-07] MEDS: QUEtiapine Fumarate 25 MG TABLET PO (20:01)
[2023-08-07] MEDS: clonazePAM 1 MG TABLET PO (20:01)
[2023-08-07] MEDS: cloNIDine HCL 0.1 MG TABLET PO (20:01)
[2023-08-07] MEDS: oxyCODONE HCl Immed Release 5 MG TABLET PO (20:09)
[2023-08-07] MEDS: Simethicone 80 MG TAB.CHEW PO (20:15)
[2023-08-08] VITALS (10 sets, daily range): BP systolic 130–176; BP diastolic 65–77; PULSE 73–99; RESP 16–20; TEMP 36–37.2; O2SAT 93–98
[2023-08-08] MEDS: oxyCODONE HCl Immed Release 5 MG TABLET PO ×4 (00:26→19:59)
[2023-08-08] MEDS: Dextrose 5 % and Lactated Ring 1,000 ML 125 ML IVCONT (04:05)
[2023-08-08] MEDS: Omeprazole 20 MG CAPSULE.DR PO ×2 (05:43→16:26)
[2023-08-08 06:33] LABS: Hematocrit 26.4 % (37.0-47.0); Hemoglobin 7.7 g/dl (12.0-16.0); Mean Corpuscular HGB Conc 29.2 g/dl (31.0-35.0); Mean Corpuscular Hemoglobin 25.9 pg (27.0-33.0); Mean Corpuscular Volume 88.9 fL (80.0-98.0); Mean Platelet Volume 9.1 fL (9.4-12.3); Platelet Count 344 X10*3/uL (160-400); Red Blood Count 2.97 X10*6/uL (4.20-5.50); Red Cell Distribution Width 20.8 % (11.0-16.0); White Blood Count 10.7 X10*3/uL (4.8-10.8)
[2023-08-08 06:52] LABS: Anion Gap 10 (12-20); Blood Urea Nitrogen 5 mg/dL (9-16); Calcium 8.7 mg/dL (8.4-10.2); Carbon Dioxide 27 mmol/L (22-29); Chloride 108 mmol/L (96-108); Creatinine Clr Calc Pharmacy 51.9; Estimated Glomerular Filt Rate 44; Glucose Fasting 96 mg/dL (60-99); Potassium 3.4 mmol/L (3.3-5.1); Sodium 142 mmol/L (135-145)
[2023-08-08] MEDS: FLUoxetine HCl 20 MG CAPSULE 40 MG PO (08:20)
[2023-08-08] MEDS: Atorvastatin Calcium 20 MG TABLET PO (08:20)
[2023-08-08] MEDS: Docusate Sodium 100 MG CAPSULE PO (08:20)
[2023-08-08] MEDS: buPROPion HCl XL 300 MG TAB.ER.24H PO (08:20)
[2023-08-08] MEDS: amLODIPine Besylate 2.5 MG TABLET PO (08:20)
[2023-08-08] MEDS: guaiFENesin LA 600 MG TAB.ER.12H PO ×2 (08:20→19:59)
[2023-08-08] MEDS: Ascorbic Acid 250 MG TABLET PO (08:20)
[2023-08-08] MEDS: polyethylene glycoL 3350 17 GM POWD.PACK PO (08:20)
--- NOTE | 2023-08-08 08:36 | P.PNGS_ITS ---
Subjective Subjective Date of Service: 08/08/23 Interval history: Patient is feeling better. Tolerating her liquid diet. Passing flatus and stool. Complaining of some gas pains. Patient states she was out of bed yesterday. Physical Exam 2 Vital Signs: Vital Signs: Last Vital Signs Temp 98.9 F 08/08/23 07:33 Pulse 88 08/08/23 07:58 Resp 18 08/08/23 07:33 BP 134/68 08/08/23 07:58 Pulse Ox 95 08/08/23 07:58 O2 Del Method Room Air 08/08/23 07:33 O2 Flow Rate 2 08/07/23 06:48 FiO2 40 08/01/23 14:57 BMI result Body Mass Index 44.8 GI: Other: Abdomen soft, corpulent. Incision clean dry and intact healing uneventfully Objective Data Active Medications Al Hydroxide/Mg Hydroxide (Magnesium Hydrox/Alum Hydrox 30 Ml Oral.Susp) 30 ml PO Q4H PRN PRN Reason: Heartburn Last Admin: 08/04/23 11:04 Dose: 30 ml Documented By: HARPREET Albuterol Sulfate (Albuterol Sulfate 90 Mcg 8 Gm Inhaler) 2 puff INHALE RQ4H PRN PRN Reason: Shortness Of Breath/Wheezing Last Admin: 08/04/23 08:06 Dose: 2 puff Documented By: HARPREET Albuterol Sulfate (Albuterol Sulfate (0.083%) 2.5 Mg/3 Ml Vial.Neb) 2.5 mg INHALE RQ4H WHILE AWAKE [facility] Last Admin: 08/07/23 19:55 Dose: 2.5 mg Documented By: JANEL Amlodipine Besylate (Amlodipine Besylate 2.5 Mg Tablet) 2.5 mg PO DAILY [facility]; Protocol Last Admin: 08/08/23 08:20 Dose: 2.5 mg Documented By: SOREN Ascorbic Acid (Ascorbic Acid 250 Mg Tablet) 250 mg PO DAILY [facility] Last Admin: 08/08/23 08:20 Dose: 250 mg Documented By: SOREN Atorvastatin Calcium (Atorvastatin Calcium 20 Mg Tablet) 20 mg PO DAILY [facility] Last Admin: 08/08/23 08:20 Dose: 20 mg Documented By: SOREN Benzocaine (Throat Lozenge, Medicated Lozenge) 1 lozenge MUCOUS MEM Q2H PRN PRN Reason: Sore Throat Last Admin: 08/07/23 03:15 Dose: 1 lozenge Documented By: CHEYANNE Bupropion HCl (Bupropion Hcl Xl 300 Mg Tab.Er.24h) 300 mg PO DAILY [facility] Last Admin: 08/08/23 08:20 Dose: 300 mg Documented By: SOREN Clonazepam (Clonazepam 1 Mg Tablet) 1 mg PO BEDTIME [facility] Last Admin: 08/07/23 20:01 Dose: 1 mg Documented By: GUY Clonidine HCl (Clonidine Hcl 0.1 Mg Tablet) 0.1 mg PO BEDTIME [facility]; Protocol Last Admin: 08/07/23 20:01 Dose: 0.1 mg Documented By: GUY Docusate Sodium (Docusate Sodium 100 Mg Capsule) 100 mg PO BID [facility] Last Admin: 08/08/23 08:20 Dose: 100 mg Documented By: SOREN Fluoxetine HCl (Fluoxetine Hcl 20 Mg Capsule) 40 mg PO DAILY [facility] Last Admin: 08/08/23 08:20 Dose: 40 mg Documented By: SOREN Fluticasone Propionate (Fluticasone Propionate Nasal 16 Gm [place]) 2 spray NOSTRIL-B DAILY [facility] Last Admin: 08/07/23 09:06 Dose: Not Given Documented By: VIOLET Non-Admin Reason: Patient Refused Gabapentin (Gabapentin 100 Mg Capsule) 100 mg PO BEDTIME [facility] Last Admin: 08/07/23 20:01 Dose: 100 mg Documented By: GUY Guaifenesin (Guaifenesin La 600 Mg Tab.Er.12h) 600 mg PO BID [facility] Last Admin: 08/08/23 08:20 Dose: 600 mg Documented By: SOREN Promethazine HCl 6.25 mg/ (Sodium Chloride) 50.25 mls @ 201 mls/hr IV Q6H PRN PRN Reason: Nausea and Vomiting Last Infusion: 08/06/23 17:09 Dose: Infused Documented By: KENDAL Sodium Chloride (Ns) 100 mls @ 100 mls/hr IV ONCE ONE Stop: 08/08/23 09:26 Loratadine (Loratadine 10 Mg Tablet) 10 mg PO BEDTIME [facility] Last Admin: 08/03/23 19:59 Dose: 10 mg Documented By: ISABELLE Morphine Sulfate (Morphine Sulfate 4 Mg/Ml Cartridge) 2 mg IVPUSH Q4H PRN; Protocol PRN Reason: Pain, Severe (Pain Scale 7-10) Last Admin: 08/07/23 14:39 Dose: 2 mg Documented By: VIOLET Omeprazole (Omeprazole 20 Mg Capsule.Dr) 20 mg PO BID@0630,1630 [facility] Last Admin: 08/08/23 05:43 Dose: 20 mg Documented By: GUY Ondansetron HCl (Ondansetron Hcl 4 Mg/2 Ml Vial) 4 mg IVPUSH Q8H PRN PRN Reason: Nausea and Vomiting Last Admin: 08/05/23 00:57 Dose: 4 mg Documented By: JOSELO Oxycodone HCl (Oxycodone Hcl Immed Release 5 Mg Tablet) 5 mg PO Q4H PRN PRN Reason: Pain, Moderate(Pain Scale 4-6) Last Admin: 08/08/23 05:48 Dose: 5 mg Documented By: GUY Polyethylene Glycol (Polyethylene Glycol 3350 17 Gm Powd.Pack) 17 gm PO DAILY [facility] Last Admin: 08/08/23 08:20 Dose: 17 gm Documented By: SOREN Quetiapine Fumarate (Quetiapine Fumarate 25 Mg Tablet) 25 mg PO BEDTIME [facility] Last Admin: 08/07/23 20:01 Dose: 25 mg Documented By: GUY Sodium Chloride (0.9 % Sodium Chloride Flush 3 Ml Syringe) 3 ml IVFLUSH QSHIFT [facility] Last Admin: 08/08/23 08:19 Dose: Not Given Documented By: SOREN Non-Admin Reason: IV Running Labs 08/08/23 06:09 08/08/23 06:09 Labs: Laboratory Results - last 24 hr 08/08/23 06:09 MCV 88.9 MCH 25.9 L MCHC 29.2 L RDW 20.8 H Plt Count 344 MPV 9.1 L Absolute Nucleated RBC 0.000 Nucleated RBC % (auto) 0.0 Anion Gap 10 L Estim Creat Clear Calc 51.9 Estimated GFR 44 Fasting Glucose 96 Calcium 8.7 Procedures Date of Service Date of Service: 08/08/23 Progress Note: A&P Assessment and plan (1) S/P right colectomy: Status: Acute Plan Advanced diet, out of bed/ambulate, physical therapy, incentive spirometry, ECF placement Time Spent With Patient Time: Total time managing care of this patient today ____ minutes. Quality Stroke Does the patient have a stroke diagnosis?: No VTE Prior VTE?: No VTE Risk Level:: Medical - moderate - high VTE Device Contraindication: N/A - Device Ordered VTE Drug Contraindication: Treatment Not Indicated
[2023-08-08] MEDS: Albuterol Sulfate (0.083%) 2.5 MG/3 ML VIAL.NEB INHALE ×3 (08:47→19:40)
--- NOTE | 2023-08-08 09:02 | HO.PM.IMPN ---
Subjective Subjective Date of Service: 08/08/23 Interval History: weakness, abd pain Physical Exam Vital Signs: Vital Signs: Last Vital Signs Temp 98.9 F 08/08/23 07:33 Pulse 73 08/08/23 08:48 Resp 18 08/08/23 08:48 BP 134/68 08/08/23 07:58 Pulse Ox 95 08/08/23 07:58 O2 Del Method Room Air 08/08/23 07:33 O2 Flow Rate 2 08/07/23 06:48 FiO2 40 08/01/23 14:57 BMI result Body Mass Index 44.8 GI: Other: Abdomen soft, corpulent. Incision clean dry and intact healing uneventfully Objective Data Active Medications Al Hydroxide/Mg Hydroxide (Magnesium Hydrox/Alum Hydrox 30 Ml Oral.Susp) 30 ml PO Q4H PRN PRN Reason: Heartburn Last Admin: 08/04/23 11:04 Dose: 30 ml Documented By: HARPREET Albuterol Sulfate (Albuterol Sulfate 90 Mcg 8 Gm Inhaler) 2 puff INHALE RQ4H PRN PRN Reason: Shortness Of Breath/Wheezing Last Admin: 08/04/23 08:06 Dose: 2 puff Documented By: HARPREET Albuterol Sulfate (Albuterol Sulfate (0.083%) 2.5 Mg/3 Ml Vial.Neb) 2.5 mg INHALE RQ4H WHILE AWAKE [facility] Last Admin: 08/08/23 08:47 Dose: 2.5 mg Documented By: HILARY Amlodipine Besylate (Amlodipine Besylate 2.5 Mg Tablet) 2.5 mg PO DAILY [facility]; Protocol Last Admin: 08/08/23 08:20 Dose: 2.5 mg Documented By: SOREN Ascorbic Acid (Ascorbic Acid 250 Mg Tablet) 250 mg PO DAILY [facility] Last Admin: 08/08/23 08:20 Dose: 250 mg Documented By: SOREN Atorvastatin Calcium (Atorvastatin Calcium 20 Mg Tablet) 20 mg PO DAILY [facility] Last Admin: 08/08/23 08:20 Dose: 20 mg Documented By: SOREN Benzocaine (Throat Lozenge, Medicated Lozenge) 1 lozenge MUCOUS MEM Q2H PRN PRN Reason: Sore Throat Last Admin: 08/07/23 03:15 Dose: 1 lozenge Documented By: CHEYANNE Bupropion HCl (Bupropion Hcl Xl 300 Mg Tab.Er.24h) 300 mg PO DAILY [facility] Last Admin: 08/08/23 08:20 Dose: 300 mg Documented By: SOREN Clonazepam (Clonazepam 1 Mg Tablet) 1 mg PO BEDTIME [facility] Last Admin: 08/07/23 20:01 Dose: 1 mg Documented By: GUY Clonidine HCl (Clonidine Hcl 0.1 Mg Tablet) 0.1 mg PO BEDTIME [facility]; Protocol Last Admin: 08/07/23 20:01 Dose: 0.1 mg Documented By: GUY Docusate Sodium (Docusate Sodium 100 Mg Capsule) 100 mg PO BID [facility] Last Admin: 08/08/23 08:20 Dose: 100 mg Documented By: SOREN Fluoxetine HCl (Fluoxetine Hcl 20 Mg Capsule) 40 mg PO DAILY [facility] Last Admin: 08/08/23 08:20 Dose: 40 mg Documented By: SOREN Fluticasone Propionate (Fluticasone Propionate Nasal 16 Gm [place]) 2 spray NOSTRIL-B DAILY [facility] Last Admin: 08/07/23 09:06 Dose: Not Given Documented By: VIOLET Non-Admin Reason: Patient Refused Gabapentin (Gabapentin 100 Mg Capsule) 100 mg PO BEDTIME [facility] Last Admin: 08/07/23 20:01 Dose: 100 mg Documented By: GUY Guaifenesin (Guaifenesin La 600 Mg Tab.Er.12h) 600 mg PO BID [facility] Last Admin: 08/08/23 08:20 Dose: 600 mg Documented By: SOREN Promethazine HCl 6.25 mg/ (Sodium Chloride) 50.25 mls @ 201 mls/hr IV Q6H PRN PRN Reason: Nausea and Vomiting Last Infusion: 08/06/23 17:09 Dose: Infused Documented By: KENDAL Sodium Chloride (Ns) 100 mls @ 100 mls/hr IV ONCE ONE Stop: 08/08/23 09:26 Loratadine (Loratadine 10 Mg Tablet) 10 mg PO BEDTIME [facility] Last Admin: 08/03/23 19:59 Dose: 10 mg Documented By: ISABELLE Morphine Sulfate (Morphine Sulfate 4 Mg/Ml Cartridge) 2 mg IVPUSH Q4H PRN; Protocol PRN Reason: Pain, Severe (Pain Scale 7-10) Last Admin: 08/07/23 14:39 Dose: 2 mg Documented By: VIOLET Omeprazole (Omeprazole 20 Mg Capsule.) 20 mg PO BID@0630,1630 [facility] Last Admin: 08/08/23 05:43 Dose: 20 mg Documented By: GUY Ondansetron HCl (Ondansetron Hcl 4 Mg/2 Ml Vial) 4 mg IVPUSH Q8H PRN PRN Reason: Nausea and Vomiting Last Admin: 08/05/23 00:57 Dose: 4 mg Documented By: JOSELO Oxycodone HCl (Oxycodone Hcl Immed Release 5 Mg Tablet) 5 mg PO Q4H PRN PRN Reason: Pain, Moderate(Pain Scale 4-6) Last Admin: 08/08/23 05:48 Dose: 5 mg Documented By: GUY Polyethylene Glycol (Polyethylene Glycol 3350 17 Gm Powd.Pack) 17 gm PO DAILY [facility] Last Admin: 08/08/23 08:20 Dose: 17 gm Documented By: SOREN Quetiapine Fumarate (Quetiapine Fumarate 25 Mg Tablet) 25 mg PO BEDTIME [facility] Last Admin: 08/07/23 20:01 Dose: 25 mg Documented By: GUY Sodium Chloride (0.9 % Sodium Chloride Flush 3 Ml Syringe) 3 ml IVFLUSH QSHIFT [facility] Last Admin: 08/08/23 08:19 Dose: Not Given Documented By: SOREN Non-Admin Reason: IV Running Labs 08/08/23 06:09 08/08/23 06:09 Labs: Laboratory Results - last 24 hr 08/08/23 06:09 MCV 88.9 MCH 25.9 L MCHC 29.2 L RDW 20.8 H Plt Count 344 MPV 9.1 L Absolute Nucleated RBC 0.000 Nucleated RBC % (auto) 0.0 Anion Gap 10 L Estim Creat Clear Calc 51.9 Estimated GFR 44 Fasting Glucose 96 Calcium 8.7 Assessment and Plan (1) Acute on chronic blood loss anemia: Status: Acute (2) Postoperative ileus: Status: Acute (3) S/P right colectomy: Status: Acute (4) Acute kidney injury superimposed on CKD: Status: Acute Plan 67-year-old female with a PMH significant for CKD stage 4, ANTHONY, GERD, HTN, HLD, HELENA on CPAP, PTSD, history of PE on Coumadin (Nov 2022 continue x 1 year per hematology) who was originally [facility] to [facility] on 07/28/2023 for increased depression with SI secondary to loss of her from stage IV lung cancer in February 2023. 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 s/p exploratory laparotomy, ileo- right colectomy /appendectomy, partial omentectomy on 08/01/23 Complicated by postop ileus, now resolved, advance to solids Continue to monitor for return of GI function Monitor CBC -will trasfuse 1 unit prbc Outpatient PET scan and oncology follow-up history of PE in nov 2022 restart couadin with lovenox bridge, monitor cbc, inr CKD 4 Creatinine lower than baseline Hypokalemia Resolved HELENA CPAP Mild intermittent asthma Stable HLD Continue statin Full Code DVT Prophylaxis: lovenox/coumadin reason for continued hospitalization:await return of gi function, transfusion, monitoring for bleed Time Spent With Patient Time: Total time managing care of this patient today ____ minutes. Quality Stroke Does the patient have a stroke diagnosis?: No VTE Prior VTE?: No VTE Risk Level:: Medical - moderate - high VTE Device Contraindication: N/A - Device Ordered VTE Drug Contraindication: Treatment Not Indicated
[2023-08-08 10:44] LABS: INTERNATIONAL NORM RATIO 1.3 (0.9-1.1); Prothrombin Time 15.4 SEC (11.1-13.3)
[2023-08-08] MEDS: Enoxaparin Sodium 120 MG/0.8 ML SYRINGE 105 MG SUBCUT ×2 (10:55→20:00)
[2023-08-08] MEDS: Morphine Sulfate 4 MG/ML CARTRIDGE 2 MG IVPUSH (13:49)
[2023-08-08] MEDS: ondansetron HCL 4 MG/2 ML VIAL IVPUSH (14:50)
[2023-08-08] MEDS: 0.9 % Sodium Chloride Flush 3 ML SYRINGE IVFLUSH ×2 (16:26→20:01)
[2023-08-08] MEDS: Warfarin Sodium 5 MG TABLET PO (17:41)
[2023-08-08] MEDS: clonazePAM 1 MG TABLET PO (19:59)
[2023-08-08] MEDS: QUEtiapine Fumarate 25 MG TABLET PO (20:00)
[2023-08-08] MEDS: Gabapentin 100 MG CAPSULE PO (20:00)
[2023-08-08] MEDS: cloNIDine HCL 0.1 MG TABLET PO (20:00)
[2023-08-09] VITALS (9 sets, daily range): BP systolic 142–170; BP diastolic 62–75; PULSE 90–99; RESP 16–18; TEMP 36–36.6; O2SAT 91–94
[2023-08-09] MEDS: ondansetron HCL 4 MG/2 ML VIAL IVPUSH (00:56)
[2023-08-09] MEDS: Morphine Sulfate 4 MG/ML CARTRIDGE 2 MG IVPUSH (04:05)
[2023-08-09 05:39] LABS: Hematocrit 31.5 % (37.0-47.0); Hemoglobin 9.8 g/dl (12.0-16.0); Mean Corpuscular HGB Conc 31.1 g/dl (31.0-35.0); Mean Corpuscular Hemoglobin 27.1 pg (27.0-33.0); Mean Corpuscular Volume 87.3 fL (80.0-98.0); Mean Platelet Volume 8.8 fL (9.4-12.3); NRBC Pct Auto 0.2 /100WBC (0.0-0.2); Platelet Count 397 X10*3/uL (160-400); Red Blood Count 3.61 X10*6/uL (4.20-5.50); Red Cell Distribution Width 20.1 % (11.0-16.0); White Blood Count 11.5 X10*3/uL (4.8-10.8)
[2023-08-09 05:47] LABS: INTERNATIONAL NORM RATIO 1.3 (0.9-1.1); Prothrombin Time 16.1 SEC (11.1-13.3)
[2023-08-09 06:01] LABS: Anion Gap 16 (12-20); Blood Urea Nitrogen 7 mg/dL (9-16); Carbon Dioxide 23 mmol/L (22-29); Chloride 106 mmol/L (96-108); Creatinine Clr Calc Pharmacy 51.9; Estimated Glomerular Filt Rate 44; Glucose Fasting 96 mg/dL (60-99); Potassium 3.8 mmol/L (3.3-5.1); Sodium 141 mmol/L (135-145)
--- NOTE | 2023-08-09 06:28 | PC.NURSE ---
pt vomited throughout the night 3 times, moderate amount; consistently nauseous, provided Zofran and Promathazine and RLQ pain 6 - 8/10 pain. provided Dilaudid. notified. received order KUB, Lab, and NG tube placement, all completed. waiting for the radiologist to read the x-ray to confirming the NG tube placement.
--- NOTE | 2023-08-09 07:08 | PC.NURSE ---
NG tube inserted by previous RN, Radiology called with chest xray results at 07:00, reported to this RN NG tube was in trachea, NG tube removed by this RN and charge nurse, vitals are stable, patient complains of mild throat pain and raspy voice, speaking in full sentences, no vomiting noted, will contact General surgeon about replacement of NG tube.
[2023-08-09] MEDS: Lactated Ringers 1,000 ML 50 ML IVCONT (08:33)
[2023-08-09] MEDS: 0.9 % Sodium Chloride Flush 3 ML SYRINGE IVFLUSH (08:38)
[2023-08-09] MEDS: Albuterol Sulfate (0.083%) 2.5 MG/3 ML VIAL.NEB INHALE ×3 (08:59→19:49)
--- NOTE | 2023-08-09 09:26 | P.PNIM_ITS ---
Subjective Subjective Date of Service: 08/09/23 Interval History: nausea and vomitting overnight, recurrence of ileus, ngt placed but was in bronchus, removed, now feeling a bit better, doesnt want ngt at this time Physical Exam 2 Vital Signs: Vital Signs: Last Vital Signs Temp 98 F 08/09/23 06:58 Pulse 94 08/09/23 08:59 Resp 18 08/09/23 08:59 BP 142/62 H 08/09/23 07:23 Pulse Ox 92 08/09/23 06:58 O2 Del Method Room Air 08/09/23 06:58 O2 Flow Rate 2 08/07/23 06:48 FiO2 40 08/01/23 14:57 BMI result Body Mass Index 44.8 GI: Other: Abdomen soft, corpulent. Incision clean dry and intact healing uneventfully Objective Data Active Medications Al Hydroxide/Mg Hydroxide (Magnesium Hydrox/Alum Hydrox 30 Ml Oral.Susp) 30 ml PO Q4H PRN PRN Reason: Heartburn Last Admin: 08/04/23 11:04 Dose: 30 ml Documented By: HARPREET Albuterol Sulfate (Albuterol Sulfate 90 Mcg 8 Gm Inhaler) 2 puff INHALE RQ4H PRN PRN Reason: Shortness Of Breath/Wheezing Last Admin: 08/04/23 08:06 Dose: 2 puff Documented By: HARPREET Albuterol Sulfate (Albuterol Sulfate (0.083%) 2.5 Mg/3 Ml Vial.Neb) 2.5 mg INHALE RQ4H WHILE AWAKE [facility] Last Admin: 08/09/23 08:59 Dose: 2.5 mg Documented By: HILARY Amlodipine Besylate (Amlodipine Besylate 2.5 Mg Tablet) 2.5 mg PO DAILY [facility]; Protocol Last Admin: 08/08/23 08:20 Dose: 2.5 mg Documented By: MARLENYNM Ascorbic Acid (Ascorbic Acid 250 Mg Tablet) 250 mg PO DAILY [facility] Last Admin: 08/09/23 08:39 Dose: Not Given Documented By: LYRIC Non-Admin Reason: Patient Refused Atorvastatin Calcium (Atorvastatin Calcium 20 Mg Tablet) 20 mg PO DAILY [facility] Last Admin: 08/09/23 08:39 Dose: Not Given Documented By: LYRIC Non-Admin Reason: Patient Refused Benzocaine (Throat Lozenge, Medicated Lozenge) 1 lozenge MUCOUS MEM Q2H PRN PRN Reason: Sore Throat Last Admin: 08/07/23 03:15 Dose: 1 lozenge Documented By: CHEYANNE Bupropion HCl (Bupropion Hcl Xl 300 Mg Tab.Er.24h) 300 mg PO DAILY [facility] Last Admin: 08/09/23 08:39 Dose: Not Given Documented By: LYRIC Non-Admin Reason: Patient Refused Clonazepam (Clonazepam 1 Mg Tablet) 1 mg PO BEDTIME [facility] Last Admin: 08/08/23 19:59 Dose: 1 mg Documented By: DELFINO Clonidine HCl (Clonidine Hcl 0.1 Mg Tablet) 0.1 mg PO BEDTIME [facility]; Protocol Last Admin: 08/08/23 20:00 Dose: 0.1 mg Documented By: DELFINO Docusate Sodium (Docusate Sodium 100 Mg Capsule) 100 mg PO BID [facility] Last Admin: 08/09/23 08:39 Dose: Not Given Documented By: LYRIC Non-Admin Reason: Patient Refused Enoxaparin Sodium (Enoxaparin Sodium 120 Mg/0.8 Ml Syringe) 105 mg 1 mg/kg (105 mg) SUBCUT Q12H [facility] Last Admin: 08/08/23 20:00 Dose: 105 mg Documented By: DELFINO Fluoxetine HCl (Fluoxetine Hcl 20 Mg Capsule) 40 mg PO DAILY [facility] Last Admin: 08/09/23 08:39 Dose: Not Given Documented By: LYRIC Non-Admin Reason: Patient Refused Fluticasone Propionate (Fluticasone Propionate Nasal 16 Gm [place]) 2 spray NOSTRIL-B DAILY [facility] Last Admin: 08/09/23 08:39 Dose: Not Given Documented By: LYRIC Non-Admin Reason: Patient Refused Gabapentin (Gabapentin 100 Mg Capsule) 100 mg PO BEDTIME [facility] Last Admin: 08/08/23 20:00 Dose: 100 mg Documented By: DELFINO Guaifenesin (Guaifenesin La 600 Mg Tab.Er.12h) 600 mg PO BID [facility] Last Admin: 08/09/23 08:40 Dose: Not Given Documented By: LYRIC Non-Admin Reason: Patient Refused Promethazine HCl 6.25 mg/ (Sodium Chloride) 50.25 mls @ 201 mls/hr IV Q6H PRN PRN Reason: Nausea and Vomiting Last Infusion: 08/09/23 04:20 Dose: Infused Documented By: DELFINO Lactated Ringer's (Lr) 1,000 mls @ 50 mls/hr IVCONT .Q20H [facility] Last Admin: 08/09/23 08:33 Dose: 50 mls/hr Documented By: LYRIC Loratadine (Loratadine 10 Mg Tablet) 10 mg PO BEDTIME [facility] Last Admin: 08/03/23 19:59 Dose: 10 mg Documented By: ISABELLE Morphine Sulfate (Morphine Sulfate 4 Mg/Ml Cartridge) 2 mg IVPUSH Q4H PRN; Protocol PRN Reason: Pain, Severe (Pain Scale 7-10) Last Admin: 08/09/23 04:05 Dose: 2 mg Documented By: DELFINO Omeprazole (Omeprazole 20 Mg Capsule.Dr) 20 mg PO BID@0630,1630 [facility] Last Admin: 08/09/23 07:02 Dose: Not Given Documented By: DELFINO Non-Admin Reason: NG TUBE Ondansetron HCl (Ondansetron Hcl 4 Mg/2 Ml Vial) 4 mg IVPUSH Q8H PRN PRN Reason: Nausea and Vomiting Last Admin: 08/09/23 00:56 Dose: 4 mg Documented By: DELFINO Oxycodone HCl (Oxycodone Hcl Immed Release 5 Mg Tablet) 5 mg PO Q4H PRN PRN Reason: Pain, Moderate(Pain Scale 4-6) Last Admin: 08/08/23 19:59 Dose: 5 mg Documented By: DELFINO Polyethylene Glycol (Polyethylene Glycol 3350 17 Gm Powd.Pack) 17 gm PO DAILY [facility] Last Admin: 08/09/23 08:40 Dose: Not Given Documented By: LYRIC Non-Admin Reason: Patient Refused Quetiapine Fumarate (Quetiapine Fumarate 25 Mg Tablet) 25 mg PO BEDTIME [facility] Last Admin: 08/08/23 20:00 Dose: 25 mg Documented By: DELFINO Sodium Chloride (0.9 % Sodium Chloride Flush 3 Ml Syringe) 3 ml IVFLUSH QSHIFT [facility] Last Admin: 08/09/23 08:38 Dose: 3 ml Documented By: LYRIC Warfarin Sodium (Warfarin Sodium 5 Mg Tablet) 5 mg PO DAILY@1800 [facility] Last Admin: 08/08/23 17:41 Dose: 5 mg Documented By: SORAYA Labs 08/09/23 05:23 08/09/23 05:23 Labs: Laboratory Results - last 24 hr 07/31/23 08/08/23 08/08/23 17:34 09:08 10:21 MCV MCH MCHC RDW Plt Count MPV Absolute Nucleated RBC Nucleated RBC % (auto) PT 15.4 H INR 1.3 H Anion Gap Estim Creat Clear Calc Estimated GFR Fasting Glucose Calcium Blood Type B Positive Antibody Screen NEGATIVE Crossmatch See Detail See Detail 08/09/23 05:23 MCV 87.3 MCH 27.1 MCHC 31.1 RDW 20.1 H Plt Count 397 MPV 8.8 L Absolute Nucleated RBC 0.020 H Nucleated RBC % (auto) 0.2 PT 16.1 H INR 1.3 H Anion Gap 16 Estim Creat Clear Calc 51.9 Estimated GFR 44 Fasting Glucose 96 Calcium 9.0 Blood Type Antibody Screen Crossmatch Assessment and Plan (1) Acute on chronic blood loss anemia: Status: Acute (2) Postoperative ileus: Status: Acute (3) S/P right colectomy: Status: Acute (4) Acute kidney injury superimposed on CKD: Status: Acute Plan 67-year-old female with a PMH significant for CKD stage 4, ANTHONY, GERD, HTN, HLD, HELENA on CPAP, PTSD, history of PE on Coumadin (Nov 2022 continue x 1 year per hematology) who was originally admitted to [facility] on 07/28/2023 for increased depression with SI secondary to loss of her from stage IV lung cancer in February 2023. 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 s/p exploratory laparotomy, ileo- right colectomy /appendectomy, partial omentectomy on 08/01/23 transfuseed 1 unit prbc, hgb improved appropriately, continue to monitor Complicated by postop ileus, initially resolved, now with recurrence npo, ivf, monitor Outpatient PET scan and oncology follow-up history of PE in nov 2022 restarted couadin with lovenox bridge, monitor cbc, inr CKD III stable Hypokalemia Resolved HELENA CPAP Mild intermittent asthma Stable HLD Continue statin Full Code DVT Prophylaxis: lovenox/coumadin reason for continued hospitalization:await return of gi function Time Spent With Patient Time: Total time managing care of this patient today ____ minutes. Quality Stroke Does the patient have a stroke diagnosis?: No VTE Prior VTE?: No VTE Risk Level:: Medical - moderate - high VTE Device Contraindication: N/A - Device Ordered VTE Drug Contraindication: Treatment Not Indicated
[2023-08-09] MEDS: Enoxaparin Sodium 120 MG/0.8 ML SYRINGE 105 MG SUBCUT ×2 (09:43→22:36)
[2023-08-09] MEDS: amLODIPine Besylate 2.5 MG TABLET PO (09:43)
--- NOTE | 2023-08-09 10:18 | P.PNGS_ITS ---
Subjective Subjective Date of Service: 08/09/23 Interval history: Vomiting overnight and this morning, NGT insertion attempted. Feels more bloated. However began to have liquid stools yesterday. Still having mild nausea but does not want NGT in place. Reports increasing pain at incision site due to wretching. Physical Exam 2 Vital Signs: Vital Signs: Last Vital Signs Temp 98 F 08/09/23 06:58 Pulse 94 08/09/23 08:59 Resp 18 08/09/23 08:59 BP 142/62 H 08/09/23 07:23 Pulse Ox 92 08/09/23 06:58 O2 Del Method Room Air 08/09/23 06:58 O2 Flow Rate 2 08/07/23 06:48 FiO2 40 08/01/23 14:57 BMI result Body Mass Index 44.8 Const: General: no acute distress, alert and tired appearing Resp: Effort & Inspection: normal respiratory effort GI: Inspection: Yes distended and Yes incision (clean) Palpation (GI): Soft to palpation, Tenderness to palpation present (GI) (incisional), no guarding and not rigid Objective Data Active Medications Al Hydroxide/Mg Hydroxide (Magnesium Hydrox/Alum Hydrox 30 Ml Oral.Susp) 30 ml PO Q4H PRN PRN Reason: Heartburn Last Admin: 08/04/23 11:04 Dose: 30 ml Documented By: HARPREET Albuterol Sulfate (Albuterol Sulfate 90 Mcg 8 Gm Inhaler) 2 puff INHALE RQ4H PRN PRN Reason: Shortness Of Breath/Wheezing Last Admin: 08/04/23 08:06 Dose: 2 puff Documented By: HARPREET Albuterol Sulfate (Albuterol Sulfate (0.083%) 2.5 Mg/3 Ml Vial.Neb) 2.5 mg INHALE RQ4H WHILE AWAKE [facility] Last Admin: 08/09/23 08:59 Dose: 2.5 mg Documented By: HILARY Amlodipine Besylate (Amlodipine Besylate 2.5 Mg Tablet) 2.5 mg PO DAILY [facility]; Protocol Last Admin: 08/09/23 09:43 Dose: 2.5 mg Documented By: LYRIC Ascorbic Acid (Ascorbic Acid 250 Mg Tablet) 250 mg PO DAILY [facility] Last Admin: 08/09/23 08:39 Dose: Not Given Documented By: LYRIC Non-Admin Reason: Patient Refused Atorvastatin Calcium (Atorvastatin Calcium 20 Mg Tablet) 20 mg PO DAILY [facility] Last Admin: 08/09/23 08:39 Dose: Not Given Documented By: LYRIC Non-Admin Reason: Patient Refused Benzocaine (Throat Lozenge, Medicated Lozenge) 1 lozenge MUCOUS MEM Q2H PRN PRN Reason: Sore Throat Last Admin: 08/07/23 03:15 Dose: 1 lozenge Documented By: CHEYANNE Bupropion HCl (Bupropion Hcl Xl 300 Mg Tab.Er.24h) 300 mg PO DAILY [facility] Last Admin: 08/09/23 08:39 Dose: Not Given Documented By: LYRIC Non-Admin Reason: Patient Refused Clonazepam (Clonazepam 1 Mg Tablet) 1 mg PO BEDTIME [facility] Last Admin: 08/08/23 19:59 Dose: 1 mg Documented By: DELFINO Clonidine HCl (Clonidine Hcl 0.1 Mg Tablet) 0.1 mg PO BEDTIME [facility]; Protocol Last Admin: 08/08/23 20:00 Dose: 0.1 mg Documented By: DELFINO Docusate Sodium (Docusate Sodium 100 Mg Capsule) 100 mg PO BID [facility] Last Admin: 08/09/23 08:39 Dose: Not Given Documented By: LYRIC Non-Admin Reason: Patient Refused Enoxaparin Sodium (Enoxaparin Sodium 120 Mg/0.8 Ml Syringe) 105 mg 1 mg/kg (105 mg) SUBCUT Q12H [facility] Last Admin: 08/09/23 09:43 Dose: 105 mg Documented By: LYRIC Fluoxetine HCl (Fluoxetine Hcl 20 Mg Capsule) 40 mg PO DAILY [facility] Last Admin: 08/09/23 08:39 Dose: Not Given Documented By: LYRIC Non-Admin Reason: Patient Refused Fluticasone Propionate (Fluticasone Propionate Nasal 16 Gm [place]) 2 spray NOSTRIL-B DAILY [facility] Last Admin: 08/09/23 08:39 Dose: Not Given Documented By: YLRIC Non-Admin Reason: Patient Refused Gabapentin (Gabapentin 100 Mg Capsule) 100 mg PO BEDTIME [facility] Last Admin: 08/08/23 20:00 Dose: 100 mg Documented By: DELFINO Guaifenesin (Guaifenesin La 600 Mg Tab.Er.12h) 600 mg PO BID [facility] Last Admin: 08/09/23 08:40 Dose: Not Given Documented By: LYRIC Non-Admin Reason: Patient Refused Promethazine HCl 6.25 mg/ (Sodium Chloride) 50.25 mls @ 201 mls/hr IV Q6H PRN PRN Reason: Nausea and Vomiting Last Infusion: 08/09/23 04:20 Dose: Infused Documented By: DELFINO Lactated Ringer's (Lr) 1,000 mls @ 50 mls/hr IVCONT .Q20H [facility] Last Admin: 08/09/23 08:33 Dose: 50 mls/hr Documented By: LYRIC Loratadine (Loratadine 10 Mg Tablet) 10 mg PO BEDTIME [facility] Last Admin: 08/03/23 19:59 Dose: 10 mg Documented By: ISABELLE Morphine Sulfate (Morphine Sulfate 4 Mg/Ml Cartridge) 2 mg IVPUSH Q4H PRN; Protocol PRN Reason: Pain, Severe (Pain Scale 7-10) Last Admin: 08/09/23 04:05 Dose: 2 mg Documented By: DELFINO Omeprazole (Omeprazole 20 Mg Capsule.Dr) 20 mg PO BID@0630,1630 [facility] Last Admin: 08/09/23 07:02 Dose: Not Given Documented By: DELFINO Non-Admin Reason: NG TUBE Ondansetron HCl (Ondansetron Hcl 4 Mg/2 Ml Vial) 4 mg IVPUSH Q8H PRN PRN Reason: Nausea and Vomiting Last Admin: 08/09/23 00:56 Dose: 4 mg Documented By: DELFINO Oxycodone HCl (Oxycodone Hcl Immed Release 5 Mg Tablet) 5 mg PO Q4H PRN PRN Reason: Pain, Moderate(Pain Scale 4-6) Last Admin: 08/08/23 19:59 Dose: 5 mg Documented By: DELFINO Polyethylene Glycol (Polyethylene Glycol 3350 17 Gm Powd.Pack) 17 gm PO DAILY [facility] Last Admin: 08/09/23 08:40 Dose: Not Given Documented By: LYRIC Non-Admin Reason: Patient Refused Quetiapine Fumarate (Quetiapine Fumarate 25 Mg Tablet) 25 mg PO BEDTIME [facility] Last Admin: 08/08/23 20:00 Dose: 25 mg Documented By: DELFINO Sodium Chloride (0.9 % Sodium Chloride Flush 3 Ml Syringe) 3 ml IVFLUSH QSHIFT [facility] Last Admin: 08/09/23 08:38 Dose: 3 ml Documented By: LYRIC Warfarin Sodium (Warfarin Sodium 5 Mg Tablet) 5 mg PO DAILY@1800 [facility] Last Admin: 08/08/23 17:41 Dose: 5 mg Documented By: SORAYA Labs 08/09/23 05:23 08/09/23 05:23 Labs: Laboratory Results - last 24 hr 07/31/23 08/08/23 08/08/23 17:34 09:08 10:21 MCV MCH MCHC RDW Plt Count MPV Absolute Nucleated RBC Nucleated RBC % (auto) PT 15.4 H INR 1.3 H Anion Gap Estim Creat Clear Calc Estimated GFR Fasting Glucose Calcium Blood Type B Positive Antibody Screen NEGATIVE Crossmatch See Detail See Detail 08/09/23 05:23 MCV 87.3 MCH 27.1 MCHC 31.1 RDW 20.1 H Plt Count 397 MPV 8.8 L Absolute Nucleated RBC 0.020 H Nucleated RBC % (auto) 0.2 PT 16.1 H INR 1.3 H Anion Gap 16 Estim Creat Clear Calc 51.9 Estimated GFR 44 Fasting Glucose 96 Calcium 9.0 Blood Type Antibody Screen Crossmatch Procedures Date of Service Date of Service: 08/09/23 Progress Note: A&P Assessment and plan (1) Postoperative ileus: Status: Acute (2) S/P right colectomy: Status: Acute Plan POD #8 s/p exploratory laparotomy, ileo- right colectomy /appendectomy, partial omentectomy. Developed post op ileus and showed improvement therefore NGT removed and diet advanced but now with vomiting, increasing abdominal distention. Discussed reinsertion of NGT if she vomits again. She is agreeable to this. Cont observation and supportive measures, NGT insertion if vomiting continues. Abdomen is overall benign. Time Spent With Patient Time: Total time managing care of this patient today ____ minutes. Quality Stroke Does the patient have a stroke diagnosis?: No VTE Prior VTE?: No VTE Risk Level:: Medical - moderate - high VTE Device Contraindication: N/A - Device Ordered VTE Drug Contraindication: Treatment Not Indicated
--- NOTE | 2023-08-09 11:17 | PM.HEMONCPN ---
Medical Summary - Medical Summary Date of Service: 08/09/23 Chief complaint: Nausea/emesis Primary Care Provider: Unknown Physician Interval History Interval history: Patient was seen at bedside along with her brother. She reports nausea and emesis. She was hoping to go home but thinks she may have to go to rehab. Reports generalized weakness. Review of Systems - Constitutional Reports as per HPI, Denies lack of energy, Denies malaise - Cardiovascular Reports no additional cardiovascular complaints - Respiratory Reports no additional respiratory complaints - Gastrointestinal Reports no additional gastrointestinal complaints - Neurologic Reports confusion, Denies dizziness [facility] Medical History: Medical History (Last Reviewed 08/02/23 @ 10:54 by Sarah Dhaliwal, PT) Anemia Arthritis Asthma Chronic laryngitis Chronic renal insufficiency Cognitive dysfunction COVID-19 vaccine administered Difficulty swallowing Dysphagia Fatty liver High cholesterol History of COVID-19 HX: benign breast biopsy Hypertension IBS (irritable bowel syndrome) Knee pain, right Long COVID Osteoarthritis of right knee Sleep apnea Stage 4 chronic kidney disease Tremors of nervous system Family History: Family History (Last Reviewed 08/01/23 @ 01:33 by CANDELARIA Rojas) Daughter Breast cancer Paternal Aunt Breast cancer Surgical History: Surgical History (Last Reviewed 08/02/23 @ 10:54 by Sarah Dhaliwal, PT) H/O endoscopy History of section History of colonoscopy History of total right knee replacement (TKR) Hx laparoscopic cholecystectomy Social History: Social History (Last Reviewed 08/01/23 @ 01:33 by CANDELARIA Rojas) Living Situation History: Household Members: None Housing: House Are you a primary wild animal caretaker to a significant other at home: No Do you presently have visiting nurse or other home services: No Tobacco History: Patient Tobacco Use Status: Never used Tobacco Second Hand Smoke Exposure: No Advance Directives: Advance Directives Date on File: 09/07/21 Occupation Assessmet: service: No Current occupational status: retired Current occupation: right handed Sex/Gender Assessment: Sexual orientation: Straight/Heterosexual Home Medications and Allergies Current Medications: Current Medications Al Hydroxide/Mg Hydroxide (Magnesium Hydrox/Alum Hydrox 30 Ml Oral.Susp) 30 ml PO Q4H PRN PRN Reason: Heartburn Last Admin: 08/04/23 11:04 Dose: 30 ml Albuterol Sulfate (Albuterol Sulfate 90 Mcg 8 Gm Inhaler) 2 puff INHALE RQ4H PRN PRN Reason: Shortness Of Breath/Wheezing Last Admin: 08/04/23 08:06 Dose: 2 puff Albuterol Sulfate (Albuterol Sulfate (0.083%) 2.5 Mg/3 Ml Vial.Neb) 2.5 mg INHALE RQ4H WHILE AWAKE [facility] Last Admin: 08/09/23 08:59 Dose: 2.5 mg Amlodipine Besylate (Amlodipine Besylate 2.5 Mg Tablet) 2.5 mg PO DAILY [facility]; Protocol Last Admin: 08/09/23 09:43 Dose: 2.5 mg Ascorbic Acid (Ascorbic Acid 250 Mg Tablet) 250 mg PO DAILY [facility] Last Admin: 08/09/23 08:39 Dose: Not Given Atorvastatin Calcium (Atorvastatin Calcium 20 Mg Tablet) 20 mg PO DAILY [facility] Last Admin: 08/09/23 08:39 Dose: Not Given Benzocaine (Throat Lozenge, Medicated Lozenge) 1 lozenge MUCOUS MEM Q2H PRN PRN Reason: Sore Throat Last Admin: 08/07/23 03:15 Dose: 1 lozenge Bupropion HCl (Bupropion Hcl Xl 300 Mg Tab.Er.24h) 300 mg PO DAILY [facility] Last Admin: 08/09/23 08:39 Dose: Not Given Clonazepam (Clonazepam 1 Mg Tablet) 1 mg PO BEDTIME [facility] Last Admin: 08/08/23 19:59 Dose: 1 mg Clonidine HCl (Clonidine Hcl 0.1 Mg Tablet) 0.1 mg PO BEDTIME [facility]; Protocol Last Admin: 08/08/23 20:00 Dose: 0.1 mg Docusate Sodium (Docusate Sodium 100 Mg Capsule) 100 mg PO BID [facility] Last Admin: 08/09/23 08:39 Dose: Not Given Enoxaparin Sodium (Enoxaparin Sodium 120 Mg/0.8 Ml Syringe) 105 mg 1 mg/kg (105 mg) SUBCUT Q12H [facility] Last Admin: 08/09/23 09:43 Dose: 105 mg Fluoxetine HCl (Fluoxetine Hcl 20 Mg Capsule) 40 mg PO DAILY [facility] Last Admin: 08/09/23 08:39 Dose: Not Given Fluticasone Propionate (Fluticasone Propionate Nasal 16 Gm [place]) 2 spray NOSTRIL-B DAILY [facility] Last Admin: 08/09/23 08:39 Dose: Not Given Gabapentin (Gabapentin 100 Mg Capsule) 100 mg PO BEDTIME [facility] Last Admin: 08/08/23 20:00 Dose: 100 mg Guaifenesin (Guaifenesin La 600 Mg Tab.Er.12h) 600 mg PO BID [facility] Last Admin: 08/09/23 08:40 Dose: Not Given Promethazine HCl 6.25 mg/ (Sodium Chloride) 50.25 mls @ 201 mls/hr IV Q6H PRN PRN Reason: Nausea and Vomiting Last Infusion: 08/09/23 04:20 Dose: Infused Lactated Ringer's (Lr) 1,000 mls @ 50 mls/hr IVCONT .Q20H [facility] Last Admin: 08/09/23 08:33 Dose: 50 mls/hr Loratadine (Loratadine 10 Mg Tablet) 10 mg PO BEDTIME [facility] Last Admin: 08/03/23 19:59 Dose: 10 mg Morphine Sulfate (Morphine Sulfate 4 Mg/Ml Cartridge) 2 mg IVPUSH Q4H PRN; Protocol PRN Reason: Pain, Severe (Pain Scale 7-10) Last Admin: 08/09/23 04:05 Dose: 2 mg Omeprazole (Omeprazole 20 Mg Capsule.Dr) 20 mg PO BID@0630,1630 [facility] Last Admin: 08/09/23 07:02 Dose: Not Given Ondansetron HCl (Ondansetron Hcl 4 Mg/2 Ml Vial) 4 mg IVPUSH Q8H PRN PRN Reason: Nausea and Vomiting Last Admin: 08/09/23 00:56 Dose: 4 mg Oxycodone HCl (Oxycodone Hcl Immed Release 5 Mg Tablet) 5 mg PO Q4H PRN PRN Reason: Pain, Moderate(Pain Scale 4-6) Last Admin: 08/08/23 19:59 Dose: 5 mg Polyethylene Glycol (Polyethylene Glycol 3350 17 Gm Powd.Pack) 17 gm PO DAILY [facility] Last Admin: 08/09/23 08:40 Dose: Not Given Quetiapine Fumarate (Quetiapine Fumarate 25 Mg Tablet) 25 mg PO BEDTIME [facility] Last Admin: 08/08/23 20:00 Dose: 25 mg Sodium Chloride (0.9 % Sodium Chloride Flush 3 Ml Syringe) 3 ml IVFLUSH QSHIFT [facility] Last Admin: 08/09/23 08:38 Dose: 3 ml Warfarin Sodium (Warfarin Sodium 5 Mg Tablet) 5 mg PO DAILY@1800 [facility] Last Admin: 08/08/23 17:41 Dose: 5 mg Allergies Allergy/AdvReac Type Severity Reaction Status Date / Time benztropine [From Cogentin] Allergy Intermediate Rash Verified 07/30/22 09:59 latex Allergy Intermediate Itching Verified 07/30/22 09:59 thimerosal Allergy Intermediate Itching Verified 07/30/22 09:59 topiramate Allergy Swelling Verified 07/31/23 10:10 sulfamethoxazole AdvReac Intermediate contraindicated Verified 07/30/22 09:59 [From Bactrim] w/stage 4 CKD trimethoprim [From Bactrim] AdvReac Intermediate contraindicated Verified 07/30/22 09:59 w/stage 4 CKD Exam Vital signs: Vital Signs Temp 98 F 08/09/23 06:58 Pulse 94 08/09/23 10:49 Resp 18 08/09/23 08:59 BP 142/62 H 08/09/23 07:23 Pulse Ox 92 08/09/23 06:58 O2 Del Method Room Air 08/09/23 06:58 O2 Flow Rate 2 08/07/23 06:48 FiO2 40 08/01/23 14:57 Intake & Output 08/08/23 08/09/23 08/09/23 18:59 06:59 18:59 Intake Total 1419.167 / 2079.667 660.50 / 2079.667 Output Total 500 / 1200 700 / 1200 Balance 919.167 / 879.667 -39.50 / 879.667 Urine Output (Average ml/kg/hr) 0.38 0.53 Intake: Intake, Oral Amount 340 / 900 560 / 900 Intake (Blood Product) Amount 350 / 350 Red Blood Cells (E0382) Unit 350 / 350 [id number] Intake, IV Amount 729.167 / 829.667 100.50 / 829.667 0.9 % Sodium Chloride 100 ml @ 100 / 100 100 mls/hr IV ONCE ONE Rx#: [id number] Promethazine HCL 6.25 mg In 0.9 100.50 / 100.50 % Sodium Chloride 50 ml @ 201 mls/hr IV Q6H PRN Rx#: [id number] Dextrose 5 % and Lactated Ring 629.167 / 629.167 1,000 ml @ 125 mls/hr IVCONT . Q8H [facility] Rx#:[id number] Output: Output, Urine Amount 500 / 1200 700 / 1200 Other: Meal Refused No No NPO No No Breakfast % Eaten 50% Lunch % Eaten 50% Dinner % Eaten 100% Number of Unmeasured Voids 3 Number of Bowel Movements 1 1 Urine Bedside Commode Bathroom Urine Color Concentrated Yellow Last Bowel Movement 08/08/23 08/08/23 Stool Bathroom Bathroom Stool Amount Small Moderate Stool Color Brown Brown Stool Consistency Formed Loose Weight 111 kg BMI result Body Mass Index 44.8 - Constitutional Present: mild distress - Routine HEENT Exam Head: Present: normal inspection - Routine Neck Exam Absent: lymphadenopathy - Routine Respiratory Exam Absent: accessory muscle use - Routine Cardiovascular Exam Cardiovascular: Present: S1, S2 Data - Labs CBC & Chem 7: 08/09/23 05:23 08/09/23 05:23 - Imaging Radiologist's impression: ITS Impressions Chest X-Ray 08/04/23 08:50 IMPRESSION: No acute pulmonary pathology. KUB X-Ray 08/05/23 10:10 IMPRESSION: Nonspecific bowel gas pattern with slightly distended air-filled loops of small bowel and paucity of bowel gas in the large bowel. Chest X-Ray 08/06/23 09:52 IMPRESSION: Nasogastric tube projects over stomach. KUB X-Ray 08/09/23 05:02 IMPRESSION: Redemonstrated gaseous distention of small and large bowel loops, similar to 08/05/2023 and which may be indicative of ileus. Chest X-Ray 08/09/23 05:50 IMPRESSION: Enteric tube courses into the right lower lobe bronchus with tip at the right base. Repositioning is required. This critical result was discussed with Dr. Ho on 08/09/2023 6:59 AM, and it was ascertained that the content and urgency of the report was understood at the time of direct communication. Assessment and Plan Patient Active problem list reviewed?: Yes (1) Mass of cecum Status: Acute Assessment and plan: 1. 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 She underwent surgery, exploratory laparotomy, ileal right colectomy/appendectomy on 08/01/2023. 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 Positive radial margin, tumor extends from area vermiform appendix to ileocecal valve. Nineteen tumor deposits present. Metastatic carcinoma in 2 of 10 lymph nodes examined. Stage pT4a N1b M1c, AJCC Stage IV. MSI stabe. NGS tests pending. She will need PET-CT as outpatient for complete staging. Both patient and brother were explained the results further management which is palliative systemic therapy based on further molecular markers. All the questions were answered to their satisfaction. 2. Iron deficiency anemia, chronic kidney disease. She would benefit from parenteral iron therapy. Venofer infusions can be given as inpatient. 3. Spontaneous pulmonary embolism in November 2022. This is probably related to underlying malignancy. Needs to be restarted on anticoagulation when cleared by surgery. - Time Spent With Patient Time Spent with Patient (in minutes): 25
[2023-08-09] MEDS: ALPRAZolam 0.25 MG TABLET PO (11:46)
--- NOTE | 2023-08-09 13:41 | MHC.CM.PN ---
per rounds pt is not ready for dc is npo dc plan pending
[2023-08-09] MEDS: oxyCODONE HCl Immed Release 5 MG TABLET PO ×2 (14:56→22:35)
[2023-08-09] MEDS: Omeprazole 20 MG CAPSULE.DR PO (17:07)
[2023-08-09] MEDS: Warfarin Sodium 5 MG TABLET PO (17:08)
[2023-08-09] MEDS: clonazePAM 1 MG TABLET 2 MG PO (22:35)
[2023-08-09] MEDS: cloNIDine HCL 0.1 MG TABLET PO (22:36)
[2023-08-10] VITALS (8 sets, daily range): BP systolic 123–161; BP diastolic 58–80; PULSE 69–100; RESP 17–20; TEMP 36–36.9; O2SAT 93–100
[2023-08-10] MEDS: Lactated Ringers 1,000 ML 50 ML IVCONT (04:25)
[2023-08-10] MEDS: oxyCODONE HCl Immed Release 5 MG TABLET PO ×3 (05:19→18:41)
[2023-08-10 06:26] LABS: Hemoglobin 9.3 g/dl (12.0-16.0); Mean Corpuscular Hemoglobin 27.1 pg (27.0-33.0); Mean Corpuscular Volume 87.5 fL (80.0-98.0); Mean Platelet Volume 9.1 fL (9.4-12.3); Platelet Count 389 X10*3/uL (160-400); Red Blood Count 3.43 X10*6/uL (4.20-5.50); Red Cell Distribution Width 20.2 % (11.0-16.0); White Blood Count 11.6 X10*3/uL (4.8-10.8)
[2023-08-10 06:40] LABS: Anion Gap 15 (12-20); Blood Urea Nitrogen 7 mg/dL (9-16); Calcium 8.8 mg/dL (8.4-10.2); Carbon Dioxide 20 mmol/L (22-29); Chloride 108 mmol/L (96-108); Creatinine Clr Calc Pharmacy 58.6; Estimated Glomerular Filt Rate 50; Glucose Fasting 77 mg/dL (60-99); Potassium 3.8 mmol/L (3.3-5.1); Sodium 139 mmol/L (135-145)
[2023-08-10 06:48] LABS: INTERNATIONAL NORM RATIO 1.8 (0.9-1.1)
[2023-08-10] MEDS: Atorvastatin Calcium 20 MG TABLET PO (07:48)
[2023-08-10] MEDS: buPROPion HCl XL 300 MG TAB.ER.24H PO (07:49)
[2023-08-10] MEDS: FLUoxetine HCl 20 MG CAPSULE 40 MG PO (07:49)
[2023-08-10] MEDS: amLODIPine Besylate 2.5 MG TABLET PO (07:49)
[2023-08-10] MEDS: guaiFENesin LA 600 MG TAB.ER.12H PO ×2 (07:50→20:32)
[2023-08-10] MEDS: Fluticasone Propionate Nasal 16 GM SPRAY 2 SPRAY NOSTRIL-B (07:50)
[2023-08-10] MEDS: Enoxaparin Sodium 120 MG/0.8 ML SYRINGE 105 MG SUBCUT (07:50)
[2023-08-10] MEDS: Albuterol Sulfate (0.083%) 2.5 MG/3 ML VIAL.NEB INHALE ×3 (08:16→19:07)
--- NOTE | 2023-08-10 08:29 | P.PNIM_ITS ---
Subjective Subjective Date of Service: 08/10/23 Interval History: having loose stools, ready to advance to clears Physical Exam 2 Vital Signs: Vital Signs: Last Vital Signs Temp 98.4 F 08/10/23 07:28 Pulse 92 08/10/23 08:16 Resp 18 08/10/23 08:16 BP 161/80 H 08/10/23 07:28 Pulse Ox 93 08/10/23 07:28 O2 Del Method Room Air 08/10/23 07:28 O2 Flow Rate 2 08/07/23 06:48 FiO2 40 08/01/23 14:57 BMI result Body Mass Index 44.8 Const: General: no acute distress, alert and tired appearing Resp: Effort & Inspection: normal respiratory effort GI: Inspection: Yes distended and Yes incision (clean) Palpation (GI): Soft to palpation, Tenderness to palpation present (GI) (incisional), no guarding and not rigid Objective Data Active Medications Al Hydroxide/Mg Hydroxide (Magnesium Hydrox/Alum Hydrox 30 Ml Oral.Susp) 30 ml PO Q4H PRN PRN Reason: Heartburn Last Admin: 08/04/23 11:04 Dose: 30 ml Documented By: HARPREET Albuterol Sulfate (Albuterol Sulfate 90 Mcg 8 Gm Inhaler) 2 puff INHALE RQ4H PRN PRN Reason: Shortness Of Breath/Wheezing Last Admin: 08/04/23 08:06 Dose: 2 puff Documented By: HARPREET Albuterol Sulfate (Albuterol Sulfate (0.083%) 2.5 Mg/3 Ml Vial.Neb) 2.5 mg INHALE RQ4H WHILE AWAKE [facility] Last Admin: 08/10/23 08:16 Dose: 2.5 mg Documented By: RUBEN Amlodipine Besylate (Amlodipine Besylate 2.5 Mg Tablet) 2.5 mg PO DAILY [facility]; Protocol Last Admin: 08/10/23 07:49 Dose: 2.5 mg Documented By: JANET Ascorbic Acid (Ascorbic Acid 250 Mg Tablet) 250 mg PO DAILY [facility] Last Admin: 08/10/23 08:00 Dose: Not Given Documented By: JANET Non-Admin Reason: Patient Refused Atorvastatin Calcium (Atorvastatin Calcium 20 Mg Tablet) 20 mg PO DAILY [facility] Last Admin: 08/10/23 07:48 Dose: 20 mg Documented By: JANET Benzocaine (Throat Lozenge, Medicated Lozenge) 1 lozenge MUCOUS MEM Q2H PRN PRN Reason: Sore Throat Last Admin: 08/07/23 03:15 Dose: 1 lozenge Documented By: CHEYANNE Bupropion HCl (Bupropion Hcl Xl 300 Mg Tab.Er.24h) 300 mg PO DAILY [facility] Last Admin: 08/10/23 07:49 Dose: 300 mg Documented By: JANET Clonazepam (Clonazepam 1 Mg Tablet) 2 mg PO BEDTIME PRN PRN Reason: anxiety/restlessness Last Admin: 08/09/23 22:35 Dose: 2 mg Documented By: CHEYANNE Clonidine HCl (Clonidine Hcl 0.1 Mg Tablet) 0.1 mg PO BEDTIME [facility]; Protocol Last Admin: 08/09/23 22:36 Dose: 0.1 mg Documented By: CHEYANNE Docusate Sodium (Docusate Sodium 100 Mg Capsule) 100 mg PO BID [facility] Last Admin: 08/10/23 07:49 Dose: Not Given Documented By: JANET Non-Admin Reason: loose stools Enoxaparin Sodium (Enoxaparin Sodium 120 Mg/0.8 Ml Syringe) 105 mg 1 mg/kg (105 mg) SUBCUT Q12H [facility] Last Admin: 08/10/23 07:50 Dose: 105 mg Documented By: JANET Fluoxetine HCl (Fluoxetine Hcl 20 Mg Capsule) 40 mg PO DAILY [facility] Last Admin: 08/10/23 07:49 Dose: 40 mg Documented By: JANET Fluticasone Propionate (Fluticasone Propionate Nasal 16 Gm [place]) 2 spray NOSTRIL-B DAILY [facility] Last Admin: 08/10/23 07:50 Dose: 2 spray Documented By: JANET Gabapentin (Gabapentin 100 Mg Capsule) 100 mg PO BEDTIME [facility] Last Admin: 08/09/23 22:17 Dose: Not Given Documented By: CHEYANNE Non-Admin Reason: Patient Refused Guaifenesin (Guaifenesin La 600 Mg Tab.Er.12h) 600 mg PO BID [facility] Last Admin: 08/10/23 07:50 Dose: 600 mg Documented By: JANET Promethazine HCl 6.25 mg/ (Sodium Chloride) 50.25 mls @ 201 mls/hr IV Q6H PRN PRN Reason: Nausea and Vomiting Last Infusion: 08/09/23 22:53 Dose: Infused Documented By: CHEYANNE Lactated Ringer's (Lr) 1,000 mls @ 50 mls/hr IVCONT .Q20H [facility] Last Admin: 08/10/23 04:25 Dose: 50 mls/hr Documented By: CHEYANNE Loratadine (Loratadine 10 Mg Tablet) 10 mg PO BEDTIME [facility] Last Admin: 08/03/23 19:59 Dose: 10 mg Documented By: ISABELLE Omeprazole (Omeprazole 20 Mg Capsule.Dr) 20 mg PO BID@0630,1630 [facility] Last Admin: 08/10/23 04:13 Dose: Not Given Documented By: CHEYANNE Non-Admin Reason: Patient Refused Ondansetron HCl (Ondansetron Hcl 4 Mg/2 Ml Vial) 4 mg IVPUSH Q8H PRN PRN Reason: Nausea and Vomiting Last Admin: 08/09/23 00:56 Dose: 4 mg Documented By: DELFINO Oxycodone HCl (Oxycodone Hcl Immed Release 5 Mg Tablet) 5 mg PO Q4H PRN PRN Reason: Pain, Moderate(Pain Scale 4-6) Last Admin: 08/10/23 05:19 Dose: 5 mg Documented By: CHEYANNE Polyethylene Glycol (Polyethylene Glycol 3350 17 Gm Powd.Pack) 17 gm PO DAILY [facility] Last Admin: 08/10/23 07:48 Dose: Not Given Documented By: JANET Non-Admin Reason: pt w/ loose stools Quetiapine Fumarate (Quetiapine Fumarate 25 Mg Tablet) 25 mg PO BEDTIME [facility] Last Admin: 08/09/23 22:36 Dose: Not Given Documented By: CHEYANNE Non-Admin Reason: Patient Refused Sodium Chloride (0.9 % Sodium Chloride Flush 3 Ml Syringe) 3 ml IVFLUSH QSHIFT [facility] Last Admin: 08/10/23 07:47 Dose: Not Given Documented By: JANET Non-Admin Reason: IV Running Warfarin Sodium (Warfarin Sodium 5 Mg Tablet) 5 mg PO DAILY@1800 [facility] Last Admin: 08/09/23 17:08 Dose: 5 mg Documented By: KESHAOS Labs 08/10/23 05:34 08/10/23 05:34 Labs: Laboratory Results - last 24 hr 08/10/23 05:34 MCV 87.5 MCH 27.1 MCHC 31.0 RDW 20.2 H Plt Count 389 MPV 9.1 L Absolute Nucleated RBC 0.000 Nucleated RBC % (auto) 0.0 PT 22.0 H D INR 1.8 H Anion Gap 15 Estim Creat Clear Calc 58.6 Estimated GFR 50 Fasting Glucose 77 Calcium 8.8 Assessment and Plan (1) Acute on chronic blood loss anemia: Status: Acute (2) Postoperative ileus: Status: Acute (3) S/P right colectomy: Status: Acute (4) Acute kidney injury superimposed on CKD: Status: Acute Plan 67-year-old female with a PMH significant for CKD stage 4, ANTHONY, GERD, HTN, HLD, HELENA on CPAP, PTSD, history of PE on Coumadin (Nov 2022 continue x 1 year per hematology) who was originally admitted to [facility] on 07/28/2023 for increased depression with SI secondary to loss of her from stage IV lung cancer in February 2023. 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) s/p exploratory laparotomy, ileo- right colectomy /appendectomy, partial omentectomy on 08/01/23 transfused 1 unit prbc, hgb improved appropriately, continue to monitor, iv iron Complicated by postop ileus, initially resolved, now with recurrence start clears today Outpatient PET scan and oncology follow-up history of PE in nov 2022 restarted coumadin with lovenox bridge inr 1.8, will dc lovenox CKD III stable Hypokalemia Resolved HELENA CPAP Mild intermittent asthma Stable HLD Continue statin Full Code DVT Prophylaxis: coumadin reason for continued hospitalization:await return of gi function Time Spent With Patient Time: Total time managing care of this patient today ____ minutes. Quality Stroke Does the patient have a stroke diagnosis?: No VTE Prior VTE?: No VTE Risk Level:: Medical - moderate - high VTE Device Contraindication: N/A - Device Ordered VTE Drug Contraindication: Treatment Not Indicated
[2023-08-10] MEDS: Iron Sucrose Complex 200 MG in 0.9 % Sodium Chloride 100 ML 440 MG IV (09:40)
--- NOTE | 2023-08-10 09:52 | PM.PNGS ---
Subjective Subjective Date of Service: 08/10/23 Interval history: she says she has had no vomitting for 24H passing flatus says she is tolerating clear liquids denies severe pain Physical Exam Vital Signs: Vital Signs: Last Vital Signs Temp 98.4 F 08/10/23 07:28 Pulse 92 08/10/23 08:16 Resp 18 08/10/23 08:16 BP 161/80 H 08/10/23 07:28 Pulse Ox 93 08/10/23 07:28 O2 Del Method Room Air 08/10/23 07:28 O2 Flow Rate 2 08/07/23 06:48 FiO2 40 08/01/23 14:57 BMI result Body Mass Index 44.8 Const: General: comfortable and no acute distress Resp: Effort & Inspection: normal respiratory effort Cardio: Rate: regular rate GI: Other: incision clean and dry Palpation (GI): Soft to palpation, not firm and no guarding Objective Data Active Medications Al Hydroxide/Mg Hydroxide (Magnesium Hydrox/Alum Hydrox 30 Ml Oral.Susp) 30 ml PO Q4H PRN PRN Reason: Heartburn Last Admin: 08/04/23 11:04 Dose: 30 ml Documented By: HARPREET Albuterol Sulfate (Albuterol Sulfate 90 Mcg 8 Gm Inhaler) 2 puff INHALE RQ4H PRN PRN Reason: Shortness Of Breath/Wheezing Last Admin: 08/04/23 08:06 Dose: 2 puff Documented By: HARPREET Albuterol Sulfate (Albuterol Sulfate (0.083%) 2.5 Mg/3 Ml Vial.Neb) 2.5 mg INHALE RQ4H WHILE AWAKE [facility] Last Admin: 08/10/23 08:16 Dose: 2.5 mg Documented By: RUBEN Amlodipine Besylate (Amlodipine Besylate 2.5 Mg Tablet) 2.5 mg PO DAILY [facility]; Protocol Last Admin: 08/10/23 07:49 Dose: 2.5 mg Documented By: JANET Ascorbic Acid (Ascorbic Acid 250 Mg Tablet) 250 mg PO DAILY [facility] Last Admin: 08/10/23 08:00 Dose: Not Given Documented By: JANET Non-Admin Reason: Patient Refused Atorvastatin Calcium (Atorvastatin Calcium 20 Mg Tablet) 20 mg PO DAILY [facility] Last Admin: 08/10/23 07:48 Dose: 20 mg Documented By: JANET Benzocaine (Throat Lozenge, Medicated Lozenge) 1 lozenge MUCOUS MEM Q2H PRN PRN Reason: Sore Throat Last Admin: 08/07/23 03:15 Dose: 1 lozenge Documented By: CHEYANNE Bupropion HCl (Bupropion Hcl Xl 300 Mg Tab.Er.24h) 300 mg PO DAILY [facility] Last Admin: 08/10/23 07:49 Dose: 300 mg Documented By: JANET Clonazepam (Clonazepam 1 Mg Tablet) 2 mg PO BEDTIME PRN PRN Reason: anxiety/restlessness Last Admin: 08/09/23 22:35 Dose: 2 mg Documented By: CHEYANNE Clonidine HCl (Clonidine Hcl 0.1 Mg Tablet) 0.1 mg PO BEDTIME [facility]; Protocol Last Admin: 08/09/23 22:36 Dose: 0.1 mg Documented By: CHEYANNE Docusate Sodium (Docusate Sodium 100 Mg Capsule) 100 mg PO BID [facility] Last Admin: 08/10/23 07:49 Dose: Not Given Documented By: JANET Non-Admin Reason: loose stools Fluoxetine HCl (Fluoxetine Hcl 20 Mg Capsule) 40 mg PO DAILY [facility] Last Admin: 08/10/23 07:49 Dose: 40 mg Documented By: JANET Fluticasone Propionate (Fluticasone Propionate Nasal 16 Gm [place]) 2 spray NOSTRIL-B DAILY [facility] Last Admin: 08/10/23 07:50 Dose: 2 spray Documented By: JANET Gabapentin (Gabapentin 100 Mg Capsule) 100 mg PO BEDTIME [facility] Last Admin: 08/09/23 22:17 Dose: Not Given Documented By: CHEYANNE Non-Admin Reason: Patient Refused Guaifenesin (Guaifenesin La 600 Mg Tab.Er.12h) 600 mg PO BID [facility] Last Admin: 08/10/23 07:50 Dose: 600 mg Documented By: JANET Promethazine HCl 6.25 mg/ (Sodium Chloride) 50.25 mls @ 201 mls/hr IV Q6H PRN PRN Reason: Nausea and Vomiting Last Infusion: 08/09/23 22:53 Dose: Infused Documented By: CHEYANNE Lactated Ringer's (Lr) 1,000 mls @ 50 mls/hr IVCONT .Q20H [facility] Last Admin: 08/10/23 04:25 Dose: 50 mls/hr Documented By: CHEYANNE Loratadine (Loratadine 10 Mg Tablet) 10 mg PO BEDTIME [facility] Last Admin: 08/03/23 19:59 Dose: 10 mg Documented By: ISABELLE Omeprazole (Omeprazole 20 Mg Capsule.Dr) 20 mg PO BID@0630,1630 [facility] Last Admin: 08/10/23 04:13 Dose: Not Given Documented By: CHEYANNE Non-Admin Reason: Patient Refused Ondansetron HCl (Ondansetron Hcl 4 Mg/2 Ml Vial) 4 mg IVPUSH Q8H PRN PRN Reason: Nausea and Vomiting Last Admin: 08/09/23 00:56 Dose: 4 mg Documented By: DELFINO Oxycodone HCl (Oxycodone Hcl Immed Release 5 Mg Tablet) 5 mg PO Q4H PRN PRN Reason: Pain, Moderate(Pain Scale 4-6) Last Admin: 08/10/23 05:19 Dose: 5 mg Documented By: CHEYANNE Polyethylene Glycol (Polyethylene Glycol 3350 17 Gm Powd.Pack) 17 gm PO DAILY [facility] Last Admin: 08/10/23 07:48 Dose: Not Given Documented By: JANET Non-Admin Reason: pt w/ loose stools Quetiapine Fumarate (Quetiapine Fumarate 25 Mg Tablet) 25 mg PO BEDTIME [facility] Last Admin: 08/09/23 22:36 Dose: Not Given Documented By: CHEYANNE Non-Admin Reason: Patient Refused Sodium Chloride (0.9 % Sodium Chloride Flush 3 Ml Syringe) 3 ml IVFLUSH QSHIFT [facility] Last Admin: 08/10/23 07:47 Dose: Not Given Documented By: JANET Non-Admin Reason: IV Running Warfarin Sodium (Warfarin Sodium 2.5 Mg Tablet) 2.5 mg PO DAILY@1800 [facility] Labs 08/10/23 05:34 08/10/23 05:34 Labs: Laboratory Results - last 24 hr 08/10/23 05:34 MCV 87.5 MCH 27.1 MCHC 31.0 RDW 20.2 H Plt Count 389 MPV 9.1 L Absolute Nucleated RBC 0.000 Nucleated RBC % (auto) 0.0 PT 22.0 H D INR 1.8 H Anion Gap 15 Estim Creat Clear Calc 58.6 Estimated GFR 50 Fasting Glucose 77 Calcium 8.8 Procedures Date of Service Date of Service: 08/10/23 Progress Note: A&P Assessment and plan (1) Postoperative ileus: Status: Acute Assessment and Plan: postop ileus seems resolved tolerating clears ok to advance diet slowly encourage to get out of bed exam benign Time Spent With Patient Time: Total time managing care of this patient today ____ minutes. Quality Stroke Does the patient have a stroke diagnosis?: No VTE Prior VTE?: No VTE Risk Level:: Medical - moderate - high VTE Device Contraindication: N/A - Device Ordered VTE Drug Contraindication: Treatment Not Indicated
[2023-08-10] MEDS: Omeprazole 20 MG CAPSULE.DR PO (17:22)
[2023-08-10] MEDS: Warfarin Sodium 2.5 MG TABLET PO (17:22)
[2023-08-10] MEDS: Simethicone 80 MG TAB.CHEW PO (18:41)
[2023-08-10] MEDS: cloNIDine HCL 0.1 MG TABLET PO (20:32)
[2023-08-10] MEDS: Gabapentin 100 MG CAPSULE PO (20:32)
[2023-08-10] MEDS: QUEtiapine Fumarate 25 MG TABLET PO (20:32)
[2023-08-10] MEDS: 0.9 % Sodium Chloride Flush 3 ML SYRINGE IVFLUSH (20:33)
[2023-08-11] MEDS: Lactated Ringers 1,000 ML 50 ML IVCONT ×2 (00:34→20:34)
[2023-08-11] MEDS: Omeprazole 20 MG CAPSULE.DR PO ×2 (05:25→15:10)
[2023-08-11] MEDS: oxyCODONE HCl Immed Release 5 MG TABLET PO ×3 (05:27→20:32)
[2023-08-11 06:24] LABS: INTERNATIONAL NORM RATIO 2.6 (0.9-1.1); Prothrombin Time 32.2 SEC (11.1-13.3)
[2023-08-11 07:48] VITALS: BP 152/81; PULSE 91; RESP 18; TEMP 36.6; O2SAT 96
[2023-08-11] MEDS: Atorvastatin Calcium 20 MG TABLET PO (08:04)
[2023-08-11] MEDS: guaiFENesin LA 600 MG TAB.ER.12H PO ×2 (08:04→20:29)
[2023-08-11] MEDS: amLODIPine Besylate 2.5 MG TABLET PO (08:04)
[2023-08-11] MEDS: FLUoxetine HCl 20 MG CAPSULE 40 MG PO (08:04)
[2023-08-11] MEDS: buPROPion HCl XL 300 MG TAB.ER.24H PO (08:05)
[2023-08-11] MEDS: Ascorbic Acid 250 MG TABLET PO (08:05)
[2023-08-11] MEDS: Fluticasone Propionate Nasal 16 GM SPRAY 2 SPRAY NOSTRIL-B (08:11)
--- NOTE | 2023-08-11 08:23 | HO.PM.IMPN ---
Subjective Subjective Date of Service: 08/11/23 Interval History: still with abd pain, having bms Physical Exam Vital Signs: Vital Signs: Last Vital Signs Temp 97.8 F 08/11/23 07:48 Pulse 91 08/11/23 07:48 Resp 18 08/11/23 07:48 BP 152/81 H 08/11/23 07:48 Pulse Ox 96 08/11/23 07:48 O2 Del Method Room Air 08/11/23 07:48 O2 Flow Rate 2 08/07/23 06:48 FiO2 40 08/01/23 14:57 BMI result Body Mass Index 44.8 Const: General: comfortable and no acute distress Resp: Effort & Inspection: normal respiratory effort Cardio: Rate: regular rate GI: Other: incision clean and dry Palpation (GI): Soft to palpation, not firm and no guarding Objective Data Active Medications Al Hydroxide/Mg Hydroxide (Magnesium Hydrox/Alum Hydrox 30 Ml Oral.Susp) 30 ml PO Q4H PRN PRN Reason: Heartburn Last Admin: 08/04/23 11:04 Dose: 30 ml Documented By: HARPREET Albuterol Sulfate (Albuterol Sulfate 90 Mcg 8 Gm Inhaler) 2 puff INHALE RQ4H PRN PRN Reason: Shortness Of Breath/Wheezing Last Admin: 08/04/23 08:06 Dose: 2 puff Documented By: HARPREET Albuterol Sulfate (Albuterol Sulfate (0.083%) 2.5 Mg/3 Ml Vial.Neb) 2.5 mg INHALE RQ4H WHILE AWAKE [facility] Last Admin: 08/10/23 19:07 Dose: 2.5 mg Documented By: CONNIE Amlodipine Besylate (Amlodipine Besylate 2.5 Mg Tablet) 2.5 mg PO DAILY [facility]; Protocol Last Admin: 08/11/23 08:04 Dose: 2.5 mg Documented By: VIOLET Ascorbic Acid (Ascorbic Acid 250 Mg Tablet) 250 mg PO DAILY [facility] Last Admin: 08/11/23 08:05 Dose: 250 mg Documented By: VIOLET Atorvastatin Calcium (Atorvastatin Calcium 20 Mg Tablet) 20 mg PO DAILY [facility] Last Admin: 08/11/23 08:04 Dose: 20 mg Documented By: VIOLET Benzocaine (Throat Lozenge, Medicated Lozenge) 1 lozenge MUCOUS MEM Q2H PRN PRN Reason: Sore Throat Last Admin: 08/07/23 03:15 Dose: 1 lozenge Documented By: CHEYANNE Bupropion HCl (Bupropion Hcl Xl 300 Mg Tab.Er.24h) 300 mg PO DAILY [facility] Last Admin: 08/11/23 08:05 Dose: 300 mg Documented By: VIOLET Clonazepam (Clonazepam 1 Mg Tablet) 2 mg PO BEDTIME PRN PRN Reason: anxiety/restlessness Last Admin: 08/09/23 22:35 Dose: 2 mg Documented By: CHEYANNE Clonidine HCl (Clonidine Hcl 0.1 Mg Tablet) 0.1 mg PO BEDTIME [facility]; Protocol Last Admin: 08/10/23 20:32 Dose: 0.1 mg Documented By: DELFINO Docusate Sodium (Docusate Sodium 100 Mg Capsule) 100 mg PO BID [facility] Last Admin: 08/11/23 08:07 Dose: Not Given Documented By: VIOLET Non-Admin Reason: Patient Refused Fluoxetine HCl (Fluoxetine Hcl 20 Mg Capsule) 40 mg PO DAILY [facility] Last Admin: 08/11/23 08:04 Dose: 40 mg Documented By: VIOLET Fluticasone Propionate (Fluticasone Propionate Nasal 16 Gm [place]) 2 spray NOSTRIL-B DAILY [facility] Last Admin: 08/11/23 08:11 Dose: 2 spray Documented By: VIOLET Gabapentin (Gabapentin 100 Mg Capsule) 100 mg PO BEDTIME [facility] Last Admin: 08/10/23 20:32 Dose: 100 mg Documented By: DELFINO Guaifenesin (Guaifenesin La 600 Mg Tab.Er.12h) 600 mg PO BID [facility] Last Admin: 08/11/23 08:04 Dose: 600 mg Documented By: VIOLET Promethazine HCl 6.25 mg/ (Sodium Chloride) 50.25 mls @ 201 mls/hr IV Q6H PRN PRN Reason: Nausea and Vomiting Last Infusion: 08/10/23 18:40 Dose: Infused Documented By: JANET Lactated Ringer's (Lr) 1,000 mls @ 50 mls/hr IVCONT .Q20H [facility] Last Admin: 08/11/23 00:34 Dose: 50 mls/hr Documented By: DELFINO Loratadine (Loratadine 10 Mg Tablet) 10 mg PO BEDTIME [facility] Last Admin: 08/03/23 19:59 Dose: 10 mg Documented By: ISABELLE Omeprazole (Omeprazole 20 Mg Capsule.) 20 mg PO BID@0630,1630 [facility] Last Admin: 08/11/23 05:25 Dose: 20 mg Documented By: DELFINO Ondansetron HCl (Ondansetron Hcl 4 Mg/2 Ml Vial) 4 mg IVPUSH Q8H PRN PRN Reason: Nausea and Vomiting Last Admin: 08/09/23 00:56 Dose: 4 mg Documented By: DELFINO Oxycodone HCl (Oxycodone Hcl Immed Release 5 Mg Tablet) 5 mg PO Q4H PRN PRN Reason: Pain, Severe (Pain Scale 7-10) Last Admin: 08/11/23 05:27 Dose: 5 mg Documented By: DELFINO Polyethylene Glycol (Polyethylene Glycol 3350 17 Gm Powd.Pack) 17 gm PO DAILY [facility] Last Admin: 08/11/23 08:07 Dose: Not Given Documented By: VIOLET Non-Admin Reason: Patient Refused Quetiapine Fumarate (Quetiapine Fumarate 25 Mg Tablet) 25 mg PO BEDTIME [facility] Last Admin: 08/10/23 20:32 Dose: 25 mg Documented By: DELFINO Simethicone (Simethicone 80 Mg Tab.Chew) 80 mg PO QIDWMHS PRN PRN Reason: Gas Last Admin: 08/10/23 18:41 Dose: 80 mg Documented By: JANET Sodium Chloride (0.9 % Sodium Chloride Flush 3 Ml Syringe) 3 ml IVFLUSH QSHIFT [facility] Last Admin: 08/11/23 08:06 Dose: Not Given Documented By: VIOLET Non-Admin Reason: IV Running Warfarin Sodium (Warfarin Sodium 2.5 Mg Tablet) 2.5 mg PO DAILY@1800 [facility] Last Admin: 08/10/23 17:22 Dose: 2.5 mg Documented By: JANET Labs 08/10/23 05:34 08/10/23 05:34 Labs: Laboratory Results - last 24 hr 08/11/23 08/11/23 05:31 05:34 Hold Purple Top SEE NOTE PT 32.2 H D INR 2.6 H Hold Green Top See Note Assessment and Plan (1) Acute on chronic blood loss anemia: Status: Acute (2) Postoperative ileus: Status: Acute (3) S/P right colectomy: Status: Acute (4) Acute kidney injury superimposed on CKD: Status: Acute Plan 67-year-old female with a PMH significant for CKD stage 4, ANTHONY, GERD, HTN, HLD, HELENA on CPAP, PTSD, history of PE on Coumadin (Nov 2022 continue x 1 year per hematology) who was originally admitted to [facility] on 07/28/2023 for increased depression with SI secondary to loss of her from stage IV lung cancer in February 2023. 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) s/p exploratory laparotomy, ileo- right colectomy /appendectomy, partial omentectomy on 08/01/23 transfused 1 unit prbc, hgb improved appropriately, continue to monitor, iv iron Complicated by postop ileus tolerated clears, having bms, will advance to full liquids Outpatient PET scan and oncology follow-up history of PE in nov 2022 restarted coumadin CKD III stable Hypokalemia Resolved HELENA CPAP Mild intermittent asthma Stable HLD Continue statin Full Code DVT Prophylaxis: coumadin reason for continued hospitalization:await return of gi function Time Spent With Patient Time: Total time managing care of this patient today ____ minutes. Quality Stroke Does the patient have a stroke diagnosis?: No VTE Prior VTE?: No VTE Risk Level:: Medical - moderate - high VTE Device Contraindication: N/A - Device Ordered VTE Drug Contraindication: Treatment Not Indicated
[2023-08-11] MEDS: Albuterol Sulfate (0.083%) 2.5 MG/3 ML VIAL.NEB INHALE ×2 (08:41→11:50)
[2023-08-11 08:42] VITALS: PULSE 88; RESP 18; O2SAT 96
--- NOTE | 2023-08-11 09:28 | PM.PNGS ---
Subjective Subjective Date of Service: 08/11/23 Interval history: no nausea or vomitting passing flatus tolerating clear liq Physical Exam Vital Signs: Vital Signs: Last Vital Signs Temp 97.8 F 08/11/23 07:48 Pulse 88 08/11/23 08:42 Resp 18 08/11/23 08:42 BP 152/81 H 08/11/23 07:48 Pulse Ox 96 08/11/23 07:48 O2 Del Method Room Air 08/11/23 07:48 O2 Flow Rate 2 08/07/23 06:48 FiO2 40 08/01/23 14:57 BMI result Body Mass Index 44.8 Const: Other: sitting on recliner General: comfortable and no acute distress Resp: Effort & Inspection: normal respiratory effort Cardio: Rate: regular rate GI: Other: incision clean and dry Palpation (GI): Soft to palpation, not firm, nontender and no guarding Objective Data Active Medications Al Hydroxide/Mg Hydroxide (Magnesium Hydrox/Alum Hydrox 30 Ml Oral.Susp) 30 ml PO Q4H PRN PRN Reason: Heartburn Last Admin: 08/04/23 11:04 Dose: 30 ml Documented By: HARPREET Albuterol Sulfate (Albuterol Sulfate 90 Mcg 8 Gm Inhaler) 2 puff INHALE RQ4H PRN PRN Reason: Shortness Of Breath/Wheezing Last Admin: 08/04/23 08:06 Dose: 2 puff Documented By: HARPREET Albuterol Sulfate (Albuterol Sulfate (0.083%) 2.5 Mg/3 Ml Vial.Neb) 2.5 mg INHALE RQ4H WHILE AWAKE [facility] Last Admin: 08/11/23 08:41 Dose: 2.5 mg Documented By: RUBEN Amlodipine Besylate (Amlodipine Besylate 2.5 Mg Tablet) 2.5 mg PO DAILY [facility]; Protocol Last Admin: 08/11/23 08:04 Dose: 2.5 mg Documented By: VIOLET Ascorbic Acid (Ascorbic Acid 250 Mg Tablet) 250 mg PO DAILY [facility] Last Admin: 08/11/23 08:05 Dose: 250 mg Documented By: VIOLET Atorvastatin Calcium (Atorvastatin Calcium 20 Mg Tablet) 20 mg PO DAILY [facility] Last Admin: 08/11/23 08:04 Dose: 20 mg Documented By: VIOLET Benzocaine (Throat Lozenge, Medicated Lozenge) 1 lozenge MUCOUS MEM Q2H PRN PRN Reason: Sore Throat Last Admin: 08/07/23 03:15 Dose: 1 lozenge Documented By: CHEYANNE Bupropion HCl (Bupropion Hcl Xl 300 Mg Tab.Er.24h) 300 mg PO DAILY [facility] Last Admin: 08/11/23 08:05 Dose: 300 mg Documented By: VIOLET Clonazepam (Clonazepam 1 Mg Tablet) 2 mg PO BEDTIME PRN PRN Reason: anxiety/restlessness Last Admin: 08/09/23 22:35 Dose: 2 mg Documented By: CHEYANNE Clonidine HCl (Clonidine Hcl 0.1 Mg Tablet) 0.1 mg PO BEDTIME [facility]; Protocol Last Admin: 08/10/23 20:32 Dose: 0.1 mg Documented By: DELFINO Docusate Sodium (Docusate Sodium 100 Mg Capsule) 100 mg PO BID [facility] Last Admin: 08/11/23 08:07 Dose: Not Given Documented By: VIOLET Non-Admin Reason: Patient Refused Fluoxetine HCl (Fluoxetine Hcl 20 Mg Capsule) 40 mg PO DAILY [facility] Last Admin: 08/11/23 08:04 Dose: 40 mg Documented By: VIOLET Fluticasone Propionate (Fluticasone Propionate Nasal 16 Gm [place]) 2 spray NOSTRIL-B DAILY [facility] Last Admin: 08/11/23 08:11 Dose: 2 spray Documented By: VIOLET Gabapentin (Gabapentin 100 Mg Capsule) 100 mg PO BEDTIME [facility] Last Admin: 08/10/23 20:32 Dose: 100 mg Documented By: DELFINO Guaifenesin (Guaifenesin La 600 Mg Tab.Er.12h) 600 mg PO BID [facility] Last Admin: 08/11/23 08:04 Dose: 600 mg Documented By: VIOLET Promethazine HCl 6.25 mg/ (Sodium Chloride) 50.25 mls @ 201 mls/hr IV Q6H PRN PRN Reason: Nausea and Vomiting Last Infusion: 08/10/23 18:40 Dose: Infused Documented By: JANET Lactated Ringer's (Lr) 1,000 mls @ 50 mls/hr IVCONT .Q20H [facility] Last Admin: 08/11/23 00:34 Dose: 50 mls/hr Documented By: DELFINO Loratadine (Loratadine 10 Mg Tablet) 10 mg PO BEDTIME [facility] Last Admin: 08/03/23 19:59 Dose: 10 mg Documented By: ISABELLE Omeprazole (Omeprazole 20 Mg Capsule.Dr) 20 mg PO BID@0630,1630 [facility] Last Admin: 08/11/23 05:25 Dose: 20 mg Documented By: DELFINO Ondansetron HCl (Ondansetron Hcl 4 Mg/2 Ml Vial) 4 mg IVPUSH Q8H PRN PRN Reason: Nausea and Vomiting Last Admin: 08/09/23 00:56 Dose: 4 mg Documented By: DELFINO Oxycodone HCl (Oxycodone Hcl Immed Release 5 Mg Tablet) 5 mg PO Q4H PRN PRN Reason: Pain, Severe (Pain Scale 7-10) Last Admin: 08/11/23 05:27 Dose: 5 mg Documented By: DELFINO Polyethylene Glycol (Polyethylene Glycol 3350 17 Gm Powd.Pack) 17 gm PO DAILY [facility] Last Admin: 08/11/23 08:07 Dose: Not Given Documented By: VIOLET Non-Admin Reason: Patient Refused Quetiapine Fumarate (Quetiapine Fumarate 25 Mg Tablet) 25 mg PO BEDTIME [facility] Last Admin: 08/10/23 20:32 Dose: 25 mg Documented By: DELFINO Simethicone (Simethicone 80 Mg Tab.Chew) 80 mg PO QIDWMHS PRN PRN Reason: Gas Last Admin: 08/10/23 18:41 Dose: 80 mg Documented By: JANET Sodium Chloride (0.9 % Sodium Chloride Flush 3 Ml Syringe) 3 ml IVFLUSH QSHIFT [facility] Last Admin: 08/11/23 08:06 Dose: Not Given Documented By: VIOLET Non-Admin Reason: IV Running Warfarin Sodium (Warfarin Sodium 2.5 Mg Tablet) 2.5 mg PO DAILY@1800 [facility] Last Admin: 08/10/23 17:22 Dose: 2.5 mg Documented By: JANET Labs 08/10/23 05:34 08/10/23 05:34 Labs: Laboratory Results - last 24 hr 08/11/23 08/11/23 05:31 05:34 Hold Purple Top SEE NOTE PT 32.2 H D INR 2.6 H Hold Green Top See Note Procedures Date of Service Date of Service: 08/11/23 Progress Note: A&P Assessment and plan (1) Postoperative ileus: Status: Acute Assessment and Plan: much improved seems to have good GI function diet as tolerated OOB rest of care as per Hospitalist Time Spent With Patient Time: Total time managing care of this patient today ____ minutes. Quality Stroke Does the patient have a stroke diagnosis?: No VTE Prior VTE?: No VTE Risk Level:: Medical - moderate - high VTE Device Contraindication: N/A - Device Ordered VTE Drug Contraindication: Treatment Not Indicated
[2023-08-11 11:50] VITALS: PULSE 93; RESP 21; O2SAT 95
[2023-08-11] MEDS: 0.9 % Sodium Chloride Flush 3 ML SYRINGE IVFLUSH (15:11)
[2023-08-11 15:52] VITALS: BP 158/74; PULSE 92; RESP 18; TEMP 36.6; O2SAT 95
[2023-08-11 20:00] VITALS: BP 146/67; PULSE 93; RESP 18; TEMP 36.5; O2SAT 94
[2023-08-11] MEDS: Docusate Sodium 100 MG CAPSULE PO (20:29)
[2023-08-11] MEDS: Gabapentin 100 MG CAPSULE PO (20:29)
[2023-08-11] MEDS: cloNIDine HCL 0.1 MG TABLET PO (20:29)
[2023-08-11] MEDS: QUEtiapine Fumarate 25 MG TABLET PO (20:29)
[2023-08-12] MEDS: oxyCODONE HCl Immed Release 5 MG TABLET PO ×3 (01:10→18:11)
[2023-08-12 03:04] VITALS: BP 145/66; PULSE 85; RESP 16; TEMP 36.2; O2SAT 95
[2023-08-12] MEDS: Omeprazole 20 MG CAPSULE.DR PO ×2 (05:44→15:37)
[2023-08-12 06:10] LABS: Prothrombin Time 36.3 SEC (11.1-13.3)
[2023-08-12 06:13] LABS: Anion Gap 15 (12-20); Blood Urea Nitrogen 4 mg/dL (9-16); Carbon Dioxide 23 mmol/L (22-29); Chloride 107 mmol/L (96-108); Creatinine Clr Calc Pharmacy 52.3; Estimated Glomerular Filt Rate 44; Glucose Fasting 87 mg/dL (60-99); Potassium 3.5 mmol/L (3.3-5.1); Sodium 141 mmol/L (135-145)
[2023-08-12 06:25] LABS: Hematocrit 31.5 % (37.0-47.0); Hemoglobin 9.6 g/dl (12.0-16.0); Mean Corpuscular HGB Conc 30.5 g/dl (31.0-35.0); Mean Corpuscular Hemoglobin 26.4 pg (27.0-33.0); Mean Corpuscular Volume 86.8 fL (80.0-98.0); Platelet Count 430 X10*3/uL (160-400); Red Blood Count 3.63 X10*6/uL (4.20-5.50); Red Cell Distribution Width 20.4 % (11.0-16.0); White Blood Count 10.5 X10*3/uL (4.8-10.8)
[2023-08-12 07:27] VITALS: BP 185/87; PULSE 93; RESP 20; TEMP 36.9; O2SAT 95
[2023-08-12] MEDS: buPROPion HCl XL 300 MG TAB.ER.24H PO (07:58)
[2023-08-12] MEDS: FLUoxetine HCl 20 MG CAPSULE 40 MG PO (07:58)
[2023-08-12] MEDS: guaiFENesin LA 600 MG TAB.ER.12H PO ×2 (07:58→21:01)
[2023-08-12] MEDS: Atorvastatin Calcium 20 MG TABLET PO (07:58)
[2023-08-12] MEDS: Simethicone 80 MG TAB.CHEW PO ×2 (07:58→15:48)
[2023-08-12] MEDS: polyethylene glycoL 3350 17 GM POWD.PACK PO (07:59)
[2023-08-12] MEDS: amLODIPine Besylate 2.5 MG TABLET PO (07:59)
[2023-08-12] MEDS: Ascorbic Acid 250 MG TABLET PO (07:59)
[2023-08-12] MEDS: Docusate Sodium 100 MG CAPSULE PO ×2 (07:59→21:01)
[2023-08-12] MEDS: Fluticasone Propionate Nasal 16 GM SPRAY 2 SPRAY NOSTRIL-B (08:00)
[2023-08-12] MEDS: ondansetron HCL 4 MG/2 ML VIAL IVPUSH (08:57)
--- NOTE | 2023-08-12 09:06 | P.PNGS_ITS ---
Subjective Subjective Date of Service: 08/12/23 Interval history: Patient feeling much better. Looks more awake and alert. Tolerating a diet. Having bowel movements. Physical Exam 2 Vital Signs: Vital Signs: Last Vital Signs Temp 98.5 F 08/12/23 07:27 Pulse 93 08/12/23 07:27 Resp 20 08/12/23 07:27 BP 185/87 H 08/12/23 07:27 Pulse Ox 95 08/12/23 07:27 O2 Del Method Room Air 08/12/23 07:27 O2 Flow Rate 2 08/07/23 06:48 FiO2 40 08/01/23 14:57 BMI result Body Mass Index 44.8 GI: Other: Abdomen soft. Incision clean dry and intact healing uneventfully. Objective Data Active Medications Al Hydroxide/Mg Hydroxide (Magnesium Hydrox/Alum Hydrox 30 Ml Oral.Susp) 30 ml PO Q4H PRN PRN Reason: Heartburn Last Admin: 08/04/23 11:04 Dose: 30 ml Documented By: HARPREET Albuterol Sulfate (Albuterol Sulfate 90 Mcg 8 Gm Inhaler) 2 puff INHALE RQ4H PRN PRN Reason: Shortness Of Breath/Wheezing Last Admin: 08/04/23 08:06 Dose: 2 puff Documented By: HARRPEET Amlodipine Besylate (Amlodipine Besylate 2.5 Mg Tablet) 2.5 mg PO DAILY [facility]; Protocol Last Admin: 08/12/23 07:59 Dose: 2.5 mg Documented By: LEANDER Ascorbic Acid (Ascorbic Acid 250 Mg Tablet) 250 mg PO DAILY [facility] Last Admin: 08/12/23 07:59 Dose: 250 mg Documented By: LEANDER Atorvastatin Calcium (Atorvastatin Calcium 20 Mg Tablet) 20 mg PO DAILY [facility] Last Admin: 08/12/23 07:58 Dose: 20 mg Documented By: LEANDER Benzocaine (Throat Lozenge, Medicated Lozenge) 1 lozenge MUCOUS MEM Q2H PRN PRN Reason: Sore Throat Last Admin: 08/07/23 03:15 Dose: 1 lozenge Documented By: CHEYANNE Bupropion HCl (Bupropion Hcl Xl 300 Mg Tab.Er.24h) 300 mg PO DAILY [facility] Last Admin: 08/12/23 07:58 Dose: 300 mg Documented By: LEANDER Clonazepam (Clonazepam 1 Mg Tablet) 2 mg PO BEDTIME PRN PRN Reason: anxiety/restlessness Last Admin: 08/09/23 22:35 Dose: 2 mg Documented By: CHEYANNE Clonidine HCl (Clonidine Hcl 0.1 Mg Tablet) 0.1 mg PO BEDTIME [facility]; Protocol Last Admin: 08/11/23 20:29 Dose: 0.1 mg Documented By: KAMILLE Docusate Sodium (Docusate Sodium 100 Mg Capsule) 100 mg PO BID [facility] Last Admin: 08/12/23 07:59 Dose: 100 mg Documented By: LEANDER Fluoxetine HCl (Fluoxetine Hcl 20 Mg Capsule) 40 mg PO DAILY [facility] Last Admin: 08/12/23 07:58 Dose: 40 mg Documented By: LEANDER Fluticasone Propionate (Fluticasone Propionate Nasal 16 Gm [place]) 2 spray NOSTRIL-B DAILY [facility] Last Admin: 08/12/23 08:00 Dose: 2 spray Documented By: LEANDER Comments: barcode scan states not on med profile Gabapentin (Gabapentin 100 Mg Capsule) 100 mg PO BEDTIME [facility] Last Admin: 08/11/23 20:29 Dose: 100 mg Documented By: KAMILLE Guaifenesin (Guaifenesin La 600 Mg Tab.Er.12h) 600 mg PO BID [facility] Last Admin: 08/12/23 07:58 Dose: 600 mg Documented By: LEANDER Promethazine HCl 6.25 mg/ (Sodium Chloride) 50.25 mls @ 201 mls/hr IV Q6H PRN PRN Reason: Nausea and Vomiting Last Infusion: 08/10/23 18:40 Dose: Infused Documented By: JANET Lactated Ringer's (Lr) 1,000 mls @ 50 mls/hr IVCONT .Q20H [facility] Last Admin: 08/11/23 20:34 Dose: 50 mls/hr Documented By: KAMILLE Loratadine (Loratadine 10 Mg Tablet) 10 mg PO BEDTIME [facility] Last Admin: 08/03/23 19:59 Dose: 10 mg Documented By: ISABELLE Omeprazole (Omeprazole 20 Mg Capsule.) 20 mg PO BID@0630,1630 [facility] Last Admin: 08/12/23 05:44 Dose: 20 mg Documented By: HO.SEXK Ondansetron HCl (Ondansetron Hcl 4 Mg/2 Ml Vial) 4 mg IVPUSH Q8H PRN PRN Reason: Nausea and Vomiting Last Admin: 08/12/23 08:57 Dose: 4 mg Documented By: SOREN Oxycodone HCl (Oxycodone Hcl Immed Release 5 Mg Tablet) 5 mg PO Q4H PRN PRN Reason: Pain, Severe (Pain Scale 7-10) Last Admin: 08/12/23 01:10 Dose: 5 mg Documented By: LALI Polyethylene Glycol (Polyethylene Glycol 3350 17 Gm Powd.Pack) 17 gm PO DAILY [facility] Last Admin: 08/12/23 07:59 Dose: 17 gm Documented By: LEANDER Quetiapine Fumarate (Quetiapine Fumarate 25 Mg Tablet) 25 mg PO BEDTIME [facility] Last Admin: 08/11/23 20:29 Dose: 25 mg Documented By: BROBetsy Simethicone (Simethicone 80 Mg Tab.Chew) 80 mg PO QIDWMHS PRN PRN Reason: Gas Last Admin: 08/12/23 07:58 Dose: 80 mg Documented By: LEANDER Sodium Chloride (0.9 % Sodium Chloride Flush 3 Ml Syringe) 3 ml IVFLUSH QSHIFT [facility] Last Admin: 08/12/23 08:08 Dose: Not Given Documented By: LEANDER Non-Admin Reason: IV Running Warfarin Sodium (Warfarin Sodium 2.5 Mg Tablet) 2.5 mg PO DAILY@1800 [facility] Last Admin: 08/10/23 17:22 Dose: 2.5 mg Documented By: JANET Labs 08/12/23 05:35 08/12/23 05:35 Labs: Laboratory Results - last 24 hr 08/12/23 05:35 MCV 86.8 MCH 26.4 L MCHC 30.5 L RDW 20.4 H Plt Count 430 H MPV 9.0 L Absolute Nucleated RBC 0.000 Nucleated RBC % (auto) 0.0 PT 36.3 H INR 3.0 H Anion Gap 15 Estim Creat Clear Calc 52.3 Estimated GFR 44 Fasting Glucose 87 Calcium 9.0 Procedures Date of Service Date of Service: 08/12/23 Progress Note: A&P Assessment and plan (1) S/P right colectomy: Status: Acute Plan Doing well from a surgical perspective. Will follow-up p.r.n.. Outpatient follow-up in approximate 1 week from discharge. Time Spent With Patient Time: Total time managing care of this patient today ____ minutes. Quality Stroke Does the patient have a stroke diagnosis?: No VTE Prior VTE?: No VTE Risk Level:: Medical - moderate - high VTE Device Contraindication: N/A - Device Ordered VTE Drug Contraindication: Treatment Not Indicated
--- NOTE | 2023-08-12 09:36 | P.PNIM_ITS ---
Subjective Subjective Date of Service: 08/12/23 Interval History: still wants full liquids Physical Exam 2 Vital Signs: Vital Signs: Last Vital Signs Temp 98.5 F 08/12/23 07:27 Pulse 93 08/12/23 07:27 Resp 20 08/12/23 07:27 BP 185/87 H 08/12/23 07:27 Pulse Ox 95 08/12/23 07:27 O2 Del Method Room Air 08/12/23 07:27 O2 Flow Rate 2 08/07/23 06:48 FiO2 40 08/01/23 14:57 BMI result Body Mass Index 44.8 GI: Other: Abdomen soft. Incision clean dry and intact healing uneventfully. Objective Data Active Medications Al Hydroxide/Mg Hydroxide (Magnesium Hydrox/Alum Hydrox 30 Ml Oral.Susp) 30 ml PO Q4H PRN PRN Reason: Heartburn Last Admin: 08/04/23 11:04 Dose: 30 ml Documented By: HARPREET Albuterol Sulfate (Albuterol Sulfate 90 Mcg 8 Gm Inhaler) 2 puff INHALE RQ4H PRN PRN Reason: Shortness Of Breath/Wheezing Last Admin: 08/04/23 08:06 Dose: 2 puff Documented By: HARPREET Amlodipine Besylate (Amlodipine Besylate 2.5 Mg Tablet) 2.5 mg PO DAILY [facility]; Protocol Last Admin: 08/12/23 07:59 Dose: 2.5 mg Documented By: LEANDER Ascorbic Acid (Ascorbic Acid 250 Mg Tablet) 250 mg PO DAILY [facility] Last Admin: 08/12/23 07:59 Dose: 250 mg Documented By: LEANDER Atorvastatin Calcium (Atorvastatin Calcium 20 Mg Tablet) 20 mg PO DAILY [facility] Last Admin: 08/12/23 07:58 Dose: 20 mg Documented By: LEANDER Benzocaine (Throat Lozenge, Medicated Lozenge) 1 lozenge MUCOUS MEM Q2H PRN PRN Reason: Sore Throat Last Admin: 08/07/23 03:15 Dose: 1 lozenge Documented By: CHEYANNE Bupropion HCl (Bupropion Hcl Xl 300 Mg Tab.Er.24h) 300 mg PO DAILY [facility] Last Admin: 08/12/23 07:58 Dose: 300 mg Documented By: LEANDER Clonazepam (Clonazepam 1 Mg Tablet) 2 mg PO BEDTIME PRN PRN Reason: anxiety/restlessness Last Admin: 08/09/23 22:35 Dose: 2 mg Documented By: CHEYANNE Clonidine HCl (Clonidine Hcl 0.1 Mg Tablet) 0.1 mg PO BEDTIME [facility]; Protocol Last Admin: 08/11/23 20:29 Dose: 0.1 mg Documented By: KAMILLE Docusate Sodium (Docusate Sodium 100 Mg Capsule) 100 mg PO BID [facility] Last Admin: 08/12/23 07:59 Dose: 100 mg Documented By: LEANDER Fluoxetine HCl (Fluoxetine Hcl 20 Mg Capsule) 40 mg PO DAILY [facility] Last Admin: 08/12/23 07:58 Dose: 40 mg Documented By: LEANDER Fluticasone Propionate (Fluticasone Propionate Nasal 16 Gm [place]) 2 spray NOSTRIL-B DAILY [facility] Last Admin: 08/12/23 08:00 Dose: 2 spray Documented By: LEANDER Comments: barcode scan states not on med profile Gabapentin (Gabapentin 100 Mg Capsule) 100 mg PO BEDTIME [facility] Last Admin: 08/11/23 20:29 Dose: 100 mg Documented By: KAMILLE Guaifenesin (Guaifenesin La 600 Mg Tab.Er.12h) 600 mg PO BID [facility] Last Admin: 08/12/23 07:58 Dose: 600 mg Documented By: LEANDER Promethazine HCl 6.25 mg/ (Sodium Chloride) 50.25 mls @ 201 mls/hr IV Q6H PRN PRN Reason: Nausea and Vomiting Last Infusion: 08/10/23 18:40 Dose: Infused Documented By: JANET Lactated Ringer's (Lr) 1,000 mls @ 50 mls/hr IVCONT .Q20H [facility] Last Admin: 08/11/23 20:34 Dose: 50 mls/hr Documented By: KAMILLE Loratadine (Loratadine 10 Mg Tablet) 10 mg PO BEDTIME [facility] Last Admin: 08/03/23 19:59 Dose: 10 mg Documented By: ISABELLE Omeprazole (Omeprazole 20 Mg Capsule.) 20 mg PO BID@0630,1630 [facility] Last Admin: 08/12/23 05:44 Dose: 20 mg Documented By: LALI Ondansetron HCl (Ondansetron Hcl 4 Mg/2 Ml Vial) 4 mg IVPUSH Q8H PRN PRN Reason: Nausea and Vomiting Last Admin: 08/12/23 08:57 Dose: 4 mg Documented By: SOREN Oxycodone HCl (Oxycodone Hcl Immed Release 5 Mg Tablet) 5 mg PO Q4H PRN PRN Reason: Pain, Severe (Pain Scale 7-10) Last Admin: 08/12/23 01:10 Dose: 5 mg Documented By: LALI Polyethylene Glycol (Polyethylene Glycol 3350 17 Gm Powd.Pack) 17 gm PO DAILY [facility] Last Admin: 08/12/23 07:59 Dose: 17 gm Documented By: LEANDER Quetiapine Fumarate (Quetiapine Fumarate 25 Mg Tablet) 25 mg PO BEDTIME [facility] Last Admin: 08/11/23 20:29 Dose: 25 mg Documented By: KAMILLE Simethicone (Simethicone 80 Mg Tab.Chew) 80 mg PO QIDWMHS PRN PRN Reason: Gas Last Admin: 08/12/23 07:58 Dose: 80 mg Documented By: LEANDER Sodium Chloride (0.9 % Sodium Chloride Flush 3 Ml Syringe) 3 ml IVFLUSH QSHIFT [facility] Last Admin: 08/12/23 08:08 Dose: Not Given Documented By: LEANDER Non-Admin Reason: IV Running Warfarin Sodium (Warfarin Sodium 2.5 Mg Tablet) 2.5 mg PO DAILY@1800 [facility] Last Admin: 08/10/23 17:22 Dose: 2.5 mg Documented By: JANET Labs 08/12/23 05:35 08/12/23 05:35 Labs: Laboratory Results - last 24 hr 08/12/23 05:35 MCV 86.8 MCH 26.4 L MCHC 30.5 L RDW 20.4 H Plt Count 430 H MPV 9.0 L Absolute Nucleated RBC 0.000 Nucleated RBC % (auto) 0.0 PT 36.3 H INR 3.0 H Anion Gap 15 Estim Creat Clear Calc 52.3 Estimated GFR 44 Fasting Glucose 87 Calcium 9.0 Assessment and Plan (1) Acute on chronic blood loss anemia: Status: Acute (2) Postoperative ileus: Status: Acute (3) S/P right colectomy: Status: Acute (4) Acute kidney injury superimposed on CKD: Status: Acute Plan 67-year-old female with a PMH significant for CKD stage 4, ANTHONY, GERD, HTN, HLD, HELENA on CPAP, PTSD, history of PE on Coumadin (Nov 2022 continue x 1 year per hematology) who was originally admitted to [facility] on 07/28/2023 for increased depression with SI secondary to loss of her from stage IV lung cancer in February 2023. 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) s/p exploratory laparotomy, ileo- right colectomy /appendectomy, partial omentectomy on 08/01/23 transfused 1 unit prbc, hgb improved appropriately, continue to monitor, iv iron Complicated by postop ileus tolerated clears, having bms, advanced to full liquids, when patient ready will advance to solids Outpatient PET scan and oncology follow-up history of PE in nov 2022 restarted coumadin CKD III stable Hypokalemia Resolved HELENA CPAP Mild intermittent asthma Stable HLD Continue statin Full Code DVT Prophylaxis: coumadin reason for continued hospitalization:await return of gi function Time Spent With Patient Time: Total time managing care of this patient today ____ minutes. Quality Stroke Does the patient have a stroke diagnosis?: No VTE Prior VTE?: No VTE Risk Level:: Medical - moderate - high VTE Device Contraindication: N/A - Device Ordered VTE Drug Contraindication: Treatment Not Indicated
[2023-08-12 10:27] VITALS: BP 149/70; PULSE 89
[2023-08-12 10:49] VITALS: BMI 44.8
--- NOTE | 2023-08-12 10:58 | MHC.CLN ---
NUTRITION DIET=FULL LIQUID. ADDING ENSURE MAX TID (450 KCALS, 90 G PROTEIN). DISCUSSED SUPPLEMENT CHOICES WITH PATIENT AND AGREED TO ENSURE MAX. OVERALL, LIMITED INTAKE OF SOLIDS. HAD REGULAR DIET X ONE DAY. HAS HAD DIET=NPO, CL, FL DURING ADMISSION. REPORTS NAUSEA TODAY. FOLLOW FOR INTAKE AND DIET ADVANCEMENT.
[2023-08-12 15:12] VITALS: BP 152/67; PULSE 91; RESP 20; TEMP 36.9; O2SAT 96
[2023-08-12 15:25] VITALS: BP 152/67; PULSE 91; O2SAT 96
[2023-08-12] MEDS: 0.9 % Sodium Chloride Flush 3 ML SYRINGE IVFLUSH (15:35)
[2023-08-12] MEDS: Lactated Ringers 1,000 ML 50 ML IVCONT (15:35)
[2023-08-12 19:41] VITALS: BP 145/65; PULSE 92; RESP 14; TEMP 36.4; O2SAT 93
[2023-08-12] MEDS: Gabapentin 100 MG CAPSULE PO (21:01)
[2023-08-12] MEDS: QUEtiapine Fumarate 25 MG TABLET PO (21:01)
[2023-08-12] MEDS: cloNIDine HCL 0.1 MG TABLET PO (21:01)
[2023-08-12] MEDS: clonazePAM 1 MG TABLET 2 MG PO (21:09)
[2023-08-13] MEDS: oxyCODONE HCl Immed Release 5 MG TABLET PO ×4 (01:48→20:21)
[2023-08-13 03:09] VITALS: BP 131/61; PULSE 83; RESP 16; TEMP 36.4; O2SAT 93
[2023-08-13] MEDS: Omeprazole 20 MG CAPSULE.DR PO ×2 (05:51→17:03)
[2023-08-13 06:07] LABS: Hematocrit 32.3 % (37.0-47.0); Hemoglobin 9.9 g/dl (12.0-16.0); Mean Corpuscular HGB Conc 30.7 g/dl (31.0-35.0); Mean Corpuscular Hemoglobin 26.8 pg (27.0-33.0); Mean Corpuscular Volume 87.5 fL (80.0-98.0); Mean Platelet Volume 8.6 fL (9.4-12.3); Platelet Count 438 X10*3/uL (160-400); Red Blood Count 3.69 X10*6/uL (4.20-5.50); Red Cell Distribution Width 20.4 % (11.0-16.0); White Blood Count 10.1 X10*3/uL (4.8-10.8)
[2023-08-13 06:18] LABS: INTERNATIONAL NORM RATIO 2.1 (0.9-1.1); Prothrombin Time 25.8 SEC (11.1-13.3)
[2023-08-13 06:29] LABS: Anion Gap 15 (12-20); Blood Urea Nitrogen 6 mg/dL (9-16); Calcium 9.1 mg/dL (8.4-10.2); Carbon Dioxide 22 mmol/L (22-29); Chloride 107 mmol/L (96-108); Estimated Glomerular Filt Rate 47; Glucose Fasting 93 mg/dL (60-99); Potassium 3.7 mmol/L (3.3-5.1); Sodium 140 mmol/L (135-145)
[2023-08-13 07:05] VITALS: BP 129/63; PULSE 85; RESP 18; TEMP 36.9; O2SAT 94
[2023-08-13] MEDS: amLODIPine Besylate 2.5 MG TABLET PO (08:08)
[2023-08-13] MEDS: Ascorbic Acid 250 MG TABLET PO (08:08)
[2023-08-13] MEDS: guaiFENesin LA 600 MG TAB.ER.12H PO ×2 (08:08→20:21)
[2023-08-13] MEDS: buPROPion HCl XL 300 MG TAB.ER.24H PO (08:10)
[2023-08-13] MEDS: FLUoxetine HCl 20 MG CAPSULE 40 MG PO (08:10)
[2023-08-13] MEDS: 0.9 % Sodium Chloride Flush 3 ML SYRINGE IVFLUSH (08:10)
[2023-08-13] MEDS: Atorvastatin Calcium 20 MG TABLET PO (08:10)
[2023-08-13] MEDS: Fluticasone Propionate Nasal 16 GM SPRAY 2 SPRAY NOSTRIL-B (08:11)
[2023-08-13 08:20] VITALS: BP 129/63; PULSE 85; O2SAT 94
--- NOTE | 2023-08-13 08:58 | P.PNIM_ITS ---
Subjective Subjective Date of Service: 08/13/23 Interval History: ready for solids Physical Exam 2 Vital Signs: Vital Signs: Last Vital Signs Temp 98.4 F 08/13/23 07:05 Pulse 85 08/13/23 08:20 Resp 18 08/13/23 07:05 BP 129/63 08/13/23 08:20 Pulse Ox 94 08/13/23 08:20 O2 Del Method Room Air 08/13/23 07:05 O2 Flow Rate 2 08/07/23 06:48 FiO2 40 08/01/23 14:57 BMI result Body Mass Index 44.8 GI: Other: Abdomen soft. Incision clean dry and intact healing uneventfully. Objective Data Active Medications Al Hydroxide/Mg Hydroxide (Magnesium Hydrox/Alum Hydrox 30 Ml Oral.Susp) 30 ml PO Q4H PRN PRN Reason: Heartburn Last Admin: 08/04/23 11:04 Dose: 30 ml Documented By: HARPREET Albuterol Sulfate (Albuterol Sulfate 90 Mcg 8 Gm Inhaler) 2 puff INHALE RQ4H PRN PRN Reason: Shortness Of Breath/Wheezing Last Admin: 08/04/23 08:06 Dose: 2 puff Documented By: HARPREET Amlodipine Besylate (Amlodipine Besylate 2.5 Mg Tablet) 2.5 mg PO DAILY [facility]; Protocol Last Admin: 08/13/23 08:08 Dose: 2.5 mg Documented By: LEANDER Ascorbic Acid (Ascorbic Acid 250 Mg Tablet) 250 mg PO DAILY [facility] Last Admin: 08/13/23 08:08 Dose: 250 mg Documented By: LEANDER Atorvastatin Calcium (Atorvastatin Calcium 20 Mg Tablet) 20 mg PO DAILY [facility] Last Admin: 08/13/23 08:10 Dose: 20 mg Documented By: LEANDER Benzocaine (Throat Lozenge, Medicated Lozenge) 1 lozenge MUCOUS MEM Q2H PRN PRN Reason: Sore Throat Last Admin: 08/07/23 03:15 Dose: 1 lozenge Documented By: CHEYANNE Bupropion HCl (Bupropion Hcl Xl 300 Mg Tab.Er.24h) 300 mg PO DAILY [facility] Last Admin: 08/13/23 08:10 Dose: 300 mg Documented By: LEANDER Clonazepam (Clonazepam 1 Mg Tablet) 2 mg PO BEDTIME PRN PRN Reason: anxiety/restlessness Last Admin: 08/12/23 21:09 Dose: 2 mg Documented By: TANIA Clonidine HCl (Clonidine Hcl 0.1 Mg Tablet) 0.1 mg PO BEDTIME [facility]; Protocol Last Admin: 08/12/23 21:01 Dose: 0.1 mg Documented By: TANIA Docusate Sodium (Docusate Sodium 100 Mg Capsule) 100 mg PO BID [facility] Last Admin: 08/13/23 08:10 Dose: Not Given Documented By: LEANDER Non-Admin Reason: loose stools Fluoxetine HCl (Fluoxetine Hcl 20 Mg Capsule) 40 mg PO DAILY [facility] Last Admin: 08/13/23 08:10 Dose: 40 mg Documented By: LEANDER Fluticasone Propionate (Fluticasone Propionate Nasal 16 Gm [place]) 2 spray NOSTRIL-B DAILY [facility] Last Admin: 08/13/23 08:11 Dose: 2 spray Documented By: LEANDER Comments: scan states medication doesn't belong to patient Gabapentin (Gabapentin 100 Mg Capsule) 100 mg PO BEDTIME [facility] Last Admin: 08/12/23 21:01 Dose: 100 mg Documented By: TANIA Guaifenesin (Guaifenesin La 600 Mg Tab.Er.12h) 600 mg PO BID [facility] Last Admin: 08/13/23 08:08 Dose: 600 mg Documented By: LEANDER Promethazine HCl 6.25 mg/ (Sodium Chloride) 50.25 mls @ 201 mls/hr IV Q6H PRN PRN Reason: Nausea and Vomiting Last Infusion: 08/10/23 18:40 Dose: Infused Documented By: JANET Lactated Ringer's (Lr) 1,000 mls @ 50 mls/hr IVCONT .Q20H [facility] Last Admin: 08/12/23 15:35 Dose: 50 mls/hr Documented By: TANIA Loratadine (Loratadine 10 Mg Tablet) 10 mg PO BEDTIME [facility] Last Admin: 08/03/23 19:59 Dose: 10 mg Documented By: ISABELLE Omeprazole (Omeprazole 20 Mg Capsule.Dr) 20 mg PO BID@0630,1630 [facility] Last Admin: 08/13/23 05:51 Dose: 20 mg Documented By: LALI Ondansetron HCl (Ondansetron Hcl 4 Mg/2 Ml Vial) 4 mg IVPUSH Q8H PRN PRN Reason: Nausea and Vomiting Last Admin: 08/12/23 08:57 Dose: 4 mg Documented By: SOREN Oxycodone HCl (Oxycodone Hcl Immed Release 5 Mg Tablet) 5 mg PO Q4H PRN PRN Reason: Pain, Severe (Pain Scale 7-10) Last Admin: 08/13/23 01:48 Dose: 5 mg Documented By: LALI Polyethylene Glycol (Polyethylene Glycol 3350 17 Gm Powd.Pack) 17 gm PO DAILY [facility] Last Admin: 08/13/23 08:10 Dose: Not Given Documented By: LEANDER Non-Admin Reason: loose stools Quetiapine Fumarate (Quetiapine Fumarate 25 Mg Tablet) 25 mg PO BEDTIME [facility] Last Admin: 08/12/23 21:01 Dose: 25 mg Documented By: TANIA Simethicone (Simethicone 80 Mg Tab.Chew) 80 mg PO QIDWMHS PRN PRN Reason: Gas Last Admin: 08/12/23 15:48 Dose: 80 mg Documented By: TANIA Sodium Chloride (0.9 % Sodium Chloride Flush 3 Ml Syringe) 3 ml IVFLUSH QSHIFT [facility] Last Admin: 08/13/23 08:10 Dose: 3 ml Documented By: LEANDER Warfarin Sodium (Warfarin Sodium 2.5 Mg Tablet) 2.5 mg PO DAILY@1800 [facility] Last Admin: 08/10/23 17:22 Dose: 2.5 mg Documented By: JANET Labs 08/13/23 05:50 08/13/23 05:50 Labs: Laboratory Results - last 24 hr 08/13/23 05:50 MCV 87.5 MCH 26.8 L MCHC 30.7 L RDW 20.4 H Plt Count 438 H MPV 8.6 L Absolute Nucleated RBC 0.000 Nucleated RBC % (auto) 0.0 PT 25.8 H D INR 2.1 H Anion Gap 15 Estim Creat Clear Calc 55.0 Estimated GFR 47 Fasting Glucose 93 Calcium 9.1 Assessment and Plan (1) Acute on chronic blood loss anemia: Status: Acute (2) Postoperative ileus: Status: Acute (3) S/P right colectomy: Status: Acute (4) Acute kidney injury superimposed on CKD: Status: Acute Plan 67-year-old female with a PMH significant for CKD stage 4, ANTHONY, GERD, HTN, HLD, HELENA on CPAP, PTSD, history of PE on Coumadin (Nov 2022 continue x 1 year per hematology) who was originally admitted to [facility] on 07/28/2023 for increased depression with SI secondary to loss of her from stage IV lung cancer in February 2023. 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) s/p exploratory laparotomy, ileo- right colectomy /appendectomy, partial omentectomy on 08/01/23 transfused 1 unit prbc, hgb improved appropriately, continue to monitor, iv iron Complicated by postop ileus advancing to solids today Outpatient PET scan and oncology follow-up history of PE in nov 2022 restarted coumadin CKD III stable Hypokalemia Resolved HELENA CPAP Mild intermittent asthma Stable HLD Continue statin Full Code DVT Prophylaxis: coumadin dispo - likely rehab on discharge reason for continued hospitalization:await return of gi function Time Spent With Patient Time: Total time managing care of this patient today ____ minutes. Quality Stroke Does the patient have a stroke diagnosis?: No VTE Prior VTE?: No VTE Risk Level:: Medical - moderate - high VTE Device Contraindication: N/A - Device Ordered VTE Drug Contraindication: Treatment Not Indicated
--- NOTE | 2023-08-13 09:17 | P.PNGS_ITS ---
Subjective Subjective Date of Service: 08/13/23 <Stefani Leonard PA-C - Last Filed: 08/13/23 09:19> 08/13/23 <Andres Shields MD - Last Filed: 08/13/23 09:35> Interval history: Trying a solid diet this morning. Loose stools improving. C/o incisional pain, increased at right side and erythema according to RN. <Stefani Leonard PA-C - Last Filed: 08/13/23 09:19> Physical Exam 2 Vital Signs: Vital Signs: Last Vital Signs Temp 98.4 F 08/13/23 07:05 Pulse 85 08/13/23 08:20 Resp 18 08/13/23 07:05 BP 129/63 08/13/23 08:20 Pulse Ox 94 08/13/23 08:20 O2 Del Method Room Air 08/13/23 07:05 O2 Flow Rate 2 08/07/23 06:48 FiO2 40 08/01/23 14:57 BMI result Body Mass Index 44.8 <Stefani Leonard PA-C - Last Filed: 08/13/23 09:19> Const: General: comfortable, no acute distress and alert <SURAJ Mcelroy Last Filed: 08/13/23 09:19> Orientation/consciousness: patient oriented x3 <SURAJ Mcelroy Last Filed: 08/13/23 09:19> Resp: Effort & Inspection: normal respiratory effort <Stefani Leonard PA-C - Last Filed: 08/13/23 09:19> GI: Other: lateral aspect of incision with pale erythema and induration, tender <Stefani Leonard PA-C - Last Filed: 08/13/23 09:19> Inspection: No distended <SURAJ Mcelroy Last Filed: 08/13/23 09:19> Palpation (GI): Soft to palpation and no guarding <SURAJ Mcelroy Last Filed: 08/13/23 09:19> Skin: General skin exam: no rashes or lesions noted <SURAJ Mcelroy Last Filed: 10/03/23 09:19> Neuro: General: patient oriented x3 and moves all extremities <Stefani Leonard PA-C - Last Filed: 08/13/23 09:19> Objective Data Active Medications Al Hydroxide/Mg Hydroxide (Magnesium Hydrox/Alum Hydrox 30 Ml Oral.Susp) 30 ml PO Q4H PRN PRN Reason: Heartburn Last Admin: 08/04/23 11:04 Dose: 30 ml Documented By: HARPREET Albuterol Sulfate (Albuterol Sulfate 90 Mcg 8 Gm Inhaler) 2 puff INHALE RQ4H PRN PRN Reason: Shortness Of Breath/Wheezing Last Admin: 08/04/23 08:06 Dose: 2 puff Documented By: HARPREET Amlodipine Besylate (Amlodipine Besylate 2.5 Mg Tablet) 2.5 mg PO DAILY [facility]; Protocol Last Admin: 08/13/23 08:08 Dose: 2.5 mg Documented By: LEANDER Ascorbic Acid (Ascorbic Acid 250 Mg Tablet) 250 mg PO DAILY [facility] Last Admin: 08/13/23 08:08 Dose: 250 mg Documented By: LEANDER Atorvastatin Calcium (Atorvastatin Calcium 20 Mg Tablet) 20 mg PO DAILY [facility] Last Admin: 08/13/23 08:10 Dose: 20 mg Documented By: LEANDER Benzocaine (Throat Lozenge, Medicated Lozenge) 1 lozenge MUCOUS MEM Q2H PRN PRN Reason: Sore Throat Last Admin: 08/07/23 03:15 Dose: 1 lozenge Documented By: CHEYANNE Bupropion HCl (Bupropion Hcl Xl 300 Mg Tab.Er.24h) 300 mg PO DAILY [facility] Last Admin: 08/13/23 08:10 Dose: 300 mg Documented By: LEANDER Clonazepam (Clonazepam 1 Mg Tablet) 2 mg PO BEDTIME PRN PRN Reason: anxiety/restlessness Last Admin: 08/12/23 21:09 Dose: 2 mg Documented By: TANIA Clonidine HCl (Clonidine Hcl 0.1 Mg Tablet) 0.1 mg PO BEDTIME [facility]; Protocol Last Admin: 08/12/23 21:01 Dose: 0.1 mg Documented By: TANIA Docusate Sodium (Docusate Sodium 100 Mg Capsule) 100 mg PO BID [facility] Last Admin: 08/13/23 08:10 Dose: Not Given Documented By: LEANDER Non-Admin Reason: loose stools Fluoxetine HCl (Fluoxetine Hcl 20 Mg Capsule) 40 mg PO DAILY [facility] Last Admin: 08/13/23 08:10 Dose: 40 mg Documented By: LEANDER Fluticasone Propionate (Fluticasone Propionate Nasal 16 Gm [place]) 2 spray NOSTRIL-B DAILY [facility] Last Admin: 08/13/23 08:11 Dose: 2 spray Documented By: LEANDER Comments: scan states medication doesn't belong to patient Gabapentin (Gabapentin 100 Mg Capsule) 100 mg PO BEDTIME [facility] Last Admin: 08/12/23 21:01 Dose: 100 mg Documented By: TANIA Guaifenesin (Guaifenesin La 600 Mg Tab.Er.12h) 600 mg PO BID [facility] Last Admin: 08/13/23 08:08 Dose: 600 mg Documented By: LEANDER Promethazine HCl 6.25 mg/ (Sodium Chloride) 50.25 mls @ 201 mls/hr IV Q6H PRN PRN Reason: Nausea and Vomiting Last Infusion: 08/10/23 18:40 Dose: Infused Documented By: JANET Lactated Ringer's (Lr) 1,000 mls @ 50 mls/hr IVCONT .Q20H [facility] Last Admin: 08/12/23 15:35 Dose: 50 mls/hr Documented By: TANIA Loratadine (Loratadine 10 Mg Tablet) 10 mg PO BEDTIME [facility] Last Admin: 08/03/23 19:59 Dose: 10 mg Documented By: ISABELLE Omeprazole (Omeprazole 20 Mg Capsule.) 20 mg PO BID@0630,1630 [facility] Last Admin: 08/13/23 05:51 Dose: 20 mg Documented By: LALI Ondansetron HCl (Ondansetron Hcl 4 Mg/2 Ml Vial) 4 mg IVPUSH Q8H PRN PRN Reason: Nausea and Vomiting Last Admin: 08/12/23 08:57 Dose: 4 mg Documented By: SOREN Oxycodone HCl (Oxycodone Hcl Immed Release 5 Mg Tablet) 5 mg PO Q4H PRN PRN Reason: Pain, Severe (Pain Scale 7-10) Last Admin: 08/13/23 01:48 Dose: 5 mg Documented By: LALI Polyethylene Glycol (Polyethylene Glycol 3350 17 Gm Powd.Pack) 17 gm PO DAILY [facility] Last Admin: 08/13/23 08:10 Dose: Not Given Documented By: LEANDER Non-Admin Reason: loose stools Quetiapine Fumarate (Quetiapine Fumarate 25 Mg Tablet) 25 mg PO BEDTIME [facility] Last Admin: 08/12/23 21:01 Dose: 25 mg Documented By: TANIA Simethicone (Simethicone 80 Mg Tab.Chew) 80 mg PO QIDWMHS PRN PRN Reason: Gas Last Admin: 08/12/23 15:48 Dose: 80 mg Documented By: TANIA Sodium Chloride (0.9 % Sodium Chloride Flush 3 Ml Syringe) 3 ml IVFLUSH QSHIFT [facility] Last Admin: 08/13/23 08:10 Dose: 3 ml Documented By: LEANDER Warfarin Sodium (Warfarin Sodium 2.5 Mg Tablet) 2.5 mg PO DAILY@1800 [facility] Last Admin: 08/10/23 17:22 Dose: 2.5 mg Documented By: JANET <Stefani Leonard PA-C - Last Filed: 08/13/23 09:19> Labs CBC & Chem 7: 08/13/23 05:50 08/13/23 05:50 <Stefani Leonard PA-C - Last Filed: 08/13/23 09:19> Labs: Laboratory Results - last 24 hr 08/13/23 05:50 MCV 87.5 MCH 26.8 L MCHC 30.7 L RDW 20.4 H Plt Count 438 H MPV 8.6 L Absolute Nucleated RBC 0.000 Nucleated RBC % (auto) 0.0 PT 25.8 H D INR 2.1 H Anion Gap 15 Estim Creat Clear Calc 55.0 Estimated GFR 47 Fasting Glucose 93 Calcium 9.1 <Stefani Leonard PA-C - Last Filed: 08/13/23 09:19> Procedures Date of Service Date of Service: 08/13/23 <Stefani Leonard PA-C - Last Filed: 08/13/23 09:19> 08/13/23 <Andres Shields MD - Last Filed: 08/13/23 09:35> Progress Note: A&P Assessment and plan (1) S/P right colectomy: Status: Acute <Stefani Leonard PA-C - Last Filed: 08/13/23 09:19> Assessment and Plan: Doing well post op, ambulating. Trying solid diet today. Will begin keflex for cellulitis. <Stefani Leonard PA-C - Last Filed: 08/13/23 09:19> Time Spent With Patient Time: Total time managing care of this patient today ____ minutes. <Stefani Leonard PA-C - Last Filed: 08/13/23 09:19> Quality Stroke Does the patient have a stroke diagnosis?: No <Stefani Leonard PA-C - Last Filed: 08/13/23 09:19> VTE Prior VTE?: No <Stefani Leonard PA-C - Last Filed: 08/13/23 09:19> VTE Risk Level:: Medical - moderate - high <Stefani Leonard PA-C - Last Filed: 08/13/23 09:19> VTE Device Contraindication: N/A - Device Ordered <SURAJ Mcelroy Last Filed: 08/13/23 09:19> VTE Drug Contraindication: Treatment Not Indicated <Stefani Leonard PA-C - Last Filed: 08/13/23 09:19>
[2023-08-13] MEDS: cephALEXin 500 MG CAPSULE PO ×2 (09:30→20:21)
[2023-08-13] MEDS: Lactated Ringers 1,000 ML 50 ML IVCONT (09:31)
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
[2023-08-13] MEDS: ARIPiprazole 5 MG TABLET 2.5 MG PO (14:44)
[2023-08-13 15:13] VITALS: BP 135/65; PULSE 89; RESP 18; TEMP 37; O2SAT 96
--- NOTE | 2023-08-13 15:31 | PC.NURSE ---
Patient surgical incision with redness, heat and firmness to right side. Provider assessed patient and ordered PO keflex. Wound started leaking scant serous drainage. Provider notified. 2x2 dressing applied.
[2023-08-13] MEDS: Warfarin Sodium 2.5 MG TABLET PO (17:03)
[2023-08-13 19:12] VITALS: BP 173/74; PULSE 93; RESP 20; TEMP 36; O2SAT 96
[2023-08-13] MEDS: cloNIDine HCL 0.1 MG TABLET PO (20:20)
[2023-08-13] MEDS: Docusate Sodium 100 MG CAPSULE PO (20:20)
[2023-08-13] MEDS: QUEtiapine Fumarate 25 MG TABLET PO (20:21)
[2023-08-13] MEDS: Gabapentin 100 MG CAPSULE PO (20:21)
[2023-08-13 20:24] VITALS: BP 163/75; PULSE 91
[2023-08-13] MEDS: clonazePAM 1 MG TABLET 2 MG PO (21:14)
[2023-08-14] MEDS: oxyCODONE HCl Immed Release 5 MG TABLET PO ×3 (00:31→16:03)
[2023-08-14 03:21] VITALS: BP 136/69; PULSE 83; RESP 16; TEMP 35.9; O2SAT 93
[2023-08-14] MEDS: Lactated Ringers 1,000 ML 50 ML IVCONT (03:47)
[2023-08-14] MEDS: Omeprazole 20 MG CAPSULE.DR PO ×2 (05:45→16:03)
[2023-08-14 06:57] LABS: INTERNATIONAL NORM RATIO 1.6 (0.9-1.1); Prothrombin Time 19.2 SEC (11.1-13.3)
[2023-08-14 07:47] VITALS: BP 154/72; PULSE 91; RESP 16; TEMP 36.4; O2SAT 93
[2023-08-14] MEDS: polyethylene glycoL 3350 17 GM POWD.PACK PO (09:32)
[2023-08-14] MEDS: Docusate Sodium 100 MG CAPSULE PO (09:32)
[2023-08-14] MEDS: Atorvastatin Calcium 20 MG TABLET PO (09:32)
[2023-08-14] MEDS: Ascorbic Acid 250 MG TABLET PO (09:32)
[2023-08-14] MEDS: ARIPiprazole 5 MG TABLET 2.5 MG PO (09:32)
[2023-08-14] MEDS: amLODIPine Besylate 2.5 MG TABLET PO (09:32)
[2023-08-14] MEDS: FLUoxetine HCl 20 MG CAPSULE 40 MG PO (09:32)
[2023-08-14] MEDS: guaiFENesin LA 600 MG TAB.ER.12H PO (09:32)
[2023-08-14] MEDS: buPROPion HCl XL 300 MG TAB.ER.24H PO (09:33)
[2023-08-14] MEDS: cephALEXin 500 MG CAPSULE PO (09:33)
--- NOTE | 2023-08-14 11:00 | P.DS_ITS ---
DS: Providers Provider Date of Service: 08/14/23 Date of admission: 07/31/23 15:20 Primary care physician: Unknown Physician Consults: 07/31/23 14:31 Consult to General Surgery Routine Consulting Provider: [facility] Reason for consultation: Cecal ulcerated mass on colonoscopy today 07/31/23 20:30 Consult to Hematology / Oncology Routine Consulting Provider: Shantell Garg Reason for consultation: Pt with ulcerated mass in cecum, likely malignant 08/13/23 09:26 Consult to Psychiatry Routine Consulting Provider: Psych Covering Reason for consultation: anxiety DS: Diagnosis Discharge Diagnosis (1) MDD (major depressive disorder), recurrent episode, severe: Status: Acute (2) Postoperative ileus: Status: Acute (3) S/P right colectomy: Status: Acute (4) Acute on chronic blood loss anemia: Status: Acute (5) Acute kidney injury superimposed on CKD: Status: Acute (6) Hypokalemia: Status: Acute (7) Mass of cecum: Status: Acute (8) Physical deconditioning: Status: Acute DS: Summary Hospital Course Hospital Course: The patient had prolonged hospital stay. For full details please return to EMR. Admission note HPI Pt is a 67-year-old female with a PMH significant for CKD stage 4, ANTHONY, GERD, HTN, HLD, HELENA on CPAP, PTSD, history of PE on Coumadin (Nov 2022 continue x 1 year per hematology) who was originally admitted to Geriatric Psychiatry on 07/28/2023 for increased depression with SI secondary to loss of her from stage IV lung cancer in February 2023. Pt was transferred from [facility] she was admitted on 07/24 d/t symptomatic anemia that had been ongoing for 1 month. She was endorsing dyspnea on exertion and palpitations. She is on C oumadin which was held on admission. H/H 7.9/25.2%, MCV 81.2. Iron levels low at 15 with TIBC 373, 4% iron saturation. Normal vitamin B12 and folic acid levels. Renal function slightly above baseline with creatinine of 2.0, electrolyte levels normal. Stool occult blood was not performed. CT abdomen/pelvis showed soft tissue nodular LD along the mesentery with small amount of intraperitoneal free fluid concerning for peritoneal carcinomatosis until proven otherwise as well as findings suspicious for mass in the right lower quadrant inseparable from the right adnexa and junction of the cec um/terminal ileum concerning for malignancy. No evidence of obstruction or inflammation. She was transfused 1 unit PRBCs, though H/H continued to fall slightly to 7.7/25.0% and then 7.5/24.8% on day of discharge on 07/27. She also received IV iron infusions due to severe iron deficiency anemia. Coumadin was resumed on discharge. There is no evidence of active GI bleeding so patient was declared medically stable for discharge to our inpatient geriatric psychiatry unit with recommendations to follow-up outpatient for colonoscopy and outpatient follow-up for abnormal CT abdomen/pelvis results. While in [facility] patient continued to report dyspnea on exertion, occasional palpitations, fatigue and general weakness. She had 2+ pitting edema bilaterally in lower extremities bilaterally. Denied melena, hematochezia, epistaxis, or easy bruisability, though has noticed some dark colored stools. No nausea, vomiting, diarrhea. Has had some occasional right-sided abdominal pain she initially attributed to IBS symptoms. Reports 15 lb weight loss since her passed. Coumadin was once again held. Hematology and Oncology consult was placed and tumor markers ordered. Pelvis ultrasound was ordered, found unremarkable uterus and ovaries without free fluid in the cul-de-sac. GI consult was placed and patient received a colonoscopy on 07/31/2023 which found an ulcerated, friable mass approximately 4-5 cm in size in the cecum beneath, but separate, from ileocecal valve. Biopsies were taken. ICV and T1 WNL. H&H today 7.5/24.5, down from 8 0.3/27.5 yesterday. Labs were also significant for potassium of 2.9 and creatinine 1.88, slightly worse than 1.67 at time of admission. Patient will be transferred from [facility] admitted to the medical floor for treatment further evaluation of symptomatic anemia with blood transfusion and fluid resuscitation and treatment of ulcerated mass of the cecum with surgical consult with likely surgical procedure. Hospital course The patient was admitted for chronic Blood loss anemia due to appendiceal/cecal mass seen on abdominal images. pathology report showed adenocarcinoma (stage IV) s/p exploratory laparotomy, ileo- right colectomy /appendectomy, partial omentectomy on 08/01/23. She required transfusion of 1 unit prbc with hgb improved appropriately and was started on iv iron during hospital stay. To be discharged on PO supplement. Evaluated by oncology team who recommended outpatient follow up for PET scan and treatment plan. She developed postop ileus that required bowel rest and advancing diet slowly. she has been tolerating regular diet for the last day prior to discharge. Abilify was started during hospital stay. To be followed as outpatient with psychiatry. Acute kidney injury resolved. back to baseline. Continue PO Iron KEflex for wound infection Abilify was started for anxiety and depression with fair response To follow with psychiatry as outpatient in 2 weeks or so Outpatient follow up with Oncology for further imaging and treatment plan. The patient will likely need less than 30 days stay at SNF. Time Spent with Patient Time attestation: Total time managing care of this patient today ____ minutes. Discharge coordination time: Greater than 30 minutes Quality: Safe Use of Opioids Does Pt have an Active Cancer Diagnosis on the Problem List?: Yes Opioid Measure Date for [facility] Report: 07/15/23 Opioid Measure Time for [facility] Report: 11:50 Quality: Stroke Does the patient have a stroke diagnosis?: No Physical Exam Vital Signs: Vital Signs: Last Vital Signs Temp 97.6 F 08/14/23 07:47 Pulse 91 08/14/23 07:47 Resp 16 08/14/23 07:47 BP 154/72 H 08/14/23 07:47 Pulse Ox 93 08/14/23 07:47 O2 Del Method Room Air 08/14/23 07:47 O2 Flow Rate 2 08/07/23 06:48 FiO2 40 08/01/23 14:57 BMI result Body Mass Index 44.8 Const: Other: Constitutional : Awake, interactive, morbid obesity,. not in distress Neck : Normal inspection, Supple Cardiovascular : RRR, no JVP, no lower extremity edema Respiratory : good bilateral air entry, no crackles, wheezes or rhonchi Gastrointestinal: soft, lax, normal bowel sounds, no significant tenderness Skin : Warm, Dry, surgical wound looks clean, covered with gauze with mild tenderness and warmth Neurological : Alert & oriented x3, No focal deficit DS: Data Data Completed and Pending Completed studies during hospitalization [Text1]: Procedures Replacement of Right Knee Joint with Synthetic Substitute, Uncemented, Open Approach (02/14/21) Transfusion of Nonautologous Red Blood Cells into Peripheral Vein, Percutaneous Approach (02/14/21) Labs on day of discharge: Laboratory Results - last 24 hr 08/14/23 06:23 Hold Purple Top SEE NOTE PT 19.2 H D INR 1.6 H Hold Green Top See Note Discharge Plan Discharge Anticipated Discharge Date/Time: 08/14/23 10:35 Patient Disposition: Xfer SNF Discharge Diagnosis: Blood loss anemia Colon mass post resection Referrals: [facility] [Outside] - 1 Week Andres Shields MD [Physician] - 1 Week Physician,Dileep J [Primary Care Provider] - 1 Week Discharge Medications: New cephalexin 500 mg Capsule 500 mg PO Q12H Qty: 14 0RF aripiprazole [Abilify] 5 mg Tablet 2.5 mg PO DAILY Qty: 30 0RF polyethylene glycol 3350 17 gram Powder In Packet 17 g PO DAILY Qty: 30 0RF warfarin [Jantoven] 2.5 mg Tablet 2.5 mg PO DAILY@1800 Qty: 30 0RF oxycodone 5 mg Tablet 5 mg PO Q4H PRN (Reason: Pain, Severe (Pain Scale 7-10)) Qty: 15 0RF Rx Instructions: Partial Fill upon patient request. guaifenesin [Mucinex] 600 mg Tablet Extended Release 12hr 600 mg PO BID Qty: 14 0RF ferrous sulfate 324 mg (65 mg iron) tablet,delayed release (DR/EC) 324 mg PO DAILY Qty: 30 0RF Continued atorvastatin 20 mg Tablet 20 mg PO DAILY Qty: 0 0RF clonazepam 1 mg Tablet 2 mg PO BEDTIME Qty: 0 0RF amlodipine 2.5 mg Tablet 2.5 mg PO DAILY Qty: 0 0RF Protocol: Hold for SBP< HOLD for SBP < : 90 quetiapine 100 mg Tablet 100 mg PO BEDTIME Qty: 0 0RF clonidine HCl 0.2 mg Tablet 0.2 mg PO BEDTIME Qty: 0 0RF Protocol: Hold for SBP< HOLD for SBP < : 90 ascorbic acid (vitamin C) 250 mg Tablet 250 mg PO DAILY Qty: 0 0RF omeprazole 20 mg Capsule,Delayed Release(Dr/Ec) 20 mg PO BID@0630,1630 Qty: 0 0RF gabapentin 100 mg Capsule 100 mg PO BEDTIME Qty: 0 0RF albuterol sulfate [Ventolin HFA] 90 mcg/actuation Hfa Aerosol Inhaler 2 puff inhalation RQ4H PRN (Reason: Shortness Of Breath/Wheezing) Qty: 0 0RF fluoxetine 20 mg Capsule 40 mg PO DAILY Qty: 0 0RF fluticasone propionate 50 mcg/actuation [place],Suspension 2 spray intranasal DAILY Qty: 0 0RF loratadine 10 mg Tablet 10 mg PO BEDTIME Qty: 0 0RF bupropion HCl 300 mg Tablet Extended Release 24 Hr 300 mg PO DAILY Qty: 0 0RF Discharge Orders: Discharge Order (Routine); Ordered 08/14/23 Ordered By: Karlene Shah Diet: Advance to usual diet Activity on Discharge: No heavy lifting Stand Alone Forms: Patient Portal Discharge page Activity Restrictions/Additional Instructions: No strenuous activity. Ambulating as tolerated. Incentive spirometry. Care Plan Goals: Read below Health Concerns: Read below Plan of Treatment: Read below Assessment: Received blood transfusion for blood loss anemia Had surgical intervention for cecal mass that is showing evidence of cancer (Adenocarcinoma of cecum stage 4) Continue PO Iron KEflex for wound infection Abilify was started for anxiety and depression with fair response To follow with psychiatry as outpatient in 2 weeks or so Outpatient follow up with Oncology for further imaging and treatment plan.
--- NOTE | 2023-08-14 11:56 | MHC.CM.PN ---
IMM 08/13/23 Patient is discharged to [facility] today. She has accepted a bed offer from [facility]. All discharge info has been sent to the facility. Patient will transport via BLS. [place] 3[place] [facility]
[2023-08-14] MEDS: Fluticasone Propionate Nasal 16 GM SPRAY 2 SPRAY NOSTRIL-B (13:05)
--- NOTE | 2023-08-20 14:27 | MHC.HEMONC ---
triage- Pt called to cx lab appt for 08/21/23 because she recently had labs done on 08/08/23. Pt's labs were mailed to her house.
--- NOTE | 2023-08-20 14:50 | MHC.HEMONC ---
Triage- Pt's daughter called to find out about the NGS results. Per Dr Garg, results still pending. Pt to call back in 2 weeks to find out if results are back.
== END 2023-08-14 17:05 | disposition skilled nursing facility (03) | DRG 330 ==
PROVIDERS: Internal Medicine; Pathology Anatomic Pathology & Clinical Pathology; Physician Assistant Surgical; Surgery; Admitting Provider Student in an Organized Health Care Education/Training Program; Visit Provider Student in an Organized Health Care Education/Training Program
PROC: 0DTF0ZZ Resection of Right Large Intestine, Open Approach (ICD-10-PCS; CPT 49000; principal; 2023-08-01 10:00)
DX: C18.1 Malignant neoplasm of appendix (principal); C78.6 Secondary malignant neoplasm of retroperitoneum and peritoneum; D62 Acute posthemorrhagic anemia; Z68.42 Body mass index [BMI] 45.0-49.9, adult; N17.9 Acute kidney failure, unspecified; K56.7 Ileus, unspecified; N18.4 Chronic kidney disease, stage 4 (severe); F33.2 Major depressive disorder, recurrent severe without psychotic features; I12.9 Hypertensive chronic kidney disease with stage 1 through stage 4 chronic kidney disease, or unspecified chronic kidney disease; G47.33 Obstructive sleep apnea (adult) (pediatric); E86.0 Dehydration; E87.6 Hypokalemia; I95.9 Hypotension, unspecified; D63.0 Anemia in neoplastic disease; E66.01 Morbid (severe) obesity due to excess calories; E78.5 Hyperlipidemia, unspecified; Z23 Encounter for immunization; J45.20 Mild intermittent asthma, uncomplicated; Z86.711 Personal history of pulmonary embolism; Z79.01 Long term (current) use of anticoagulants; Z79.51 Long term (current) use of inhaled steroids; Z79.899 Other long term (current) drug therapy
CPT/HCPCS: 36415; 71045; 74018; 80048; 80076; 81001; 81003; 81445; 85025; 85027; 85610; 86850; 86900; 86901; 86923; 87086; 88305; 88309; 88341; 88342; 88360; 88374; 90686; 93005; 94640; 94660; 97116; 97162; 97530; C1758; J0131; J1170; J1650; J1756; J2270; J2405; J2550; J2795; J3010; P9016

== ENCOUNTER → 2023-07-31 15:20 | Outpatient (BNV) | payer MEDICARE, SELFPAY | PROVIDERS: Admitting Provider Student in an Organized Health Care Education/Training Program; Visit Provider Student in an Organized Health Care Education/Training Program | DX: N17.9 Acute kidney failure, unspecified (principal); N18.30 Chronic kidney disease, stage 3 unspecified; K56.7 Ileus, unspecified; F33.2 Major depressive disorder, recurrent severe without psychotic features; K91.89 Other postprocedural complications and disorders of digestive system; Z90.49 Acquired absence of other specified parts of digestive tract; D62 Acute posthemorrhagic anemia; E87.6 Hypokalemia; K63.89 Other specified diseases of intestine; R53.81 Other malaise | CPT/HCPCS: 99223; 99232; 99233; 99239 ==

== ENCOUNTER → 2023-07-31 15:20 | Outpatient (BNV) | payer MEDICARE, SELFPAY | PROVIDERS: Admitting Provider Student in an Organized Health Care Education/Training Program; Visit Provider Internal Medicine | DX: C18.8 Malignant neoplasm of overlapping sites of colon (principal); C77.5 Secondary and unspecified malignant neoplasm of intrapelvic lymph nodes | CPT/HCPCS: 99231; 99232 ==

== ENCOUNTER → 2023-07-31 15:20 | Outpatient (BNV) | payer MEDICARE, SELFPAY | PROVIDERS: Admitting Provider Student in an Organized Health Care Education/Training Program; Visit Provider Physician Assistant Surgical | DX: Z90.49 Acquired absence of other specified parts of digestive tract (principal) | CPT/HCPCS: 44140; 99024; 99223 ==

== ENCOUNTER 2023-09-02 11:17 | Outpatient (AMB) | payer MEDICARE, SELFPAY ==
[2023-09-02 11:25] VITALS: BP 126/67; PULSE 99
--- NOTE | 2023-09-02 11:25 | MHC.OFFVIS ---
Intake Vital Signs 09/02/23 11:25 Weight 227 lb BP 126/67 Blood Pressure Location Lt brachial Position Sitting Pulse 99 Intake Visit Reasons: s/p ex lap, appy 08/01/23 Intake Note: Patient here s/p lap appy from 08-01-23. C/o orangy discharge from Rt lower abd site. Reports discomfort when bending, stretching. Accompanied by: Self / Same As Patient Allergies benztropine [From Cogentin] Allergy (Intermediate, Verified 09/02/23 11:27) Rash latex Allergy (Intermediate, Verified 09/02/23 11:27) Itching thimerosal Allergy (Intermediate, Verified 09/02/23 11:27) Itching topiramate Allergy (Verified 09/02/23 11:27) Swelling sulfamethoxazole [From Bactrim] Adverse Reaction (Intermediate, Verified 09/02/23 11:27) contraindicated w/stage 4 CKD trimethoprim [From Bactrim] Adverse Reaction (Intermediate, Verified 09/02/23 11:27) contraindicated w/stage 4 CKD HPI HPI Comments History of Present Illness Details Patient presents for follow-up status post blood to laparotomy. All things considered, she is doing well. She is tolerating a diet. Having normal bowel habits. She has no wound issues or complaints. Patient states that she will need a Port-A-Cath for chemotherapy. She states her tentative date of commencing chemotherapy is September 11. [facility] Medical History Mass of cecum MDD (major depressive disorder), recurrent episode, severe Long COVID IBS (irritable bowel syndrome) Chronic laryngitis Sleep apnea Knee pain, right Anemia HX: benign breast biopsy COVID-19 vaccine administered Difficulty swallowing Chronic renal insufficiency Fatty liver Tremors of nervous system Cognitive dysfunction Osteoarthritis of right knee Dysphagia Hypertension High cholesterol Arthritis Stage 4 chronic kidney disease History of COVID-19 Asthma Surgical History History of total right knee replacement (TKR) Hx laparoscopic cholecystectomy H/O endoscopy History of colonoscopy History of section Family History Daughter Breast cancer Paternal Aunt Breast cancer Social History Household Members: None Housing: House Are you a primary intensive care nurse to a significant other at home: No Do you presently have visiting nurse or other home services: No Alcohol intake: never Patient Tobacco Use Status: Never used Tobacco Second Hand Smoke Exposure: No Advance Directives Date on File: 09/07/21 service: No Current occupational status: retired Current occupation: right handed Sexual orientation: Straight/Heterosexual Physical Exam Vital Signs: Last Vital Signs Pulse 99 09/02/23 11:25 BP 126/67 09/02/23 11:25 Chest Other: Chest sounds bilaterally, HS 1 in 2 GI Other: Abdomen soft. Right lower quadrant incision clean dry and intact, healing very well. 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 Risks, benefits, alternatives of Port-A-Cath placement reviewed the patient and included but not limited to bleeding, infection, pneumothorax, numbness, pain, scarring, catheter migration the patient wishes to proceed. All questions were answered. Arrangements were made for this. 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
== END 2023-09-02 11:39 | disposition home or self-care (01) ==
PROVIDERS: Visit Provider Surgery
DX: C18.1 Malignant neoplasm of appendix (principal); C77.2 Secondary and unspecified malignant neoplasm of intra-abdominal lymph nodes; Z45.2 Encounter for adjustment and management of vascular access device
CPT/HCPCS: 99024

== ENCOUNTER → 2023-09-02 11:17 | Outpatient (BNVA) | payer MEDICARE, SELFPAY | PROVIDERS: Visit Provider Surgery ==

== ENCOUNTER 2023-09-06 08:53 | Day surgery (SDC) | payer MEDICARE, SELFPAY ==
--- NOTE | 2023-09-05 10:30 | MHC.SHP ---
Pre-Procedural Eval Section A Date of Service: 09/05/23 The patient is an INPATIENT: No Changes since office visit: No Cold of Flu in the past 2 weeks, No New Medical Problems, No Changes in Medication and No Patient answered all questions The History & Physical has been completed within 30 days and I have reviewed it.: Yes Section B Chief Complaint: Malignant neoplasm of appendix,malignant neoplasm, Allergies: Allergies Allergy/AdvReac Type Severity Reaction Status Date / Time benztropine [From Cogentin] Allergy Intermediate Rash Verified 09/02/23 11:27 latex Allergy Intermediate Itching Verified 09/02/23 11:27 thimerosal Allergy Intermediate Itching Verified 09/02/23 11:27 topiramate Allergy Swelling Verified 09/02/23 11:27 sulfamethoxazole AdvReac Intermediate contraindicated Verified 09/02/23 11:27 [From Bactrim] w/stage 4 CKD trimethoprim [From Bactrim] AdvReac Intermediate contraindicated Verified 09/02/23 11:27 w/stage 4 CKD Plan I have reviewed the history and physical and performed a pertinent physical examination on my patient. No changes have occurred unless specified. Time Spent With Patient Time: Total time managing care of this patient today ____ minutes.
--- NOTE | 2023-09-05 10:57 | P.CONAN_ITS ---
Documented by User: Kiesha Lo NP 09/05/23 11:00 HPI - Anesthesia Eval Consult details Narrative: 67yo F for Port-a-Cath Insertion [facility] admit 07/2023 - s/p ex lap, right colectomy with GA-ETT 7.5. 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 (Acute) Fungal infection of skin of abdomen (Acute) Physical deconditioning (Acute) Status post total right knee replacement (Acute) Chronic pain (Acute) Knee pain, right (Acute) Past Medical History Medical History Mass of cecum MDD (major depressive disorder), recurrent episode, severe Long COVID IBS (irritable bowel syndrome) Chronic laryngitis Sleep apnea Knee pain, right Anemia HX: benign breast biopsy COVID-19 vaccine administered Difficulty swallowing Chronic renal insufficiency Fatty liver Tremors of nervous system Cognitive dysfunction Osteoarthritis of right knee Dysphagia Hypertension High cholesterol Arthritis Stage 4 chronic kidney disease History of COVID-19 Asthma Family History Family History Daughter Breast cancer Paternal Aunt Breast cancer Family history of problems with anesthesia: No Surgical History Surgical History History of total right knee replacement (TKR) Hx laparoscopic cholecystectomy H/O endoscopy History of colonoscopy History of section History of Problems with Anesthesia: No Social History Social History Household Members: None Housing: House Are you a primary director critical care to a significant other at home: No Do you presently have visiting nurse or other home services: No Alcohol intake: never Patient Tobacco Use Status: Never used Tobacco Second Hand Smoke Exposure: No Advance Directives: No Advance Directives Information Provided: Yes Advance Directives Date on File: 09/07/21 service: No Current occupational status: retired Current occupation: right handed Sexual orientation: Straight/Heterosexual Meds Allergies Allergy/AdvReac Type Severity Reaction Status Date / Time benztropine [From Cogentin] Allergy Intermediate Rash Verified 09/02/23 11:27 latex Allergy Intermediate Itching Verified 09/02/23 11:27 thimerosal Allergy Intermediate Itching Verified 09/02/23 11:27 topiramate Allergy Swelling Verified 09/02/23 11:27 sulfamethoxazole AdvReac Intermediate contraindicated Verified 09/02/23 11:27 [From Bactrim] w/stage 4 CKD trimethoprim [From Bactrim] AdvReac Intermediate contraindicated Verified 09/02/23 11:27 w/stage 4 CKD Active Medications: Current Medications Cefazolin Sodium/Dextrose (Ancef) 2 gm in 50 mls @ 100 mls/hr IV PREOP ONE Stop: 09/05/23 10:58 Home Medications Medication Instructions Recorded Confirmed Last Taken Type dicyclomine 10 mg capsule mg 09/05/23 09/05/23 09/06/23 History amlodipine 2.5 mg tablet 5 mg PO DAILY 09/06/23 09/06/23 History Exam Exam Date and Time: September 05, 2023 1057 Pertinent Lab Results Pertinent Lab Results: Laboratory Tests 08/13/23 05:50 WBC 10.1 Hgb 9.9 L Hct 32.3 L Plt Count 438 H Sodium 140 Potassium 3.7 Chloride 107 Carbon Dioxide 22 BUN 6 L Creatinine 1.15 Narrative Narrative: EKG 07/2023 Vent. Rate : 083 BPM Atrial Rate : 083 BPM P-R Int : 162 ms QRS Dur : 090 ms QT Int : 386 ms P-R-T Axes : 054 044 025 degrees QTc Int : 453 ms Normal sinus rhythm Normal ECG When compared with ECG of 11-JAN-2021 11:50, No significant change was found Assessment and Plan Assessment Anesthesia Assessment: Chart Reviewed Final Anesthetic Review Family History of Problems with Anesthesia: No History of Problems with Anesthesia: No Documented by User: Ac Lama MD 09/06/23 09:10 [facility] Past Medical History Medical History Mass of cecum MDD (major depressive disorder), recurrent episode, severe Long COVID IBS (irritable bowel syndrome) Chronic laryngitis Sleep apnea Knee pain, right Anemia HX: benign breast biopsy COVID-19 vaccine administered Difficulty swallowing Chronic renal insufficiency Fatty liver Tremors of nervous system Cognitive dysfunction Osteoarthritis of right knee Dysphagia Hypertension High cholesterol Arthritis Stage 4 chronic kidney disease History of COVID-19 Asthma Family History Family History Daughter Breast cancer Paternal Aunt Breast cancer Surgical History Surgical History History of total right knee replacement (TKR) Hx laparoscopic cholecystectomy H/O endoscopy History of colonoscopy History of section Social History Social History Household Members: None Housing: House Are you a primary director critical care to a significant other at home: No Do you presently have visiting nurse or other home services: No Alcohol intake: never Patient Tobacco Use Status: Never used Tobacco Second Hand Smoke Exposure: No Advance Directives: No Advance Directives Information Provided: Yes Advance Directives Date on File: 09/07/21 service: No Current occupational status: retired Current occupation: right handed Sexual orientation: Straight/Heterosexual Meds Allergies Allergy/AdvReac Type Severity Reaction Status Date / Time benztropine [From Cogentin] Allergy Intermediate Rash Verified 09/02/23 11:27 latex Allergy Intermediate Itching Verified 09/02/23 11:27 thimerosal Allergy Intermediate Itching Verified 09/02/23 11:27 topiramate Allergy Swelling Verified 09/02/23 11:27 sulfamethoxazole AdvReac Intermediate contraindicated Verified 09/02/23 11:27 [From Bactrim] w/stage 4 CKD trimethoprim [From Bactrim] AdvReac Intermediate contraindicated Verified 09/02/23 11:27 w/stage 4 CKD Home Medications Medication Instructions Recorded Confirmed Last Taken Type dicyclomine 10 mg capsule mg 09/05/23 09/05/23 09/06/23 History amlodipine 2.5 mg tablet 5 mg PO DAILY 09/06/23 09/06/23 History Exam Airway Mallampati Class: III TM Dist: >3cm Neck ROM: Limited Heart: rrr Lungs: cta Assessment and Plan Final Anesthetic Review NPO: Yes ASA Class: III Final Preanesthetic Review: No Changes in Pt Med Stat, Meds/Allgs Chart Reviewed, Consent Obtained/Reviewed and Anes Risks/Benef Reviewed Patient Risk: Intermediate Procedure Risk: Low Anesthetic Plan Anesthetic Plan: MAC: and Agree w/ Assess. and Plan Disposition: Standard PACU
[2023-09-06] VITALS (8 sets, daily range): BP systolic 108–132; BP diastolic 57–73; PULSE 87–95; RESP 14–22; TEMP 36.6–36.8; O2SAT 94–97; BMI 42.5
--- NOTE | ~2023-09-06 | FL_ITS ---
EXAMINATION: XR FLUOROSCOPY WITH IMAGES CLINICAL INFORMATION: Port-A-Cath insertion. COMPARISON: None available. TECHNIQUE: Fluoroscopy Supervised By: Dr. Andres Shields. Fluoroscopy Time: 6.2 seconds. Cumulative Dose: 1.38 mGy. DAP: Gycm2. Images: 2. FINDINGS: Image demonstrates a right jugular port with tip projecting over the cavoatrial junction FL/FL guidance in OR IMPRESSION: Fluoroscopy guidance for Port-A-Cath placement
--- NOTE | 2023-09-06 09:22 | PC.NURSE ---
MD VELEZ DOES NOT WANT A PT/INR FOR THE PATIENTS COUMADIN LEVEL. LAST DOSE PER PATIENT WAS ON SATURDAY.
[2023-09-06] MEDS: Lactated Ringers 1,000 ML 50 ML IVCONT (09:43)
--- NOTE | 2023-09-06 11:04 | P.OP_ITS ---
Operative Note Operative Note Date of Service: 09/06/23 Narrative: Preoperative diagnosis: [] Chemotherapy, IV access Postop diagnosis: [] Same Procedure [] right internal jugular vein Port-A-Cath placement with Doppler ultrasound guidance and fluoroscopy Surgeon: [] Cornelius Senior Product Development Scientist: [] Type of Anesthesia: Was infiltrated 0.5 Mac Indication for surgery: Chemotherapy Findings: Patient brought to the operating room, placed on operative table in supine position, after adequate level of MAC anesthesia was induced, the right and left neck and chest areas were prepped draped in usual sterile fashion. Patient was placed in Trendelenburg position. Incision site was infiltrated with 0.5% Marcaine/1% lidocaine. Using Doppler ultrasound guidance, the right internal jugular vein identified and cannulated using Seldinger technique. A wire was advanced to the level of superior vena cava under fluoroscopic guidance. A pocket was fashioned approximately 4 fingerbreadths below the cannulation site, and tunnelled to the wire. Catheter was placed through the subcutaneous tunnel, connected to a port, and the port secured to the pocket using 3-0 Vicryl sutures. Dilating sheath was then placed over the wire again under fluoroscopic guidance and a wire retrieved. The pre flushed catheter was advanced level of the distal superior vena cava under fluoroscopic guidance. Peel-away sheath was removed without incident. Antegrade and retrograde flow were established easily. Wounds were irrigated, secured hemostasis, and closed using interrupted inverted dermal 3-0 Vicryl sutures followed by Steri-Strips and sterile dressings. Sponge, needle, and instrument counts reported correct. Patient tolerated the procedure well and emerged anesthesia uneventfully. Postprocedure film in operating room demonstrated catheter in good position with no pneumothorax. EBL minimal
== END 2023-09-06 13:00 | disposition home or self-care (01) ==
PROVIDERS: PCP Student in an Organized Health Care Education/Training Program; Visit Provider Surgery
PROC: (CPT 36561; principal; 2023-09-06 10:50)
DX: Z45.2 Encounter for adjustment and management of vascular access device (principal); C18.1 Malignant neoplasm of appendix; C77.2 Secondary and unspecified malignant neoplasm of intra-abdominal lymph nodes; I12.9 Hypertensive chronic kidney disease with stage 1 through stage 4 chronic kidney disease, or unspecified chronic kidney disease; N18.4 Chronic kidney disease, stage 4 (severe); K76.0 Fatty (change of) liver, not elsewhere classified; R25.1 Tremor, unspecified; E78.00 Pure hypercholesterolemia, unspecified; J45.909 Unspecified asthma, uncomplicated; G47.30 Sleep apnea, unspecified; Z90.49 Acquired absence of other specified parts of digestive tract; Z79.899 Other long term (current) drug therapy; Z88.2 Allergy status to sulfonamides; Z88.8 Allergy status to other drugs, medicaments and biological substances; Z91.040 Latex allergy status; Z87.891 Personal history of nicotine dependence; Z86.16 Personal history of COVID-19
CPT/HCPCS: 36561; C1788; J0690; J1643; J2250

== ENCOUNTER → 2023-09-06 08:53 | Outpatient (BNV) | payer MEDICARE, SELFPAY | PROVIDERS: PCP Student in an Organized Health Care Education/Training Program; Visit Provider Surgery | DX: C18.1 Malignant neoplasm of appendix (principal); C77.2 Secondary and unspecified malignant neoplasm of intra-abdominal lymph nodes; Z45.2 Encounter for adjustment and management of vascular access device | CPT/HCPCS: 36561; 76937; 77001 ==

== ENCOUNTER 2024-08-10 10:14 | Outpatient (AMB) | payer MEDICARE, SELFPAY ==
--- NOTE | 2024-08-10 10:32 | A.OFFVIS_ITS ---
Vital Signs 08/10/24 10:32 Height 5 ft 1 in Intake Visit Reasons: New Prob - Left Knee & Left Shoulder Pain Intake Note: Devi is a 68 year old female who presents today for a new problem visit with complaints of left knee and left shoulder pain that has been gradually worsening for a few months. Patient reports limited ROM on her left shoulder making it difficult to lift her arm above her head or behind her back. She also reports the left knee feels like it is grinding, describing it as bone on bone . Patient feels like it gives out making it difficult to ambulate or climb. She has not tried PT or steroid injections for neither joint. She has a Hx of R TKA 02/14/2021 [place]. Allergies benztropine [From Cogentin] Allergy (Intermediate, Verified 08/10/24 10:32) Rash latex Allergy (Intermediate, Verified 08/10/24 10:32) Itching thimerosal Allergy (Intermediate, Verified 08/10/24 10:32) Itching topiramate Allergy (Verified 08/10/24 10:32) Swelling sulfamethoxazole [From Bactrim] Adverse Reaction (Intermediate, Verified 08/10/24 10:32) contraindicated w/stage 4 CKD trimethoprim [From Bactrim] Adverse Reaction (Intermediate, Verified 08/10/24 10:32) contraindicated w/stage 4 CKD HPI HPI New Prob - Left Knee & Left Shoulder Pain: Details: Devi is a 68 year old female who presents today for a new problem visit with complaints of left knee and left shoulder pain that has been gradually worsening for a few months. Patient reports limited ROM on her left shoulder making it difficult to lift her arm above her head or behind her back. She also reports the left knee feels like it is grinding, describing it as bone on bone . Patient feels like it gives out making it difficult to ambulate or climb. She has not tried PT or steroid injections for neither joint. She has a Hx of R [place]20[place]. [facility] Medical History (Updated 08/10/24 @ 12:06 by Werner Brooks MD) Pulmonary embolism Mass of cecum MDD (major depressive disorder), recurrent episode, severe Long COVID IBS (irritable bowel syndrome) Chronic laryngitis Sleep apnea Knee pain, right Anemia HX: benign breast biopsy COVID-19 vaccine administered Difficulty swallowing Chronic renal insufficiency Fatty liver Tremors of nervous system Cognitive dysfunction Osteoarthritis of right knee Dysphagia Hypertension High cholesterol Arthritis Stage 4 chronic kidney disease History of COVID-19 Asthma Surgical History (Updated 09/06/23 @ 09:08 by Rebecca Savage RN) History of partial colectomy History of appendectomy History of total right knee replacement (TKR) Hx laparoscopic cholecystectomy H/O endoscopy History of colonoscopy History of section Family History Daughter Breast cancer Paternal Aunt Breast cancer Social History Household Members: None Housing: House Are you a primary administrator health care facility to a significant other at home: No Do you presently have visiting nurse or other home services: No Alcohol intake: never Patient Tobacco Use Status: Former Tobacco user Tobacco use type: Cigarette Second Hand Smoke Exposure: No Advance Directives Date on File: 09/07/21 service: No Current occupational status: retired Current occupation: right handed Sexual orientation: Straight/Heterosexual Physical Exam Extrem Other: Left shoulder with positive Bill and Neer 35 degrees of external rotation and 120 degrees of forward flexion. 90 degrees of abduction Left knee with tenderness to palpation medial compartment. Office Procedures Joint Injection/Aspiration Joint Injection/Aspiration Details: Injected 1 mL of Decadron and 3 mL 1% lidocaine and 3 mL of 0.25% Marcaine. Site was prepped using aseptic technique. Patient tolerated the procedure well. Primary Site: right knee Secondary Site: left knee Approach Used: anterolateral Coding - Large joint - Glenohumeral/Tronchanteric Bursa/Intraarticular Procedure code (CPT) selection complete Assessment & Plan Assessment & Plan (1) Arthritis of left knee: Code(s): M17.12 - Unilateral primary osteoarthritis, left knee Category: Medical Plan: I injected her left knee. She is not a surgical candidate. (2) Painful arc syndrome of left shoulder: Code(s): M75.102 - Unspecified rotator cuff tear or rupture of left shoulder, not specified as traumatic Category: Medical Plan: I injected her left shoulder. She is not a surgical candidate. She will con tech me if she would like to pursue physical therapy. Coding Level of Care Code Est Pt Level 3 (98249) Diagnoses Arthritis of left knee M17.12 Painful arc syndrome of left shoulder M75.102 CPT Codes Coding - 48543 Large joint: 27136 - Large joint ([id number]) Coding - Joint 7: 58334 - Glenohumeral/Tronchanteric Bursa/Intraarticular ([id number])
== END 2024-08-10 11:23 | disposition home or self-care (01) ==
PROVIDERS: PCP Student in an Organized Health Care Education/Training Program; Visit Provider Orthopaedic Surgery
DX: M17.12 Unilateral primary osteoarthritis, left knee (principal); M75.102 Unspecified rotator cuff tear or rupture of left shoulder, not specified as traumatic
CPT/HCPCS: 20610; 99213

== ENCOUNTER → 2024-08-10 10:14 | Outpatient (BNVA) | payer MEDICARE, SELFPAY | PROVIDERS: PCP Student in an Organized Health Care Education/Training Program; Visit Provider Orthopaedic Surgery | DX: M25.562 Pain in left knee (principal); M25.512 Pain in left shoulder; M75.102 Unspecified rotator cuff tear or rupture of left shoulder, not specified as traumatic | CPT/HCPCS: 20610; 99212; J0665; J1100 ==

== ENCOUNTER 2024-08-26 10:07 | Outpatient (AMB) | payer MEDICARE, SELFPAY ==
--- NOTE | 2024-08-26 10:18 | A.OFFVIS_ITS ---
Vital Signs 08/26/24 10:26 Height 5 ft 1 in Weight 226 lb BMI 42.7 BP 127/59 L Blood Pressure Location Rt brachial Position Sitting Pulse 89 Intake Visit Reasons: discuss options (multiple SBO's) Intake Note: Patient here to for 2nd opinion. Has had 5 bowel obstructions since last visit. Patient c/o: constipation. Taking Miralax, senna with help. [employer] Required: No Accompanied by: daughter Danielle Allergies benztropine [From Cogentin] Allergy (Intermediate, Verified 08/26/24 10:24) Rash latex Allergy (Intermediate, Verified 08/26/24 10:24) Itching thimerosal Allergy (Intermediate, Verified 08/26/24 10:24) Itching topiramate Allergy (Verified 08/26/24 10:24) Swelling sulfamethoxazole [From Bactrim] Adverse Reaction (Intermediate, Verified 08/26/24 10:24) contraindicated w/stage 4 CKD trimethoprim [From Bactrim] Adverse Reaction (Intermediate, Verified 08/26/24 10:24) contraindicated w/stage 4 CKD Medication List - Last Reconciled 08/26/24 by Andres Shields MD albuterol sulfate 90 mcg/actuation (Ventolin HFA) 2 puffs inhalation RQ4H PRN amlodipine 5 mg See Protocol PO DAILY apixaban (Eliquis) 2.5 mg PO BID aripiprazole (Abilify) 2.5 mg (1/2 x 5 mg) PO DAILY ascorbic acid (vitamin C) 250 mg PO DAILY atorvastatin 20 mg PO DAILY bumetanide 1 mg PO DAILY bupropion HCl XL 300 mg PO DAILY [calcitriol 0.25 mcg PO DAILY] clonazepam 2 mg (2 x 1 mg) PO BEDTIME clonidine HCl 0.2 mg See Protocol PO BEDTIME dicyclomine 10 mg PO DAILY fluoxetine 40 mg (2 x 20 mg) PO DAILY fluticasone propionate 50 mcg/actuation 2 sprays intranasal DAILY gabapentin 100 mg PO DAILY guaifenesin ER (Mucinex) 600 mg PO BID [hydralazine 25 mg PO DAILY] loratadine 10 mg PO BEDTIME omeprazole 20 mg PO BID@0630,1630 quetiapine 100 mg PO BEDTIME HPI Comments Details: Patient whom I know from the past who presents here status post several admissions at [facility] for partial small bowel obstruction. Patient and daughter who was also present were told that she should have a G-tube placed. Patient presents here to discuss that with me. Apparently patient has been also seen at [facility] where evaluation for HIPEC was entertained but was felt that the patient was not a candidate for this. Patient's oncologist were also at [facility]. All her admissions for bowel obstruction of a partial with resolution of symptoms within 2-3 days. At present, patient was tolerating a diet. He is having regular bowel habits. She has no real abdominal complaints. She is currently on chemotherapy [facility] Medical History (Updated 08/10/24 @ 12:06 by Werner Brooks MD) Pulmonary embolism Mass of cecum MDD (major depressive disorder), recurrent episode, severe Long COVID IBS (irritable bowel syndrome) Chronic laryngitis Sleep apnea Knee pain, right Anemia HX: benign breast biopsy COVID-19 vaccine administered Difficulty swallowing Chronic renal insufficiency Fatty liver Tremors of nervous system Cognitive dysfunction Osteoarthritis of right knee Dysphagia Hypertension High cholesterol Arthritis Stage 4 chronic kidney disease History of COVID-19 Asthma Surgical History (Updated 08/26/24 @ 11:21 by Andres Shields MD) History of partial colectomy History of appendectomy History of total right knee replacement (TKR) Hx laparoscopic cholecystectomy H/O endoscopy History of colonoscopy History of section Family History Daughter Breast cancer Paternal Aunt Breast cancer Social History Household Members: None Housing: House Are you a primary doggy daycare activities director to a significant other at home: No Do you presently have visiting nurse or other home services: No Alcohol intake: never Patient Tobacco Use Status: Former Tobacco user Tobacco use type: Cigarette Second Hand Smoke Exposure: No Advance Directives Date on File: 09/07/21 service: No Current occupational status: retired Current occupation: right handed Sexual orientation: Straight/Heterosexual Physical Exam Vital Signs: Last Vital Signs Pulse 89 08/26/24 10:26 BP 127/59 L 08/26/24 10:26 BMI result Body Mass Index 42.7 GI Other: Abdomen corpulent, soft, benign Assessment & Plan Assessment & Plan (1) Adenocarcinoma carcinomatosis: Code(s): C80.0 - Disseminated malignant neoplasm, unspecified Category: Surgical Plan At present, I do not think that a G-tube is indicated for the patient at this time. Her partial bowel obstructions could be either from adhesions or from tumor burden. Because she has resolution within a matter of few days, I would recommend that that be her treatment and no G-tube or any further interventions warranted unless the patient progresses with acute small-bowel obstruction not resolving with conservative therapy. At present, no acute surgical issues to be undertaken. Patient will otherwise follow-up with me p.r.n.. All questions answered. Coding Level of Care Code Est Pt Level 4 (73799) Diagnoses Adenocarcinoma carcinomatosis C80.0
[2024-08-26 10:26] VITALS: BP 127/59; PULSE 89; BMI 42.7
== END 2024-08-26 10:39 | disposition home or self-care (01) ==
PROVIDERS: PCP Student in an Organized Health Care Education/Training Program; Visit Provider Surgery
DX: C80.0 Disseminated malignant neoplasm, unspecified (principal)
CPT/HCPCS: 99214

== ENCOUNTER → 2024-08-26 10:07 | Outpatient (BNVA) | payer MEDICARE, SELFPAY | PROVIDERS: PCP Student in an Organized Health Care Education/Training Program; Visit Provider Surgery | DX: C80.0 Disseminated malignant neoplasm, unspecified (principal) | CPT/HCPCS: 99212 ==

== ENCOUNTER 2024-11-23 14:15 | Outpatient (AMB) | payer MEDICARE, SELFPAY ==
--- NOTE | 2024-11-23 14:32 | MHC.OFFVIS ---
Intake Visit Reasons: OV - Left Knee OA - Last Inj 07/31/24 Intake Note: Devi is a 68 year old female who presents today for a follow up of her Left Knee OA. Left Knee Injection - 08/10/24 Left Shoulder Injection - 08/10/24 Right TKA - 02/14/2021 Allergies benztropine [From Cogentin] Allergy (Intermediate, Verified 08/26/24 10:24) Rash latex Allergy (Intermediate, Verified 08/26/24 10:24) Itching thimerosal Allergy (Intermediate, Verified 08/26/24 10:24) Itching topiramate Allergy (Verified 08/26/24 10:24) Swelling sulfamethoxazole [From Bactrim] Adverse Reaction (Intermediate, Verified 08/26/24 10:24) contraindicated w/stage 4 CKD trimethoprim [From Bactrim] Adverse Reaction (Intermediate, Verified 08/26/24 10:24) contraindicated w/stage 4 CKD HPI HPI OV - Left Knee OA - Last Inj 07/31/24: Details: Left knee pain. Knee occasionally gives out. Injections have been helpful. She has been diagnosed with stage IV appendiceal cancer and has only months to live. [facility] Medical History (Updated 08/10/24 @ 12:06 by Werner Brooks MD) Pulmonary embolism Mass of cecum MDD (major depressive disorder), recurrent episode, severe Long COVID IBS (irritable bowel syndrome) Chronic laryngitis Sleep apnea Knee pain, right Anemia HX: benign breast biopsy COVID-19 vaccine administered Difficulty swallowing Chronic renal insufficiency Fatty liver Tremors of nervous system Cognitive dysfunction Osteoarthritis of right knee Dysphagia Hypertension High cholesterol Arthritis Stage 4 chronic kidney disease History of COVID-19 Asthma Surgical History (Updated 08/26/24 @ 11:21 by Andres Shields MD) History of partial colectomy History of appendectomy History of total right knee replacement (TKR) Hx laparoscopic cholecystectomy H/O endoscopy History of colonoscopy History of section Family History Daughter Breast cancer Paternal Aunt Breast cancer Social History Household Members: None Housing: House Are you a primary health and social care teacher to a significant other at home: No Do you presently have visiting nurse or other home services: No Alcohol intake: never Patient Tobacco Use Status: Former Tobacco user Tobacco use type: Cigarette Second Hand Smoke Exposure: No Advance Directives Date on File: 09/07/21 service: No Current occupational status: retired Current occupation: right handed Sexual orientation: Straight/Heterosexual Physical Exam Extrem Other: Stable to varus and valgus stress. Stable Morales's anterior drawer. No effusion. Tenderness to palpation medial joint line. Office Procedures Joint Inj/Aspir; Non-Pain Clin Joint Injection/Drain Details: Injected 1 mL of Decadron and 3 mL 1% lidocaine and 3 mL of 0.25% Marcaine. Site was prepped using aseptic technique. Patient tolerated the procedure well. Shoulders, Hips, Knees, Knee Large Joint Injection : Left Knee Coding Procedure code (CPT) selection complete Assessment & Plan Assessment & Plan (1) Arthritis of left knee: Code(s): M17.12 - Unilateral primary osteoarthritis, left knee Category: Medical Plan: Injected left knee today. May follow up p.r.n.. Coding Level of Care Code Est Pt Level 3 (41402) Diagnoses Arthritis of left knee M17.12 CPT Codes Shoulders, Hips, Knees, - Knee Large Joint Injection : Left Knee ([id number])
== END 2024-11-23 14:45 | disposition home or self-care (01) ==
PROVIDERS: PCP Student in an Organized Health Care Education/Training Program; Visit Provider Orthopaedic Surgery
DX: M17.12 Unilateral primary osteoarthritis, left knee (principal)
CPT/HCPCS: 20610; 99213

== ENCOUNTER → 2024-11-23 14:15 | Outpatient (BNVA) | payer MEDICARE, SELFPAY | PROVIDERS: PCP Student in an Organized Health Care Education/Training Program; Visit Provider Orthopaedic Surgery | DX: M17.12 Unilateral primary osteoarthritis, left knee (principal) | CPT/HCPCS: 20610; 99212; J0665; J1100; J2003 ==